=== PATIENT | female | born 1940 | race Caucasian/White ===

== ENCOUNTER 2017-08-18 08:23 | Day surgery (SDC) | payer MEDICARE ==
[~2017-08-18 08:23] MED LIST: Acetaminophen TAB* 325 MG PO PRN; Buffered Lidocaine 0.9% SYRIN* 5 ML/SYR SYRINGE INTRADERM ONE
[2017-08-18] MEDS ORDERED: fentaNYL* 50 MCG/ML 2 ML VIAL (100 MCG VIAL) ONE (10:18)
[2017-08-18] MEDS ORDERED: Midazolam* 1 MG/ML 2 ML VIAL (2 MG) ONE (10:18)
[2017-08-18] MEDS ORDERED: Phenylephr/Ketorolac 1%/0.3% OPH DROP BTL ONE ×2 (11:30→11:39)
[2017-08-18] MEDS ORDERED: Cyclopentolate 1% OPTH.SOL* 2 ML BTL ONE (11:30)
[2017-08-18] MEDS ORDERED: Tropicamide 1% OPTH.SOL* BTL ONE (11:30)
[2017-08-18] MEDS ORDERED: Phenylephrine 2.5% OPTH.SOL* 2 ML BTL ONE (11:30)
[2017-08-18] MEDS ORDERED: Neomycin/Polymy/Dex OPHTH.OIN* 3.5 GM ONE (11:30)
[2017-08-18] MEDS ORDERED: Tetracaine 0.5% OPTH.SOL 4 ML* 1 DROP BTL ONE (11:30)
[2017-08-18] MEDS ORDERED: Ketorolac 0.5% OPHTH (NF) 0.5 % 5 ML BTL ONE (11:30)
[2017-08-18] MEDS ORDERED: Lidocaine 1%* 5 ML VIAL ONE (11:30)
[2017-08-18 12:11] VITALS: BP 107/66
--- NOTE | 2017-08-19 08:15 | OP ---
DATE OF OPERATION: 08/18/17 [facility] DATE OF : 42 SURGEON: Dr. Ash Holland. DRAWER IN JACQUARD LOOM: None. ANESTHESIA: Topical with intravenous sedation. PRE-OP DIAGNOSIS: Cataract, right eye. POST-OP DIAGNOSIS: Cataract, right eye. OPERATIVE PROCEDURE: Phacoemulsification and cataract extraction with posterior chamber intraocular lens implant, right eye. COMPLICATIONS: None. BLOOD LOSS: None. DESCRIPTION OF PROCEDURE: The patient was brought to the operating room and received a small amount of intra-venous sedation. A drop of Tetracaine was placed in her right eye. She was prepped and draped in the usual sterile fashion for ophthalmic surgery and attention was directed to the right eye where a speculum was placed. A paracentesis was created at the 11 o'clock position and 0.1 cc of 1 percent preservative-free Lidocaine was injected into the anterior chamber followed by DisCoVisc. The eye was digitally stabilized while a 2.75 mm keratome was used to create a triplanar clear corneal incision at the 9 o'clock position. A continuous curvilinear capsulorrhexis was created with a cystotome and Utrata forceps. BSS on a cannula was used to hydrodissect the lens from the capsule. Phacoemulsification was performed in a divide-and- conquer technique to create four fragments which were removed. Residual cortical material was removed with irrigation and aspiration. DisCoVisc was used to inflate the capsular bag and an AUOOTO 30.0 diopter lens was folded and inserted into the capsular bag. DisCoVisc was removed using irrigation and aspiration. BSS on a cannula was used to hydrate the corneal stroma and seal the wound. At the end of the case the pupil was round and the lens was centered. The eye was of normal pressure and the wound was water tight. The speculum was removed and topical Maxitrol ointment was placed on the surface of the eye. The eye was closed, patched and shielded and the patient was sent to the recovery room in stable condition with post operative instructions and follow-up appointment given. [id number]/CPS #: [id number] UJAN
== END 2017-08-18 12:18 | disposition home or self-care (01) ==
LOC: OREAST 08:23
PROVIDERS: ATTEND Ophthalmology
DX: H25.11 Age-related nuclear cataract, right eye (principal); K21.9 Gastro-esophageal reflux disease without esophagitis; M19.90 Unspecified osteoarthritis, unspecified site; Z87.39 Personal history of other diseases of the musculoskeletal system and connective tissue
CPT/HCPCS: A9270-GY; C9447; J2250; J3010; V2632

== ENCOUNTER 2019-01-28 12:41 | Inpatient (IN) | payer MEDICARE ==
--- NOTE | 2019-01-28 12:50 | ED ---
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 The patient states she woke up on the floor and does not remember the fall. She reports pain in her upper left arm that is old. She states she took a 2 percocet for this pain yesterday, a medication she took for the first time. She has a Hx of shingles. Medications reviewed, allergies noted. She denies chest pain, and SOB. - History of Current Complaint Stated Complaint: FALL Hx Obtained From: Patient, EMS Mechanism of Injury: Fall Loss of Consciousness: unsure Onset/Duration: Started Minutes Ago - Additional Pertinent History Primary Care Physician: PAZ - Allergy/Home Medications Allergies/Adverse Reactions: Allergies Allergy/AdvReac Type Severity Reaction Status Date / Time No Known Allergies Allergy Verified 08/18/17 09:28 Home Medications: Home Medications Calcium Carbonate/Vitamin D3 [Calcium 500 + Vit D Caplet] 1 each PO DAILY [History Confirmed 01/28/19] Cyclobenzaprine TAB* [Flexeril 10 MG TAB*] 5 mg PO TID PRN 01/28/19 [History Confirmed 01/28/19] Gabapentin CAP(*) [Neurontin 300 CAP(*)] 300 mg PO TID 01/28/19 [History Confirmed 01/28/19] Meloxicam(NF) [Mobic(NF)] 7.5 mg PO BID PRN 01/28/19 [History Confirmed 01/28/19 ] Oxycodone HCl/Acetaminophen [Percocet 7.5-325 mg Tablet] 1 each PO Q6HR PRN 11/08 [History Confirmed 01/28/19] Triamcinolone Acetonide [Trianex] 0.05 % TOPICAL BID 01/28/19 [History Confirmed 01/28/19] predniSONE TAB* [Deltasone TAB*] 50 mg PO DAILY 01/28/19 [History Confirmed 11/08] PMH/Surg Hx/FS Hx/Imm Hx Endocrine/Hematology History: Reports: Hx Anemia - only during Denies: Hx Anticoagulant Therapy Cardiovascular History: Reports: Hx Rheumatic Fever - as a child GI History: Reports: Hx Gastroesophageal Reflux Disease History: Reports: Hx Kidney Stones - 6 yrs ago - passed on own Musculoskeletal History: Reports: Hx Arthritis, Hx Bursitis, Hx Osteoporosis, Other Musculoskeletal History - Lyme disease Sensory History: Reports: Hx Cataracts - right eye, Hx Contacts or Glasses - glasses Denies: Hx Hearing Aid Opthamlomology History: Reports: Hx Cataracts - right eye, Hx Contacts or Glasses - glasses - Cancer History Hx Chemotherapy: No Hx Radiation Therapy: No - Surgical History Surgery Procedure, Year, and Place: APPENDECTOMY Hx Anesthesia Reactions: No - Family History Known Family History: Negative: Cardiac Disease - Social History Alcohol Use: Rare Substance Use Type: Reports: None Smoking Status (MU): Never Smoked Tobacco Review of Systems Negative: Fever Positive: Other - Left arm pain Neurological: Other - Memory Loss All Other Systems Reviewed And Are Negative: Yes Physical Exam - Summary Physical Exam Summary: Constitutional: Well-developed, Well-nourished, Alert, Cooperative Skin: Warm, Dry HENT: Normocephalic; No Racoons eyes; No gary's sign; No abrasion; No contusion; No hemotympanum; No maxilla facial tenderness or instability; Dentition are smooth; No dental trauma; No trismus Eyes: EOM normal, PERRL Neck: Trachea is midline. No stridor; No JVD; No step off; No posterior cervical spine tenderness Cardio: Rhythm regular, rate normal Heart sounds normal; Intact distal pulses. Radial pulses are 2+ and symmetric. Pulmonary/Chest wall: Effort normal; Breath sounds normal; Equal chest rise; No flail segment; No rib tenderness; No sternal tenderness Abd: Soft, Appearance normal. No distension; No tenderness; No palpable pulsatile mass; No Cullens sign; No Wilkes-Turners sign Musculoskeletal: Full ROM and no tenderness at hips, ankles, shoulders, elbows and knees; No joint swelling; No vertebral body tenderness; No paraspinal tenderness; No step off or deformity of the spine; Pelvis is stable to lateral compression and rock Neuro: Alert, Oriented x3, LUE weakness which is at baseline. : No blood at urethral meatus Psych: Mood and affect Normal Triage Information Reviewed: Yes Vital Signs On Initial Exam: Temp Pulse Resp BP Pulse Ox 98.5 F 92 17 93/61 98 01/28/19 12:52 01/28/19 12:52 01/28/19 12:52 01/28/19 12:52 01/28/19 12:52 Vital Signs Reviewed: Yes Procedures - Sedation Patient Received Moderate/Deep Sedation with Procedure: No Diagnostics - Vital Signs Temp Pulse Resp BP Pulse Ox 98.5 F 92 17 93/61 98 01/28/19 12:52 01/28/19 12:52 01/28/19 12:52 01/28/19 12:52 01/28/19 12:52 - Laboratory Result Diagrams: 01/28/19 12:58 01/28/19 12:58 Lab Statement: Any lab studies that have been ordered have been reviewed, and results considered in the medical decision making process. - Radiology CXR Radiology Interpretation Completed By: Radiologist Summary of Radiographic Findings: Linear atelectasis versus pleuroparenchymal scarring of the left lung base. ED Provider has reviewed this report. - CT Brain CT Interpretation Completed By: Radiologist Summary of CT Findings: 1. No evidence for acute intracranial abnormality. 2. Findings suggestive of mild chronic small vessel schema changes. ED Provider has reviewed this report. - EKG 1307 Cardiac Rate: Tachycardia - 117 BPM EKG Rhythm: Sinus Tachycardia Summary of EKG Findings: No STEMI. ED Physician has reviewed and interpreted this report. Re-Evaluation - Re-Evaluation First Eval Re-Evaluation Time: 15:26 Comment: Patient is becoming more tachycardic. Her friend states she is becoming tremolous and started Gabapentin. She has become worse than earlier this week, Adult Trauma Course/Dx - Course Course Of Treatment: Patient is here being found on the ground. Patient cannot remember what happened. Patient has started gabapentin and Percocet this week which is caused her to become tremulous. Patient was overall well-appearing upon arrival with no complaints. Patient negative CT head. Patient had let up for which showed a mild cytosis. Patient was initially tachycardic but had worsening tachycardia here. Patient then had a larger workup performed to evaluate for this. Patient does have a lactate of 2.60 she was given antibiotics empirically. Patient wasn't found to be febrile, given Tylenol, and had blood cultures taken. Patient was admitted to the hospitalist for further management. - Diagnoses Provider Diagnoses: Tachycardia, CECE (acute kidney injury), Dehydration, Medication side effects Discharge ED - Sign-Out/Discharge Documenting (check all that apply): Patient Departure - Admission, per Dr. Beasley - Discharge Plan Condition: Stable Disposition: ADMITTED TO [facility] Referrals: Jessica Ponce MD [Primary Care Provider] - - Billing Disposition and Condition Condition: STABLE Disposition: Admitted to [facility] - Attestation Statements Document Initiated by Max: Yes Documenting Scribe: Bartolo Ayon Provider For Whom Max is Documenting (Include Credential): Rolando Jackson MD Scribe Attestation: IBartolo, scribed for Rolando Jackson MD on 01/28/19 at 1759. Scribe Documentation Reviewed: Yes Provider Attestation: The documentation as recorded by the Bartolo solis accurately reflects the service I personally performed and the decisions made by me, Rolando Jackson MD Status of Scribe Document: Viewed
--- OUTSIDE RECORDS SUMMARY | 2019-01-28 12:59 | XMS REPORT | Continuity of Care Document ---
:1940 External Reference #:[id number] Author Name Melissa Puentes MD (transmitted by agent of provider Aftab Romero) Address [address], [place] [address] Care Team Providers Name Role Phone Jessica Mayen MD - Family Care Team Information Hr Representative Medicine Problems Active Problems Provider Date Cellulitis of left lower limb Melissa Puentes MD Onset: 12/10/2018 Displaced intertrochanteric fracture of left Melissa Puentes MD Onset: 2018 femur, subsequent encounter for closed fracture with routine healing Social History Type Date Description Comments Sex Unknown ETOH Use Denies alcohol use Tobacco Use Start: Unknown Patient has never smoked Smoking Status Reviewed: 12/10/18 Patient has never smoked Exercise Type/Frequency Exercises regularly Allergies, Adverse Reactions, Alerts Description No Known Drug Allergies Medications Active Medications SIG Qnty Indications Ordering Provider Date Keflex take 1 tab by 15caps Melissa Puentes MD 12/08/2018 500mg Capsules mouth 3 times a day x 5 days until finished. Tramadol HCL Take 1 Tablet By Unknown 50mg Mouth Three Times Tablets Daily as Needed For Pain -- Maximum Daily Doseof 3 Per Day Omeprazole Take 1 Capsule By Unknown 20mg Mouth Every Capsules DR Morning Immunizations Description No Information Available Vital Signs Date Vital Result Comment 12/10/2018 10:20am Height 62 inches 5'2" Weight 136.00 lb BP Systolic 118 mmHg BP Diastolic 66 mmHg Respiratory Rate 14 /min Body Temperature 97.3 F Pain Level 3 BMI (Body Mass Index) 24.9 kg/m2 11/19/2018 2:21pm Heart Rate 104 /min BP Systolic 116 mmHg BP Diastolic 78 mmHg Respiratory Rate 18 /min Body Temperature 97.6 F Pain Level 4 Results Description No Information Available Procedures Date Code Description Status 11/06/2018 12014 FX TX Inter/Eri Or Sub Chanteric Femoral FX Completed W/Implant 11/06/2018 42561 FX TX Inter/Eri Or Sub Chanteric Femoral FX Completed W/Implant 08/20/2007 [id number] Bone Mineral Density Test Completed 08/17/2007 488210497 Bone Mineral Density Test Completed 08/24/2002 950760351 Bone Mineral Density Test Completed Medical Devices Description No Information Available Encounters Type Date Location Provider Dx Diagnosis Office Visit 11/12/2018 [facility] Shira Braxton S72.142A Displaced 10:23a [facility] intertrochanteric Hospitalists fracture of left femur, init D62 Acute posthemorrhagic anemia Office Visit 11/10/2018 10:22a [facility] S72.002A Fracture of Assoc,[facility] Kimi Doto, unsp part of Hospitalists DEMOGRAPHER neck of left femur, init I95.9 Hypotension, unspecified D62 Acute posthemorrhagic anemia Office Visit 11/09/2018 10:22a [facility] S72.002A Fracture of Assoc,pc Kimi Doto, unsp part of Hospitalists DEMOGRAPHER neck of left femur, init I95.9 Hypotension, unspecified D62 Acute posthemorrhagic anemia Office Visit 11/08/2018 10:21a [facility] S72.002A Fracture of Assoc,pc Kimi Doto, unsp part of Hospitalists DEMOGRAPHER neck of left femur, init I95.9 Hypotension, unspecified D62 Acute posthemorrhagic anemia Office Visit 11/07/2018 10:20a [facility] S72.002A Fracture of Assoc,pc Kimi Doto, unsp part of Hospitalists DEMOGRAPHER neck of left femur, init D62 Acute posthemorrhagic anemia Office 11/06/2018 [facility] S72.002A Fracture of unsp part Visit 10:20a [facility]oc[facility] Kimi of neck of left Hospitalists Doto, DEMOGRAPHER femur, init Office 11/06/2018 [facility] S72.142A Displaced Visit 7:28a [facility] intertrochanteric [facility] fracture of left femur, init S72.22xA Displaced subtrochanteric fracture of left femur, init W01.0xxA Fall same lev from slip/trip w/o strike against object, init Office Visit 11/05/2018 [facility] Orlando Myers S72.002A Fracture of 10:20a Assoc[facility]pc Monica Arevalo,FACP unsp part of Hospitalists neck of left femur, init Assessments Date Code Description Provider 12/10/2018 S72.142D Displaced intertrochanteric fracture Melissa Puentes MD of left femur, subsequent encounter for closed fracture with routine healing 12/10/2018 L03.116 Cellulitis of left lower limb Melissa Puentes MD 11/19/2018 S72.142D Displaced intertrochanteric fracture Obie Duarte MD of left femur, subsequent encounter for closed fracture with routine healing 11/19/2018 Z47.89 Encounter for other orthopedic Obie Duarte MD aftercare 11/12/2018 S72.142D Displaced intertrochanteric fracture GOMEZ Askew of left femur, subsequent encounter for closed fracture with routine healing 11/12/2018 S72.142A Displaced intertrochanteric fracture Shira Braxton, N.P. of left femur, initial encounter for closed fracture 11/12/2018 D62 Acute posthemorrhagic anemia Shira Braxton N.P. 11/11/2018 S72.142D Displaced intertrochanteric fracture CIELO Nicholas of left femur, subsequent encounter for closed fracture with routine healing 11/10/2018 S72.142D Displaced intertrochanteric fracture CIELO Nicholas of left femur, subsequent encounter for closed fracture with routine healing 11/10/2018 S72.002A Fracture of unspecified part of neck Yumiko Walton NP of left femur, initial encounter for closed fracture 11/10/2018 I95.9 Hypotension, unspecified Yumiko Walton DEMOGRAPHER 11/10/2018 D62 Acute posthemorrhagic anemia Yumiko Walton NP 11/09/2018 S72.002A Fracture of unspecified part of neck Yumiko Walton NP of left femur, initial encounter for closed fracture 11/09/2018 I95.9 Hypotension, unspecified Yumiko Kimi Doto, DEMOGRAPHER 11/09/2018 D62 Acute posthemorrhagic anemia [facility] Doto, DEMOGRAPHER 11/08/2018 S72.142D Displaced intertrochanteric fracture CIELO Chinchilla of left femur, subsequent encounter for closed fracture with routine healing 11/08/2018 S72.002A Fracture of unspecified part of neck Yumiko Kimi Doto, DEMOGRAPHER of left femur, initial encounter for closed fracture 11/08/2018 I95.9 Hypotension, unspecified Yumiko Kimi Doto, DEMOGRAPHER 11/08/2018 D62 [facility]orrhagic [facility] 11/07/2018 S72.002A Fracture of unspecified part of neck Yumiko Kimi Doto, DEMOGRAPHER of left femur, initial encounter for closed fracture 11/07/2018 S72.142A Displaced intertrochanteric fracture Melissa Puentes MD of left femur, initial encounter for closed fracture 11/07/2018 D62 Acute posthemorrhagic anemia Yumiko Kimi Doto, DEMOGRAPHER 11/07/2018 S72.22xA Displaced subtrochanteric fracture of Melissa Puentes MD left femur, initial encounter for closed fracture 11/07/2018 W01.0xxA Fall on same level from slipping, Melissa Puentes MD tripping and stumbling without subsequent striking against object, initial encounter 11/06/2018 S72.002A Fracture of unspecified part of neck Yumiko Kimi Anton, DEMOGRAPHER of left femur, initial encounter for closed fracture 11/06/2018 S72.142A Displaced intertrochanteric fracture CIELO Hernandez of left femur, initial encounter for closed fracture 11/06/2018 S72.142A Displaced intertrochanteric fracture Melissa Puentes MD of left femur, initial encounter for closed fracture 11/06/2018 S72.22xA Displaced subtrochanteric fracture of CIELO Hernandez left femur, initial encounter for closed fracture 11/06/2018 S72.142A Displaced intertrochanteric fracture Melissa Puentes MD of left femur, initial encounter for closed fracture 11/06/2018 W01.0xxA Fall on same level from slipping, CIELO Hernandez tripping and stumbling without subsequent striking against object, initial encounter 11/06/2018 S72.22xA Displaced subtrochanteric fracture of Melissa Puentes MD left femur, initial encounter for closed fracture 11/06/2018 S72.22xA Displaced subtrochanteric fracture of Melissa Puentes MD left femur, initial encounter for closed fracture 11/06/2018 W01.0xxA Fall on same level from slipping, Melissa Puentes MD tripping and stumbling without subsequent striking against object, initial encounter 11/06/2018 W01.0xxA Fall on same level from slipping, Melissa Puentes MD tripping and stumbling without subsequent striking against object, initial encounter 11/05/2018 S72.002A Fracture of unspecified part of neck Orlando Arevalo M.D.,FACP of left femur, initial encounter for closed fracture Plan of Treatment 12/10/2018 - Melissa Puentes, MDS72.142D Displaced intertrochanteric fracture of left femur, subsequent encounter for closed fracture with routine healingFollow up:Follow up: next [id number] Cellulitis of left lower limb Functional Status Description No Information Available Mental Status Description No Information Available Referrals Description No Information Available
--- OUTSIDE RECORDS SUMMARY | 2019-01-28 12:59 | XMS REPORT | Continuity of Care Document ---
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 Medicine Problems Active Problems Provider Date Cellulitis of left lower limb Melissa Puentes MD Onset: 12/10/2018 Displaced intertrochanteric fracture of left Melissa Puentes MD Onset: 2018 femur, subsequent encounter for closed fracture with routine healing Social History Type Date Description Comments Sex Unknown ETOH Use Denies alcohol use Tobacco Use Start: Unknown Patient has never smoked Smoking Status Reviewed: 01/27/19 Patient has never smoked Exercise Type/Frequency Exercises regularly Allergies, Adverse Reactions, Alerts Description No Known Drug Allergies Medications Active Medications SIG Qnty Indications Ordering Provider Date Tramadol HCL Take 1 Tablet By Unknown 50mg Tablets Mouth Three Times Daily as Needed For Pain -- Maximum Daily Doseof 3 Per Day Omeprazole Take 1 Capsule By Unknown 20mg Capsules Mouth Every DR Morning History Medications Keflex take 1 tab by mouth 15caps Melissa Puentes MD 12/08/2018 - 500mg 3 times a day x 5 12/15/2018 Capsules days until finished. Immunizations Description No Information Available Vital Signs Date Vital Result Comment 01/27/2019 9:10am Height 62 inches 5'2" Weight 138.00 lb Heart Rate 62 /min BP Systolic 132 mmHg BP Diastolic 72 mmHg Body Temperature 96.6 F Pain Level 0 BMI (Body Mass Index) 25.2 kg/m2 12/16/2018 8:44am Height 62 inches 5'2" Weight 136.00 lb Heart Rate 88 /min BP Systolic 128 mmHg BP Diastolic 78 mmHg Body Temperature 96.1 F Pain Level 0 BMI (Body Mass Index) 24.9 kg/m2 Results Description No Information Available Procedures Date Code Description Status 11/06/2018 99139 FX TX Inter/Eri Or Sub Chanteric Femoral FX Completed W/Implant 11/06/2018 65276 FX TX Inter/Eri Or Sub Chanteric Femoral FX Completed W/Implant 08/20/2007 [id number] Bone Mineral Density Test Completed 08/17/2007 781153567 Bone Mineral Density Test Completed 08/24/2002 [id number] Bone Mineral Density Test Completed Medical Devices Description No Information Available Encounters Type Date Location Provider Dx Diagnosis Office Visit 11/12/2018 [facility] Shira Braxton, S72.142A Displaced 10:23a letty Ruvalcaba N.P. intertrochanteric Hospitalists fracture of left femur, init D62 Acute posthemorrhagic anemia Office Visit 11/10/2018 10:22a [facility] S72.002A Fracture of Assoc,pc Kimi Doto, unsp part of Hospitalists [employer] PILOT neck of left femur, init I95.9 Hypotension, unspecified D62 Acute posthemorrhagic anemia Office Visit 11/09/2018 10:22a [facility] S72.002A Fracture of Assoc,pc Kimi Doto, unsp part of Hospitalists [employer] neck of left femur, init I95.9 Hypotension, unspecified D62 Acute posthemorrhagic anemia Office Visit 11/08/2018 10:21a [facility] S72.002A Fracture of Assoc,pc Kimi Doto, unsp part of Hospitalists [employer] PIL[employer] neck of left femur, init I95.9 Hypotension, unspecified D62 Acute posthemorrhagic anemia Office Visit 11/07/2018 10:20a [facility] S72.002A Fracture of Assoc,pc Kimi Doto, unsp part of Hospitalists [employer] P[employer] neck of left femur, init D62 Acute posthemorrhagic anemia Office 11/06/2018 [facility] S72.002A Fracture of unsp part Visit 10:20a Assoc,pc Kimi of neck of left Hospitalists Anton, CHAR[employer] P[employer] femur, init Office 11/06/2018 [place] Melissa S72.142A Displaced Visit 7:28a [facility] intertrochanteric [place] fracture of left femur, init S72.22xA Displaced subtrochanteric fracture of left femur, init W01.0xxA Fall same lev from slip/trip w/o strike against object, init Office Visit 11/05/2018 [facility] [place] S72.002A Fracture of 10:20a Assoc,letty Arevalo M.D.,FACP unsp part of Hospitalists neck of left femur, init Assessments Date Code Description Provider 01/27/2019 S72.142D Displaced intertrochanteric fracture Melissa Puentes MD of left femur, subsequent encounter for closed fracture with routine healing 12/16/2018 S72.142D Displaced intertrochanteric fracture Melissa Puentes MD of left femur, subsequent encounter for closed fracture with routine healing 12/10/2018 S72.142D Displaced intertrochanteric fracture Melissa Puentes MD of left femur, subsequent encounter for closed fracture with routine healing 12/10/2018 L03.116 Cellulitis of left lower limb Melissa Puentes MD 11/19/2018 S72.142D Displaced intertrochanteric fracture Obie Duarte MD of left femur, subsequent encounter for closed fracture with routine healing 11/19/2018 Z47.89 Encounter for other orthopedic Obie Duarte MD aftercare 11/12/2018 S72.142D Displaced intertrochanteric fracture Negin Pruitt RPA-C of left femur, subsequent encounter for closed fracture with routine healing 11/12/2018 S72.142A Displaced intertrochanteric fracture Shira Braxton, N.P. of left femur, initial encounter for closed fracture 11/12/2018 D62 Acute posthemorrhagic anemia Shira Braxton, N.P. 11/11/2018 S72.142D Displaced intertrochanteric fracture CIELO Nicholas of left femur, subsequent encounter for closed fracture with routine healing 11/10/2018 S72.142D Displaced intertrochanteric fracture CIELO Nicholas of left femur, subsequent encounter for closed fracture with routine healing 11/10/2018 S72.002A Fracture of unspecified part of neck Yumiko Kimi Doto, CHAR[employer] P[employer]OT of left femur, initial encounter for closed fracture 11/10/2018 I95.9 Hypotension, unspecified Yumiko Kimi Doto, [employer]OT 11/10/2018 D62 [facility] 11/09/2018 S72.002A Fracture of unspecified part of neck Yumiko Kimi Doto, CHAR[employer] P[employer]OT of left femur, initial encounter for closed fracture 11/09/2018 I95.9 Hypotension, unspecified Yumiko Kimi Doto, [employer] P[employer]OT 11/09/2018 D62 Acute [facility]hemorrhagic [facility] 11/08/2018 S72.142D Displaced intertrochanteric fracture CIELO Chinchilla of left femur, subsequent encounter for closed fracture with routine healing 11/08/2018 S72.002A Fracture of unspecified part of neck Yumiko [place] Doto, CHARTER PILOT of left femur, initial encounter for closed fracture 11/08/2018 I95.9 Hypotension, unspecified Yumiko Kimi Doto, CHAR[employer] P[employer]OT 11/08/2018 D62 Acute posthemorrhagic anemia [facility] Doto, CHAR[employer] P[employer]OT 11/07/2018 S72.002A Fracture of unspecified part of neck Yumiko [place] Doto, CHAR[employer] PILOT of left femur, initial encounter for closed fracture 11/07/2018 S72.142A Displaced intertrochanteric fracture Melissa Puentes MD of left femur, initial encounter for closed fracture 11/07/2018 D62 Acute posthemorrhagic anemia [facility] Doto, [employer] 11/07/2018 S72.22xA Displaced subtrochanteric fracture of Melissa Puentes MD left femur, initial encounter for closed fracture 11/07/2018 W01.0xxA Fall on same level from slipping, Melissa Puentes MD tripping and stumbling without subsequent striking against object, initial encounter 11/06/2018 S72.002A Fracture of unspecified part of neck Yumiko Bolden Doto, CHAR[employer] PILOT of left femur, initial encounter for closed [...] encounter for closed fracture Plan of Treatment 01/27/2019 - DAKOTAH Gavin72.142D Displaced intertrochanteric fracture of left femur, subsequent encounter for closed fracture with routine healingFollow up:Follow up: as needed Functional Status Description No Information Available Mental Status Description No Information Available Referrals Description No Information Available
--- OUTSIDE RECORDS SUMMARY | 2019-01-28 12:59 | XMS REPORT | Continuity of Care Document ---
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 Medicine Problems Active Problems Provider Date Cellulitis of left lower limb Melissa Puentes MD Onset: 12/10/2018 Displaced intertrochanteric fracture of left Melissa Puentes MD Onset: 2018 femur, subsequent encounter for closed fracture with routine healing Social History Type Date Description Comments Sex Unknown ETOH Use Denies alcohol use Tobacco Use Start: Unknown Patient has never smoked Smoking Status Reviewed: 12/16/18 Patient has never smoked Exercise Type/Frequency Exercises [...] Available Vital Signs Date Vital Result Comment 12/16/2018 8:44am Height 62 inches 5'2" Weight 136.00 lb Heart Rate 88 /min BP Systolic 128 mmHg BP Diastolic 78 mmHg Body Temperature 96.1 F Pain Level 0 BMI (Body Mass Index) 24.9 kg/m2 12/10/2018 10:20am Height 62 inches 5'2" Weight 136.00 lb BP Systolic 118 mmHg BP Diastolic 66 mmHg Respiratory Rate 14 /min Body Temperature 97.3 F Pain Level 3 BMI (Body Mass Index) 24.9 kg/m2 Results Description No Information Available Procedures Date Code Description Status 11/06/2018 05981 FX TX Inter/Eri Or Sub Chanteric Femoral FX Completed W/Implant 11/06/2018 02782 FX TX Inter/Eri Or Sub Chanteric Femoral FX Completed W/Implant 08/20/2007 [id number] Bone Mineral Density Test Completed 08/17/2007 [id number] Bone Mineral Density Test Completed 08/24/2002 059956267 Bone Mineral Density Test Completed Medical Devices Description No Information Available Encounters Type Date Location Provider Dx Diagnosis Office Visit 11/12/2018 [facility] Shira Braxton, S72.142A Displaced 10:23a Assoc[facility] N[facility]P. intertrochanteric Hospitalists fracture of left femur, init D62 Acute posthemorrhagic anemia Office Visit 11/10/2018 10:22a [facility] S72.002A Fracture of Assoc,pc Kimi Doto, unsp part of Hospitalists UTILITY LOCATOR neck of left femur, init I95.9 Hypotension, unspecified D62 Acute posthemorrhagic anemia Office Visit 11/09/2018 10:22a [facility] S72.002A Fracture of Assoc,pc Kimi Doto, unsp part of Hospitalists UTILITY LOCATOR neck of left femur, init I95.9 Hypotension, unspecified D62 Acute posthemorrhagic anemia Office Visit 11/08/2018 10:21a [facility] S72.002A Fracture of Assoc,pc Kimi Doto, unsp part of Hospitalists UTILITY LOCATOR neck of left femur, init I95.9 Hypotension, unspecified D62 Acute posthemorrhagic anemia Office Visit 11/07/2018 10:20a [facility] S72.002A Fracture of Assoc,pc Kimi Doto, unsp part of Hospitalists UTILITY LOCATOR neck of left femur, init D62 Acute posthemorrhagic anemia Office 11/06/2018 [facility] S72.002A Fracture of unsp part Visit 10:20a Assoc,pc Kimi of neck of left Hospitalists Anton, UTILITY LOCATOR femur, init Office 11/06/2018 [facility] S72.142A Displaced Visit 7:28a [facility] intertrochanteric [facility] fracture of left femur, init S72.22xA Displaced subtrochanteric fracture of left femur, init W01.0xxA Fall same lev from slip/trip w/o strike against object, init Office Visit 11/05/2018 [facility] [place]. S72.002A Fracture of 10:20a Assoc,letty Arevalo M.D.,FACP unsp part of Hospitalists neck of left femur, init Assessments Date Code Description Provider 12/16/2018 S72.142D Displaced intertrochanteric fracture Melissa Puentes [...] fracture 11/10/2018 I95.9 Hypotension, unspecified Yumiko Walton UTILITY LOCATOR 11/10/2018 D62 Acute posthemorrhagic anemia Yumiko [place] Doto, UTILITY LOCATOR 11/09/2018 S72.002A Fracture of unspecified part of neck Yumiko Bolden Doto, UTILITY LOCATOR of left femur, initial encounter for closed fracture 11/09/2018 I95.9 Hypotension, unspecified Yumiko Bolden Doto, UTILITY LOCATOR 11/09/2018 D62 Acute posthemorrhagic anemia Yumiko Kimi Doto, UTILITY LOCATOR 11/08/2018 S72.142D Displaced intertrochanteric fracture CIELO Chinchilla of left femur, subsequent encounter for closed fracture with routine healing 11/08/2018 S72.002A Fracture of unspecified part of neck Yumiko Bolden Doto, UTILITY LOCATOR of left femur, initial encounter for closed fracture 11/08/2018 I95.9 Hypotension, unspecified Yumiko Bolden Doto, UTILITY LOCATOR 11/08/2018 D62 Acute posthemorrhagic anemia Yumiko Bolden Doto, UTILITY LOCATOR 11/07/2018 S72.002A Fracture of unspecified part of neck Yumiko Bolden Doto, UTILITY LOCATOR of left femur, initial encounter for closed fracture 11/07/2018 S72.142A Displaced intertrochanteric fracture Melissa Puentes MD of left femur, initial encounter for closed fracture 11/07/2018 D62 Acute posthemorrhagic anemia Yumiko Bolden Doto, UTILITY LOCATOR 11/07/2018 S72.22xA Displaced subtrochanteric fracture of Melissa Puentes MD left femur, initial encounter for closed fracture 11/07/2018 W01.0xxA Fall on same level from slipping, Melissa Puentes MD tripping and stumbling without subsequent striking against object, initial encounter 11/06/2018 S72.002A Fracture of unspecified part of neck Yumikostephanie [place] Walton, UTILITY LOCATOR of left femur, initial encounter for closed [...] encounter for closed fracture Plan of Treatment Future Appointment(s):01/27/2019 9:15 am - [facility]12/16/2018 - Melissa Puentes, MDS72.142D Displaced intertrochanteric fracture of left femur, subsequent encounter for closed fracture with routine healingFollow up:Follow up: 6 weeks Functional Status Description No Information Available Mental Status Description No Information Available Referrals Description No Information Available
[2019-01-28 13:13] LABS: Hematocrit 38 % (35-47); Hemoglobin 12.5 g/dL (12.0-16.0); Mean Corpuscular HGB Conc 33 g/dL (31-36); Mean Corpuscular Hemoglobin 28 pg (27-31); Mean Corpuscular Volume 86 fL (80-97); Mean Platelet Volume 8.2 fL (7.4-10.4); Platelet Count 229 10^3/uL (150-450); Red Blood Count 4.42 10^6 /uL (3.70-4.87); Red Cell Distribution Width 16 % (10-15); White Blood Count 13.4 10^3/uL (3.5-10.8)
[2019-01-28 13:16] LABS: ABS Lymphocytes 0.4 10^3/ul (1.0-4.8); ABS Monocytes 0.9 10^3/ul (0-0.8); ABS Neutrophils 12.1 10^3/ul (1.5-7.7); Lymphocyte % 3.3 %; Nucleated Red Blood Cells % 0.1
[2019-01-28 13:32] LABS: Albumin 3.5 g/dL (3.2-5.2); BUN/Creatinine Ratio 25.4 (8-20); Calcium 9.3 mg/dL (8.6-10.3); EGFR African American 33.7 (>60); EGFR Non-African American 27.8 (>60); Globulin 3.6 g/dL (2-4); Potassium 4.4 mmol/L (3.5-5.0); Total Bilirubin 0.8 mg/dL (0.2-1.0); Total Protein 7.1 g/dL (6.4-8.9)
[2019-01-28 13:33] LABS: Troponin I 0.01 ng/mL (<0.04)
[2019-01-28] MEDS ORDERED: NS 0.9% 1000 ML** 1,000 ML IV ONE ×3 (15:20→23:32)
[2019-01-28 16:16] LABS: Urine Appearance Cloudy; Urine Bacteria Absent (Absent); Urine Bilirubin Negative (Negative); Urine Blood 2+ (Negative); Urine Color Amber; Urine Glucose Negative (Negative); Urine Ketones Negative (Negative); Urine Nitrite Negative (Negative); Urine Protein 2+(100 mg/dL) (Negative); Urine Red Blood Cell 1+(3-5/hpf) (Absent); Urine Squamous Epithelial Cell Present (Absent); Urine Urobilinogen Negative (Negative); Urine White Blood Cell 3+(>20/hpf) (Absent)
[2019-01-28] MEDS ORDERED: cefTRIAXone(*) 1 GM in NS 0.9% 50 ML* 50 ML IVPB ONE (16:32)
[2019-01-28] MEDS ORDERED: Acetaminophen TAB* 325 MG PO ONE (17:13)
[2019-01-28 17:26] LABS: TSH (Thyroid Stimulating Horm) 0.83 mcIU/mL (0.34-5.60)
--- NOTE | 2019-01-28 19:05 | ED ---
ED Procedures - Lumbar Puncture Posterior Position: Lateral Decubitus Aseptic Technique: Local Anesthesia, Lidocaine Anesthesia Used: 1.0% Lido Spinal Needle Used: 20 Gauge Lumbar Puncture Note: Multiple attempts are made with patient lying on her side and in a sitting position. Patient has very calcified spine. At multiple points, felt like I was in the proper space but no back. In the end, this was an unsuccessful LP attempt.
[2019-01-28] MEDS ORDERED: NS 0.9% 1000 ML** 1,000 ML IV SCH (19:15)
[2019-01-28] MEDS ORDERED: Vancomycin(*) 1,000 MG in NS 0.9% 250 ML* 250 ML IVPB ONE (19:18)
[2019-01-28] MEDS ORDERED: Vancomycin per Pharmacy* NOTE FOLLOW UP SCH (20:00)
--- NOTE | 2019-01-28 21:01 | HP ---
HISTORY AND PHYSICAL: ADDENDUM: CT of the brain showed no evidence of acute intracranial abnormalities, findings suggestive of chronic small vessel ischemic changes. She had a chest x-ray. Radiologist's impression: Linear atelectasis versus pleural parenchymal scarring in the left lung base. She had an electrocardiogram which showed sinus tachycardia, rate of 117. She does have elevated T waves in V2 and V3. She had a shoulder x-ray, report is currently pending. ASSESSMENT AND PLAN: Ms. Ambrosio is a 78-year-old female with a past medical history significant for acid reflux, osteoarthritis, osteoporosis, history of Lyme disease since 2012, considered chronic, who presented to the emergency room after a syncopal episode at home. She was found to have severe sepsis with suspected underlying urinary tract infection. She will be admitted to ICU with: 1. Severe sepsis. I suspect her severe sepsis is related to underlying urinary tract infection. The patient was given ceftriaxone in the emergency room. I will also add vancomycin. Blood cultures have been ordered and are currently pending. Urine culture is currently pending. We will monitor her on telemetry. She did receive 2000 cc of normal saline in the emergency room for her fluid bolusing. She does have an elevated lactic acid of 2.6. I will repeat her lactic acid in 4 hours. The patient did have a fever of 104.3. I am going to get a CT of the abdomen and pelvis to rule out any renal obstruction as the patient does have acute kidney injury with a creatinine of 1.77. The patient denies any CVA tenderness with palpation. She does have mild suprapubic tenderness to palpation of the abdomen. Within the differential , could possibly be meningitis the patient recently had shingles to right posterior back. The sites are scabbed without surrounding erythema. When her fever peaked, the patient did complain of some mild neck pain and appeared stiff with when moving in the bed. A lumbar puncture was attempted and not successful. Post lumber puncture the patient fever did improve and the patient is now alert and oriented conversing. She denies neck pain. She is able to touch her chin to her chest. She has no nuchal rigidity. At this time, bacterial meningitis is low in the differential as the patient has no nuchal rigidity, no headache, and currently has not neck pain. Also within the differential is septic right hip versus left shoulder patient does have a recent right hip fracture repair in 10/2018 site is without redness or swelling , no pain with movement so again i believe this would be low on the differential. I am getting a CT of abdomen and pelvis to evaluate for underlying pathology; which will show the hip and this is currently pending. 2. Acute kidney injury. The patient does have an elevated BUN and creatinine above her baseline. She did receive 2 L of normal saline in the emergency room. I will repeat a BMP in the a.m. I suspect her acute kidney injury could be related to dehydration versus underlying urinary tract infection and possible pyelonephritis. We will continue the treatment with ceftriaxone and vancomycin. 3. Syncope. The patient did have a syncopal episode where she was found on the floor. I suspect this is related to her underlying infection and sepsis and possibly the combine use of Percocet, Flexeril and gabapentin. We will monitor her on telemetry to rule out any cardiac arrhythmias as a source of her syncope. 4. FEN. She can have a regular diet. 5. Code status. She is a DNR/DNI. MOLST form has been completed and placed on the chart. 6. DVT prophylaxis. I will place her on SCDs as heparin will be contraindicated at this time as the patient just recently had a lumbar puncture. TIME SPENT: Time spent on this admission was 90 minutes, greater than half that time was spent at the bedside reviewing events leading thus far to her hospitalization, performing physical exam, and reviewing my plan of care. I have discussed this with my attending, Dr. Kevin Beasley; he is in agreement with my plan. CLAUDINE RAMIREZ, PROFESSOR OF VIOLIN [id number]/[facility] #: [id number] JUAN
[2019-01-28] MEDS: Acetaminophen TAB* 325 MG PO PRN (21:12)
--- NOTE | 2019-01-28 21:29 | HP ---
CC: Dr. Jessica Mayen * HISTORY AND PHYSICAL: DATE OF ADMISSION: 01/28/19 PRIMARY CARE PROVIDER: Dr. Jessica Mayen ATTENDING PHYSICIAN WHILE IN THE HOSPITAL: Dr. Kevin Beasley * (dictated by Lala Jay NP). CHIEF COMPLAINT: 1. Syncope. 2. Fever. 3. Suprapubic abdominal pain. 4. Back pain. HISTORY OF PRESENT ILLNESS: Ms. Ambrosio is a 78-year-old female with a past medical history significant for GERD, osteoarthritis, osteoporosis and history of Lyme's disease since 2012 that is chronic, who presented to the emergency room with a complaint of syncopal episode. The patient was slightly confused at the time of evaluation. Per sewer bricklayer, friends, the found the patient lying on the floor. She was awake when the found her. It was reported that the patient recently started taking Percocet and gabapentin on Thursday due to pain from shingles, she was diagnosed with shingles on . She completed 5-day course of acyclovir 800 mg, but continued to have pain , so she was started on gabapentin, cyclobenzaprine, and Percocet to assist with the pain in her back from the shingles. The patient reports that she does not remember falling or how she got on the floor. She does not remember the event at all. She does report fevers. Denies any unintended weight loss, chest pain or edema, cough, hemoptysis, shortness breath. No nausea, vomiting, diarrhea, or abdominal pain, hematuria, or dysuria. She does complain of burning pain after urinating. Denies any weakness or sensory loss, visual complaints, dysphagia, myalgias. She does complains of left shoulder pain worse with movement and palpation. She does report shingles rash noted to her right upper back that is scabbed. She denies any psychosis or anxiety. While in the emergency room the patient had routine lab work drawn. She was found to have a leukocytosis with white count of 13.4, she was found to have a fever of 104.3. She is tachycardic with a heart rate of 130 and blood pressure was soft with a blood pressure of 92/61 and elevated lactic acid of 2.6. Due to these findings the patient is meeting severe sepsis criteria, Hospital Medicine was asked to see and evaluate her for admission. PAST MEDICAL HISTORY: Significant for GERD, osteoarthritis, osteoporosis, and history of Lyme's disease since 2012, now chronic. Intertrochanteric fracture of the left hip status post left hip IMN in October 2018. She also had acute blood loss anemia and required 3 units of blood after surgery. PAST SURGICAL HISTORY: 1. Right hip intertrochanteric fracture repair. 2. Appendectomy. 3. Cataracts. HOME MEDICATIONS: Include: 1. Percocet 7.5/325 1 tablet every 6 hours as needed. 2. Gabapentin 300 mg p.o. t.i.d. 3. Cyclobenzaprine 5 mg t.i.d. p.r.n. 4. Meloxicam 7.5 mg p.o. b.i.d. p.r.n. 5. Vitamin D3 one tablet p.o. daily. 6. Triamcinolone 0.05 topically b.i.d. 7. Omeprazole 20 mg p.o. q.a.m. ALLERGIES: No known drug allergies. FAMILY HISTORY: Father, daughter, and son all with diabetes. No reported history of coronary artery disease or cancer within the family. SOCIAL HISTORY: The patient worked at [employer] and [employer] in the past. She is . She has 3 children. 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 She denies any smoking, alcohol, or illicit drug use. Surrogate decision maker in the event she is unable to make her own decisions is her . She wishes to be a DNR/DNI. REVIEW OF SYSTEMS: A 14 point review of systems was completed, all pertinent positives are mentioned in the HPI. PHYSICAL EXAMINATION GENERAL: At this time, Ms. Ambrosio is alert. She does have mumbling when speaking. She is hot to the touch. Her cheeks are flushed. She does not appear to be in any acute respiratory distress. VITAL SIGNS: Temperature is 104.3, heart rate 131, respiration are 22, O2 saturation 96%, blood pressure 96/55. HEENT: Head is atraumatic, normocephalic. Eyes: EOMs are intact. Sclera anicteric and not pale. Oral mucosa appeared to be moist. NECK: Supple. There is no C-spine tenderness. LUNGS: Clear to auscultation bilaterally, they are diminished in the bases. ABDOMEN: Soft. She does have suprapubic tenderness. Bowel sounds are present x4. BACK: She does have healing scabbed areas noted to her right posterior back without surrounding erythema. EXTREMITIES: She is able to move her lower extremities. There is no clubbing or cyanosis. She does have minimal movement of her left upper extremity due to pain. NEUROLOGIC: She is awake. She is drowsy, resting on the stretcher in the emergency room. She has no gross focal neuro deficits. SKIN: Intact. DIAGNOSTIC STUDIES/LAB DATA: WBC are 13.4, RBCs 4.42, hemoglobin 12.5, hematocrit 38, platelet count 229. Absolute neutrophils is 12.1, immature gran is 15, band neutrophils are 15.0. Sodium 131, potassium 4.4, chloride 97, carbon dioxide was 24, anion gap is 10, BUN was 45, creatinine 1.77, glucose is 105, lactic acid 2.6. ASTs were 29, ALTs were 20, alkaline phosphatase is 65. TSH is 0.83. Urine was lesvia cloudy, pH was 6.0 and specific gravity 1.020. Urine protein was 2+, ketones were negative, blood was 2+. Nitrites, bilirubin and urobilinogen were all negative. Leukocyte esterase is 3+, wbc's were 3+, rbc's were 1+, squamous epithelial cells were present. Bacteria was absent. CT of the brain showed no evidence of acute intracranial abnormalities, findings suggestive of chronic small vessel ischemic changes. She had a chest x-ray. Radiologist's impression: Linear atelectasis versus pleural parenchymal scarring in the left lung base. She had an electrocardiogram which showed sinus tachycardia, rate of 117. She does have elevated T waves in V2 and V3. She had a shoulder x-ray, report is currently pending. ASSESSMENT AND PLAN: Ms. Ambrosio is a 78-year-old female with a past medical history significant for acid reflux, osteoarthritis, osteoporosis, history of Lyme disease since 2012, considered chronic, who presented to the emergency room after a syncopal episode at home. She was found to have severe sepsis with suspected underlying urinary tract infection. She will be admitted to ICU with: 1. Severe sepsis. I suspect her severe sepsis is related to underlying urinary tract infection. The patient was given ceftriaxone in the emergency room. I will also add vancomycin. Blood cultures have been ordered and are currently pending. Urine culture is currently pending. We will monitor her on telemetry. She did receive 2000 cc of normal saline in the emergency room for her fluid bolusing. She does have an elevated lactic acid of 2.6. I will repeat her lactic acid in 4 hours. The patient did have a fever of 104.3. I am going to get a CT of the abdomen and pelvis to rule out any renal obstruction as the patient does have acute kidney injury with a creatinine of 1.77. The patient denies any CVA tenderness with palpation. She does have mild suprapubic tenderness to palpation of the abdomen. Within the differential , could possibly be meningitis the patient recently had shingles to right posterior back. The sites are scabbed without surrounding erythema. When her fever peaked, the patient did complain of some mild neck pain and appeared stiff with when moving in the bed. A lumbar puncture was attempted and not successful. Post lumber puncture the patient fever did improve and the patient is now alert and oriented conversing. She denies neck pain. She is able to touch her chin to her chest. She has no nuchal rigidity. At this time, bacterial meningitis is low in the differential as the patient has no nuchal rigidity, no headache, and currently has not neck pain. Also within the differential is septic right hip versus left shoulder patient does have a recent right hip fracture repair in 10/2018 right hip site is without redness or swelling , no pain with movement so again i believe this would be low on the differential. I am getting a CT of abdomen and pelvis to evaluate for underlying pathology; which will show the hip and this is currently pending. She does have a significant amount of pain in her left shoulder when moving her left arm, so the possibility of infection in her left shoulder, but the shoulder is not hot and has no redness. I am getting left shoulder x ray do to the patients fall to rule out acute fracture or dislocation this is pending . Should the patient have continued pain could consider further work up to rule out joint infection. 2. Acute kidney injury. The patient does have an elevated BUN and creatinine above her baseline. She did receive 2 L of normal saline in the emergency room. I will repeat a BMP in the a.m. I suspect her acute kidney injury could be related to dehydration versus underlying urinary tract infection and possible pyelonephritis. We will continue the treatment with ceftriaxone and vancomycin. 3. Syncope. The patient did have a syncopal episode where she was found on the floor. I suspect this is related to her underlying infection and sepsis and possibly the combine use of Percocet, Flexeril and gabapentin. We will monitor her on telemetry to rule out any cardiac arrhythmias as a source of her syncope. 4. FEN. She can have a regular diet. 5. Code status. She is a DNR/DNI. MOLST form has been completed and placed on the chart. 6. DVT prophylaxis. I will place her on SCDs as heparin will be contraindicated at this time as the patient just recently had a lumbar puncture. TIME SPENT: Time spent on this admission was 90 minutes, greater than half that time was spent at the bedside reviewing events leading thus far to her hospitalization, performing physical exam, and reviewing my plan of care. I have discussed this with my attending, Dr. Kevin Beasley; he is in agreement with my plan. LALA JAY NP [id number]/[facility] #: [id number]/[facility] #: [id number] JUAN
--- NOTE | 2019-01-28 23:41 | PN ---
Sepsis Event Evaluation Date of Evaluation: 01/28/19 Time of Evaluation: 20:10 Current Stage of Sepsis: Severe Sepsis Vital Signs - Last 12 Hours: Vital Signs - 12 hr Temp Pulse Resp BP Pulse Ox 01/28/19 21:54 99.1 F 113 17 100/62 93 01/28/19 21:50 98.3 F 107 26 104/64 96 01/28/19 19:00 121 22 96 01/28/19 18:33 103.3 F 01/28/19 18:00 127 19 89 01/28/19 17:21 104.3 F 01/28/19 17:00 130 32 92 01/28/19 16:00 136 26 95 01/28/19 15:21 137 17 115/59 83 01/28/19 15:00 129 23 100 01/28/19 14:21 120 26 96/55 97 01/28/19 14:00 118 22 95 01/28/19 13:51 19 92/61 01/28/19 13:21 109/63 01/28/19 13:00 116 82 01/28/19 12:52 98.5 F 92 17 93/61 98 Lactic Acid: 01/28/19 15:59 Lactic Acid 2.6 H* - Cardiopulmonary Exam Capillary Refill: Immediate Respiratory: Symmetrical Chest Expansion and Respiratory Effort, Clear to Auscultation Cardiovascular: NL Sounds; No Murmurs; No JVD, No Edema - Peripheral Pulse Exam Radial Pulses: Bilateral Normal Pedal Pulses: Bilateral Normal Posterior Tibial Pulse: Bilateral Normal - Skin Exam Skin Exam: Normal Turgor, Flushed - [place] Coma Scale Best Eye Response: 4 - Spontaneous Best Motor Response: 6 - Obeys Commands Best Verbal Response: 5 - Oriented Coma Scale Total: 15 Assess/Plan/Problems-Billing Assessment: - Patient Problems (1) Severe sepsis Current Visit: Yes Status: Acute Code(s): A41.9 - SEPSIS, UNSPECIFIED ORGANISM; R65.20 - SEVERE SEPSIS WITHOUT SEPTIC SHOCK SNOMED Code(s): 11109544 Comment: suspect this is related to UTI continue ceftriaxine and vancomycin continue IVF at 75 cc/hr CT pending URine/ blood cultures pending repeat lactic acid pending fever is improving mentation is improving
[2019-01-29] MEDS ORDERED: traMADol TAB* 50 MG PO PRN (01:11)
[2019-01-29 05:10] LABS: ABS Lymphocytes 0.3 10^3/ul (1.0-4.8); ABS Monocytes 0.8 10^3/ul (0-0.8); ABS Neutrophils 10.8 10^3/ul (1.5-7.7); Eosinophil % 0.1 %; Hematocrit 29 % (35-47); Hemoglobin 9.5 g/dL (12.0-16.0); Lymphocyte % 2.6 %; Mean Corpuscular HGB Conc 33 g/dL (31-36); Mean Corpuscular Hemoglobin 28 pg (27-31); Mean Corpuscular Volume 87 fL (80-97); Platelet Count 147 10^3/uL (150-450); Red Blood Count 3.37 10^6 /uL (3.70-4.87); Red Cell Distribution Width 17 % (10-15); White Blood Count 11.9 10^3/uL (3.5-10.8)
[2019-01-29 05:17] LABS: INR 1.25 (0.82-1.09)
[2019-01-29 05:34] LABS: BUN/Creatinine Ratio 31.6 (8-20); Calcium 6.6 mg/dL (8.6-10.3); Potassium 3.2 mmol/L (3.5-5.0)
[2019-01-29] MEDS ORDERED: Potassium Chlor TAB* 20 MEQ TAB.ER PO ONE (06:15)
[2019-01-29 06:20] LABS: Magnesium 1.5 mg/dL (1.9-2.7)
[2019-01-29] MEDS: Acetaminophen TAB* 325 MG PO PRN ×2 (06:32→10:24)
[2019-01-29 07:31] LABS: Albumin 2.4 g/dL (3.2-5.2)
[2019-01-29 07:37] LABS: Phosphorus 3.2 mg/dL (2.5-5.0)
[2019-01-29] MEDS: Pantoprazole TAB * 40 MG TAB PO SCH (07:55)
[2019-01-29] MEDS ORDERED: Magnesium Sulfate 2 GM IV* 2 GM/50 ML BAG IVPB ONE (09:52)
[2019-01-29] MEDS ORDERED: oxyCODONE TAB* 5 MG TAB PO ONE (10:17)
[2019-01-29] MEDS ORDERED: Magnesium Hydroxide LIQ* 30 ML UDC PO PRN (10:17)
[2019-01-29] MEDS: traMADol TAB* 50 MG PO PRN ×2 (10:24→20:44)
[2019-01-29 11:24] LABS: Hematocrit 33 % (35-47); Mean Corpuscular HGB Conc 33 g/dL (31-36); Mean Corpuscular Hemoglobin 29 pg (27-31); Mean Corpuscular Volume 85 fL (80-97); Mean Platelet Volume 8.2 fL (7.4-10.4); Platelet Count 169 10^3/uL (150-450); Red Blood Count 3.85 10^6 /uL (3.70-4.87); Red Cell Distribution Width 16 % (10-15); White Blood Count 12.7 10^3/uL (3.5-10.8)
[2019-01-29 11:35] LABS: BUN/Creatinine Ratio 31.7 (8-20); Calcium 8.4 mg/dL (8.6-10.3); EGFR African American 64.3 (>60); EGFR Non-African American 53.1 (>60); Potassium 4.2 mmol/L (3.5-5.0)
[2019-01-29] MEDS ORDERED: Vancomycin(*) 750 MG in NS 0.9% 250 ML* 250 ML IVPB SCH (14:00)
--- NOTE | 2019-01-29 15:22 | PN ---
Subjective Date of Service: 01/29/19 Interval History: Only complaint today is severe L shoulder pain. Patient denies recent fevers, chills, flank pain, dysuria, urinary frequency, n/v/c/d, cough, SOB, neck pain/ stiffness, headache, or new rash. Has healing shingles rash on back with causes some pain. She is unsure if her left shoulder hurt before her fall, and she doesn't remember if she fell on her L shoulder or if she used that arm to break her fall. Objective Active Medications: Acetaminophen (Tylenol Tab*) 975 mg PO Q8H PRN PRN Reason: MILD PAIN or TEMP > 100.4 Last Admin: 01/29/19 10:24 Dose: 975 mg Famotidine (Pepcid Tab*) 20 mg PO DAILY PRN PRN Reason: HEARTBURN Gabapentin (Neurontin Cap(*)) 300 mg PO DAILY [facility] Gabapentin (Neurontin Cap(*)) 600 mg PO BEDTIME [facility] Ceftriaxone Sodium 1 gm/ (Sodium Chloride) 50 mls @ 100 mls/hr IVPB Q24H [facility] Vancomycin HCl 750 mg/ Sodium (Chloride) 250 mls @ 166.667 mls/hr IVPB Q12H [facility] Last Admin: 01/29/19 14:08 Dose: 166.667 mls/hr Magnesium Hydroxide (Milk Of Magncullen Liq*) 30 ml PO Q6H PRN PRN Reason: CONSTIPATION Pantoprazole Sodium (Protonix Tab*) 40 mg PO QAM [facility] Last Admin: 01/29/19 07:55 Dose: 40 mg Pharmacy Consult (Vancomycin Per Pharmacy*) 1 note FOLLOW UP .VANC PER PHARMACY [facility]; Protocol Pharmacy Profile Note (Vancomycin Trough Check) 1 note FOLLOW UP 1330 ONE Stop: 01/30/19 13:31 Senna (Senokot 8.6 Mg Tab*) 1 tab PO BEDTIME PRN PRN Reason: if no BM during day Tramadol HCl (Ultram*) 50 mg PO Q8H PRN PRN Reason: Pain - Moderate to Severe Last Admin: 01/29/19 10:24 Dose: 50 mg Vital Signs - 8 hr 01/29/19 01/29/19 01/29/19 07:30 08:00 08:01 Temperature 99.8 F Pulse Rate 99 98 Respiratory 16 25 Rate Blood Pressure 102/66 99/58 (mmHg) O2 Sat by Pulse 96 95 Oximetry 01/29/19 01/29/19 01/29/19 08:30 09:00 09:31 Temperature Pulse Rate 99 96 99 Respiratory 24 25 29 Rate Blood Pressure 101/57 101/60 97/54 (mmHg) O2 Sat by Pulse 95 88 94 Oximetry 01/29/19 01/29/19 01/29/19 10:00 10:30 11:00 Temperature Pulse Rate 104 100 102 Respiratory 19 22 23 Rate Blood Pressure 92/60 104/66 99/57 (mmHg) O2 Sat by Pulse 95 91 93 Oximetry 01/29/19 01/29/19 01/29/19 11:43 11:59 12:00 Temperature 98.3 F Pulse Rate 100 Respiratory 24 23 Rate Blood Pressure 105/62 (mmHg) O2 Sat by Pulse 94 Oximetry 01/29/19 01/29/19 01/29/19 13:00 14:00 14:43 Temperature Pulse Rate 99 102 Respiratory 24 24 21 Rate Blood Pressure 100/62 93/59 (mmHg) O2 Sat by Pulse 93 93 Oximetry Oxygen Devices in Use Now: Nasal Cannula Appearance: well appearing elderly woman in NAD, pleasant and interactive Eyes: No Scleral Icterus Ears/Nose/Mouth/Throat: Clear Oropharnyx, Mucous Membranes Moist Neck: NL Appearance and Movements; NL JVP, Trachea Midline Respiratory: Symmetrical Chest Expansion and Respiratory Effort, Clear to Auscultation Cardiovascular: - - tachycardic, reg rhythm, no mgr Abdominal: NL Sounds; No Tenderness; No Distention, No Hepatosplenomegaly Extremities: No Edema, - - L shoulder without overlying erythema or swelling Skin: - - few healing scabs over right middle back Neurological: Alert and Oriented x 3, - - significant pain on passive ROM of L shoulder, sensation intact in all extremities Result Diagrams: 01/29/19 11:03 01/29/19 11:03 Microbiology and Other Data: Microbiology 01/28/19 22:49 Nasal Screen MRSA (PCR) - Final Nasal Mrsa Not Detected Assess/Plan/Problems-Billing Assessment: 78W with GERD, OA, osteoporosis, recent L hip intertrochanteric fracture s/p IMN (10/2018), and recent shingles s/p acyclovir and recently started opioids and muscle relaxer, presents after being found down. Pt doesn't remember events of fall. Complains of L shoulder pain now, and possibly dysuria before fall. Found with high fever and positive UA. - Patient Problems (1) Fall Comment: Pt doesn't remember fall. Family and friend report that she was acting more altered the prior day after starting muscle relaxant and opioids rx'ed by outpatient provider for shingles pain? Also likely metabolic encephalopathy contributing to AMS and fall, given fever on presentation. - avoid opioids and Flexeril - cont antibiotics - PT ordered - mental status back to baseline, cont to monitor closely (2) Sepsis Comment: unclear source, but given positive UA and possible history of dysuria, leading dx is UTI. Pt responded rapidly to antibiotics. No myalgia or URI. No repiratory or GI symptoms. No meningeal signs or AMS. - cont vanc/CTX - f/u urine and blood cultures (3) Left shoulder pain Comment: Severe OA in shoulder by imaging. Possible trauma to shoulder during fall - pt without recollection. Only complaint from patient is shoulder pain. - f/u Dr. Tommie thibodeaux (4) Shingles Comment: of Right back, now s/p acyclovir course. Lesions well healed, nearly resolved, but course with PHN. - cont home gabapentin (5) GERD (gastroesophageal reflux disease) Comment: pt reports she'd like to be off PPI - switch to famotidine prn (6) DVT prophylaxis Comment: - lovenox subq ppx
[2019-01-29] MEDS ORDERED: Famotidine TAB* 20 MG PO PRN (15:26)
[2019-01-29] MEDS ORDERED: cefTRIAXone(*) 1 GM in NS 0.9% 50 ML* 50 ML IVPB SCH (17:00)
[2019-01-29] MEDS ORDERED: Vancomycin(*) 750 MG in NS 0.9% 250 ML* 250 ML IV SCH (20:00)
[2019-01-29] MEDS: Enoxaparin(*) 40 MG/0.4 ML SYR SUBCUT SCH (20:43)
[2019-01-29] MEDS: Lactobacillus Acidophilus* 1 TAB PO SCH (20:44)
[2019-01-29] MEDS: Gabapentin CAP(*) 300 MG PO SCH (20:45)
--- NOTE | 2019-01-29 21:31 | CONS ---
ORTHOPEDIC CONSULTATION NOTE: DATE OF CONSULT: 01/29/19 Thank you for this orthopedic consultation. CHIEF COMPLAINT: Left shoulder pain. HISTORY OF PRESENT ILLNESS: Ms. Ambrosio is a 78-year-old female who presented on 01/28/19 [address] emergency room at [facility] with a syncopal episode. Her friends found her lying on the floor. Although she was awake, she did not remember what happened. She had shingles diagnosed on 01/20/19 and completed a course of acyclovir. She was admitted to the hospital with sepsis. She was found to have leukocytosis, fever, tachycardia, and hypotension with lactic acid of 2.6. Since hospitalization, the patient has been complaining of severe left shoulder pain and I am consulted to exclude a septic joint. When questioned specifically about her shoulder pain, the patient reports that her shoulder pain has been off and on, but very mild over years. Over the last 10 days, she has had a severe increase in her shoulder pain, which is 8/10, sharp pain when she attempts to move the shoulder at all. Any lifting or movement of the shoulder increased her pain. PAST MEDICAL HISTORY: 1. Lyme disease. 2. Osteoporosis. 3. Osteoarthritis. 4. GERD. 5. Recent shingles. 6. Left hip fracture treated in October by Dr. Puentes. PAST SURGICAL HISTORY: 1. The hip ORIF in October of this year. 2. Appendectomy. 3. Cataracts. HOME MEDICATIONS: 1. Percocet 7.5/325 one tablet p.o. q.6 hours p.r.n. for pain. 2. Gabapentin 300 mg p.o. t.i.d. 3. Cyclobenzaprine 5 mg t.i.d. p.r.n. 4. Meloxicam 7.5 mg p.o. b.i.d. 5. Vitamin D3 1 tablet p.o. daily. 6. Triamcinolone 0.05 topically b.i.d. 7. Omeprazole 20 mg p.o. q.a.m. ALLERGIES: No known drug allergies. FAMILY HISTORY: Diabetes. SOCIAL HISTORY: The patient worked at [employer] and [employer] in the past. 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 She denies tobacco, alcohol, or recreational drugs. She wishes to be DNR/DNI. REVIEW OF SYSTEMS: Fourteen systems were reviewed with the patient today. Positive for recent syncopal episode, left shoulder pain, back pain, suprapubic pain, weakness, fevers, chills. Otherwise, the patient reports review of systems is negative or not relevant. PHYSICAL EXAMINATION: Vital Signs: Temperature 97, pulse 121, blood pressure 109/65, 2 L of oxygen. General: The patient is a thin female, in no apparent distress, alert and oriented x3. Pleasant mood and appropriate affect. Gait is not assessed. HEENT: Atraumatic/normocephalic. Pupils are equal and reactive to light. Chest: Unlabored breathing, although she is on nasal oxygen. Abdomen: Soft, nontender, nondistended. Left upper extremity, the patient's skin has a small abrasion along the lateral deltoid. There is no erythema. She is warm to touch, but this is her entire body. No difference between the 2 shoulders. Mild amount of swelling that appears to be chronic arthritic joint swelling. Forward flexion, abduction to 40 degrees before severe pain. Any motion of the shoulder causes pain. Elbow and wrist range of motion without pain. 4+/5 linux consultant strength. Full sensation to light touch in all nerve distributions and 2+ palpable radial pulse. RADIOGRAPHS: Plain films of the shoulder show severe end-stage arthritis of the glenohumeral joint with [id number] contact, extensive osteophyte formation. The bone is osteopenic. No obvious fracture. STUDIES: Laboratory values from 01/29/19 show white blood cells 12.7, hematocrit 33, platelets 169,000. INR 1.25. Sodium 135, potassium 4.2, BUN and creatinine 32 and 1.01. Lactic acid down to 0.8 from 0.6. Urine was positive for leukocyte esterase, white blood cells, red blood cells, squamous epithelial cells. No growth day 1 from venous blood. MRSA negative nasal smear. ASSESSMENT AND PLAN: Ms. Ambrosio is a 78-year-old female admitted to [facility] yesterday with sepsis. No growth on micro from her blood cultures. She has had leukocytosis with tachycardia, hypotension. She has been febrile. I am consulted for evaluation of the left shoulder. The patient certainly has chronic osteoarthritic changes and this could be an arthritic flare-up. She admits to 10 days of shoulder pain. This is not an acute 48-hour increase in her shoulder pain. The patient and I discussed that source of her fevers and leukocytosis has not been firmly established. It is possible, although not probable that her left shoulder is infected. I offered the patient aspiration of the shoulder to evaluate for any fluid or purulence. She declined this. We discussed an MRI of the shoulder to look for an effusion or any evidence of infection. She would like to proceed with this. My formal recommendation will be an MRI of the left shoulder to evaluate for effusion or signs of infection. If any effusion is present, I will be recommending more firmly to the patient an aspiration of the shoulder. Orthopedics to follow. [id number]/[facility] #: [id number] JUAN
[2019-01-30] MEDS ORDERED: NS 0.9% 500 ML* 500 ML IV ONE (03:37)
[2019-01-30 04:42] LABS: Hematocrit 32 % (35-47); Hemoglobin 10.3 g/dL (12.0-16.0); Mean Corpuscular HGB Conc 33 g/dL (31-36); Mean Corpuscular Hemoglobin 28 pg (27-31); Mean Corpuscular Volume 86 fL (80-97); Mean Platelet Volume 8.2 fL (7.4-10.4); Platelet Count 158 10^3/uL (150-450); Red Blood Count 3.67 10^6 /uL (3.70-4.87); Red Cell Distribution Width 17 % (10-15); White Blood Count 12.2 10^3/uL (3.5-10.8)
[2019-01-30 04:57] LABS: BUN/Creatinine Ratio 28.7 (8-20); Calcium 7.9 mg/dL (8.6-10.3); EGFR African American 69.9 (>60); EGFR Non-African American 57.7 (>60); Potassium 4.1 mmol/L (3.5-5.0)
[2019-01-30] MEDS: traMADol TAB* 50 MG PO PRN (06:04)
[2019-01-30] MEDS: oxyCODONE TAB* 5 MG TAB PO PRN (07:55)
[2019-01-30] MEDS: Gabapentin CAP(*) 300 MG PO SCH ×2 (09:39→23:31)
[2019-01-30] MEDS: Lactobacillus Acidophilus* 1 TAB PO SCH ×2 (09:39→23:32)
[2019-01-30] MEDS: Pantoprazole TAB * 40 MG TAB PO SCH (09:52)
[2019-01-30] MEDS ORDERED: Lactated Ringers 1000 ML Bag* 1,000 ML IV SCH (10:00)
[2019-01-30] MEDS ORDERED: LORazepam INJ* 2 MG/ML 1 ML VIAL IV PUSH ONE (10:57)
[2019-01-30] MEDS ORDERED: Lorazepam PYXIS KEY PRN (10:57)
[2019-01-30] MEDS ORDERED: Gadoteridol* (CONTRAST) 279.3 MG/ML 10 ML IV ONE (10:59)
[2019-01-30] MEDS ORDERED: Vancomycin Trough Check NOTE FOLLOW UP ONE (13:30)
--- NOTE | 2019-01-30 13:52 | PN ---
Progress Note - Progress Note Date of Service: 01/30/19 SOAP: Subjective: Pt. reports continued 12/30 L shoulder pain. MRI this AM Objective: Vital Signs: Temp Pulse Resp BP Pulse Ox 98.6 F 103 16 101/57 95 01/30/19 06:13 01/30/19 06:13 01/30/19 11:15 01/30/19 06:13 01/30/19 06:13 Laboratory Results - last 24 hr 01/30/19 01/30/19 01/30/19 04:29 04:29 13:30 WBC 12.2 H RBC 3.67 L Hgb 10.3 L Hct 32 L MCV 86 MCH 28 MCHC 33 RDW 17 H Plt Count 158 MPV 8.2 Sodium 135 Potassium 4.1 Chloride 108 Carbon Dioxide 23 Anion Gap 4 BUN 27 H Creatinine 0.94 Est GFR ( Amer) 69.9 Est GFR (Non-Af Amer) 57.7 BUN/Creatinine Ratio 28.7 H Glucose 123 H Calcium 7.9 L Magnesium 2.0 Fluid Source Synovial fluid Microbiology 01/28/19 17:25 Aerobic Blood Culture - Preliminary Blood Venous No Growth Day 1 Anaerobic Blood Culture - Preliminary Staphylococcus Aureus Blood MRSA/MSSA (PCR) - Final Mrsa Negative S.aureus Positive 01/29/19 04:50 Aerobic Blood Culture - Preliminary Blood Venous Staphylococcus Aureus Anaerobic Blood Culture - Preliminary Staphylococcus Aureus Blood MRSA/MSSA (PCR) - Final Mrsa Negative S.aureus Positive 01/28/19 15:51 Urine Culture - Preliminary Urine Staphylococcus Aureus MRI - 01/30/19 - constellation of findings consistent with possible septic arthritis LLE - warm, mild swelling. any movement causes extreme pain. distally nvi. Assessment: 78 yo F admitted with UTI/sepsis - positive staph on multiple blood cultures. Plan: Pt. and I discussed MRI and I recommended aspiration of L shoulder. She agreed. Procedure NOTE - Patient's left shoulder was marked and sterilly prepped with betadine. Consent for L shoulder aspiration was signed and preop timeout was performed with two nurses present. Aspiration of left shoulder joint yielded 2 cc bloody/orange fluid. This fluid is walked to micro lab for gram stain, cell count and cultures/sensitivities. Pt. and I discussed possible I and D of left shoulder if bacteria are identified. For now she will be NPO - she last ate at breakfast. Plan to follow aspiration results.
--- NOTE | 2019-01-30 14:01 | PN ---
Subjective Date of Service: 01/30/19 Interval History: Blood cultures growing Staph but not MRSA. Overnight, vanc discontinued. Pt has not had a fever in > 24 hours. CTX narrowed to cefazolin. Persistent pain in shoulder. Underwent Shoulder MRI and it was concerning for septic joint. Pt now s/p joint aspiration with Dr. Reilly. Patient reports worries over her health, coping with sudden acute medical issues after life of relative health. Worries about her , and she is his primary caregiver. Only complains of thirst and L shoulder pain. Embarrassment over needing help with bathroom functions. Objective Active Medications: Acetaminophen (Tylenol Tab*) 975 mg PO Q8H PRN PRN Reason: MILD PAIN or TEMP > 100.4 Last Admin: 01/29/19 10:24 Dose: 975 mg Enoxaparin Sodium (Lovenox(*)) 40 mg SUBCUT BEDTIME [facility] Last Admin: 01/29/19 20:43 Dose: 40 mg Famotidine (Pepcid Tab*) 20 mg PO DAILY PRN PRN Reason: HEARTBURN Gabapentin (Neurontin Cap(*)) 300 mg PO DAILY [facility] Last Admin: 01/30/19 09:39 Dose: 300 mg Gabapentin (Neurontin Cap(*)) 600 mg PO BEDTIME [facility] Last Admin: 01/29/19 20:45 Dose: 600 mg Ceftriaxone Sodium 1 gm/ (Sodium Chloride) 50 mls @ 100 mls/hr IVPB Q24H [facility] Last Admin: 01/29/19 18:05 Dose: 100 mls/hr Lactated Ringer's (Lactated Ringers 1000 Ml Bag*) 1,000 mls @ 150 mls/hr IV PER RATE [facility] Stop: 01/30/19 16:39 Last Admin: 01/30/19 12:46 Dose: 150 mls/hr Lactobacillus Rhamnosus (Lactobacillus Acidophilus*) 1 tab PO BID [facility] Last Admin: 01/30/19 09:39 Dose: 1 tab Magnesium Hydroxide (Milk Of Magnesia Liq*) 30 ml PO Q6H PRN PRN Reason: CONSTIPATION Miscellaneous (Ativan Pyxis Ureña) 1 ea N/A .ATIVAN IV UREÑA PRN PRN Reason: PYXIS UREÑA Oxycodone HCl (Roxycodone Tab*) 5 mg PO Q3H PRN PRN Reason: PAIN - SEVERE Last Admin: 01/30/19 07:55 Dose: 5 mg Pantoprazole Sodium (Protonix Tab*) 40 mg PO QAM ESCOBAR Last Admin: 01/30/19 09:52 Dose: 40 mg Senna (Senokot 8.6 Mg Tab*) 1 tab PO BEDTIME PRN PRN Reason: if no BM during day Tramadol HCl (Ultram*) 50 mg PO Q8H PRN PRN Reason: Pain - Moderate to Severe Last Admin: 01/30/19 06:04 Dose: 50 mg Vital Signs - 8 hr 01/30/19 01/30/19 01/30/19 06:04 06:13 07:55 Temperature 98.6 F Pulse Rate 103 Respiratory 18 20 16 Rate Blood Pressure 101/57 (mmHg) O2 Sat by Pulse 95 Oximetry 01/30/19 01/30/19 01/30/19 09:39 10:00 11:15 Temperature Pulse Rate Respiratory 22 18 16 Rate Blood Pressure (mmHg) O2 Sat by Pulse Oximetry Oxygen Devices in Use Now: None Appearance: frail elderly woman in NAD, alert and interactive Eyes: No Scleral Icterus Ears/Nose/Mouth/Throat: Clear Oropharnyx, Mucous Membranes Moist Neck: NL Appearance and Movements; NL JVP, Trachea Midline Respiratory: Symmetrical Chest Expansion and Respiratory Effort, Clear to Auscultation Cardiovascular: NL Sounds; No Murmurs; No JVD, RRR Abdominal: NL Sounds; No Tenderness; No Distention, No Hepatosplenomegaly Extremities: - - L shoulder exquisitely painful without overlying erythema Skin: No Rash or Ulcers Neurological: Alert and Oriented x 3 Result Diagrams: 01/30/19 04:29 01/30/19 04:29 Microbiology and Other Data: Microbiology 01/28/19 22:49 Nasal Screen MRSA (PCR) - Final Nasal Mrsa Not Detected Assess/Plan/Problems-Billing Assessment: 78W with GERD, OA, osteoporosis, recent L hip intertrochanteric fracture s/p IMN (10/2018), and recent shingles s/p acyclovir and recently started opioids and muscle relaxer, presents after being found down. Found with high fever, and blood, urine, and shoulder joint growing Staph. - Patient Problems (1) Sepsis Comment: Blood, urine, and shoulder fluid growing staph. Possible that blood seeded first from open skin from shingles? - cont IV abx (01/28 - ); CTX narrowed to cefazolin - to OR for shoulder washout - TTE ordered - f/u surveillance cultures (2) Fall Comment: Pt doesn't remember fall. Family and friend report that she was acting 'off' the prior day, after starting muscle relaxant and opioids rx'ed by outpatient provider for shingles pain? Also large contribution from bacteremia causing metabolic encephalopathy. - avoid opioids and Flexeril - cont antibiotics - PT ordered - mental status back to baseline, cont to monitor closely (3) Left shoulder pain Comment: Severe OA in shoulder by imaging. Now with septic joint - f/u Dr. Tommie thibodeaux, to OR for washout - caution with opioids for pain control - APAP prn mild pain, tramadol mod to severe prn (4) Shingles Comment: of Right back, now s/p acyclovir course. Lesions well healed, nearly resolved, but course with PHN. - cont home gabapentin (5) GERD (gastroesophageal reflux disease) Comment: pt reports she'd like to be off PPI - switch to famotidine prn (6) DVT prophylaxis Comment: - lovenox subq ppx
[2019-01-30] MEDS ORDERED: Lidocaine 2% PF * 5 ML VIAL ONE (15:15)
[2019-01-30] MEDS ORDERED: Propofol* 10 MG/ML 20 ML BTL ONE (15:15)
[2019-01-30] MEDS ORDERED: fentaNYL* 50 MCG/ML 2 ML VIAL (100 MCG VIAL) ONE (15:15)
[2019-01-30] MEDS ORDERED: Ondansetron INJ* 2 MG/ML VIAL ONE (15:15)
[2019-01-30] MEDS ORDERED: Midazolam* 1 MG/ML 5 ML VIAL (5 MG) ONE (15:16)
[2019-01-30] MEDS ORDERED: Cisatracurium* 2 MG/ML MDV 5 ML ONE (15:16)
[2019-01-30] MEDS ORDERED: DiMENhydriNATE IV* 50 MG/ML VIAL ONE (15:17)
[2019-01-30] MEDS ORDERED: EPINEPHRINE 1 MG/ML 1 ML VIAL ONE (15:26)
[2019-01-30] MEDS ORDERED: Bupivacaine 0.25% EPI 200,000* 30 ML SDV ONE (15:26)
[2019-01-30] MEDS ORDERED: ceFAZolin 1 GM ADVAN(*) 1 GM ADDV.VIAL IVPB ONE (15:49)
--- NOTE | 2019-01-30 16:04 | PN ---
Progress Note - Progress Note Date of Service: 01/30/19 SOAP: Called by Dr. Reilly regarding likely infection left glenohumeral joint. Admitted on 01/28/19 by Hospitalist service after syncopal episode, diagnosed with sepsis and a UTI. Acute increase in L shoulder pain, recent, worse since her fall. Per report, pain with any PROM L shoulder, aspiration left shoulder showed a positive gram stain, MRI showed increased fluid about the glenohumeral joint. To the OR now for I&D, arthroscopic versus open, possible removal loose body, debridement
[2019-01-30] MEDS ORDERED: Glycopyrrolate IV* 0.2 MG/ML 1 ML VIAL ONE (17:48)
[2019-01-30] MEDS ORDERED: Neostigmine Methylsulfate* 1 MG/ML 10 ML VIAL (1 mg/ml) ONE (17:48)
[2019-01-30] MEDS ORDERED: Naloxone* 0.4 MG/ML 1 ML VIAL IV PRN (18:29)
[2019-01-30] MEDS ORDERED: fentaNYL* 50 MCG/ML 2 ML VIAL (100 MCG VIAL) IV PRN (18:29)
[2019-01-30] MEDS ORDERED: Ondansetron INJ* 2 MG/ML VIAL IV PRN (18:29)
[2019-01-30] MEDS: ceFAZolin 1 GM* Q8H (AddVan) IVPB SCH ×2 (20:51)
[2019-01-30] MEDS: Enoxaparin(*) 40 MG/0.4 ML SYR SUBCUT SCH (22:03)
[2019-01-31] MEDS: ceFAZolin 1 GM* Q8H (AddVan) IVPB SCH ×4 (01:13→09:00)
[2019-01-31 05:47] LABS: ABS Eosinophils 0.1 10^3/ul (0-0.6); ABS Lymphocytes 0.7 10^3/ul (1.0-4.8); ABS Monocytes 0.9 10^3/ul (0-0.8); ABS Neutrophils 10.7 10^3/ul (1.5-7.7); Eosinophil % 0.4 %; Hematocrit 32 % (35-47); Hemoglobin 10.5 g/dL (12.0-16.0); Lymphocyte % 5.7 %; Mean Corpuscular HGB Conc 33 g/dL (31-36); Mean Corpuscular Hemoglobin 29 pg (27-31); Mean Corpuscular Volume 86 fL (80-97); Mean Platelet Volume 7.6 fL (7.4-10.4); Platelet Count 180 10^3/uL (150-450); Red Blood Count 3.69 10^6 /uL (3.70-4.87); Red Cell Distribution Width 17 % (10-15); White Blood Count 12.3 10^3/uL (3.5-10.8)
[2019-01-31 06:27] LABS: BUN/Creatinine Ratio 23.9 (8-20); C Reactive Protein 314.83 mg/L (<8.01); Calcium 8.2 mg/dL (8.6-10.3); EGFR African American 96.6 (>60); EGFR Non-African American 79.8 (>60); Magnesium 1.7 mg/dL (1.9-2.7); Potassium 3.7 mmol/L (3.5-5.0)
--- NOTE | 2019-01-31 06:53 | OP ---
DATE OF OPERATION: 01/30/19 - ROOM #413 DATE OF : 42 SURGEON: Miguelangel Mayo MD BIOLOGICAL SCIENTIST: Britney Reilly MD. An financial sales assistant was required for help with patient positioning, instrumentation. ANESTHESIOLOGIST: Dr. Lam eYe. ANESTHESIA: General anesthesia, local anesthesia using Marcaine 0.25% with epinephrine, 20 cc PRE-OP DIAGNOSES: 1. Left shoulder glenohumeral joint infection. 2. Left shoulder glenohumeral joint osteoarthritis. POST-OP DIAGNOSES: 1. Left shoulder glenohumeral joint infection. 2. Left shoulder glenohumeral joint osteoarthritis. OPERATIVE PROCEDURE: 1. Arthroscopic incision, irrigation, debridement, and drainage, left shoulder glenohumeral joint. 2. Left shoulder arthroscopic debridement, subacromial bursectomy, irrigation debridement of subacromial space left shoulder. ANTIBIOTICS: Ceftriaxone 1 g IV, scheduled, as well as Ancef 1 g IV, both provided just after intraoperative cultures were obtained. IV FLUIDS: See Anesthesia note. SGIL-WU-ISDZ TIME: 42 minutes. ARTHROSCOPIC FLUID UTILIZED: 14 L, which is just over 4 bags each with 3 L. SPECIMEN: Aerobic and anaerobic cultures were obtained from the left shoulder glenohumeral joint fluid. IMPLANTS: A 7 mm KATHY drain tubing hooked to a Hemovac reservoir was placed into the glenohumeral joint, left shoulder. COMPLICATIONS: None. ESTIMATED BLOOD LOSS: Minimal. INDICATIONS FOR PROCEDURE: The patient is a 78-year-old woman, who lives with her , who had a syncopal event at home on 01/28/19 and was brought to the hospital, [facility] [place], afterwards. The patient was noted to have a urinary tract infection with a positive urine culture for Staphylococcus aureus. Admitted to the hospitalist service for workup of syncope and infection. On the date of admission, the patient had a temperature of 104.3 degrees Fahrenheit and 103.3 degrees Fahrenheit. The patient was started on broad-spectrum IV antibiotics, vancomycin and ceftriaxone. The patient complained of left shoulder pain. She was not a very reliable historian, so it is unclear how long the patient had had increased left shoulder pain, this is new exclusively since her fall 2 days ago or had been present for some time. The patient thought that it hurt prior to the fall. X- ray imaging showed severe left shoulder glenohumeral joint osteoarthritis. Orthopedic Surgery consult was called and my partner Dr. Reilly aspirated the left shoulder. There appeared to be some pus in the left shoulder glenohumeral joint and the Gram stain was positive and the PCR for Staphylococcus aureus was positive. Therefore, the patient was made n.p.o. I was asked to do the procedure, irrigation debridement left shoulder joint. Preoperative MRI imaging showed increased fluid about the glenohumeral joint. Certainly, there is some deformity to both the humeral head and glenoid. A possible loose body present about the posterior aspect of glenohumeral joint. Unclear if there is extension of infection to the subacromial space. Discussed risks and potential complications with both the patient and the patient's son, both of whom provided informed consent for the surgical procedure. Full spectrum of potential complications was discussed with most prominently was the possible need for a second incision and drainage procedure. DESCRIPTION OF PROCEDURE: In preoperative holding, informed consent was obtained from the patient and the patient's son. Correct extremity was marked in preoperative holding. The patient was taken back to the operating room and placed supine on the operating room table. Sedated and intubated. Converted into a lateral decubitus position. All bony prominences padded. Axillary roll placed. Longitudinal traction with 10 pounds with the appropriate amount of shoulder forward flexion and abduction. Left shoulder was prepped and draped. Formal surgical time-out performed. Left shoulder posterior glenohumeral joint portal established using standard technique. There was certainly a narrowing of the glenohumeral joint space as well as significant loss of glenohumeral joint articular cartilage, mostly grade 4 but occasionally grade 3 throughout both the glenoid and humeral side. There was also some loss of subchondral bone in punctate areas about the glenoid. Some synovitis was present globally about the glenohumeral joint, anterior, posterior, superior, inferior. After establishing an incision posteriorly but before entering the arthroscope, I obtained fluid from aerobic and anaerobic cultures. I established an anterior glenohumeral joint portal using a switching stick rather than with direct visualization and a spinal needle. I entered an arthroscopic shaver from the anterior. I debrided some synovitic tissue anterior and posterior. There was no full-thickness rotator cuff tendon tear present, subscapularis, supraspinatus, or infraspinatus. I did not differentiate the long head of the biceps. I put at least 3 L through the glenohumeral joint at this point in time. Next I viewed from anterior and performed some additional debridement posterior. I did not visualize clearly any loose body posteriorly, although visualization was somewhat limited given the significant deformity about the glenohumeral joint as well as the synovitic tissue. After putting almost 9 L through the glenohumeral joint, I moved to the subacromial space. There was significant synovitic tissue, bursitic tissue in the subacromial space. I entered anterior and posterior subacromial portals and established a lateral subacromial portal under direct visualization. I used an arthroscopic shaver to debride a significant amount of subacromial bursitic tissue and to flow multiple liters of fluid through the subacromial bursa and all the fluid spaces that it connects to. I next returned to the glenohumeral joint. I placed a drain through the anterior glenohumeral joint portal, placed it into the glenohumeral joint. Closed the skin incisions with [id number] in 12 stitches using nylon 3-0 suture. Placed a drain stitch attaching the drain anteriorly to the skin. Applied local anesthetic. Xeroform, 4x4's, ABDs, foam tape. Sling without a reduction pillow. The patient was awakened, extubated, and transferred to the PACU. DISPOSITION: The patient will be in sling as needed for comfort. The drain will be removed on postoperative day 1 as long as drain had no significant output. It can be seen that it was producing significant output as the patient was being brought to the PACU. Note that a drain a stitch will need to be cut before it is removed. The patient will receive pain medications as needed. The patient's family requested to minimize narcotics to help with the patient's mental status changes and this would certainly be our strategy. The patient will continue IV antibiotics, and postoperatively, she was started on Ancef q.8 hours 1 g. The patient will be seen by infectious disease service for consultation on postoperative day 1 and they can decide the appropriate antibiotics. We will follow cultures and Gram stain from intraoperative. We will follow physical exam, vitals, and inflammatory labs to determine if a second incision and drainage left shoulder is required. In conjunction with the hospitalist service and the infectious disease service, we will attempt to determine whether the left shoulder joint infection was the primary infection point or whether it was secondarily infected by sepsis caused by the urinary tract infection. The patient can follow up with me approximately 2 weeks postoperatively in clinic, but I and the orthopedic surgery service will continue to follow the patient as an inpatient. [id number]/[facility] #: [id number] MTDD
[2019-01-31] MEDS: oxyCODONE TAB* 5 MG TAB PO PRN (08:39)
[2019-01-31] MEDS: Gabapentin CAP(*) 300 MG PO SCH ×2 (08:40→20:13)
[2019-01-31] MEDS: Lactobacillus Acidophilus* 1 TAB PO SCH ×2 (08:41→20:14)
[2019-01-31] MEDS: Pantoprazole TAB * 40 MG TAB PO SCH (08:41)
[2019-01-31] MEDS ORDERED: Magnesium Sulfate 1 GM IV* 1 GM/100 ML BAG IV ONE (08:58)
[2019-01-31] MEDS: Cholecalciferol TAB* 1000 UNITS PO SCH (10:27)
[2019-01-31] MEDS: traMADol TAB* 50 MG PO PRN ×2 (10:44→22:29)
[2019-01-31] MEDS ORDERED: NS 0.9% IVPB SCH (11:30)
[2019-01-31] MEDS ORDERED: ADVAN IVPB SCH (11:30)
[2019-01-31] MEDS ORDERED: CEFAZOLIN IVPB SCH (11:30)
--- NOTE | 2019-01-31 11:49 | ECHO ---
*[facility]* [place] [address] Fax #: [phone] Transthoracic Echocardiogram Patient: Dea Ambrosio : 1940 Study Date: 01/31/2019 Age: 78 Gender: F HR: 113 bpm Height: 62 in /157.5 cm BSA: 1.66 m^2 Weight: 142.7 lb /64.9 kg BMI: 26.2 kg/m^2 *Data Security Consultant: * Katty Gold [facility] *Referring Physician: * Aruna Mcbride *Reading Physician: * Ramirez Foster MD Indications: Bacteremia. Staph aureus. History: Lyme disease. Recent shingles. Conclusions Summary: - Left ventricle: The cavity size is normal. Wall thickness is normal. Systolic function is normal. The estimated ejection fraction is 60-65%. Wall motion is normal; there are no regional wall motion abnormalities. - Right ventricle: The cavity size is normal. Systolic function is normal. - Left atrium: The atrium is mildly dilated. - Pulmonary arteries: Systolic pressure is mildly increased. - No significant valvular abnormalities. No echocardiogram evidence of endocarditis on transthoracic imaging. Recommendations: None prior for comparison at time of interpretation. Study data: Transthoracic echocardiogram. Procedure: Transthoracic echocardiography was performed. Image quality was good. Complete 2D, spectral Doppler, and color flow Doppler. Location: Bedside. Patient status: Inpatient. Patient room number: 413-02. Rhythm: Tachycardia. Findings Left ventricle: The cavity size is normal. Wall thickness is normal. Systolic function is normal. The estimated ejection fraction is 60-65%. Wall motion is normal; there are no regional wall motion abnormalities. Doppler parameters are consistent with abnormal left ventricular relaxation (grade 1 diastolic dysfunction). Right ventricle: The cavity size is normal. Systolic function is normal. Left atrium: The atrium is mildly dilated. Right atrium: The atrium is mildly dilated. Mitral valve: The leaflets are mildly thickened. There is no evidence of a vegetation. There is no evidence of stenosis. There is trace regurgitation. Aortic valve: The valve is trileaflet. The leaflets are mildly thickened. There is no evidence of a vegetation. There is no evidence of stenosis. There is no significant regurgitation. Tricuspid valve: The leaflets are normal thickness. There is no evidence of a vegetation. There is no evidence of stenosis. There is mild regurgitation. Pulmonic valve: The leaflets are normal thickness. There is no evidence of a vegetation. There is no evidence of stenosis. There is trace regurgitation. Aorta: Aortic root: The aortic root is appears normal. Ascending aorta: The ascending aorta is appears normal. Aortic arch: The aortic arch is appears normal. Pericardium: There is no significant pericardial effusion. Pulmonary arteries: The main pulmonary artery is normal-sized. Systolic pressure is mildly increased. Systemic veins: Inferior vena cava: The vessel is normal in size. There is (>= 50%) respiratory change in the IVC dimension. Measurements Left ventricle Value Ref Aortic valve Value Ref CRISTIANE, LAX 4.4 cm 3.8 - 5.2 Abby diam, ED 1.8 cm ----- ESD, LAX 2.8 cm 2.2 - 3.5 Peak v, S 2.1 m/sec ----- FS, LAX 35 % 27 - 45 VTI, S 33.3 cm ----- PW, ED, LAX 0.9 cm 0.6 - 0.9 Mean grad, S 9.0 mm Hg ----- FS 35 % 27 - 45 Peak grad, S 17.6 mm Hg ----- PW, ED 0.9 cm 0.6 - 0.9 LVOT/AV, VTI ratio 0.69 ----- PW/ID, ED 0.22 E', lat abby, TDI 11.7 cm/sec >=10.0 Mitral valve Value Ref E/e', lat abby, 7 Peak E 0.79 m/sec ----- TDI Peak A 1.22 m/sec ----- E', med abby, TDI 7.8 cm/sec >=7.0 Decel time 109 ms --- -- E/e', med abby, 10 Peak grad, D 2.5 mm Hg ----- TDI Peak E/A ratio 0.6 ----- E', avg, TDI 9.8 cm/sec E/e', avg, TDI 8 <=14 Pulmonic valve Value Ref Peak v, S 1.28 m/sec ----- LVOT Value Ref Peak grad, S 7.0 mm Hg ----- Peak henri, S 1.32 m/sec VTI, S 23.0 cm Tricuspid valve Value Ref Peak grad, S 7 mm Hg TR peak v (H) 2.9 m/sec <=2.8 Mean grad, S 4 mm Hg Peak RV-RA grad, S 34 mm Hg ----- Ventricular septum Value Ref Aortic root Value Ref IVS, ED 0.6 cm 0.6 - 0.9 Root diam 2.8 cm <3.9 Root max diam, ED 2.8 cm <3.9 Right ventricle Value Ref CRISTIANE minor ax, A4C (H) 4.0 cm 1.9 - 3.5 Ascending aorta Value Ref mid AAo AP diam, S 2.8 cm ----- Pressure, S 37 mm Hg Aortic arch Value Ref Left atrium Value Ref Arch diam 3.1 cm ----- AP dim, ES 3.70 cm 2.70 - 3.80 Decending aorta Value Ref ML dim, A4C 3.6 cm Savanna peak henri 0.81 m/sec ----- SI dim, A4C 5.5 cm Vol/bsa, ES, 1-p 21 ml/m^2 11 - 40 Pulmonary artery Value Ref A4C Pressure, S 30.0 mm Hg ----- Vol/bsa, ES, A/L (H) 35 ml/m^2 16 - 34 Inferior vena cava Value Ref Right atrium Value Ref Diam 1.1 cm ----- SI dim, ES 5.2 cm 3.4 - 5.3 ML dim, ES, A4C (H) 4.7 cm 2.6 - 4.4 SI dim, ES, A4C 5.2 cm 3.4 - 5.3 Estimated RAP 3 mm Hg Legend: (L) and (H) abhilash values outside specified reference range. Prepared and electronically signed by Ramirez Foster MD 01/31/2019 11:49
--- NOTE | 2019-01-31 12:23 | CONS ---
CONSULTATION REPORT: DATE OF CONSULT: 01/31/19 REQUESTING PHYSICIAN: Dr. Mcbride. CONSULTING SERVICE: Infectious Disease. REASON FOR CONSULT: Septic shoulder. IMPRESSION: 1. Septic arthritis, left shoulder due to methicillin-sensitive Staphylococcus aureus with Staphylococcus aureus bacteremia. She does not have other joint pain. Her only prosthetic material is a pinning of the left hip about 4 months ago and that is asymptomatic and the incision has healed, I do not think that is infected. She has some flank pain, but no spine tenderness, so I think spine infection is less likely. Infective endocarditis is always a consideration. She has no peripheral stigmata of it at this point. 2. Gastroesophageal reflux disease. 3. Elevated C-reactive protein and leukocytosis due to problem #1. RECOMMENDATIONS: We will increase the Ancef to 2 g every 8 hours. We will recheck her blood cultures to ensure clearance. She will have a transthoracic echocardiogram today and pending those results, we will decide on a transesophageal echocardiogram. Assuming the valves are benign and do not have severe regurgitation, we may leave it at the transthoracic image. She will need 4 to 6 weeks of antibiotics for the septic arthritis, which has been washed out. HISTORY OF PRESENT ILLNESS: This is a 78-year-old woman who has had a few days of malaise, fever, chills and left shoulder pain. She had had singles a couple of weeks ago with left flank pain and thought maybe it was related to that. She then had some confusion and syncope and was found lying on the floor by her caregiver. She was brought to the emergency room on 01/28/19. She was found to have pain in the left shoulder. Dr. Mayo washed her shoulder out yesterday, which she tolerated well. She has had some mid to low back pain more in the side than in the middle. It comes and goes and is a little bit better with pain medicine. She had a C-reactive protein drawn today, it was 314. Urinalysis showed leukocyte esterase. She had had a left hip pinning in the summer, but has not had hip pain including the last few days and does not have any now. Her incision has healed she believes. PAST MEDICAL HISTORY: 1. Left hip fracture, status post fixation in 2019. 2. Gastroesophageal reflux disease. 3. Osteoarthritis. 4. Osteoporosis. PAST SURGICAL HISTORY: 1. Status post appendectomy. 2. Status post cataract repair. ALLERGIES: No known drug allergies. MEDICATIONS: 1. Tylenol. 2. Cefazolin 1 g IV every 8 hours. 3. Cholecalciferol. 4. Enoxaparin. 5. Famotidine. 6. Gabapentin. 7. Lactobacillus. 8. Oxycodone as needed. 9. Pantoprazole. 10. Tramadol as needed. SOCIAL HISTORY: She is a nonsmoker. She helps take care of her , who is in palliative care currently. She does not use alcohol. FAMILY HISTORY: Father and son have diabetes. REVIEW OF SYSTEMS: All negative except as noted above to a 14-point review of systems. PHYSICAL EXAM: Vital Signs: Temperature 37, heart rate 100, respiratory rate 20, blood pressure 108/50, oxygen saturation 91% on room air. In general, she is awake, not in distress. Neurologic: She is oriented x3. Follows all commands. Strength is 5/5 in the quadriceps, tibialis anterior and gastrocnemius bilaterally with sensation intact to light touch in both lower extremities. HEENT: There is no conjunctival hemorrhage. Oropharynx without lesions. Neck is supple without mass. Heart is regular rate and rhythm without murmurs, rubs, or gallops. Lungs are clear to auscultation bilaterally. Abdomen: Soft, nontender, nondistended. There are bowel sounds present. Skin: There is no rash or splinter hemorrhage. Musculoskeletal: There is no spine tenderness to palpation. There is no joint synovitis. Her left lateral hip incision has healed and nontender without erythema. The left shoulder is wrapped and in a sling. There is no tenderness to palpation. LABORATORY DATA: White blood cell count 12, hemoglobin 10, platelets 180. Creatinine 0.7. Please see impression and recommendations outlined above, which I have discussed with Dr. Mcbride. Thank you for asking me to see Ms. Ambrosio in consultation. [id number]/[facility] #: [id number] JUAN
--- NOTE | 2019-01-31 12:34 | PN ---
Progress Note - Progress Note Date of Service: 01/31/19 Note: Post-op day 1: S/P left shoulder washout in the setting of septic joint. Patient seated in joint chair with pain well managed. Her sling and cryo are intact. She denies fever, chills, SOB or CP. Her drain was removed after drain stitch was cut. She tolerated this well. The bandage was essentially left intact and was secured with paper tape. She has AROM in the left wrist and digits without pain. Sensation is intact. Hand is warm with brisk capillary refill. 2+ radial pulse. Dressing change tomorrow. Antibiotics as per I&D. We will continue to monitor.
--- NOTE | 2019-01-31 15:19 | PN ---
Subjective Date of Service: 01/31/19 Interval History: Still in poor spirits given acuity of medical problems and recent procedure. Reports that her shoulder pain bothers her most. Has no other medical complaints. TTE without endocarditis. Blood cultures still haven't cleared. L shoulder drain removed today by ortho team. Objective Active Medications: Acetaminophen (Tylenol Tab*) 975 mg PO Q8H PRN PRN Reason: MILD PAIN or TEMP > 100.4 Last Admin: 01/29/19 10:24 Dose: 975 mg Cholecalciferol (Vitamin D Tab*) 2,000 units PO DAILY [facility] Last Admin: 01/31/19 10:27 Dose: 2,000 units Enoxaparin Sodium (Lovenox(*)) 40 mg SUBCUT BEDTIME [facility] Last Admin: 01/30/19 22:03 Dose: 40 mg Famotidine (Pepcid Tab*) 20 mg PO DAILY PRN PRN Reason: HEARTBURN Gabapentin (Neurontin Cap(*)) 300 mg PO DAILY [facility] Last Admin: 01/31/19 08:40 Dose: 300 mg Gabapentin (Neurontin Cap(*)) 600 mg PO BEDTIME [facility] Last Admin: 01/30/19 23:31 Dose: Not Given Cefazolin Sodium (Kefzol 2 Gm In Ns Premix(*)) 2 gm in 100 mls @ 200 mls/hr IVPB 0030,0830,1630 [facility] Last Admin: 01/31/19 16:27 Dose: 200 mls/hr Lactobacillus Rhamnosus (Lactobacillus Acidophilus*) 1 tab PO BID [facility] Last Admin: 01/31/19 08:41 Dose: 1 tab Magnesium Hydroxide (Milk Of Magncullen Liq*) 30 ml PO Q6H PRN PRN Reason: CONSTIPATION Miscellaneous (Ativan Pyxis Ureña) 1 ea N/A .ATIVAN IV UREÑA PRN PRN Reason: PYXIS UREÑA Oxycodone HCl (Roxycodone Tab*) 5 mg PO Q3H PRN PRN Reason: PAIN - SEVERE Last Admin: 01/31/19 08:39 Dose: 5 mg Senna (Senokot 8.6 Mg Tab*) 1 tab PO BEDTIME PRN PRN Reason: if no BM during day Tramadol HCl (Ultram*) 50 mg PO Q8H PRN PRN Reason: Pain - Moderate to Severe Last Admin: 01/31/19 10:44 Dose: 50 mg Vital Signs - 8 hr 01/31/19 01/31/19 01/31/19 08:00 08:39 08:40 Temperature 99.1 F Pulse Rate 110 Respiratory 20 20 22 Rate Blood Pressure 108/50 (mmHg) O2 Sat by Pulse 91 91 Oximetry 01/31/19 01/31/19 01/31/19 10:26 10:27 10:44 Temperature Pulse Rate Respiratory 19 19 18 Rate Blood Pressure (mmHg) O2 Sat by Pulse Oximetry 01/31/19 01/31/19 11:15 12:44 Temperature 98.7 F Pulse Rate 72 Respiratory 21 19 Rate Blood Pressure 110/70 (mmHg) O2 Sat by Pulse 89 Oximetry Oxygen Devices in Use Now: None Appearance: dysthymic but in NAD, alert and interactive Ears/Nose/Mouth/Throat: Clear Oropharnyx, Mucous Membranes Moist Neck: NL Appearance and Movements; NL JVP, Trachea Midline Respiratory: Symmetrical Chest Expansion and Respiratory Effort, Clear to Auscultation Cardiovascular: NL Sounds; No Murmurs; No JVD, RRR Abdominal: NL Sounds; No Tenderness; No Distention, No Hepatosplenomegaly Extremities: No Edema Neurological: Alert and Oriented x 3 Result Diagrams: 01/31/19 05:38 01/31/19 05:38 Microbiology and Other Data: Microbiology 01/28/19 22:49 Nasal Screen MRSA (PCR) - Final Nasal Mrsa Not Detected Assess/Plan/Problems-Billing Assessment: 78W with GERD, OA, osteoporosis, recent L hip intertrochanteric fracture s/p IMN (10/2018), and recent shingles s/p acyclovir and recently started opioids and muscle relaxer, presents after being found down. Found with high fever, and blood, urine, and shoulder joint growing Staph. - Patient Problems (1) Sepsis Comment: Blood, urine, and shoulder fluid growing staph. - cont IV abx (01/28 - ); CTX narrowed to cefazolin for 4-6 wk course - to OR for shoulder washout - TTE ordered - f/u surveillance cultures (2) Fall Comment: Pt doesn't remember fall. Family and friend report that she was acting 'off' the prior day, after starting muscle relaxant and opioids rx'ed by outpatient provider for shingles pain? Also large contribution from bacteremia causing metabolic encephalopathy. - avoid Beers criteria meds when possible - cont antibiotics - PT ordered - mental status back to baseline, cont to monitor closely (3) Left shoulder pain Comment: Severe OA in shoulder by imaging. Now with septic joint - f/u Dr. Tommie thibodeaux, to OR for washout 01/30 - APAP prn mild pain, tramadol mod, oxy severe prn (4) Shingles Comment: of Right back, now s/p acyclovir course. Lesions well healed, nearly resolved, but course with PHN. - cont home gabapentin (5) GERD (gastroesophageal reflux disease) Comment: pt reports she'd like to be off PPI - switch to famotidine prn (6) DVT prophylaxis Comment: - lovenox subq ppx
[2019-01-31] MEDS ORDERED: ceFAZolin* 2 GM* Q8H (Duplex) IVPB SCH (15:30)
[2019-01-31] MEDS ORDERED: ceFAZolin 2 GM in NS PREMIX(*) 2 GM/100 ML BAG IVPB SCH (16:14)
[2019-01-31] MEDS: ceFAZolin 2 GM in NS PREMIX(*) 2 GM/100 ML BAG IVPB SCH (16:27)
[2019-01-31] MEDS ORDERED: Vancomycin Trough Check NOTE FOLLOW UP ONE (19:30)
[2019-01-31] MEDS: Enoxaparin(*) 40 MG/0.4 ML SYR SUBCUT SCH (20:13)
[2019-02-01] MEDS: ceFAZolin 2 GM in NS PREMIX(*) 2 GM/100 ML BAG IVPB SCH ×3 (01:02→17:32)
[2019-02-01] MEDS: Gabapentin CAP(*) 300 MG PO SCH ×2 (08:42→20:09)
[2019-02-01] MEDS: Cholecalciferol TAB* 1000 UNITS PO SCH (08:42)
[2019-02-01] MEDS: Lactobacillus Acidophilus* 1 TAB PO SCH ×2 (08:42→20:09)
[2019-02-01 10:24] LABS: Hematocrit 33 % (35-47); Hemoglobin 11.4 g/dL (12.0-16.0); Mean Corpuscular HGB Conc 34 g/dL (31-36); Mean Corpuscular Hemoglobin 29 pg (27-31); Mean Corpuscular Volume 85 fL (80-97); Mean Platelet Volume 7.6 fL (7.4-10.4); Platelet Count 240 10^3/uL (150-450); Red Blood Count 3.91 10^6 /uL (3.70-4.87); Red Cell Distribution Width 16 % (10-15); White Blood Count 9.8 10^3/uL (3.5-10.8)
[2019-02-01 10:36] LABS: BUN/Creatinine Ratio 19.4 (8-20); C Reactive Protein 232.28 mg/L (<8.01); EGFR Non-African American 78.5 (>60); Magnesium 1.8 mg/dL (1.9-2.7); Potassium 3.2 mmol/L (3.5-5.0)
--- NOTE | 2019-02-01 11:14 | PN ---
Progress Note - Progress Note Date of Service: 02/01/19 SOAP: Subjective: []Pt seen at bedside. Her left shoulder is not painful today. She complains of pain from shingles on her back, no other complaints. Denies fever, chills, CP, SOB, dizziness, nausea. Objective: []Gen: NAD, nontoxic appearing LUE: left shoulder dressing changed. No drainage, no erythema. Moderate global tenderness about the shoulder. Passively able to forward flex and abduct shoulder to 45 degrees. Able to flex and extend elbow, wrist and digits without pain RUE: no pain with ROM shoulder, elbow, wrist or digits BL LE: no tenderness to palpation and no pain with f/e hip, knee, ankle or digits. Assessment: []Left shoulder glenohumeral joint infection. Left shoulder glenohumeral joint osteoarthritis. S/P 1. Arthroscopic incision, irrigation, debridement, and drainage, left shoulder glenohumeral joint. 2. Left shoulder arthroscopic debridement, subacromial bursectomy, irrigation debridement of subacromial space Plan: []WBAT PT/OT Sling for comfort Growing MSSA- on ancef CRP and WBC trending down, follow labs and exam. NPO at midnight though low suspicion for needing repeat washout tomorrow based on todays findings. ID for abx guidance Microbiology 01/30/19 17:12 Anaerobic Culture - Preliminary Wound - Shoulder Left Skin and Soft Tissue MRSA/MSSA (PCR - Final Mrsa Negative S.aureus Positive Gram Stain - Final Wound Culture - Preliminary Staphylococcus Aureus 01/30/19 13:30 Gram Stain - Final Body Fluid Body Fluid Culture - Preliminary Staphylococcus Aureus Anaerobic Culture - Preliminary Skin and Soft Tissue MRSA/MSSA (PCR - Final Mrsa Negative S.aureus Positive Acid Fast Bacilli Smear - Final 01/28/19 15:51 Urine Culture - Final Urine Staphylococcus Aureus Enterococcus Faecalis 01/30/19 09:32 Aerobic Blood Culture - Preliminary Blood Venous Anaerobic Blood Culture - Preliminary Blood MRSA/MSSA (PCR) - Final Mrsa Negative S.aureus Positive 01/29/19 04:50 Aerobic Blood Culture - Final Blood Venous Staphylococcus Aureus Anaerobic Blood Culture - Final Staphylococcus Aureus Blood MRSA/MSSA (PCR) - Final Mrsa Negative S.aureus Positive 01/28/19 17:25 Aerobic Blood Culture - Final Blood Venous Staphylococcus Aureus Anaerobic Blood Culture - Final Staphylococcus Aureus Blood MRSA/MSSA (PCR) - Final Mrsa Negative S.aureus Positive 01/30/19 09:32 Aerobic Blood Culture - Preliminary Blood Venous Anaerobic Blood Culture - Preliminary Blood MRSA/MSSA (PCR) - Final Mrsa Negative S.aureus Positive <Naomi Soto - Last Filed: 02/01/19 11:20> - Progress Note SOAP: Agree with above plan. I will examine patient this evening. <Miguelangel Mayo - Last Filed: 02/01/19 12:21>
[2019-02-01] MEDS: traMADol TAB* 50 MG PO PRN ×2 (11:27→17:39)
[2019-02-01 12:34] LABS: ABS Eosinophils 0.1 10^3/ul (0-0.6); ABS Lymphocytes 0.5 10^3/ul (1.0-4.8); ABS Monocytes 0.7 10^3/ul (0-0.8); ABS Neutrophils 8.5 10^3/ul (1.5-7.7); Eosinophil % 1.2 %; Lymphocyte % 4.6 %
--- NOTE | 2019-02-01 14:56 | PN ---
Progress Note - Progress Note Date of Service: 02/01/19 SOAP: Subjective: CC: septic arthritis HPI: 78 year old woman with left shoulder pain, Staph bacteremia and septic arthritis left shoulder. She tolerated I&D well and shoulder pain is improving. She had shingles recently and has burning pain in similar distribution. No fever, rash or diarrhea. No other joint pain. Objective: Vital Signs Temp 36.6 C 02/01/19 11:50 Pulse 99 02/01/19 11:50 Resp 20 02/01/19 14:37 BP 122/70 02/01/19 11:50 Pulse Ox 97 02/01/19 11:50 Intake & Output 01/31/19 02/01/19 02/01/19 18:59 06:59 18:59 Intake Total 740 570 547 Output Total 300 Balance 740 270 547 Intake: IV Fluids 50 30 307 ABX - CEFAZOLIN 50 NS 30 307 IVPB 100 ABX - CEFAZOLIN 100 Oral 690 440 240 Output: Urine 300 Other: Estimated Void Medium # Bowel Movements 0 1 # Voids 1 Gen:awake, no distress HEENT: no thrush, no conj hemorrhage Heart:RRR no murmur Lungs:CTA BL Abd:+BS NTND soft Skin: no rash MSK: no spine tenderness Neuro: moves all extremities Laboratory Results - last 24 hr 02/01/19 02/01/19 10:11 10:11 WBC 9.8 RBC 3.91 Hgb 11.4 L Hct 33 L MCV 85 MCH 29 MCHC 34 RDW 16 H Plt Count 240 MPV 7.6 Neut % (Auto) 86.4 Lymph % (Auto) 4.6 [place] % (Auto) 7.5 Eos % (Auto) 1.2 Baso % (Auto) 0.3 Absolute Neuts (auto) 8.5 H Absolute Lymphs (auto) 0.5 L Absolute Monos (auto) 0.7 Absolute Eos (auto) 0.1 Absolute Basos (auto) 0.0 Absolute Nucleated RBC 0.0 Nucleated RBC % 0.0 Sodium 134 L Potassium 3.2 L Chloride 102 Carbon Dioxide 25 Anion Gap 7 BUN 14 Creatinine 0.72 Est GFR ( Amer) 95.0 Est GFR (Non-Af Amer) 78.5 BUN/Creatinine Ratio 19.4 Glucose 100 Calcium 8.0 L Magnesium 1.8 L C-Reactive Protein 232.28 H Assessment: 1. MSSA bacteremia persists 2. septic arthritis left shoulder 3. post herpetic neuralgia Plan: 1. continue ancef 2 gm IV Q8hrs, recheck BC, PICC when cleared 2. NIRU 35 minutes floor time >50% face to face in counseling regarding next steps in workup, all questions answered.
--- NOTE | 2019-02-01 16:37 | PN ---
Subjective Date of Service: 02/01/19 Interval History: Leukocytosis resolved. CRP 314 -> 232. Shoulder drain taken out yesterday. Still without fever. 4th set of blood cultures drawn today - prior 3 were positive for Staph. Still a bit dramatic about being hospitalized - sister reports this is "not like her". Pt telling me today that she doesn't have L shoulder pain and never did - that she only has R-back pain from prior episode of shingles. This is reassuring from a septic joint standpoint, but will continue to monitor her mentation closely. Hasn't had a BM in 3 days. Declines enema. Feels very week overall and is requiring assistance to transfer. Objective Active Medications: Acetaminophen (Tylenol Tab*) 975 mg PO Q8H PRN PRN Reason: MILD PAIN or TEMP > 100.4 Last Admin: 01/29/19 10:24 Dose: 975 mg Cholecalciferol (Vitamin D Tab*) 2,000 units PO DAILY [facility] Last Admin: 02/01/19 08:42 Dose: 2,000 units Enoxaparin Sodium (Lovenox(*)) 40 mg SUBCUT BEDTIME [facility] Last Admin: 01/31/19 20:13 Dose: 40 mg Famotidine (Pepcid Tab*) 20 mg PO DAILY PRN PRN Reason: HEARTBURN Gabapentin (Neurontin Cap(*)) 600 mg PO DAILY [facility] Gabapentin (Neurontin Cap(*)) 900 mg PO BEDTIME [facility] Cefazolin Sodium (Kefzol 2 Gm In Ns Premix(*)) 2 gm in 100 mls @ 200 mls/hr IVPB 0030,0830,1630 [facility] Last Admin: 02/01/19 08:42 Dose: 200 mls/hr Lactobacillus Rhamnosus (Lactobacillus Acidophilus*) 1 tab PO BID [facility] Last Admin: 02/01/19 08:42 Dose: 1 tab Magnesium Hydroxide (Milk Of Magnesia Liq*) 30 ml PO Q6H PRN PRN Reason: CONSTIPATION Last Admin: 02/01/19 11:29 Dose: 30 ml Miscellaneous (Ativan Pyxis Ureña) 1 ea N/A .ATIVAN IV UREÑA PRN PRN Reason: PYXIS UREÑA Oxycodone HCl (Roxycodone Tab*) 5 mg PO Q3H PRN PRN Reason: PAIN - SEVERE Last Admin: 01/31/19 08:39 Dose: 5 mg Senna (Senokot 8.6 Mg Tab*) 1 tab PO BEDTIME PRN PRN Reason: if no BM during day Tramadol HCl (Ultram*) 50 mg PO Q8H PRN PRN Reason: Pain - Moderate to Severe Last Admin: 02/01/19 11:27 Dose: 50 mg Vital Signs - 8 hr 02/01/19 02/01/19 02/01/19 08:42 11:27 11:35 Temperature Pulse Rate Respiratory 24 24 24 Rate Blood Pressure (mmHg) O2 Sat by Pulse Oximetry 02/01/19 02/01/19 02/01/19 11:50 12:00 14:37 Temperature 97.9 F Pulse Rate 99 Respiratory 18 18 20 Rate Blood Pressure 122/70 (mmHg) O2 Sat by Pulse 97 Oximetry Appearance: comfortable and interactive, frail-appearing, occasionally dysthymic Eyes: No Scleral Icterus Ears/Nose/Mouth/Throat: Clear Oropharnyx, Mucous Membranes Moist Neck: NL Appearance and Movements; NL JVP, Trachea Midline Respiratory: Symmetrical Chest Expansion and Respiratory Effort, Clear to Auscultation Cardiovascular: NL Sounds; No Murmurs; No JVD, RRR Abdominal: NL Sounds; No Tenderness; No Distention, No Hepatosplenomegaly, - - few healing scabs over right mid-back Extremities: No Edema Neurological: Alert and Oriented x 3 Result Diagrams: 02/01/19 10:11 02/01/19 10:11 Microbiology and Other Data: Microbiology 01/28/19 22:49 Nasal Screen MRSA (PCR) - Final Nasal Mrsa Not Detected Assess/Plan/Problems-Billing Assessment: 78W with GERD, OA, osteoporosis, recent L hip intertrochanteric fracture s/p IMN (10/2018), and recent shingles s/p acyclovir and recently started opioids and muscle relaxer, presents after being found down. Found with high fever, and blood, urine, and shoulder joint growing Staph. - Patient Problems (1) Sepsis Comment: Blood, urine, and left shoulder fluid growing staph. S/p washout in OR on 01/30. - cont IV abx (01/28 - ); CTX narrowed to cefazolin for 4-6 wk course - appreciate ID recs - f/u surveillance cultures; PICC when cleared (2) Left shoulder pain Comment: Severe OA in shoulder by imaging. Now with septic joint growing Staph. - appreciate ortho recs, s/p washout 01/30 - APAP prn mild pain, tramadol mod, oxy severe prn - bowel reg while on opioids (3) Shingles Comment: of Right back, now s/p acyclovir course. Lesions well healed, nearly resolved, but with persistent burning pain. - increase home gabapentin to 600 qAM and 900 qPM, monitor mental status (4) Fall Comment: Pt doesn't remember fall. Family and friend report that she was acting 'off' the prior day, after starting muscle relaxant and opioids rx'ed by outpatient provider for shingles pain? Also large contribution from bacteremia causing metabolic encephalopathy. - avoid Beers criteria meds when possible - cont antibiotics - PT ordered - mental status back to baseline, cont to monitor closely (5) GERD (gastroesophageal reflux disease) Comment: pt reports she'd like to be off PPI - switch to famotidine prn (6) DVT prophylaxis Comment: - lovenox subq ppx
[2019-02-01] MEDS ORDERED: Magnesium Sulfate 1 GM IV* 1 GM/100 ML BAG IV ONE (17:10)
[2019-02-01] MEDS ORDERED: Potassium Chlor TAB* 20 MEQ TAB.ER PO ONE (17:10)
[2019-02-01] MEDS ORDERED: oxyCODONE TAB* 5 MG TAB PO PRN (17:15)
[2019-02-01] MEDS: Acetaminophen TAB* 325 MG PO PRN (17:37)
--- NOTE | 2019-02-01 17:44 | PN ---
Progress Note - Progress Note Date of Service: 02/01/19 SOAP: Subjective: Decreased pain left shoulder. Objective: NAD Non-toxic appearing. LUE: - dressing c/d/i - PROM- she allows passive FF or abduction to 45 degrees without discomfort - NVID Microbiology 01/30/19 17:12 Wound - Shoulder Left Gram Stain - Final Mrsa Negative S.aureus Positive 01/30/19 17:12 Wound - Shoulder Left Anaerobic Culture - Preliminary 01/30/19 17:12 Wound - Shoulder Left Wound Culture - Preliminary Staphylococcus Aureus Laboratory Tests 01/31/19 01/31/19 02/01/19 05:38 05:38 10:11 WBC 12.3 H 9.8 Neut % (Auto) 86.7 86.4 C-Reactive Protein 314.83 H 02/01/19 10:11 WBC Neut % (Auto) C-Reactive Protein 232.28 H Assessment: POD 2 I&D L shoulder arthroscopic L shoulder bacterial infection & bacteremia & UTI Baseline L shoulder osteoarthritis Plan: - NPO after midnight. I will re-examine patient tomorrow morning and check CRP and decide whether a 2nd I&D is required tomorrow. - Continue IV abx - Follow trends of pain level, exam, CRP, CBC to determine need for 2nd I&D & dispo plan - For joint infections, we often do 2nd I&D - NIRU pending, PICC, abx per ID - Sling prn - Pain control with meds prn, minimize narcotics given some dementia
[2019-02-01] MEDS: Enoxaparin(*) 40 MG/0.4 ML SYR SUBCUT SCH (20:09)
[2019-02-02] MEDS: ceFAZolin 2 GM in NS PREMIX(*) 2 GM/100 ML BAG IVPB SCH ×2 (00:52→10:16)
[2019-02-02 09:06] LABS: Hematocrit 32 % (35-47); Hemoglobin 10.7 g/dL (12.0-16.0); Mean Corpuscular HGB Conc 33 g/dL (31-36); Mean Corpuscular Hemoglobin 28 pg (27-31); Mean Corpuscular Volume 86 fL (80-97); Mean Platelet Volume 7.4 fL (7.4-10.4); Platelet Count 273 10^3/uL (150-450); Red Blood Count 3.76 10^6 /uL (3.70-4.87); Red Cell Distribution Width 16 % (10-15); White Blood Count 8.8 10^3/uL (3.5-10.8)
--- NOTE | 2019-02-02 09:18 | PN ---
Progress Note - Progress Note Date of Service: 02/02/19 SOAP: Subjective: CC: septic arthritis HPI: 78 year old woman with left shoulder pain, Staph bacteremia and septic arthritis left shoulder. She tolerated I&D well and shoulder pain is improving. She had shingles recently and has burning pain in similar distribution on her right flank and chest, it is severe, gabapentin helps but gets bad when it wears off. No fever, rash or diarrhea. Objective: Vital Signs Temp 36.7 C 02/02/19 02:54 Pulse 88 02/02/19 02:54 Resp 18 02/02/19 02:54 BP 114/65 02/02/19 02:54 Pulse Ox 98 02/02/19 02:54 Intake & Output 02/01/19 02/02/19 02/02/19 18:59 06:59 18:59 Intake Total 547 594 Output Total 600 Balance 547 -6 Intake: IV Fluids 307 14 NS 307 14 IVPB 100 ABX - CEFAZOLIN 100 Oral 240 480 Output: Urine 600 Other: Estimated Void Medium # Bowel Movements 1 Gen:awake, no distress HEENT: no thrush, no conj hemorrhage Heart:RRR no murmur Lungs:CTA BL Abd:+BS NTND soft Skin: no rash MSK: no spine tenderness, no chest wall tenderness to palpation Neuro: moves all extremities Laboratory Results - last 24 hr 02/01/19 02/01/19 02/02/19 10:11 10:11 08:40 WBC 9.8 8.8 RBC 3.91 3.76 Hgb 11.4 L 10.7 L Hct 33 L 32 L MCV 85 86 MCH 29 28 MCHC 34 33 RDW 16 H 16 H Plt Count 240 273 MPV 7.6 7.4 Neut % (Auto) 86.4 Lymph % (Auto) 4.6 [place] % (Auto) 7.5 Eos % (Auto) 1.2 Baso % (Auto) 0.3 Absolute Neuts (auto) 8.5 H Absolute Lymphs (auto) 0.5 L Absolute Monos (auto) 0.7 Absolute Eos (auto) 0.1 Absolute Basos (auto) 0.0 Absolute Nucleated RBC 0.0 Nucleated RBC % 0.0 Sodium 134 L Potassium 3.2 L Chloride 102 Carbon Dioxide 25 Anion Gap 7 BUN 14 Creatinine 0.72 Est GFR ( Amer) 95.0 Est GFR (Non-Af Amer) 78.5 BUN/Creatinine Ratio 19.4 Glucose 100 Calcium 8.0 L Magnesium 1.8 L C-Reactive Protein 232.28 H Assessment: 1. MSSA bacteremia persists. Staphylococcal bacteruria usually due to bacteremia and not a primary infection. 2. septic arthritis left shoulder 3. post herpetic neuralgia Plan: 1. continue ancef 2 gm IV Q8hrs, day 07/18, recheck BC, PICC when cleared 2. NIRU pending 3. gabapentin per primary team
[2019-02-02 09:23] LABS: ABS Eosinophils 0.2 10^3/ul (0-0.6); ABS Lymphocytes 0.6 10^3/ul (1.0-4.8); ABS Monocytes 0.8 10^3/ul (0-0.8); ABS Neutrophils 7.2 10^3/ul (1.5-7.7); BUN/Creatinine Ratio 20.3 (8-20); C Reactive Protein 190.86 mg/L (<8.01); Calcium 8.2 mg/dL (8.6-10.3); EGFR African American 119.6 (>60); EGFR Non-African American 98.8 (>60); Eosinophil % 1.9 %; Lymphocyte % 6.6 %; Potassium 4.1 mmol/L (3.5-5.0)
[2019-02-02] MEDS: Cholecalciferol TAB* 1000 UNITS PO SCH (10:36)
[2019-02-02] MEDS: Lactobacillus Acidophilus* 1 TAB PO SCH ×2 (10:36→20:09)
[2019-02-02] MEDS: Morphine INJ* 2 MG/ML 1 ML SYRINGE (TWO MG - NEW SYRINGE VERSION) IV PRN ×2 (10:38→18:10)
[2019-02-02] MEDS ORDERED: Buffered Lidocaine 1% SYRIN* 1 ML/SYRINGE INTRADERM ONE (10:47)
[2019-02-02] MEDS ORDERED: Famotidine IV* 10 MG/ML 2 ML (20 mg) IV ONE (10:47)
[2019-02-02] MEDS ORDERED: Ondansetron INJ* 2 MG/ML VIAL ONE (11:29)
[2019-02-02] MEDS ORDERED: Midazolam* 1 MG/ML 2 ML VIAL (2 MG) ONE (11:29)
[2019-02-02] MEDS ORDERED: fentaNYL* 50 MCG/ML 2 ML VIAL (100 MCG VIAL) ONE ×2 (11:29→13:41)
[2019-02-02] MEDS ORDERED: Succinylcholine* 20 MG/ML 10 ML VIAL ONE (11:29)
[2019-02-02] MEDS ORDERED: Propofol* 10 MG/ML 20 ML BTL ONE (11:29)
--- NOTE | 2019-02-02 11:38 | PN ---
Progress Note - Progress Note Date of Service: 02/02/19 SOAP: Subjective: Pain left shoulder, unclear if improved. Left flank pain, now on Gabapentin for that. Objective: EMERALD RAMIREZ: - Incisions clean, dry, intact - Serosanguinous drainage spotting on dressing - NVID Selected Entries 02/02/19 02/02/19 02:54 07:15 Temperature 98.0 F 98.3 F Pulse Rate 88 90 Respiratory 18 24 Rate Blood Pressure 114/65 108/60 (mmHg) O2 Sat by Pulse 98 96 Oximetry Laboratory Tests 01/31/19 01/31/19 02/01/19 05:38 05:38 10:11 WBC 9.8 Neut % (Auto) 86.7 86.4 C-Reactive Protein 314.83 H 02/01/19 02/02/19 02/02/19 10:11 08:40 08:40 WBC 8.8 Neut % (Auto) 82.6 C-Reactive Protein 232.28 H 190.86 H Assessment: POD 3 I&D L arthroscopic shoulder L shoulder infection, bacteremia, UTI Post herpetic neuralgia Plan: - Improved labs, persistent pain - Multiple sources of pain, including flank and back, and baseline osteoarthritis will make tracking improvement more difficult - Discussed with patient 2nd I&D to again debulk bacterial burden. Seems reasonable in a patient who had purulence at her first I&D, bacteremia at presentation. - Has been NPO past midnight - Data on # of I&Ds required for joint infection is limited. In this setting a 2nd I&D seems prudent. - To OR for repeat arthroscopic I&D L shoulder
[2019-02-02] MEDS ORDERED: Famotidine IV* 10 MG/ML 2 ML (20 mg) ONE (11:55)
[2019-02-02] MEDS ORDERED: EPINEPHRINE 1 MG/ML 1 ML VIAL ONE (11:56)
[2019-02-02] MEDS ORDERED: Bupivacaine 0.25% EPI 200,000* 30 ML SDV ONE (11:58)
[2019-02-02] MEDS ORDERED: ceFAZolin 2 GM in NS PREMIX(*) 2 GM/100 ML BAG IVPB ONE (12:07)
[2019-02-02] MEDS: Lactated Ringers 1000 ML Bag* 1,000 ML IV SCH ×2 (12:09→18:11)
[2019-02-02] MEDS ORDERED: DiMENhydriNATE IV* 50 MG/ML VIAL IV PUSH PRN (13:09)
[2019-02-02] MEDS ORDERED: Naloxone* 0.4 MG/ML 1 ML VIAL IV PRN (13:09)
[2019-02-02] MEDS: fentaNYL* 50 MCG/ML 2 ML VIAL (100 MCG VIAL) IV PRN ×4 (13:45→14:00)
[2019-02-02] MEDS ORDERED: HYDROmorphone INJ1* 1 MG/ML SYRINGE ONE (14:03)
[2019-02-02] MEDS: HYDROmorphone INJ1* 1 MG/ML SYRINGE IV PRN ×5 (14:05→14:25)
--- NOTE | 2019-02-02 17:16 | PN ---
Subjective Date of Service: 02/02/19 Interval History: Pt is feeling poorly currently. She states she is having severe pain in the R flank and across her mid abdomen that is burning in nature. She states she has been in agony all day and wants to know what can be done to treat the pain. She has not had a BM in several days. Objective Active Medications: Acetaminophen (Tylenol Tab*) 975 mg PO Q8H PRN PRN Reason: MILD PAIN or TEMP > 100.4 Last Admin: 02/01/19 17:37 Dose: 975 mg Cholecalciferol (Vitamin D Tab*) 2,000 units PO DAILY [facility] Last Admin: 02/02/19 10:36 Dose: Not Given Enoxaparin Sodium (Lovenox(*)) 40 mg SUBCUT 2100 [facility] Famotidine (Pepcid Tab*) 20 mg PO DAILY PRN PRN Reason: HEARTBURN Gabapentin (Neurontin Cap(*)) 600 mg PO DAILY [facility] Gabapentin (Neurontin Cap(*)) 900 mg PO BEDTIME [facility] Last Admin: 02/01/19 20:09 Dose: 900 mg Gabapentin (Neurontin Cap(*)) 300 mg PO 1200 [facility] Cefazolin Sodium 2 gm/ Sodium (Chloride) 100 mls @ 200 mls/hr IVPB Q8H [facility] Lactated Ringer's (Lactated Ringers 1000 Ml Bag*) 1,000 mls @ 125 mls/hr IV PER RATE [facility] Last Admin: 02/02/19 12:09 Dose: 125 mls/hr Lactobacillus Rhamnosus (Lactobacillus Acidophilus*) 1 tab PO BID [facility] Last Admin: 02/02/19 10:36 Dose: Not Given Lidocaine (Lidoderm 5% Patch*) 1 patch TRANSDERM Q24H [facility] Magnesium Hydroxide (Milk Of Magnesia Liq*) 30 ml PO Q6H PRN PRN Reason: CONSTIPATION Last Admin: 02/01/19 11:29 Dose: 30 ml Miscellaneous (Ativan Pyxis Ureña) 1 ea N/A .ATIVAN IV UREÑA PRN PRN Reason: PYXIS UREÑA Morphine Sulfate (Morphine Inj (Syringe))*) 2 mg IV Q2H PRN PRN Reason: breakthru pain Stop: 02/03/19 06:00 Last Admin: 02/02/19 10:38 Dose: 2 mg Oxycodone HCl (Roxycodone Tab*) 5 mg PO Q4H PRN PRN Reason: PAIN - MODERATE Pharmacy Profile Note (Lidocaine Patch Remove*) 1 note N/A 2100 [facility] Senna (Senokot 8.6 Mg Tab*) 1 tab PO BEDTIME PRN PRN Reason: if no BM during day Vital Signs - 8 hr 02/02/19 02/02/19 02/02/19 10:38 12:14 12:42 Temperature 98.4 F Pulse Rate 103 Respiratory 26 16 18 Rate Blood Pressure 126/71 (mmHg) O2 Sat by Pulse 95 Oximetry 02/02/19 02/02/19 02/02/19 13:26 13:28 13:30 Temperature 98.2 F Pulse Rate 119 118 Respiratory 15 Rate Blood Pressure 120/67 121/67 (mmHg) O2 Sat by Pulse 99 100 Oximetry 02/02/19 02/02/19 02/02/19 13:35 13:45 13:50 Temperature Pulse Rate 115 106 Respiratory 20 22 16 Rate Blood Pressure 114/71 121/72 (mmHg) O2 Sat by Pulse 97 100 Oximetry 02/02/19 02/02/19 02/02/19 13:55 14:00 14:05 Temperature Pulse Rate 104 Respiratory 16 22 16 Rate Blood Pressure 121/69 (mmHg) O2 Sat by Pulse 100 Oximetry 02/02/19 02/02/19 02/02/19 14:10 14:15 14:20 Temperature Pulse Rate 107 Respiratory 16 18 16 Rate Blood Pressure 118/66 (mmHg) O2 Sat by Pulse 99 Oximetry 02/02/19 02/02/19 02/02/19 14:25 14:30 15:16 Temperature 98.2 F Pulse Rate 107 102 Respiratory 16 18 18 Rate Blood Pressure 104/61 105/58 (mmHg) O2 Sat by Pulse 97 96 Oximetry Oxygen Devices in Use Now: Nasal Cannula Appearance: Elderly female sitting up in bed, NAD Eyes: No Scleral Icterus Ears/Nose/Mouth/Throat: Mucous Membranes Moist Respiratory: Symmetrical Chest Expansion and Respiratory Effort, Clear to Auscultation Cardiovascular: NL Sounds; No Murmurs; No JVD, RRR, No Edema Abdominal: NL Sounds; No Tenderness; No Distention Extremities: No Clubbing, Cyanosis Skin: No Nodules or Sclerosis Neurological: Alert and Oriented x 3 Result Diagrams: 02/02/19 08:40 02/02/19 08:40 Microbiology and Other Data: Microbiology 01/28/19 22:49 Nasal Screen MRSA (PCR) - Final Nasal Mrsa Not Detected Assess/Plan/Problems-Billing 78W with GERD, OA, osteoporosis, recent L hip intertrochanteric fracture s/p IMN (10/2018), and recent shingles s/p acyclovir and recently started opioids and muscle relaxer, presents after being found down. Found with high fever, and blood, urine, and L shoulder joint growing Staph. - Patient Problems (1) Post herpetic neuralgia Current Visit: Yes Status: Acute Code(s): B02.29 - OTHER POSTHERPETIC NERVOUS SYSTEM INVOLVEMENT SNOMED Code(s): 4600305 Comment: Pain in the R flank wrapping around to front is the most severe issue at this time. Continue gabapentin 600mg in the AM, 900mg in the PM, add 300mg at noon. Will also start lidocaine patch to the R flank. (2) MSSA bacteremia Current Visit: Yes Status: Acute Code(s): R78.81 - BACTEREMIA SNOMED Code( s): 698203553 Comment: Pt with multiple blood cultures positive for MSSA. Most recent cultures obtained on 02/01 have NGSF. TTE negative for signs of endocarditis, Dr Meredith requested NIRU however this has not been ordered yet. Will discuss with ID tomorrow. (3) Septic arthritis of shoulder Current Visit: Yes Status: Acute Code(s): M00.9 - PYOGENIC ARTHRITIS, UNSPECIFIED SNOMED Code(s): 00788310 Comment: Pt taken back to OR today for second wash out. Pain in shoulder seems to be less of an issue than her post herpetic neuralgia. Continue keno terminal operator IV Abx per ID. PICC to be inserted once last set of BC negative. (4) Severe sepsis Current Visit: Yes Status: Acute Code(s): A41.9 - SEPSIS, UNSPECIFIED ORGANISM; R65.20 - SEVERE SEPSIS WITHOUT SEPTIC SHOCK SNOMED Code(s): 50548501 Comment: Pt with severe sepsis on admission secondary to MSSA bacteremia/L septic shoulder. Sepsis has resolved. Pt did have CECE on admission secondary to severe sepsis which has now resolved. (5) GERD (gastroesophageal reflux disease) Current Visit: Yes Status: Acute Code(s): K21.9 - GASTRO-ESOPHAGEAL REFLUX DISEASE WITHOUT ESOPHAGITIS SNOMED Code(s): 060540810 Comment: Continue famotidine. (6) DVT prophylaxis Current Visit: Yes Status: Acute Code(s): Z29.9 - ENCOUNTER FOR PROPHYLACTIC MEASURES, UNSPECIFIED SNOMED Code(s): 830801831 Comment: nerix (7) DNR (do not resuscitate) Current Visit: Yes Status: Acute
[2019-02-02] MEDS: Gabapentin CAP(*) 300 MG PO SCH ×3 (17:25→20:19)
[2019-02-02] MEDS: Lidocaine PATCH 5%* 1 PATCH TRANSDERM SCH (18:08)
[2019-02-02] MEDS: Acetaminophen TAB* 325 MG PO PRN (18:08)
[2019-02-02] MEDS: ceFAZolin* 2 GM in NS 100 MLS Q8H (Pharmacy Admix) IVPB SCH (18:11)
[2019-02-02] MEDS: Senna TAB 8.6 mg* TAB PO PRN (20:37)
--- NOTE | 2019-02-02 22:50 | OP ---
DATE OF OPERATION: 02/02/19 - ROOM #413 DATE OF : 42 SURGEON: Dr. Miguelangel Mayo. SOLARIS ADMINISTRATOR: None. ANESTHESIOLOGIST: Dr. Tay. ANESTHESIA: General anesthesia, local anesthesia using approximately 20 cc of Marcaine 0.25% with epinephrine. PRE-OP DIAGNOSES: 1. Left shoulder glenohumeral joint infection. 2. Shoulder glenohumeral joint osteoarthritis. 3. Status post first irrigation and drainage procedure, 01/30/19. POST-OP DIAGNOSES: 1. Left shoulder glenohumeral joint infection. 2. Shoulder glenohumeral joint osteoarthritis. 3. Status post first irrigation and drainage procedure, 01/30/19. OPERATIVE PROCEDURE: Arthroscopic irrigation and drainage, left shoulder glenohumeral joint. ANTIBIOTICS: Ancef 2 g IV after cultures were obtained. IV FLUIDS: See Anesthesia note. SKIN TO SKIN TIME: Approximately 22 minutes. ARTHROSCOPIC FLUID UTILIZED: 9 L, 3 bags of 3 L each. SPECIMEN: Aerobic and anaerobic cultures, left shoulder glenohumeral joint. Aerobic and anaerobic culture swabs were obtained from joint fluid. IMPLANTS: No implants. COMPLICATIONS: None. ESTIMATED BLOOD LOSS: Minimal. INDICATIONS: The patient is a 78-year-old woman who [place] [facility] [place]. The patient was found to be septic and to have a left shoulder infection as well as a urinary tract infection. The patient underwent first irrigation and debridement on 01/30/19 by me uneventfully. Postoperatively, the patient has been taking IV antibiotics. Infectious disease service has been consulted. CRP and white blood cell count have trended down. The patient continues to have left shoulder pain, although some of this certainly is secondary to her baseline left shoulder glenohumeral joint osteoarthritis. The patient is also dealing with back pain and some flank pain , thought to be caused by postherpetic neuralgia. I had spoken to the patient about the fact that we often do a second irrigation and debridement procedure when there is a joint infection. Certainly, the case for an infection has been present for longer or is more severe. As the patient was bacteremic and septic, with the infection in the shoulder likely present for multiple days prior to the first operative procedure, a second washout seems prudent. Likewise, because the patient is not a great historian and has baseline left shoulder pain as well as some additional flank and back pain, I think that improvement on history and physical exam will be difficult to track. For that reason, a second washout also makes sense. I discussed the risks and potential complications of the procedure with the patient. DESCRIPTION OF PROCEDURE: In preoperative holding, the patient signed written consent. Operative extremity was marked in the preoperative holding. The patient was taken back to the operating room and placed supine on the operating room table, sedated and intubated. The patient was converted into the lateral decubitus position with the left shoulder up, axillary roll, moran bag hardened. All bony prominences were padded. Longitudinal traction with 15 pounds in the appropriate amount of forward flexion and abduction. Left shoulder prepped and draped. Formal surgical time-out performed. I placed a spinal needle into the glenohumeral joint from posterior. I injected 30 cc of normal saline. Prior to the injection of saline, I removed the stitches from the anterior and posterior portals from the prior surgical procedure. After insufflating the joint with the spinal needle, I made my posterior portal through the prior skin incision. At this point, I went to use my arthroscope, but there was some difficulty with the video equipment. We waited for some time to get the video machine turned back on. This led to a delay in the case. Video equipment was finally restored. I entered an arthroscopic shaver from anterior and I debrided very minimal synovitic tissue. I identified the loose body about the posterior inferior glenoid, but left it in place. It appeared to be a chronic finding. I irrigated the shoulder from posterior to anterior with 9 L of fluid. I then removed the fluid from the joint. No drain. I closed anterior and posterior skin incisions with [id number] in 12 stitches using nylon 3-0 suture. Local anesthetic injected; 4x4s, ABDs, foam tape. The patient was awaken and extubated. Transferred to the PACU. DISPOSITION: The patient was to be readmitted to the hospitalist service. We will continue to follow CBC with differential as well as CRP along with symptoms of pain and physical exam to determine the efficacy of treatment. The patient should not require a third incision and drainage. Infectious disease service will continue to consult and the patient is still on 2 g Ancef IV q.8 hours. We will follow up on intraoperative cultures obtained during this case. [id number]/[facility] #: [id number] MALIKD
[2019-02-03] MEDS: ceFAZolin* 2 GM in NS 100 MLS Q8H (Pharmacy Admix) IVPB SCH ×3 (02:22→17:39)
[2019-02-03] MEDS: Lactated Ringers 1000 ML Bag* 1,000 ML IV SCH ×2 (05:13→17:38)
[2019-02-03 06:13] LABS: Calcium 7.7 mg/dL (8.6-10.3)
[2019-02-03 06:19] LABS: BUN/Creatinine Ratio 16.7 (8-20); C Reactive Protein 184.01 mg/L (<8.01); EGFR African American 117.3 (>60); EGFR Non-African American 96.9 (>60)
[2019-02-03 06:29] LABS: Hematocrit 32 % (35-47); Hemoglobin 10.4 g/dL (12.0-16.0); Mean Corpuscular HGB Conc 32 g/dL (31-36); Mean Corpuscular Hemoglobin 30 pg (27-31); Mean Corpuscular Volume 92 fL (80-97); Mean Platelet Volume 7.6 fL (7.4-10.4); Platelet Count 290 10^3/uL (150-450); Red Blood Count 3.51 10^6 /uL (3.70-4.87); Red Cell Distribution Width 18 % (10-15); White Blood Count 8.9 10^3/uL (3.5-10.8)
[2019-02-03 06:32] LABS: Potassium 3.9 mmol/L (3.5-5.0)
[2019-02-03] MEDS: Acetaminophen TAB* 325 MG PO PRN (06:32)
[2019-02-03] MEDS: Lidocaine Patch REMOVE* 1 NOTE MISC PATCH OFF SCH (06:35)
[2019-02-03 07:13] LABS: ABS Eosinophils 0.2 10^3/ul (0-0.6); ABS Lymphocytes 0.7 10^3/ul (1.0-4.8); ABS Monocytes 0.8 10^3/ul (0-0.8); ABS Neutrophils 7.2 10^3/ul (1.5-7.7); Eosinophil % 2.8 %; Lymphocyte % 7.6 %; Nucleated Red Blood Cells % 0.2
[2019-02-03] MEDS ORDERED: NS 0.9% 100 ML* 100 ML ONE (08:08)
[2019-02-03] MEDS: Cholecalciferol TAB* 1000 UNITS PO SCH (08:22)
[2019-02-03] MEDS: Gabapentin CAP(*) 300 MG PO SCH ×2 (08:22→21:24)
[2019-02-03] MEDS: Lactobacillus Acidophilus* 1 TAB PO SCH ×2 (08:22→21:24)
--- NOTE | 2019-02-03 10:12 | PN ---
Progress Note - Progress Note Date of Service: 02/03/19 SOAP: Subjective: CC: septic arthritis HPI: 78 year old woman with left shoulder pain, Staph bacteremia and septic arthritis left shoulder. She tolerated I&D well and shoulder pain is improving. She had shingles recently and has burning pain in similar distribution on her right flank and chest, it is severe, gabapentin helps but gets bad when it wears off. No fever, rash or diarrhea. Objective: Vital Signs Temp 36.7 C 02/02/19 02:54 Pulse 88 02/02/19 02:54 Resp 18 02/02/19 02:54 BP 114/65 02/02/19 02:54 Pulse Ox 98 02/02/19 02:54 Intake & Output 02/01/19 02/02/19 02/02/19 18:59 06:59 18:59 Intake Total 547 594 Output Total 600 Balance 547 -6 Intake: IV Fluids 307 14 NS 307 14 IVPB 100 ABX - CEFAZOLIN 100 Oral 240 480 Output: Urine 600 Other: Estimated Void Medium # Bowel Movements 1 Gen:awake, no distress HEENT: no thrush, no conj hemorrhage Heart:RRR no murmur Lungs:CTA BL Abd:+BS NTND soft Skin: no rash MSK: no spine tenderness, no chest wall tenderness to palpation Neuro: moves all extremities Laboratory Results - last 24 hr 02/01/19 02/01/19 02/02/19 10:11 10:11 08:40 WBC 9.8 8.8 RBC 3.91 3.76 Hgb 11.4 L 10.7 L Hct 33 L 32 L MCV 85 86 MCH 29 28 MCHC 34 33 RDW 16 H 16 H Plt Count 240 273 MPV 7.6 7.4 Neut % (Auto) 86.4 Lymph % (Auto) 4.6 [place] % (Auto) 7.5 Eos % (Auto) 1.2 Baso % (Auto) 0.3 Absolute Neuts (auto) 8.5 H Absolute Lymphs (auto) 0.5 L Absolute Monos (auto) 0.7 Absolute Eos (auto) 0.1 Absolute Basos (auto) 0.0 Absolute Nucleated RBC 0.0 Nucleated RBC % 0.0 Sodium 134 L Potassium 3.2 L Chloride 102 Carbon Dioxide 25 Anion Gap 7 BUN 14 Creatinine 0.72 Est GFR ( Amer) 95.0 Est GFR (Non-Af Amer) 78.5 BUN/Creatinine Ratio 19.4 Glucose 100 Calcium 8.0 L Magnesium 1.8 L C-Reactive Protein 232.28 H Assessment: 1. MSSA bacteremia persists. Staphylococcal bacteruria usually due to bacteremia and not a primary infection. 2. septic arthritis left shoulder 3. post herpetic neuralgia Plan: 1. continue ancef 2 gm IV Q8hrs, day 08/17, ok for PICC when BC cleared at 48 hrs 2. NIRU 35 minutes floor time >50 % face to face in counseling regarding antibiotic and rehab plans
[2019-02-03] MEDS: oxyCODONE TAB* 5 MG TAB PO PRN ×2 (10:17→21:25)
[2019-02-03] MEDS ORDERED: Gabapentin CAP(*) 100 MG PO ONE (11:58)
[2019-02-03] MEDS ORDERED: Gabapentin CAP(*) 300 MG PO SCH (12:00)
--- NOTE | 2019-02-03 13:56 | PN ---
Progress Note - Progress Note Date of Service: 02/03/19 SOAP: Subjective: []Pt seen at bedside. She feels well, her shoulder pain is well controlled at rest. Her only complaint is Pain at site of shingles. Afebrile, has been tachycardic. No feeling of chills. CRP trending down, WBC WNL. Objective: []Gen: NAD, appears well LUE: Shoulder dressing CDI no surrounding erythema. Able to actively flex and extend at elbow, wrist, digits without pain. Passive shoulder FF and ABD to 40 degrees before painful. Radial pulse 2+, cap refill less than two seconds distally, sensation intact to light touch distally. Assessment: []POD 1 and POD 4 I&D L arthroscopic shoulder L shoulder infection, bacteremia, UTI Post herpetic neuralgia Plan: WBAT, ROM as tolerated of L shoulder. Change dressing daily, first 02/04 ABX per ID Trend CBC and CRP. Wound cultures 01/30 and 02/02 both show MSSA. Patient is on ancef Vital Signs Temp 97.9 F 02/03/19 12:38 Pulse 101 02/03/19 12:38 Resp 18 02/03/19 13:00 BP 126/69 02/03/19 12:38 Pulse Ox 97 02/03/19 12:38 Intake & Output 02/02/19 02/03/19 02/03/19 18:59 06:59 18:59 Intake Total 1680 1224 0 Balance 1680 1224 0 Intake: IV Fluids 900 954 LR 900 954 IVPB 90 ABX - CEFAZOLIN 90 Oral 780 180 0 Other: Estimated Void Large # Bowel Movements 0 # Voids 1 Laboratory Last Values WBC 8.9 10^3/uL (3.5-10.8) 02/03/19 05:36 RBC 3.51 10^6 /uL (3.70-4.87) L 02/03/19 05:36 Hgb 10.4 g/dL (12.0-16.0) L 02/03/19 05:36 Hct 32 % (35-47) L 02/03/19 05:36 MCV 92 fL (80-97) 02/03/19 05:36 MCH 30 pg (27-31) 02/03/19 05:36 MCHC 32 g/dL (31-36) 02/03/19 05:36 RDW 18 % (10-15) H 02/03/19 05:36 Plt Count 290 10^3/uL (150-450) 02/03/19 05:36 MPV 7.6 fL (7.4-10.4) 02/03/19 05:36 Neut % (Auto) 80.2 % 02/03/19 05:36 Lymph % (Auto) 7.6 % 02/03/19 05:36 [place] % (Auto) 9.1 % 02/03/19 05:36 Eos % (Auto) 2.8 % 02/03/19 05:36 Baso % (Auto) 0.3 % 02/03/19 05:36 Absolute Neuts (auto) 7.2 10^3/ul (1.5-7.7) 02/03/19 05:36 Absolute Lymphs (auto) 0.7 10^3/ul (1.0-4.8) L 02/03/19 05:36 Absolute Monos (auto) 0.8 10^3/ul (0-0.8) 02/03/19 05:36 Absolute Eos (auto) 0.2 10^3/ul (0-0.6) 02/03/19 05:36 Absolute Basos (auto) 0.0 10^3/ul (0-0.2) 02/03/19 05:36 Absolute Nucleated RBC 0.0 10^3/ul 02/03/19 05:36 Immature Gran % 4.0 % (0-9) 02/03/19 05:36 Neutrophils % 81.0 % 02/03/19 05:36 Band Neutrophils % 3.0 % (0-8) 02/03/19 05:36 Lymphocytes % 9.0 % 02/03/19 05:36 Monocytes % 3.0 % 02/03/19 05:36 Eosinophils % 3.0 % 02/03/19 05:36 Metamyelocytes % 1.0 % (0-2) 02/03/19 05:36 Nucleated RBC % 0.2 02/03/19 05:36 Toxic Granulation 1+ 02/03/19 05:36 Normal RBC Morphology Normal (Normal) 02/03/19 05:36 INR (Anticoag Therapy) 1.25 (0.82-1.09) H 01/29/19 05:40 Sodium 135 mmol/L (135-145) 02/03/19 05:36 Potassium 3.9 mmol/L (3.5-5.0) 02/03/19 05:36 Chloride 105 mmol/L (101-111) 02/03/19 05:36 Carbon Dioxide 23 mmol/L (22-32) 02/03/19 05:36 Anion Gap 7 mmol/L (2-11) 02/03/19 05:36 BUN 10 mg/dL (6-24) 02/03/19 05:36 Creatinine 0.60 mg/dL (0.51-0.95) 02/03/19 05:36 Est GFR ( Amer) 117.3 (>60) 02/03/19 05:36 Est GFR (Non-Af Amer) 96.9 (>60) 02/03/19 05:36 BUN/Creatinine Ratio 16.7 (8-20) 02/03/19 05:36 Glucose 99 mg/dL (70-100) 02/03/19 05:36 Lactic Acid 0.8 mmol/L (0.5-2.0) 01/28/19 23:58 Calcium 7.7 mg/dL (8.6-10.3) L 02/03/19 05:36 Phosphorus 3.2 mg/dL (2.5-5.0) 01/29/19 04:50 Magnesium 2.0 mg/dL (1.9-2.7) 02/02/19 08:40 Total Bilirubin 0.80 mg/dL (0.2-1.0) 01/28/19 12:58 AST 29 U/L (13-39) 01/28/19 12:58 ALT 20 U/L (7-52) 01/28/19 12:58 Alkaline Phosphatase 165 U/L (34-104) H 01/28/19 12:58 Lactate Dehydrogenase 233 U/L (140-271) 01/28/19 12:58 Total Creatine Kinase 99 U/L (10-223) 01/28/19 12:58 Troponin I 0.01 ng/mL (<0.04) 01/28/19 12:58 C-Reactive Protein 184.01 mg/L (<8.01) H 02/03/19 05:36 Total Protein 7.1 g/dL (6.4-8.9) 01/28/19 12:58 Albumin 2.4 g/dL (3.2-5.2) L 01/29/19 04:50 Globulin 3.6 g/dL (2-4) 01/28/19 12:58 Albumin/Globulin Ratio 1.0 (1-3) 01/28/19 12:58 TSH 0.83 mcIU/mL (0.34-5.60) 01/28/19 12:58 Urine Color Judith 01/28/19 15:51 Urine Appearance Cloudy 01/28/19 15:51 Urine pH 6.0 (5-9) 01/28/19 15:51 Ur Specific Beatrice 1.020 (1.010-1.030) 01/28/19 15:51 Urine Protein 2+(100 mg/dl) (Negative) A 01/28/19 15:51 Urine Ketones Negative (Negative) 01/28/19 15:51 Urine Blood 2+ (Negative) A 01/28/19 15:51 Urine Nitrate Negative (Negative) 01/28/19 15:51 Urine Bilirubin Negative (Negative) 01/28/19 15:51 Urine Urobilinogen Negative (Negative) 01/28/19 15:51 Ur Leukocyte Esterase 3+ (Negative) A 01/28/19 15:51 Urine WBC (Auto) 3+(>20/hpf) (Absent) A 01/28/19 15:51 Urine RBC (Auto) 1+(3-5/hpf) (Absent) A 01/28/19 15:51 Ur Squamous Epith Cells Present (Absent) A 01/28/19 15:51 Urine Bacteria Absent (Absent) 01/28/19 15:51 Urine Glucose Negative (Negative) 01/28/19 15:51 Fluid Source Cancelled 01/30/19 13:30 Fluid Volume Cancelled 01/30/19 13:30 Fluid Color Cancelled 01/30/19 13:30 Fluid Appearance Cancelled 01/30/19 13:30 Fluid WBC Cancelled 01/30/19 13:30 Fluid RBC Cancelled 01/30/19 13:30 Fluid Tot Cell Count Cancelled 01/30/19 13:30 Fluid Neutrophils Cancelled 01/30/19 13:30 Fluid Band Neutrophils Cancelled 01/30/19 13:30 Fluid Lymphocytes Cancelled 01/30/19 13:30 Fluid Reactive Lymphs Cancelled 01/30/19 13:30 Fluid Monocytes Cancelled 01/30/19 13:30 Fluid Eosinophils Cancelled 01/30/19 13:30 Fluid Basophils Cancelled 01/30/19 13:30 Fluid Promyelocytes Cancelled 01/30/19 13:30 Fluid Myelocytes Cancelled 01/30/19 13:30 Fluid Metamyelocytes Cancelled 01/30/19 13:30 Fluid Blast Cells Cancelled 01/30/19 13:30 Fluid Nucleated RBCs Cancelled 01/30/19 13:30 Fluid Other Cells Cancelled 01/30/19 13:30 Fluid Cell Count Rvw By Cancelled 01/30/19 13:30 Fluid Comment Cancelled 01/30/19 13:30
--- NOTE | 2019-02-03 15:55 | PN ---
Subjective Date of Service: 02/03/19 Interval History: Pt is feeling ok. The post-herpetic neuralgia is still her biggest complaint. Her shoulder does not hurt at rest. No SOB. No diarrhea. Objective Active Medications: Acetaminophen (Tylenol Tab*) 975 mg PO Q8H PRN PRN Reason: MILD PAIN or TEMP > 100.4 Last Admin: 02/03/19 06:32 Dose: 975 mg Cholecalciferol (Vitamin D Tab*) 2,000 units PO DAILY ON LICENSE OF [facility] Last Admin: 02/03/19 08:22 Dose: 2,000 units Enoxaparin Sodium (Lovenox(*)) 40 mg SUBCUT 2100 ON LICENSE OF [facility] Famotidine (Pepcid Tab*) 20 mg PO DAILY PRN PRN Reason: HEARTBURN Gabapentin (Neurontin Cap(*)) 600 mg PO DAILY ON LICENSE OF [facility] Last Admin: 02/03/19 08:22 Dose: 600 mg Gabapentin (Neurontin Cap(*)) 900 mg PO BEDTIME ON LICENSE OF [facility] Last Admin: 02/02/19 20:19 Dose: Not Given Gabapentin (Neurontin Cap(*)) 600 mg PO 1200 ON LICENSE OF [facility] Cefazolin Sodium 2 gm/ Sodium (Chloride) 100 mls @ 200 mls/hr IVPB Q8H ON LICENSE OF [facility] Last Admin: 02/03/19 08:28 Dose: 200 mls/hr Lactated Ringer's (Lactated Ringers 1000 Ml Bag*) 1,000 mls @ 125 mls/hr IV PER RATE ON LICENSE OF [facility] Last Admin: 02/03/19 05:13 Dose: 125 mls/hr Lactobacillus Rhamnosus (Lactobacillus Acidophilus*) 1 tab PO BID ON LICENSE OF [facility] Last Admin: 02/03/19 08:22 Dose: 1 tab Lidocaine (Lidoderm 5% Patch*) 1 patch TRANSDERM Q24H ON LICENSE OF [facility] Last Admin: 02/02/19 18:08 Dose: 1 patch Magnesium Hydroxide (Milk Of Magnesia Liq*) 30 ml PO Q6H PRN PRN Reason: CONSTIPATION Last Admin: 02/01/19 11:29 Dose: 30 ml Miscellaneous (Ativan Pyxis Ureña) 1 ea N/A .ATIVAN IV UREÑA PRN PRN Reason: PYXIS UREÑA Oxycodone HCl (Roxycodone Tab*) 5 mg PO Q4H PRN PRN Reason: PAIN - MODERATE Last Admin: 02/03/19 10:17 Dose: 5 mg Pharmacy Profile Note (Lidocaine Patch Remove*) 1 note PATCH OFF 0600 [facility] Last Admin: 02/03/19 06:35 Dose: 1 note Senna (Senokot 8.6 Mg Tab*) 1 tab PO BEDTIME PRN PRN Reason: if no BM during day Last Admin: 02/02/19 20:37 Dose: 1 tab Vital Signs - 8 hr 02/03/19 02/03/19 02/03/19 08:00 08:22 10:17 Temperature 97.7 F Pulse Rate 88 Respiratory 18 18 18 Rate Blood Pressure 106/61 (mmHg) O2 Sat by Pulse 94 Oximetry 02/03/19 02/03/19 02/03/19 11:26 11:34 12:38 Temperature 97.9 F Pulse Rate 101 Respiratory 18 20 Rate Blood Pressure 126/69 (mmHg) O2 Sat by Pulse 97 Oximetry 02/03/19 13:00 Temperature Pulse Rate Respiratory 18 Rate Blood Pressure (mmHg) O2 Sat by Pulse Oximetry Oxygen Devices in Use Now: Nasal Cannula Appearance: Elderly female sitting up in bed, eating lunch, NAD Eyes: No Scleral Icterus Ears/Nose/Mouth/Throat: Mucous Membranes Moist Respiratory: Symmetrical Chest Expansion and Respiratory Effort, Clear to Auscultation - anteriorly Cardiovascular: NL Sounds; No Murmurs; No JVD, RRR, No Edema Abdominal: NL Sounds; No Tenderness; No Distention Extremities: No Clubbing, Cyanosis, - - L shoulder in post op dressing Skin: - - few scabbed small round lesions on R posterior flank around the level of T11-12. Result Diagrams: 02/03/19 05:36 02/03/19 05:36 Microbiology and Other Data: Microbiology 01/28/19 22:49 Nasal Screen MRSA (PCR) - Final Nasal Mrsa Not Detected Assess/Plan/Problems-Billing 78W with GERD, OA, osteoporosis, recent L hip intertrochanteric fracture s/p IMN (10/2018), and recent shingles s/p acyclovir and recently started opioids and muscle relaxer, presents after being found down. Found with high fever, and blood, urine, and L shoulder joint growing Staph. - Patient Problems (1) Post herpetic neuralgia Current Visit: Yes Status: Acute Code(s): B02.29 - OTHER POSTHERPETIC NERVOUS SYSTEM INVOLVEMENT SNOMED Code(s): 7517369 Comment: Pain in the R flank wrapping around to front is the most severe issue at this time. Continue gabapentin 600mg in the AM, 900mg in the PM, and added 600mg at noon. Lidocaine patch helped her pain last night. (2) MSSA bacteremia Current Visit: Yes Status: Acute Code(s): R78.81 - BACTEREMIA SNOMED Code( s): 081562762 Comment: Pt with multiple blood cultures positive for MSSA. Most recent cultures obtained on 02/01 have NGSF. TTE negative for signs of endocarditis. Will order NIUR for tomorrow. Will need 4-6 weeks IV Abx. (3) Septic arthritis of shoulder Current Visit: Yes Status: Acute Code(s): M00.9 - PYOGENIC ARTHRITIS, UNSPECIFIED SNOMED Code(s): 13699623 Comment: Pt taken back to OR yesterday for second wash out. Staph growing from I&D yesterday. Pain in shoulder seems to be less of an issue than her post herpetic neuralgia. Continue half-way IV Abx per ID. PICC to be inserted once last set of BC negative. (4) Severe sepsis Current Visit: Yes Status: Acute Code(s): A41.9 - SEPSIS, UNSPECIFIED ORGANISM; R65.20 - SEVERE SEPSIS WITHOUT SEPTIC SHOCK SNOMED Code(s): 97567660 Comment: Pt with severe sepsis on admission secondary to MSSA bacteremia/L septic shoulder. Sepsis has resolved. Pt did have CECE on admission secondary to severe sepsis which has now resolved. (5) GERD (gastroesophageal reflux disease) Current Visit: Yes Status: Acute Code(s): K21.9 - GASTRO-ESOPHAGEAL REFLUX DISEASE WITHOUT ESOPHAGITIS SNOMED Code(s): 965003538 Comment: Continue famotidine. (6) DVT prophylaxis Current Visit: Yes Status: Acute Code(s): Z29.9 - ENCOUNTER FOR PROPHYLACTIC MEASURES, UNSPECIFIED SNOMED Code(s): 020538602 Comment: lovenox (7) DNR (do not resuscitate) Current Visit: Yes Status: Acute
[2019-02-03] MEDS: Lidocaine PATCH 5%* 1 PATCH TRANSDERM SCH (17:29)
[2019-02-03] MEDS: Enoxaparin(*) 40 MG/0.4 ML SYR SUBCUT SCH (21:28)
[2019-02-04] MEDS: ceFAZolin* 2 GM in NS 100 MLS Q8H (Pharmacy Admix) IVPB SCH ×2 (02:00→08:48)
[2019-02-04] MEDS ORDERED: Vancomycin(*) 1,000 MG in NS 0.9% 250 ML* 250 ML IV SCH (03:00)
[2019-02-04] MEDS: Lactated Ringers 1000 ML Bag* 1,000 ML IV SCH ×2 (06:20→23:11)
[2019-02-04 06:24] LABS: Hematocrit 31 % (35-47); Hemoglobin 10.1 g/dL (12.0-16.0); Mean Corpuscular HGB Conc 33 g/dL (31-36); Mean Corpuscular Hemoglobin 28 pg (27-31); Mean Corpuscular Volume 84 fL (80-97); Mean Platelet Volume 7.4 fL (7.4-10.4); Platelet Count 387 10^3/uL (150-450); Red Blood Count 3.63 10^6 /uL (3.70-4.87); Red Cell Distribution Width 16 % (10-15); White Blood Count 14.8 10^3/uL (3.5-10.8)
[2019-02-04 06:39] LABS: Calcium 7.8 mg/dL (8.6-10.3); Potassium 3.8 mmol/L (3.5-5.0)
[2019-02-04 06:45] LABS: C Reactive Protein 187.55 mg/L (<8.01); EGFR African American 144.8 (>60); EGFR Non-African American 119.6 (>60)
[2019-02-04 07:18] LABS: ABS Eosinophils 0.1 10^3/ul (0-0.6); ABS Lymphocytes 0.8 10^3/ul (1.0-4.8); ABS Neutrophils 12.9 10^3/ul (1.5-7.7); Eosinophil % 0.7 %; Lymphocyte % 5.5 %
[2019-02-04] MEDS: Lidocaine Patch REMOVE* 1 NOTE MISC PATCH OFF SCH (07:24)
[2019-02-04] MEDS ORDERED: Flumazenil* 0.1 MG/ML 5 ML MDV ONE (10:20)
[2019-02-04] MEDS ORDERED: fentaNYL* 50 MCG/ML 2 ML VIAL (100 MCG VIAL) ONE (10:20)
[2019-02-04] MEDS ORDERED: Naloxone* 0.4 MG/ML 1 ML VIAL ONE (10:20)
[2019-02-04] MEDS ORDERED: Lidocaine 2% VISCOUS* 15 ML UDC ONE (10:20)
[2019-02-04] MEDS ORDERED: Midazolam* 1 MG/ML 5 ML VIAL (5 MG) ONE (10:20)
[2019-02-04] MEDS ORDERED: Vancomycin per Pharmacy* NOTE FOLLOW UP SCH (11:00)
[2019-02-04] MEDS ORDERED: Vancomycin(*) 1,250 MG in NS 0.9% 250 ML* 250 ML IVPB ONE (11:00)
[2019-02-04] MEDS: Cholecalciferol TAB* 1000 UNITS PO SCH (11:33)
[2019-02-04] MEDS: Gabapentin CAP(*) 300 MG PO SCH ×3 (11:33→20:50)
[2019-02-04] MEDS: Lactobacillus Acidophilus* 1 TAB PO SCH ×2 (11:33→20:50)
[2019-02-04 12:35] LABS: Hematocrit 32 % (35-47); Hemoglobin 10.5 g/dL (12.0-16.0); Mean Corpuscular HGB Conc 33 g/dL (31-36); Mean Corpuscular Hemoglobin 28 pg (27-31); Mean Corpuscular Volume 85 fL (80-97); Mean Platelet Volume 7.2 fL (7.4-10.4); Platelet Count 409 10^3/uL (150-450); Red Blood Count 3.71 10^6 /uL (3.70-4.87); Red Cell Distribution Width 16 % (10-15); White Blood Count 16.6 10^3/uL (3.5-10.8)
--- NOTE | 2019-02-04 13:18 | TEE ---
*[facility]* [place] [address] Fax #: [phone] Transesophageal Echocardiogram Patient: Dea Ambrosio : 1940 Study Date: 02/04/2019 Age: 78 Gender: F HR: 106 bpm Height: 62 in /157.5 cm BSA: 1.66 m^2 Weight: 142.7 lb /64.9 kg BMI: 26.2 kg/m^2 *Oracle Specialist: Regla Reddy RDCS RN *Referring Physician: * Catalina JefferyReading Physician: * Hossein Arcos MD Indications: Bacteremia. History: Septic arthritis of left shoulder. MSSA bacteremia. Recent Shingles with post-herpetic neuralgia. Lyme disease. Osteoarthritis. Conclusions Summary: - Left ventricle: Systolic function is normal. The estimated ejection fraction is 60-65%. - Left atrium: There is no evidence of a thrombus in the atrial cavity or appendage. - Right atrium: The atrium is mildly dilated. - Atrial septum: No defect or patent foramen ovale is identified. The bubble study is negative on Image 34. - Mitral valve: There is mild regurgitation. - Tricuspid valve: There is mild regurgitation. - Pulmonic valve: There is mild regurgitation. - No obvious masses, vegetations, clots seen. Study data: Diagnostic Transesophageal Echocardiogram Consent: The risks and benefits of the procedure, including alternatives were discussed with the patient and/or their health care software sales representative and written informed consent was obtained. Procedure: Initial setup: The patient was brought to the laboratory in the fasting state.Intravenous access was obtained. Surface ECG leads, heart rate, heart rhythm, blood pressure measurements, pulse oximetric signals, and mainstream end-tidal CO2 tracings were monitored throughout the procedure. Sedation. Moderate sedation was administered by nursing staff. History and physical as well as labs were reviewed. An oral bite block was inserted for protection of oral dentition. The patient was placed in the left lateral decubitus position. Topical anesthesia was obtained using viscous lidocaine. A transesophageal probe was inserted by the attending business control specialist without difficulty. Transesophageal echocardiography was performed. The image quality was good and all standard views were attempted within the limitations of patient tolerance and safety. Multiple 2D, color flow Doppler and spectral Doppler images were obtained. The transesophageal probe was removed. A bubble study was performed. Location: Procedure room. Patient status: Inpatient. Patient room number: 413-02. Study completion: The patient tolerated the procedure well. There were no complications. Administered medications: Midazolam 2 mg IV. Fentanyl 25 mcg IV. Rhythm: Tachycardia. Findings Left ventricle: The cavity size is normal. Systolic function is normal. The estimated ejection fraction is 60-65%. Wall motion is normal; there are no regional wall motion abnormalities. Right ventricle: The cavity size is normal. Systolic function is normal. Left atrium: The atrium is mildly dilated. The appendage is of normal size. There is no evidence of a thrombus in the atrial cavity or appendage. Right atrium: The atrium is mildly dilated. Atrial septum: There is increased thickness of the septum, consistent with lipomatous hypertrophy. No defect or patent foramen ovale is identified. The bubble study is negative on Image 34. Mitral valve: The leaflets are mildly thickened. There is no evidence of a vegetation. There is no evidence of stenosis. There is mild regurgitation. Aortic valve: The valve is trileaflet. The leaflets are mildly thickened. There is no evidence of a vegetation. There is no evidence of stenosis. There is trace regurgitation. Tricuspid valve: The valve is structurally normal. There is no evidence of a vegetation. There is mild regurgitation. Pulmonic valve: The valve is structurally normal. There is no evidence of a vegetation. There is mild regurgitation. Aorta: Aortic root: The aortic root appears normal. Ascending aorta: The ascending aorta is not dilated. There is mild atherosclerotic plaque in the visualized segments of the aorta. Pericardium: There is no pericardial effusion. Pulmonary arteries: The main pulmonary artery is normal-sized. Systemic veins: Inferior vena cava: The vessel is normal in size. Superior vena cava: The vessel is normal in size. Pulmonary veins: The pulmonary veins appear normal. 2 of 4 veins are well-visualized. Measurements Aortic valve Value Ref Aortic root Value Ref Mariola diam, ED 1.6 cm ---- Root diam 2.8 cm <3.9 Mitral valve Value Ref Ascending aorta Value Ref Peak E 0.68 m/sec ---- AAo AP diam, S 3.1 cm ---- Peak A 1.1 m/sec ---- Decel time 158 ms ---- Peak E/A ratio 0.6 ---- Legend: (L) and (H) abhilash values outside specified reference range. Prepared and electronically signed by Hossein Arcos MD 02/04/2019 13:18
[2019-02-04] MEDS: Morphine INJ* 4 MG/ML 1 ML SYRINGE (NEW SYRINGE VERSION) IV PRN (13:28)
--- NOTE | 2019-02-04 15:09 | PN ---
Progress Note - Progress Note Date of Service: 02/04/19 SOAP: Subjective: Pt seen at bedside. She feels well, her shoulder pain is well controlled at rest but she states that the pain increases when she moves the shoulder or when someone moves her shoulder. She also complains of pain at site of shingles. Low grade fever over night, WBC count has been increasing. No feeling of chills. Objective: []Gen: NAD, appears well LUE: Shoulder dressing CDI no surrounding erythema. Able to actively flex and extend at elbow, wrist, digits without pain. Shoulder dressing was taken down. There is no drainage from the incisions. There is no erythema or swelling of the shoulder. Passive shoulder FF and ABD to 40 degrees before painful. Radial pulse 2+, cap refill less than two seconds distally, sensation intact to light touch distally. Inspection of her back on the right side reveals a small rash present on the right directly next to the spine. She complains of pain radiating around her flank. She does not have any change in pain with palpation along the flank or palpation of the abdomen. Vital Signs Temp 98.3 F 02/04/19 14:15 Pulse 106 02/04/19 14:15 Resp 24 02/04/19 14:45 BP 120/61 02/04/19 14:15 Pulse Ox 93 02/04/19 14:42 Intake & Output 02/03/19 02/04/19 02/04/19 18:59 06:59 18:59 Intake Total 1049 1649 530 Output Total 200 Balance 1049 1449 530 Intake: IV Fluids 769 1234 50 LR 769 1234 IVPB 100 215 ABX - CEFAZOLIN 100 215 Oral 180 200 480 Output: Urine 200 Other: Estimated Void Small Medium Large Date of Last Bowel unknown Movement # Bowel Movements 0 # Voids 1 2 3 Assessment: []POD 2 and POD 5 I&D L arthroscopic shoulder L shoulder infection, bacteremia, UTI Post herpetic neuralgia Plan: WBAT, ROM as tolerated of L shoulder. Dressing changed today. New blood cultures ordered today Will continue to trend CBC and CRP. Wound cultures 01/30 and 02/02 both show MSSA. Patient is on ancef
[2019-02-04] MEDS: Acetaminophen TAB* 325 MG PO PRN (15:43)
[2019-02-04] MEDS: Lidocaine PATCH 5%* 1 PATCH TRANSDERM SCH (18:27)
--- NOTE | 2019-02-04 19:07 | PN ---
Progress Note - Progress Note Date of Service: 02/04/19 SOAP: Subjective: Patient reports no increase in pain, in shoulder or elsewhere. Left back and flank is still the most painful. Surprised by the elevated WBC and CRP with this morning's labs, I ordered the same labs for midday and the trends continued with worsening. Objective: NAD Skin is warm throughout body Left shoulder: - Incisions clean, dry, intact without drainage - No soft tissue swelling - No significant tenderness to palpation - PROM to 40-45 degrees without discomfort Abdomen S/ND/NT Back: - No tenderness to palpation - No clear swelling soft tissue - No viral lesions visualized RUE, LUE (other than shoulder), BLE: all joints are pain-free with PROM, no clear soft tissue swelling or other site of infection Selected Entries 02/04/19 02/04/19 15:15 16:15 Temperature 102.8 F 99.6 F Pulse Rate 109 116 Respiratory 26 22 Rate Blood Pressure 116/69 118/55 (mmHg) O2 Sat by Pulse 92 92 Oximetry Laboratory Tests 01/31/19 02/01/19 02/02/19 05:38 10:11 08:40 WBC Neut % (Auto) C-Reactive Protein 314.83 H 232.28 H 190.86 H 02/03/19 02/03/19 02/04/19 05:36 05:36 05:52 WBC 8.9 Neut % (Auto) 80.2 C-Reactive Protein 184.01 H 187.55 H 02/04/19 02/04/19 02/04/19 05:52 12:11 12:11 WBC 14.8 H 16.6 H Neut % (Auto) 86.9 Not Reportable C-Reactive Protein 214.80 H Assessment: POD 2, 5 s/p I&Ds L shoulder for MSSA infection Bacteremia, UTI Plan: - 1st washout showed some cloudy grossly infected fluid, 2nd washout did not, although gram stain and culture were positive from both - The elevation of CRP and WBC over the last 1-2 days and the elevated temperature today despite 1 week of IV antibiotics and 2 arthroscopic I&Ds is unusual. By symptoms and exam, the shoulder is not clearly still infected. - TTE, TTE negative for endocarditis vegetations - Unclear current source of worsening inflammation/infection labs. Shoulder seems unlikely, but is only known current option. - NPO after midnight - Plan for MRI left shoulder with IV contrast to evaluate for persistent or recurrent pocket of infection - If the MRI doesn't show a clear source of current infection, we will likely obtain CT chest/abdomen/pelvis to look for another infection location - We will repeat Urine culture
[2019-02-04] MEDS: oxyCODONE TAB* 5 MG TAB PO PRN (20:51)
[2019-02-04] MEDS: Enoxaparin(*) 40 MG/0.4 ML SYR SUBCUT SCH (20:52)
[2019-02-05] MEDS: Vancomycin(*) 1,000 MG in NS 0.9% 250 ML* 250 ML IV SCH ×2 (02:57→15:31)
[2019-02-05] MEDS: Lidocaine Patch REMOVE* 1 NOTE MISC PATCH OFF SCH (05:09)
[2019-02-05 05:23] LABS: Hematocrit 29 % (35-47); Hemoglobin 9.8 g/dL (12.0-16.0); Mean Corpuscular HGB Conc 33 g/dL (31-36); Mean Corpuscular Hemoglobin 28 pg (27-31); Mean Corpuscular Volume 85 fL (80-97); Mean Platelet Volume 6.9 fL (7.4-10.4); Platelet Count 413 10^3/uL (150-450); Red Blood Count 3.45 10^6 /uL (3.70-4.87); Red Cell Distribution Width 16 % (10-15); White Blood Count 13.3 10^3/uL (3.5-10.8)
[2019-02-05 05:41] LABS: BUN/Creatinine Ratio 21.7 (8-20); C Reactive Protein 238.99 mg/L (<8.01); Calcium 7.7 mg/dL (8.6-10.3); EGFR African American 159.4 (>60); EGFR Non-African American 131.7 (>60); Potassium 3.9 mmol/L (3.5-5.0)
[2019-02-05 06:32] LABS: ABS Eosinophils 0.1 10^3/ul (0-0.6); ABS Lymphocytes 0.7 10^3/ul (1.0-4.8); ABS Monocytes 1.1 10^3/ul (0-0.8); ABS Neutrophils 11.4 10^3/ul (1.5-7.7); Eosinophil % 0.7 %; Lymphocyte % 4.9 %
[2019-02-05] MEDS ORDERED: Gadoteridol* (CONTRAST) 279.3 MG/ML 10 ML IV ONE (09:57)
[2019-02-05] MEDS: Lactated Ringers 1000 ML Bag* 1,000 ML IV SCH (09:58)
[2019-02-05] MEDS: oxyCODONE TAB* 5 MG TAB PO PRN (09:59)
[2019-02-05] MEDS: Gabapentin CAP(*) 300 MG PO SCH ×3 (09:59→21:10)
[2019-02-05] MEDS: Lactobacillus Acidophilus* 1 TAB PO SCH ×2 (09:59→21:16)
[2019-02-05] MEDS: Cholecalciferol TAB* 1000 UNITS PO SCH (10:00)
[2019-02-05] MEDS ORDERED: Diazepam TAB(*) 5 MG PO ONE (10:16)
--- NOTE | 2019-02-05 10:16 | PN ---
Progress Note - Progress Note Date of Service: 02/05/19 SOAP: Subjective: Now complaining of R abdominal and flank pain. Nurse confirms. Previously it was left flank and abdominal pain. No L shoulder pain other than when it is moved. Nurse confirms that patient has had no complaints of L shoulder pain. I had made patient NPO and ordered an MRI which is scheduled for 11am. Objective: NAD L shoulder - incision c/d/i - no swelling soft tissue, no tenderness - No pain whatsoever with passive FF or abduction 0 to 40. Pain with more FF or abduction than that or rotation. Abd S/ND/NT Microbiology 02/02/19 12:59 Wound Gram Stain - Final Mrsa Negative S.aureus Positive 02/02/19 12:59 Wound Anaerobic Culture - Preliminary 02/02/19 12:59 Wound Wound Culture - Preliminary Staphylococcus Aureus No Growth Day 3 02/01/19 10:11 Blood Venous Aerobic Blood Culture - Preliminary 02/01/19 10:11 Blood Venous Anaerobic Blood Culture - Preliminary No Growth Day 4 No Growth Day 4 Selected Entries 02/04/19 02/04/19 02/05/19 15:15 16:15 00:01 Temperature 102.8 F 99.6 F 98.6 F 02/05/19 02/05/19 03:30 08:01 Temperature 98.4 F 99.1 F Laboratory Tests 02/02/19 02/03/19 02/03/19 08:40 05:36 05:36 WBC 8.9 Neut % (Auto) C-Reactive Protein 190.86 H 184.01 H 02/04/19 02/04/19 02/04/19 05:52 05:52 12:11 WBC 14.8 H 16.6 H Neut % (Auto) C-Reactive Protein 187.55 H 02/04/19 02/05/19 02/05/19 12:11 05:05 05:05 WBC 13.3 H Neut % (Auto) 85.9 C-Reactive Protein 214.80 H 238.99 H Assessment: POD 3, 6 I&D L shoulder for L shoulder infection Bacteremia, UTI Bilateral flank & abdominal pain with a diagnosis of shingles, but no skin lesions now Plan: - I will let her eat now. - MRI today to evaluate L shoulder. I prescribed some Valium per nursing request - Recommend Hospitalist consider an abdominal or flank or cause of the patient's persistent pain and infection. Bilateral nature of flank and abdominal pain seems less typical of shingles. - NPO past midnight tonight - Rising CRP, elevated WBC, high fever yesterday concerning for persistence of infection in shoulder, abdomen/ or elsewhere
--- NOTE | 2019-02-05 11:26 | PN ---
Subjective Date of Service: 02/05/19 Interval History: Occ pain R lower back from shingles, received oxycodone this AM. Objective Active Medications: Acetaminophen (Tylenol Tab*) 975 mg PO Q8H PRN PRN Reason: MILD PAIN or TEMP > 100.4 Last Admin: 02/04/19 15:43 Dose: 975 mg Cholecalciferol (Vitamin D Tab*) 2,000 units PO DAILY [facility] Last Admin: 02/05/19 10:00 Dose: 2,000 units Enoxaparin Sodium (Lovenox(*)) 40 mg SUBCUT 2100 [facility] Last Admin: 02/04/19 20:52 Dose: 40 mg Famotidine (Pepcid Tab*) 20 mg PO DAILY PRN PRN Reason: HEARTBURN Gabapentin (Neurontin Cap(*)) 600 mg PO DAILY [facility] Last Admin: 02/05/19 09:59 Dose: 600 mg Gabapentin (Neurontin Cap(*)) 900 mg PO BEDTIME [facility] Last Admin: 02/04/19 20:50 Dose: 900 mg Gabapentin (Neurontin Cap(*)) 600 mg PO 1200 [facility] Last Admin: 02/04/19 13:27 Dose: 600 mg Lactated Ringer's (Lactated Ringers 1000 Ml Bag*) 1,000 mls @ 125 mls/hr IV PER RATE [facility] Last Admin: 02/05/19 09:58 Dose: 125 mls/hr Vancomycin HCl 1,000 mg/ (Sodium Chloride) 250 mls @ 166.667 mls/hr IV Q12H [facility] Last Admin: 02/05/19 02:57 Dose: 166.667 mls/hr Lactobacillus Rhamnosus (Lactobacillus Acidophilus*) 1 tab PO BID [facility] Last Admin: 02/05/19 09:59 Dose: 1 tab Lidocaine (Lidoderm 5% Patch*) 1 patch TRANSDERM Q24H [facility] Last Admin: 02/04/19 18:27 Dose: 1 patch Magnesium Hydroxide (Milk Of Magnesia Liq*) 30 ml PO Q6H PRN PRN Reason: CONSTIPATION Last Admin: 02/01/19 11:29 Dose: 30 ml Miscellaneous (Ativan Pyxis Ureña) 1 ea N/A .ATIVAN IV UREÑA PRN PRN Reason: PYXIS UREÑA Morphine Sulfate (Morphine Inj (Syringe)*) 3 mg IV Q2H PRN PRN Reason: PAIN - SEVERE Last Admin: 02/04/19 13:28 Dose: 3 mg Oxycodone HCl (Roxycodone Tab*) 5 mg PO Q4H PRN PRN Reason: PAIN - MODERATE Last Admin: 02/03/19 21:25 Dose: 5 mg Oxycodone HCl (Roxycodone Tab*) 10 mg PO Q4H PRN PRN Reason: PAIN - SEVERE Last Admin: 02/05/19 09:59 Dose: 10 mg Pharmacy Consult (Vancomycin Per Pharmacy*) 1 note FOLLOW UP .VANC PER PHARMACY [facility]; Protocol Pharmacy Profile Note (Lidocaine Patch Remove*) 1 note PATCH OFF 0600 [facility] Last Admin: 02/05/19 05:09 Dose: 1 note Pharmacy Profile Note (Vancomycin Trough Check) 1 note FOLLOW UP 1430 ONE Stop: 02/06/19 14:31 Senna (Senokot 8.6 Mg Tab*) 1 tab PO BEDTIME PRN PRN Reason: if no BM during day Last Admin: 02/02/19 20:37 Dose: 1 tab Vital Signs - 8 hr 02/05/19 02/05/19 02/05/19 03:30 08:00 08:01 Temperature 98.4 F 99.1 F Pulse Rate 107 106 Respiratory 16 22 16 Rate Blood Pressure 114/64 127/69 (mmHg) O2 Sat by Pulse 94 93 93 Oximetry 02/05/19 02/05/19 09:59 10:55 Temperature Pulse Rate Respiratory 22 18 Rate Blood Pressure (mmHg) O2 Sat by Pulse Oximetry Oxygen Devices in Use Now: Nasal Cannula Appearance: Alert, partly up in bed. In fair spirits. Looks comfortable at rest, has difficulty with moving in bed. Eyes: No Scleral Icterus Extremities: No Edema, No Clubbing, Cyanosis, - Skin: No Nodules or Sclerosis, - - Two red areas each about 1.5 cm diameter, c/ w healing zoster Neurological: Alert and Oriented x 3, NL Sensation Result Diagrams: 02/05/19 05:05 02/05/19 05:05 Microbiology and Other Data: Microbiology 01/28/19 22:49 Nasal Screen MRSA (PCR) - Final Nasal Mrsa Not Detected Assess/Plan/Problems-Billing 78W with GERD, OA, osteoporosis, recent L hip intertrochanteric fracture s/p IMN (10/2018), and recent shingles s/p acyclovir and recently started opioids and muscle relaxer, presents after being found down. Found with high fever, and blood, urine, and L shoulder joint growing Staph. - Patient Problems (1) MSSA bacteremia Current Visit: Yes Status: Acute Code(s): R78.81 - BACTEREMIA SNOMED Code( s): 136841894 Comment: Pt with multiple blood cultures positive for MSSA. Most recent cultures obtained on 02/01 have NGSF. TTE and NIRU both negative for signs of endocarditis. Will need at least 6 weeks IV Abx. Note CRP increased on 02/05, WBC decreased. Repeat labs in 2 days. Blood C&S x 2 sent 02/04. Temp 102.8 . If infection does not appear to be controlled, consider CT chest/abd/ pelvis with contrast to look for abcess. (2) Post herpetic neuralgia Current Visit: Yes Status: Acute Code(s): B02.29 - OTHER POSTHERPETIC NERVOUS SYSTEM INVOLVEMENT SNOMED Code(s): 9459399 Comment: Pain in the R flank wrapping around to front is the most severe issue at this time. Continue gabapentin 600mg in the AM, 900mg in the PM, and 600mg at noon. Lidocaine patch helped her pain. (3) Septic arthritis of shoulder Current Visit: Yes Status: Acute Code(s): M00.9 - PYOGENIC ARTHRITIS, UNSPECIFIED SNOMED Code(s): 97708866 Comment: Pt taken back to OR 02/02 for second wash out. Staph growing from I& D. Pain in shoulder seems to be less of an issue than her post herpetic neuralgia. Continue terminal gauger IV Abx per ID. PICC to be inserted once last set of BC negative. MRI 02/05 report pending. (4) GERD (gastroesophageal reflux disease) Current Visit: Yes Status: Acute Code(s): K21.9 - GASTRO-ESOPHAGEAL REFLUX DISEASE WITHOUT ESOPHAGITIS SNOMED Code(s): 251834012 Comment: Continue famotidine.
--- NOTE | 2019-02-05 13:28 | PN ---
Subjective Date of Service: 02/04/19 Interval History: Adequate pain control Objective Active Medications: Acetaminophen (Tylenol Tab*) 975 mg PO Q8H PRN PRN Reason: MILD PAIN or TEMP > 100.4 Last Admin: 02/04/19 15:43 Dose: 975 mg Cholecalciferol (Vitamin D Tab*) 2,000 units PO DAILY [facility] Last Admin: 02/05/19 10:00 Dose: 2,000 units Enoxaparin Sodium (Lovenox(*)) 40 mg SUBCUT 2100 [facility] Last Admin: 02/04/19 20:52 Dose: 40 mg Famotidine (Pepcid Tab*) 20 mg PO DAILY PRN PRN Reason: HEARTBURN Gabapentin (Neurontin Cap(*)) 600 mg PO DAILY [facility] Last Admin: 02/05/19 09:59 Dose: 600 mg Gabapentin (Neurontin Cap(*)) 900 mg PO BEDTIME [facility] Last Admin: 02/04/19 20:50 Dose: 900 mg Gabapentin (Neurontin Cap(*)) 600 mg PO 1200 [facility] Last Admin: 02/04/19 13:27 Dose: 600 mg Lactated Ringer's (Lactated Ringers 1000 Ml Bag*) 1,000 mls @ 125 mls/hr IV PER RATE [facility] Last Admin: 02/05/19 09:58 Dose: 125 mls/hr Vancomycin HCl 1,000 mg/ (Sodium Chloride) 250 mls @ 166.667 mls/hr IV Q12H [facility] Last Admin: 02/05/19 02:57 Dose: 166.667 mls/hr Lactobacillus Rhamnosus (Lactobacillus Acidophilus*) 1 tab PO BID [facility] Last Admin: 02/05/19 09:59 Dose: 1 tab Lidocaine (Lidoderm 5% Patch*) 1 patch TRANSDERM Q24H [facility] Last Admin: 02/04/19 18:27 Dose: 1 patch Magnesium Hydroxide (Milk Of Magnesia Liq*) 30 ml PO Q6H PRN PRN Reason: CONSTIPATION Last Admin: 02/01/19 11:29 Dose: 30 ml Miscellaneous (Ativan Pyxis Ureña) 1 ea N/A .ATIVAN IV UREÑA PRN PRN Reason: PYXIS UREÑA Morphine Sulfate (Morphine Inj (Syringe)*) 3 mg IV Q2H PRN PRN Reason: PAIN - SEVERE Last Admin: 02/04/19 13:28 Dose: 3 mg Oxycodone HCl (Roxycodone Tab*) 5 mg PO Q4H PRN PRN Reason: PAIN - MODERATE Last Admin: 02/03/19 21:25 Dose: 5 mg Oxycodone HCl (Roxycodone Tab*) 10 mg PO Q4H PRN PRN Reason: PAIN - SEVERE Last Admin: 02/05/19 09:59 Dose: 10 mg Pharmacy Consult (Vancomycin Per Pharmacy*) 1 note FOLLOW UP .VANC PER PHARMACY [facility]; Protocol Pharmacy Profile Note (Lidocaine Patch Remove*) 1 note PATCH OFF 0600 [facility] Last Admin: 02/05/19 05:09 Dose: 1 note Pharmacy Profile Note (Vancomycin Trough Check) 1 note FOLLOW UP 1430 ONE Stop: 02/06/19 14:31 Senna (Senokot 8.6 Mg Tab*) 1 tab PO BEDTIME PRN PRN Reason: if no BM during day Last Admin: 02/02/19 20:37 Dose: 1 tab Vital Signs - 8 hr 02/05/19 02/05/19 02/05/19 08:00 08:01 09:59 Temperature 99.1 F Pulse Rate 106 Respiratory 22 16 22 Rate Blood Pressure 127/69 (mmHg) O2 Sat by Pulse 93 93 Oximetry 02/05/19 10:55 Temperature Pulse Rate Respiratory 18 Rate Blood Pressure (mmHg) O2 Sat by Pulse Oximetry Oxygen Devices in Use Now: Nasal Cannula Appearance: Alert, partly up in bed. In good spirits. Looks comfortable at rest. Eyes: No Scleral Icterus Neck: NL Appearance and Movements; NL JVP, No Thyroid Enlargement, Masses Respiratory: Symmetrical Chest Expansion and Respiratory Effort, Clear to Auscultation, Clear to Percussion Cardiovascular: NL Sounds; No Murmurs; No JVD, RRR, No Edema, - Extremities: No Edema, No Clubbing, Cyanosis, - - L shoulder bandaged Skin: No Nodules or Sclerosis, - - Two red areas each about 1 cm R lower back c /w healing zoster. Neurological: Alert and Oriented x 3, NL Sensation Result Diagrams: 02/05/19 05:05 02/05/19 05:05 Microbiology and Other Data: Microbiology 01/28/19 22:49 Nasal Screen MRSA (PCR) - Final Nasal Mrsa Not Detected Assess/Plan/Problems-Billing 78W with GERD, OA, osteoporosis, recent L hip intertrochanteric fracture s/p IMN (10/2018), and recent shingles s/p acyclovir and recently started opioids and muscle relaxer, presents after being found down. Found with high fever, and blood, urine, and L shoulder joint growing Staph. - Patient Problems (1) MSSA bacteremia Current Visit: Yes Status: Acute Code(s): R78.81 - BACTEREMIA SNOMED Code( s): 810188921 Comment: Pt with multiple blood cultures positive for MSSA. Most recent cultures obtained on 02/01 have NGSF. TTE negative for signs of endocarditis. NIRU 02/04 report pending. Will need 4-6 weeks IV Abx. (2) Post herpetic neuralgia Current Visit: Yes Status: Acute Code(s): B02.29 - OTHER POSTHERPETIC NERVOUS SYSTEM INVOLVEMENT SNOMED Code(s): 1456724 Comment: Pain in the R flank wrapping around to front is the most severe issue at this time. Continue gabapentin 600mg in the AM, 900mg in the PM, and 600mg at noon. Lidocaine patch helped her pain. (3) Septic arthritis of shoulder Current Visit: Yes Status: Acute Code(s): M00.9 - PYOGENIC ARTHRITIS, UNSPECIFIED SNOMED Code(s): 65470915 Comment: Pt taken back to OR 02/02 for second wash out. [place]ah growing from I& D. Pain in shoulder seems to be less of an issue than her post herpetic neuralgia. Continue mcfp IV Abx per ID. PICC to be inserted once last set of BC negative. (4) GERD (gastroesophageal reflux disease) Current Visit: Yes Status: Acute Code(s): K21.9 - GASTRO-ESOPHAGEAL REFLUX DISEASE WITHOUT ESOPHAGITIS SNOMED Code(s): 670699983 Comment: Continue famotidine.
[2019-02-05] MEDS: Morphine INJ* 4 MG/ML 1 ML SYRINGE (NEW SYRINGE VERSION) IV PRN ×3 (13:46→21:17)
[2019-02-05] MEDS: Acetaminophen TAB* 325 MG PO PRN (16:30)
[2019-02-05] MEDS ORDERED: Iohexol 300* (CONTRAST) 10 ML SDV IV ONE (19:44)
[2019-02-05] MEDS: Lidocaine PATCH 5%* 1 PATCH TRANSDERM SCH (21:16)
[2019-02-05] MEDS: Enoxaparin(*) 40 MG/0.4 ML SYR SUBCUT SCH (21:16)
[2019-02-06] MEDS: Vancomycin(*) 1,000 MG in NS 0.9% 250 ML* 250 ML IV SCH ×2 (02:40→16:23)
[2019-02-06] MEDS ORDERED: Vancomycin(*) 1,250 MG in NS 0.9% 250 ML* 250 ML IVPB SCH (03:00)
[2019-02-06 05:28] LABS: Hematocrit 30 % (35-47); Hemoglobin 10.2 g/dL (12.0-16.0); Mean Corpuscular HGB Conc 34 g/dL (31-36); Mean Corpuscular Hemoglobin 29 pg (27-31); Mean Corpuscular Volume 85 fL (80-97); Mean Platelet Volume 7.3 fL (7.4-10.4); Platelet Count 467 10^3/uL (150-450); Red Blood Count 3.53 10^6 /uL (3.70-4.87); Red Cell Distribution Width 16 % (10-15)
[2019-02-06 05:41] LABS: BUN/Creatinine Ratio 22.2 (8-20); C Reactive Protein 229.61 mg/L (<8.01); Calcium 7.9 mg/dL (8.6-10.3); EGFR African American 163.5 (>60); EGFR Non-African American 135.1 (>60); Potassium 3.9 mmol/L (3.5-5.0)
[2019-02-06 06:02] LABS: ABS Basophils 0.1 10^3/ul (0-0.2); ABS Eosinophils 0.1 10^3/ul (0-0.6); ABS Lymphocytes 0.7 10^3/ul (1.0-4.8); ABS Monocytes 1.1 10^3/ul (0-0.8); Eosinophil % 1.1 %; Lymphocyte % 5.9 %
[2019-02-06] MEDS: Lactated Ringers 1000 ML Bag* 1,000 ML IV SCH (06:11)
[2019-02-06] MEDS: Morphine INJ* 4 MG/ML 1 ML SYRINGE (NEW SYRINGE VERSION) IV PRN ×3 (06:41→14:11)
[2019-02-06] MEDS: Lidocaine Patch REMOVE* 1 NOTE MISC PATCH OFF SCH (07:06)
--- NOTE | 2019-02-06 08:34 | PN ---
Subjective Date of Service: 02/06/19 Interval History: C/O pain R flank area again. No new c/o. Objective Active Medications: Acetaminophen (Tylenol Tab*) 975 mg PO Q8H PRN PRN Reason: MILD PAIN or TEMP > 100.4 Last Admin: 02/05/19 16:30 Dose: 975 mg Cholecalciferol (Vitamin D Tab*) 2,000 units PO DAILY [facility] Last Admin: 02/05/19 10:00 Dose: 2,000 units Enoxaparin Sodium (Lovenox(*)) 40 mg SUBCUT 2100 [facility] Last Admin: 02/05/19 21:16 Dose: 40 mg Famotidine (Pepcid Tab*) 20 mg PO DAILY PRN PRN Reason: HEARTBURN Gabapentin (Neurontin Cap(*)) 600 mg PO DAILY [facility] Last Admin: 02/05/19 09:59 Dose: 600 mg Gabapentin (Neurontin Cap(*)) 900 mg PO BEDTIME [facility] Last Admin: 02/05/19 21:10 Dose: 900 mg Gabapentin (Neurontin Cap(*)) 600 mg PO 1200 [facility] Last Admin: 02/05/19 13:47 Dose: Not Given Lactated Ringer's (Lactated Ringers 1000 Ml Bag*) 1,000 mls @ 125 mls/hr IV PER RATE [facility] Last Admin: 02/06/19 06:11 Dose: 125 mls/hr Vancomycin HCl 1,000 mg/ (Sodium Chloride) 250 mls @ 166.667 mls/hr IV Q12H [facility] Last Admin: 02/06/19 02:40 Dose: 166.667 mls/hr Lactobacillus Rhamnosus (Lactobacillus Acidophilus*) 1 tab PO BID [facility] Last Admin: 02/05/19 21:16 Dose: 1 tab Lidocaine (Lidoderm 5% Patch*) 1 patch TRANSDERM Q24H [facility] Last Admin: 02/05/19 21:16 Dose: 1 patch Magnesium Hydroxide (Milk Of Magnesia Liq*) 30 ml PO Q6H PRN PRN Reason: CONSTIPATION Last Admin: 02/01/19 11:29 Dose: 30 ml Miscellaneous (Ativan Pyxis Ureña) 1 ea N/A .ATIVAN IV UREÑA PRN PRN Reason: PYXIS UREÑA Morphine Sulfate (Morphine Inj (Syringe)*) 3 mg IV Q2H PRN PRN Reason: PAIN - SEVERE Last Admin: 02/06/19 06:41 Dose: 3 mg Oxycodone HCl (Roxycodone Tab*) 5 mg PO Q4H PRN PRN Reason: PAIN - MODERATE Last Admin: 02/03/19 21:25 Dose: 5 mg Oxycodone HCl (Roxycodone Tab*) 10 mg PO Q4H PRN PRN Reason: PAIN - SEVERE Last Admin: 02/05/19 09:59 Dose: 10 mg Pharmacy Consult (Vancomycin Per Pharmacy*) 1 note FOLLOW UP .VANC PER [facility]; Protocol Pharmacy Profile Note (Lidocaine Patch Remove*) 1 note PATCH OFF 0600 [facility] Last Admin: 02/06/19 07:06 Dose: 1 note Pharmacy Profile Note (Vancomycin Trough Check) 1 note FOLLOW UP 1430 ONE Stop: 02/06/19 14:31 Senna (Senokot 8.6 Mg Tab*) 1 tab PO BEDTIME PRN PRN Reason: if no BM during day Last Admin: 02/02/19 20:37 Dose: 1 tab Vital Signs - 8 hr 02/06/19 02/06/19 02/06/19 03:08 06:41 08:25 Temperature 98.9 F 98.4 F Pulse Rate 105 99 Respiratory 20 16 20 Rate Blood Pressure 123/66 118/65 (mmHg) O2 Sat by Pulse 93 92 Oximetry Oxygen Devices in Use Now: Nasal Cannula Appearance: Alert, partly up in bed. In fair spirits. Looks comfortable at rest. Eyes: No Scleral Icterus Respiratory: Symmetrical Chest Expansion and Respiratory Effort, Clear to Auscultation, Clear to Percussion Cardiovascular: NL Sounds; No Murmurs; No JVD, RRR, No Edema, - Extremities: No Edema, No Clubbing, Cyanosis, - - minimally tender R flank area Skin: No Nodules or Sclerosis, - - No change in appearance red areas R lower back Neurological: Alert and Oriented x 3, NL Sensation Result Diagrams: 02/06/19 05:04 02/06/19 05:04 Microbiology and Other Data: Microbiology 01/28/19 22:49 Nasal Screen MRSA (PCR) - Final Nasal Mrsa Not Detected Assess/Plan/Problems-Billing 78W with GERD, OA, osteoporosis, recent L hip intertrochanteric fracture s/p IMN (10/2018), and recent shingles s/p acyclovir and recently started opioids and muscle relaxer, presents after being found down. Found with high fever, and blood, urine, and L shoulder joint growing Staph. - Patient Problems (1) MSSA bacteremia Current Visit: Yes Status: Acute Code(s): R78.81 - BACTEREMIA SNOMED Code( s): 395214396 Comment: Pt with multiple blood cultures positive for MSSA. Most recent cultures obtained on 02/01 have NGSF. TTE and NIRU both negative for signs of endocarditis. Will need at least 6 weeks IV Abx. Note CRP and WBC both sl decreased on 02/06. Repeat labs in 2 days. Blood C&S x 2 sent 02/04 no growth day 1. Temp 101.8 on 02/05. CT chest/abd/pelvis with contrast no new findings. Continue vancomycin as bid scheduling can be done at [facility], not tid for cefazolin. (2) Post herpetic neuralgia Current Visit: Yes Status: Acute Code(s): B02.29 - OTHER POSTHERPETIC NERVOUS SYSTEM INVOLVEMENT SNOMED Code(s): 4583467 Comment: Pain in the R flank wrapping around to front is the most severe issue at this time. Continue gabapentin 600mg in the AM, 900mg in the PM, and 600mg at noon. Lidocaine patch helped her pain. (3) Septic arthritis of shoulder Current Visit: Yes Status: Acute Code(s): M00.9 - PYOGENIC ARTHRITIS, UNSPECIFIED SNOMED Code(s): 23119650 Comment: Pt taken back to OR 02/02 for second wash out. Staph growing from I& D. Pain in shoulder seems to be less of an issue than her post herpetic neuralgia. 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 PICC to be inserted once last set of BC negative. MRI 02/05 report pending. (4) GERD (gastroesophageal reflux disease) Current Visit: Yes Status: Acute Code(s): K21.9 - GASTRO-ESOPHAGEAL REFLUX DISEASE WITHOUT ESOPHAGITIS SNOMED Code(s): 203991847 Comment: Continue famotidine. (5) Vertebral compression fracture Current Visit: Yes Status: Acute Code(s): M48.50XA - COLLAPSED VERTEBRA, NEC , SITE UNSP, INIT SNOMED Code(s): 95076639 Comment: Recent two CT scans show probable old compression fx T4, T7, T11, L1. Not clear if they are causing any of her sx's now.
[2019-02-06] MEDS: Gabapentin CAP(*) 300 MG PO SCH ×3 (10:06→19:52)
[2019-02-06] MEDS: Cholecalciferol TAB* 1000 UNITS PO SCH (10:06)
[2019-02-06] MEDS: Lactobacillus Acidophilus* 1 TAB PO SCH ×2 (10:06→19:53)
[2019-02-06] MEDS: Senna TAB 8.6 mg* TAB PO PRN (11:30)
--- NOTE | 2019-02-06 11:43 | PN ---
Progress Note - Progress Note Date of Service: 02/06/19 SOAP: Subjective: Friend with patient says that she is typically very stoic, that her current state of energy level is very different from normal. Patient denies left shoulder pain. However, today she denies that she ever had shoulder pain, so I have questions about the reliability of her history. Objective: L shoulder: - Inc c/d/i - No soft tissue swelling - No clear TTP Abd S/ND/NT Back - No vesicles, but 2-3 small red spots Flank - No clear flank TTP Microbiology 02/02/19 12:59 Wound Anaerobic Culture - Final 02/02/19 12:59 Wound Wound Culture - Final Mrsa Negative S.aureus Positive Staphylococcus Aureus No Growth Day 4 02/05/19 03:00 Urine Urine Culture - Preliminary Pseudomonas Aeruginosa 02/04/19 17:18 Blood Venous Aerobic Blood Culture - Preliminary 02/04/19 17:18 Blood Venous Anaerobic Blood Culture - Preliminary No Growth Day 1 No Growth Day 1 Selected Entries 02/05/19 02/05/19 02/05/19 11:15 16:15 18:11 Temperature 99 F 101.8 F 98.3 F Pulse Rate Respiratory Rate Blood Pressure (mmHg) O2 Sat by Pulse Oximetry 02/05/19 02/05/19 02/06/19 19:15 23:15 03:08 Temperature 97.9 F 97.8 F 98.9 F Pulse Rate Respiratory Rate Blood Pressure (mmHg) O2 Sat by Pulse Oximetry 02/06/19 08:25 Temperature 98.4 F Pulse Rate 99 Respiratory 20 Rate Blood Pressure 118/65 (mmHg) O2 Sat by Pulse 92 Oximetry Laboratory Tests 02/02/19 02/03/19 02/03/19 08:40 05:36 05:36 WBC 8.9 Neut % (Auto) 80.2 C-Reactive Protein 190.86 H 184.01 H 02/04/19 02/04/19 02/04/19 05:52 05:52 12:11 WBC 14.8 H 16.6 H Neut % (Auto) 86.9 C-Reactive Protein 187.55 H 02/04/19 02/05/19 02/05/19 12:11 05:05 05:05 WBC 13.3 H Neut % (Auto) 85.9 C-Reactive Protein 214.80 H 238.99 H 02/06/19 02/06/19 05:04 05:04 WBC 12.0 H Neut % (Auto) 83.8 C-Reactive Protein 229.61 H Assessment: POD 4, 7 I&D L shoulder for MSSA infection UTI Bacteremia Possible shingles Possible pneumonia Plan: - No clear indication that the shoulder is still grossly infected by symptoms or exam. No clear current indication for additional I&D shoulder. - Discussed with Hospitalist CT chest and Urine culture. Possible, but no clear pneumonia by imaging or exam. Pseudomonas in urine had low CFU and may be contaminant. - Encouraged patient to use incentive spirometer for some degree of atelectasis and pleaural effusions - Continue Vancomycin - Follow CRP, CBC diff daily - DSD change daily shoulder - Pain control for R flank pain thought to come from shingles
[2019-02-06] MEDS: oxyCODONE TAB* 5 MG TAB PO PRN ×2 (12:21→19:53)
[2019-02-06] MEDS ORDERED: Vancomycin Trough Check NOTE FOLLOW UP ONE (14:30)
[2019-02-06] MEDS: Morphine INJ* 2 MG/ML 1 ML SYRINGE (TWO MG - NEW SYRINGE VERSION) IV PRN (16:25)
[2019-02-06] MEDS: Lidocaine PATCH 5%* 1 PATCH TRANSDERM SCH (16:27)
[2019-02-06] MEDS: Enoxaparin(*) 40 MG/0.4 ML SYR SUBCUT SCH (19:53)
[2019-02-07] MEDS: Lactated Ringers 1000 ML Bag* 1,000 ML IV SCH ×3 (02:29→23:42)
[2019-02-07] MEDS: Vancomycin(*) 1,250 MG in NS 0.9% 250 ML* 250 ML IVPB SCH ×2 (03:03→15:55)
[2019-02-07] MEDS: oxyCODONE TAB* 5 MG TAB PO PRN ×3 (05:10→14:33)
[2019-02-07] MEDS: Lidocaine Patch REMOVE* 1 NOTE MISC PATCH OFF SCH (05:11)
[2019-02-07 06:19] LABS: ABS Basophils 0.2 10^3/ul (0-0.2); ABS Eosinophils 0.1 10^3/ul (0-0.6); ABS Lymphocytes 0.9 10^3/ul (1.0-4.8); ABS Monocytes 1.1 10^3/ul (0-0.8); ABS Neutrophils 11.1 10^3/ul (1.5-7.7); Eosinophil % 0.9 %; Hematocrit 30 % (35-47); Lymphocyte % 6.5 %; Mean Corpuscular HGB Conc 33 g/dL (31-36); Mean Corpuscular Hemoglobin 28 pg (27-31); Mean Corpuscular Volume 85 fL (80-97); Mean Platelet Volume 7.4 fL (7.4-10.4); Platelet Count 564 10^3/uL (150-450); Red Blood Count 3.53 10^6 /uL (3.70-4.87); Red Cell Distribution Width 16 % (10-15); White Blood Count 13.3 10^3/uL (3.5-10.8)
[2019-02-07 06:36] LABS: C Reactive Protein 213.69 mg/L (<8.01); Calcium 7.9 mg/dL (8.6-10.3); EGFR African American 144.8 (>60); EGFR Non-African American 119.6 (>60)
[2019-02-07 06:57] LABS: Potassium 4.3 mmol/L (3.5-5.0)
[2019-02-07] MEDS: Morphine INJ* 2 MG/ML 1 ML SYRINGE (TWO MG - NEW SYRINGE VERSION) IV PRN ×5 (09:36→23:55)
[2019-02-07] MEDS: Lactobacillus Acidophilus* 1 TAB PO SCH ×2 (09:41→19:56)
[2019-02-07] MEDS: Cholecalciferol TAB* 1000 UNITS PO SCH (09:41)
[2019-02-07] MEDS: Gabapentin CAP(*) 300 MG PO SCH ×3 (09:41→19:56)
--- NOTE | 2019-02-07 09:50 | PN ---
Progress Note - Progress Note Date of Service: 02/07/19 SOAP: Subjective: CC: Left shoulder septic arthritis HPI: Ms. Ambrosio is a 78 year old woman with PMH significant for GERD, osteoarthritis, and osteoporosis; who presented to the the hospital with left shoulder pain. She was found to have staph bacteremia and septic arthritis left shoulder. She tolerated I&D well and shoulder pain is improving. She reports pain around her "waist, like someone is pulling a belt tight". Denies fever, chills, nausea, vomiting, or diarrhea. She denies urinary symptoms. Objective: Vital Signs 02/07/19 02:15 Temperature 99.6 F Temperature Oral Source Pulse Rate 105 Respiratory 18 Rate Blood Pressure 115/59 (mmHg) Blood Pressure 77 Mean O2 Sat by Pulse 93 Oximetry Patient on Room No Air Physical Exam: General: NAD, sitting up in a chair Neurological: Alert and Oriented HEENT: Moist MM, no thrush Cardiovascular: Heart rate regular Respiratory: Lung sounds clear Abdominal: Bowel sounds present; ABD soft, non tender and non distended MSK: Limited ROM to the left shoulder due to pain, no redness or edema Skin: No rash. Dressing to the left shoulder clean, dry and intact Laboratory Results - last 24 hr 02/06/19 02/07/19 02/07/19 15:12 05:47 05:47 WBC 13.3 H RBC 3.53 L Hgb 10.0 L Hct 30 L MCV 85 MCH 28 MCHC 33 RDW 16 H Plt Count 564 H D MPV 7.4 Neut % (Auto) 82.9 Lymph % (Auto) 6.5 Lagrange % (Auto) 8.4 Eos % (Auto) 0.9 Baso % (Auto) 1.3 Absolute Neuts (auto) 11.1 H Absolute Lymphs (auto) 0.9 L Absolute Monos (auto) 1.1 H Absolute Eos (auto) 0.1 Absolute Basos (auto) 0.2 Absolute Nucleated RBC 0.0 Nucleated RBC % 0.0 Sodium 133 L Potassium 4.3 Chloride 99 L Carbon Dioxide 30 Anion Gap 4 BUN 10 Creatinine 0.50 L Est GFR ( Amer) 144.8 Est GFR (Non-Af Amer) 119.6 BUN/Creatinine Ratio 20.0 Glucose 91 Calcium 7.9 L C-Reactive Protein 213.69 H Vancomycin Trough 10.9 Microbiology 02/05/19 03:00 Urine Culture - Final Urine Pseudomonas Aeruginosa 02/04/19 17:18 Aerobic Blood Culture - Preliminary Blood Venous No Growth Day 2 Anaerobic Blood Culture - Preliminary No Growth Day 2 02/04/19 13:16 Aerobic Blood Culture - Preliminary Blood Venous No Growth Day 2 Anaerobic Blood Culture - Preliminary No Growth Day 2 02/01/19 10:11 Aerobic Blood Culture - Final Blood Venous No Growth Day 5 Anaerobic Blood Culture - Final No Growth Day 5 02/01/19 10:11 Aerobic Blood Culture - Final Blood Venous No Growth Day 5 Anaerobic Blood Culture - Final No Growth Day 5 02/02/19 12:59 Anaerobic Culture - Final Wound No Growth Day 4 Skin and Soft Tissue MRSA/MSSA (PCR - Final Mrsa Negative S.aureus Positive Gram Stain - Final Wound Culture - Final Staphylococcus Aureus 01/30/19 17:12 Anaerobic Culture - Final Wound - Shoulder Left Skin and Soft Tissue MRSA/MSSA (PCR - Final Mrsa Negative S.aureus Positive Gram Stain - Final Wound Culture - Final Staphylococcus Aureus 01/30/19 13:30 Gram Stain - Final Body Fluid Body Fluid Culture - Final Staphylococcus Aureus Anaerobic Culture - Final Skin and Soft Tissue MRSA/MSSA (PCR - Final Mrsa Negative S.aureus Positive Acid Fast Bacilli Smear - Final 01/30/19 09:32 Aerobic Blood Culture - Final Blood Venous Staphylococcus Aureus Anaerobic Blood Culture - Final Staphylococcus Aureus Blood MRSA/MSSA (PCR) - Final Mrsa Negative S.aureus Positive 01/30/19 09:32 Aerobic Blood Culture - Final Blood Venous Staphylococcus Aureus Anaerobic Blood Culture - Final Staphylococcus Aureus Blood MRSA/MSSA (PCR) - Final Mrsa Negative S.aureus Positive 01/28/19 15:51 Urine Culture - Final Urine Staphylococcus Aureus Enterococcus Faecalis 01/29/19 04:50 Aerobic Blood Culture - Final Blood Venous Staphylococcus Aureus Anaerobic Blood Culture - Final Staphylococcus Aureus Blood MRSA/MSSA (PCR) - Final Mrsa Negative S.aureus Positive 01/28/19 17:25 Aerobic Blood Culture - Final Blood Venous Staphylococcus Aureus Anaerobic Blood Culture - Final Staphylococcus Aureus Blood MRSA/MSSA (PCR) - Final Mrsa Negative S.aureus Positive 01/28/19 22:49 Nasal Screen MRSA (PCR) - Final Nasal Mrsa Not Detected Assessment: 1. MSSA bacteremia. Staphylococcal bacteruria usually due to bacteremia and not a primary infection. NIRU with no vegetation. Repeat blood cultures with no growth on day 5. 2. Septic arthritis left shoulder. Cultures with staph aureus. Afebrile for ~ 36 hours. Continues to have leukocytosis, but overall trending down. She was changed from ancef to vancomycin last week in preparation for discharge to SNF as they will not do TID dosing of IV ABX. 3. Post herpetic neuralgia. 4. Pseudomonas bacteruria. Suspect this represents asymtomatic bacteruria. Denies urinary symptoms or flank pain. She is improving without pseudomonas coverage. 5. Fevers. Differential dx: UTI, drug reaction, PNA, or C -diff. Denies diarrhea , respiratory symptoms, and urinary symptoms. Afebrile for ~ 36 hours. Plan: Continue Vancomycin, trough goal 15-20, Day 12/18. Ok for PICC placement. Weekly labs while on IV ABX: CBC, CMP, and CRP. Followup with ID outpatient after discharge in 1-2 weeks.
--- NOTE | 2019-02-07 11:59 | PN ---
Progress Note - Progress Note Date of Service: 02/07/19 SOAP: Subjective: []Pt seen at bedside, she is sp I&D left septic shoulder. Her left shoulder is not painful. She has no other joint pain. Denies any fever or chills. Tmac 99.9 iun the past 24 hours. WBC slight elevation from yesterday, CRP trending down from yesterday. Objective: []Gen: Appears well, NAD LUE: Incisions CDI without discharge or erythema, dressing was changed. No swelling or warmth of the left shoulder. Able to passively flex shoulder to 90 degrees forward flexion and abduction without pain. Able to flex and extend all joints of RUE, BL LE without pain. Assessment: []1. MSSA bacteremia. Staphylococcal bacteruria usually due to bacteremia and not a primary infection. NIRU with no vegetation. 2. Septic arthritis left shoulder 3. Post herpetic neuralgia Plan: [] WBAT and ROM as tolerated L shoulder Cont abx per ID - on vanco currently Will monitor exam, cbc/crp daily Vital Signs Temp 99.6 F 02/07/19 02:15 Pulse 105 02/07/19 02:15 Resp 20 02/07/19 11:05 BP 115/59 02/07/19 02:15 Pulse Ox 93 02/07/19 02:15 Intake & Output 02/06/19 02/07/19 02/07/19 18:59 06:59 18:59 Intake Total 740 974 360 Output Total 400 100 Balance 340 874 360 Intake: IV Fluids 664 LR 664 IVPB 310 ABX - VANCOMYCIN 310 Oral 740 0 360 Output: Urine 400 100 Other: Estimated Void Large Large # Bowel Movements 0 # Voids 2 1 1 Laboratory Last Values WBC 13.3 10^3/uL (3.5-10.8) H 02/07/19 05:47 RBC 3.53 10^6 /uL (3.70-4.87) L 02/07/19 05:47 Hgb 10.0 g/dL (12.0-16.0) L 02/07/19 05:47 Hct 30 % (35-47) L 02/07/19 05:47 MCV 85 fL (80-97) 02/07/19 05:47 MCH 28 pg (27-31) 02/07/19 05:47 MCHC 33 g/dL (31-36) 02/07/19 05:47 RDW 16 % (10-15) H 02/07/19 05:47 Plt Count 564 10^3/uL (150-450) H D 02/07/19 05:47 MPV 7.4 fL (7.4-10.4) 02/07/19 05:47 Neut % (Auto) 82.9 % 02/07/19 05:47 Lymph % (Auto) 6.5 % 02/07/19 05:47 [place] % (Auto) 8.4 % 02/07/19 05:47 Eos % (Auto) 0.9 % 02/07/19 05:47 Baso % (Auto) 1.3 % 02/07/19 05:47 Absolute Neuts (auto) 11.1 10^3/ul (1.5-7.7) H 02/07/19 05:47 Absolute Lymphs (auto) 0.9 10^3/ul (1.0-4.8) L 02/07/19 05:47 Absolute Monos (auto) 1.1 10^3/ul (0-0.8) H 02/07/19 05:47 Absolute Eos (auto) 0.1 10^3/ul (0-0.6) 02/07/19 05:47 Absolute Basos (auto) 0.2 10^3/ul (0-0.2) 02/07/19 05:47 Absolute Nucleated RBC 0.0 10^3/ul 02/07/19 05:47 Immature Gran % 2.0 % (0-9) 02/04/19 12:11 Neutrophils % 95.0 % 02/04/19 12:11 Band Neutrophils % 2.0 % (0-8) 02/04/19 12:11 Lymphocytes % 2.0 % 02/04/19 12:11 Monocytes % 1.0 % 02/04/19 12:11 Eosinophils % 2.0 % 02/04/19 05:52 Metamyelocytes % 1.0 % (0-2) 02/03/19 05:36 Nucleated RBC % 0.0 02/07/19 05:47 Abs Neuts (Manual) 16.1 10^3/ul (1.5-7.7) H 02/04/19 12:11 Abs Lymphs (Manual) 0.3 10^3/ul (1.0-4.8) L 02/04/19 12:11 Abs Monocytes (Manual) 0.2 10^3/ul (0-0.8) 02/04/19 12:11 Toxic Granulation 1+ 02/03/19 05:36 Normal RBC Morphology Normal (Normal) 02/04/19 12:11 INR (Anticoag Therapy) 1.25 (0.82-1.09) H 01/29/19 05:40 Sodium 133 mmol/L (135-145) L 02/07/19 05:47 Potassium 4.3 mmol/L (3.5-5.0) 02/07/19 05:47 Chloride 99 mmol/L (101-111) L 02/07/19 05:47 Carbon Dioxide 30 mmol/L (22-32) 02/07/19 05:47 Anion Gap 4 mmol/L (2-11) 02/07/19 05:47 BUN 10 mg/dL (6-24) 02/07/19 05:47 Creatinine 0.50 mg/dL (0.51-0.95) L 02/07/19 05:47 Est GFR ( Amer) 144.8 (>60) 02/07/19 05:47 Est GFR (Non-Af Amer) 119.6 (>60) 02/07/19 05:47 BUN/Creatinine Ratio 20.0 (8-20) 02/07/19 05:47 Glucose 91 mg/dL (70-100) 02/07/19 05:47 Lactic Acid 0.8 mmol/L (0.5-2.0) 01/28/19 23:58 Calcium 7.9 mg/dL (8.6-10.3) L 02/07/19 05:47 Phosphorus 3.2 mg/dL (2.5-5.0) 01/29/19 04:50 Magnesium 2.0 mg/dL (1.9-2.7) 02/02/19 08:40 Total Bilirubin 0.80 mg/dL (0.2-1.0) 01/28/19 12:58 AST 29 U/L (13-39) 01/28/19 12:58 ALT 20 U/L (7-52) 01/28/19 12:58 Alkaline Phosphatase 165 U/L (34-104) H 01/28/19 12:58 Lactate Dehydrogenase 233 U/L (140-271) 01/28/19 12:58 Total Creatine Kinase 99 U/L (10-223) 01/28/19 12:58 Troponin I 0.01 ng/mL (<0.04) 01/28/19 12:58 C-Reactive Protein 213.69 mg/L (<8.01) H 02/07/19 05:47 Total Protein 7.1 g/dL (6.4-8.9) 01/28/19 12:58 Albumin 2.4 g/dL (3.2-5.2) L 01/29/19 04:50 Globulin 3.6 g/dL (2-4) 01/28/19 12:58 Albumin/Globulin Ratio 1.0 (1-3) 01/28/19 12:58 TSH 0.83 mcIU/mL (0.34-5.60) 01/28/19 12:58 Urine Color [place] 01/28/19 15:51 Urine Appearance Cloudy 01/28/19 15:51 Urine pH 6.0 (5-9) 01/28/19 15:51 Ur Specific [place] 1.020 (1.010-1.030) 01/28/19 15:51 Urine Protein 2+(100 mg/dl) (Negative) A 01/28/19 15:51 Urine Ketones Negative (Negative) 01/28/19 15:51 Urine Blood 2+ (Negative) A 01/28/19 15:51 Urine Nitrate Negative (Negative) 01/28/19 15:51 Urine Bilirubin Negative (Negative) 01/28/19 15:51 Urine Urobilinogen Negative (Negative) 01/28/19 15:51 Ur Leukocyte Esterase 3+ (Negative) A 01/28/19 15:51 Urine WBC (Auto) 3+(>20/hpf) (Absent) A 01/28/19 15:51 Urine RBC (Auto) 1+(3-5/hpf) (Absent) A 01/28/19 15:51 Ur Squamous Epith Cells Present (Absent) A 01/28/19 15:51 Urine Bacteria Absent (Absent) 01/28/19 15:51 Urine Glucose Negative (Negative) 01/28/19 15:51 Fluid Source Cancelled 01/30/19 13:30 Fluid Volume Cancelled 01/30/19 13:30 Fluid Color Cancelled 01/30/19 13:30 Fluid Appearance Cancelled 01/30/19 13:30 Fluid WBC Cancelled 01/30/19 13:30 Fluid RBC Cancelled 01/30/19 13:30 Fluid Tot Cell Count Cancelled 01/30/19 13:30 Fluid Neutrophils Cancelled 01/30/19 13:30 Fluid Band Neutrophils Cancelled 01/30/19 13:30 Fluid Lymphocytes Cancelled 01/30/19 13:30 Fluid Reactive Lymphs Cancelled 01/30/19 13:30 Fluid Monocytes Cancelled 01/30/19 13:30 Fluid Eosinophils Cancelled 01/30/19 13:30 Fluid Basophils Cancelled 01/30/19 13:30 Fluid Promyelocytes Cancelled 01/30/19 13:30 Fluid Myelocytes Cancelled 01/30/19 13:30 Fluid Metamyelocytes Cancelled 01/30/19 13:30 Fluid Blast Cells Cancelled 01/30/19 13:30 Fluid Nucleated RBCs Cancelled 01/30/19 13:30 Fluid Other Cells Cancelled 01/30/19 13:30 Fluid Cell Count Rvw By Cancelled 01/30/19 13:30 Fluid Comment Cancelled 01/30/19 13:30 Vancomycin Trough 10.9 mcg/mL 02/06/19 15:12
--- NOTE | 2019-02-07 13:30 | PN ---
Subjective Date of Service: 02/07/19 Interval History: No acute events overnight. Tmax 99.9 at 8pm. pain can sometimes be "unbearable" but poor historian otherwise. sometimes sharp , dull, burning. yesterday was like a band across abdomen. she is very unclear how long she has had left sided symptoms. she states no BM in 9 days (EMR says last was 02/01, 6 days ago). has been getting infrequent bowl med prns for constipation with large doses of opioids. left shoulder without pain unless manipulated. left knee slightly warm, no pain with bending. Objective Active Medications: Acetaminophen (Tylenol Tab*) 975 mg PO Q8H PRN PRN Reason: MILD PAIN or TEMP > 100.4 Last Admin: 02/05/19 16:30 Dose: 975 mg Cholecalciferol (Vitamin D Tab*) 2,000 units PO DAILY [facility] Last Admin: 02/07/19 09:41 Dose: 2,000 units Docusate Sodium (Colace Cap*) 100 mg PO DAILY PRN PRN Reason: CONSTIPATION Enoxaparin Sodium (Lovenox(*)) 40 mg SUBCUT 2100 [facility] Last Admin: 02/06/19 19:53 Dose: 40 mg Famotidine (Pepcid Tab*) 20 mg PO DAILY PRN PRN Reason: HEARTBURN Gabapentin (Neurontin Cap(*)) 600 mg PO TID [facility] Last Admin: 02/07/19 09:41 Dose: 600 mg Lactated Ringer's (Lactated Ringers 1000 Ml Bag*) 1,000 mls @ 125 mls/hr IV PER RATE [facility] Last Admin: 02/07/19 12:21 Dose: 125 mls/hr Vancomycin HCl 1,250 mg/ (Sodium Chloride) 250 mls @ 166.667 mls/hr IVPB Q12H [facility] Last Admin: 02/07/19 03:03 Dose: 166.667 mls/hr Lactobacillus Rhamnosus (Lactobacillus Acidophilus*) 1 tab PO BID [facility] Last Admin: 02/07/19 09:41 Dose: 1 tab Lidocaine (Lidoderm 5% Patch*) 1 patch TRANSDERM Q24H [facility] Last Admin: 02/06/19 16:27 Dose: 1 patch Magnesium Hydroxide (Milk Of Magnesia Liq*) 30 ml PO Q6H PRN PRN Reason: CONSTIPATION Last Admin: 02/01/19 11:29 Dose: 30 ml Miscellaneous (Ativan Pyxis Ureña) 1 ea N/A .ATIVAN IV UREÑA PRN PRN Reason: PYXIS UREÑA Morphine Sulfate (Morphine Inj (Syringe))*) 2 mg IV Q2H PRN PRN Reason: PAIN - SEVERE Last Admin: 02/07/19 12:34 Dose: 2 mg Oxycodone HCl (Roxycodone Tab*) 5 mg PO Q4H PRN PRN Reason: PAIN - MODERATE Last Admin: 02/07/19 11:05 Dose: 5 mg Oxycodone HCl (Roxycodone Tab*) 10 mg PO Q4H PRN PRN Reason: PAIN - SEVERE Last Admin: 02/07/19 05:10 Dose: 10 mg Pharmacy Consult (Vancomycin Per Pharmacy*) 1 note FOLLOW UP .VANC PER PHARMACY [facility]; Protocol Pharmacy Profile Note (Lidocaine Patch Remove*) 1 note PATCH OFF 0600 [facility] Last Admin: 02/07/19 05:11 Dose: 1 note Pharmacy Profile Note (Vancomycin Trough Check) 1 note FOLLOW UP 1430 ONE Stop: 02/08/19 14:31 Senna (Senokot 8.6 Mg Tab*) 1 tab PO DAILY [facility] Vital Signs - 8 hr 02/07/19 02/07/19 02/07/19 07:15 07:26 08:00 Temperature 99.5 F Pulse Rate 115 Respiratory 16 18 18 Rate Blood Pressure 133/72 (mmHg) O2 Sat by Pulse 93 Oximetry 02/07/19 02/07/19 02/07/19 09:36 09:41 09:46 Temperature Pulse Rate Respiratory 18 18 18 Rate Blood Pressure (mmHg) O2 Sat by Pulse Oximetry 02/07/19 02/07/19 02/07/19 11:05 11:15 12:01 Temperature 99.7 F Pulse Rate 118 Respiratory 20 16 18 Rate Blood Pressure 135/72 (mmHg) O2 Sat by Pulse 93 Oximetry 02/07/19 02/07/19 12:02 12:34 Temperature Pulse Rate Respiratory 18 18 Rate Blood Pressure (mmHg) O2 Sat by Pulse Oximetry Oxygen Devices in Use Now: Nasal Cannula Appearance: lying in bed. more uncomfortable when turned to side. Eyes: No Scleral Icterus Ears/Nose/Mouth/Throat: NL Teeth, Lips, Gums Respiratory: - - slight rhonchi right base, no wheezing or rales. Cardiovascular: - - tachycardic, no murmurs Abdominal: - - soft, nontender to palpation. some pain just right of epigastric when turned to right lateral decubitus Skin: - - two ~1.5 cm rashes in right flank. Neurological: - - oriented to name, place, situation, president but forgetful of years. Nutrition: Taking PO's Result Diagrams: 02/07/19 05:47 02/07/19 05:47 Additional Lab and Data: Laboratory Results - last 24 hr 02/07/19 02/07/19 02/07/19 05:47 05:47 23:06 WBC 13.3 H RBC 3.53 L Hgb 10.0 L Hct 30 L MCV 85 MCH 28 MCHC 33 RDW 16 H Plt Count 564 H D MPV 7.4 Neut % (Auto) 82.9 Lymph % (Auto) 6.5 [place] % (Auto) 8.4 Eos % (Auto) 0.9 Baso % (Auto) 1.3 Absolute Neuts (auto) 11.1 H Absolute Lymphs (auto) 0.9 L Absolute Monos (auto) 1.1 H Absolute Eos (auto) 0.1 Absolute Basos (auto) 0.2 Absolute Nucleated RBC 0.0 Nucleated RBC % 0.0 Sodium 133 L Potassium 4.3 Chloride 99 L Carbon Dioxide 30 Anion Gap 4 BUN 10 Creatinine 0.50 L Est GFR ( Amer) 144.8 Est GFR (Non-Af Amer) 119.6 BUN/Creatinine Ratio 20.0 Glucose 91 POC Glucose (mg/dL) 147 H Calcium 7.9 L C-Reactive Protein 213.69 H Microbiology and Other Data: Microbiology 02/04/19 17:18 Blood Venous Aerobic Blood Culture - Preliminary No Growth Day 3 02/04/19 17:18 Blood Venous Anaerobic Blood Culture - Preliminary No Growth Day 3 02/04/19 13:16 Blood Venous Aerobic Blood Culture - Preliminary No Growth Day 3 02/04/19 13:16 Blood Venous Anaerobic Blood Culture - Preliminary No Growth Day 3 01/30/19 13:30 Misc Source (See Comment) Fungal Culture - Preliminary 02/05/19 03:00 Urine Urine Culture - Final Pseudomonas Aeruginosa 02/01/19 10:11 Blood Venous Aerobic Blood Culture - Final No Growth Day 5 02/01/19 10:11 Blood Venous Anaerobic Blood Culture - Final No Growth Day 5 02/01/19 10:11 Blood Venous Aerobic Blood Culture - Final No Growth Day 5 02/01/19 10:11 Blood Venous Anaerobic Blood Culture - Final No Growth Day 5 02/02/19 12:59 Wound Anaerobic Culture - Final No Growth Day 4 02/02/19 12:59 Wound Skin and Soft Tissue MRSA/MSSA (PCR - Final Mrsa Negative S.aureus Positive 02/02/19 12:59 Wound Gram Stain - Final 02/02/19 12:59 Wound Wound Culture - Final Staphylococcus Aureus 01/30/19 17:12 Wound - Shoulder Left Anaerobic Culture - Final 01/30/19 17:12 Wound - Shoulder Left Skin and Soft Tissue MRSA/MSSA (PCR - Final Mrsa Negative S.aureus Positive 01/30/19 17:12 Wound - Shoulder Left Gram Stain - Final 01/30/19 17:12 Wound - Shoulder Left Wound Culture - Final Staphylococcus Aureus 01/30/19 13:30 Body Fluid Gram Stain - Final 01/30/19 13:30 Body Fluid Body Fluid Culture - Final Staphylococcus Aureus 01/30/19 13:30 Body Fluid Anaerobic Culture - Final 01/30/19 13:30 Body Fluid Skin and Soft Tissue MRSA/MSSA (PCR - Final Mrsa Negative S.aureus Positive 01/30/19 13:30 Body Fluid Acid Fast Bacilli Smear - Final 01/30/19 09:32 Blood Venous Aerobic Blood Culture - Final Staphylococcus Aureus 01/30/19 09:32 Blood Venous Anaerobic Blood Culture - Final Staphylococcus Aureus 01/30/19 09:32 Blood Venous Blood MRSA/MSSA (PCR) - Final Mrsa Negative S.aureus Positive 01/30/19 09:32 Blood Venous Aerobic Blood Culture - Final Staphylococcus Aureus 01/30/19 09:32 Blood Venous Anaerobic Blood Culture - Final Staphylococcus Aureus 01/30/19 09:32 Blood Venous Blood MRSA/MSSA (PCR) - Final Mrsa Negative S.aureus Positive 01/28/19 15:51 Urine Urine Culture - Final Staphylococcus Aureus Enterococcus Faecalis 01/29/19 04:50 Blood Venous Aerobic Blood Culture - Final Staphylococcus Aureus 01/29/19 04:50 Blood Venous Anaerobic Blood Culture - Final Staphylococcus Aureus 01/29/19 04:50 Blood Venous Blood MRSA/MSSA (PCR) - Final Mrsa Negative S.aureus Positive 01/28/19 17:25 Blood Venous Aerobic Blood Culture - Final Staphylococcus Aureus 01/28/19 17:25 Blood Venous Anaerobic Blood Culture - Final Staphylococcus Aureus 01/28/19 17:25 Blood Venous Blood MRSA/MSSA (PCR) - Final Mrsa Negative S.aureus Positive 01/28/19 22:49 Nasal Nasal Screen MRSA (PCR) - Final Mrsa Not Detected Assess/Plan/Problems-Billing 78W with GERD, OA, osteoporosis, recent L hip intertrochanteric fracture s/p IMN (10/2018), and recent shingles s/p acyclovir and recently started opioids and muscle relaxer, presents after being found down. Found with high fever, and blood, urine, and L shoulder joint growing MSSA. - Patient Problems (1) MSSA bacteremia Current Visit: Yes Status: Acute Code(s): R78.81 - BACTEREMIA SNOMED Code( s): 923957219 Comment: Pt with multiple blood cultures positive for MSSA. Most recent cultures obtained on 02/01 have NGSF. TTE and NIRU both negative for signs of endocarditis. Will need at least 4 weeks IV Abx. CRP and WBC both sl decreased on 02/06. Blood C&S x 2 sent 02/04 no growth day 3. CT chest/abd/pelvis with contrast does have some atelectasis vs consolidation in lungs. Continue vancomycin as bid scheduling can be done at [facility], not tid for cefazolin. Adding cefepime. (2) Sepsis Current Visit: Yes Status: Acute Comment: Blood, urine, and left shoulder fluid growing staph. S/p washout in OR on 01/30 and 02/02. - cont IV abx (01/28 - ); Day 9 of 28. CFTX -> cefazolin -> vancomycin - appreciate ID recs - PICC ordered today given 48 hours clearance from last BCx. - patient with persistent tachycardia, leukocytosis, AMS, elevated CRP >200 despite 9 days of antibiotics. Fever 100.0 this afternoon. UCx with low quantity PSDA and will add cefepime given above. (3) Left shoulder pain Current Visit: Yes Status: Acute Code(s): M25.512 - PAIN IN LEFT SHOULDER SNOMED Code(s): 96263576 Comment: Severe OA in shoulder by imaging. Now with septic joint growing Staph. - appreciate ortho recs, s/p washout 01/30 and 02/02 - APAP prn mild pain, tramadol mod, oxy severe prn - bowel reg while on opioids -> needs to escalate as not actually getting prns and no recorded BMs in 6 days and abdominal pain! (4) Post herpetic neuralgia Current Visit: Yes Status: Acute Code(s): B02.29 - OTHER POSTHERPETIC NERVOUS SYSTEM INVOLVEMENT SNOMED Code(s): 6036384 Comment: Pain in the R flank wrapping around to front - however patient is a very poor history about location, timing, character. Continue gabapentin 600mg in the AM, 900mg in the PM, and 600mg at noon. Lidocaine patch helped her pain. priority on having BM to eliminate constipation as a confounding factor for migratory abdominal discomfort. (5) DVT prophylaxis Current Visit: Yes Status: Acute Code(s): Z29.9 - ENCOUNTER FOR PROPHYLACTIC MEASURES, UNSPECIFIED SNOMED Code(s): 502520052 Comment: lovenox (6) Fall Current Visit: Yes Status: Acute Comment: Pt doesn't remember fall. Family and friend report that she was acting 'off' the prior day, after starting muscle relaxant and opioids rx'ed by outpatient provider for shingles pain? Also large contribution from bacteremia causing metabolic encephalopathy. - avoid Beers criteria meds when possible - cont antibiotics - PT ordered - mental status back to baseline, cont to monitor closely (7) GERD (gastroesophageal reflux disease) Current Visit: Yes Status: Acute Code(s): K21.9 - GASTRO-ESOPHAGEAL REFLUX DISEASE WITHOUT ESOPHAGITIS SNOMED Code(s): 789305267 Comment: Continue famotidine. (8) DNR (do not resuscitate) Current Visit: Yes Status: Acute Status and Disposition: medicine inpatient. sepsis still.
[2019-02-07] MEDS: Polyethylene Glycol 3350* 17 GM PACKET PO SCH (14:32)
[2019-02-07] MEDS: Senna TAB 8.6 mg* TAB PO SCH (14:32)
[2019-02-07] MEDS: Lidocaine PATCH 5%* 1 PATCH TRANSDERM SCH (18:06)
[2019-02-07] MEDS: Acetaminophen TAB* 325 MG PO PRN (18:12)
[2019-02-07] MEDS: Docusate CAP* 100 MG PO PRN (19:56)
[2019-02-07] MEDS: Enoxaparin(*) 40 MG/0.4 ML SYR SUBCUT SCH (19:58)
[2019-02-08] MEDS: Cefepime 2 GM in Dextrose(*) 2 GM/50 ML BAG IV SCH ×2 (02:23→13:37)
[2019-02-08] MEDS: Vancomycin(*) 1,250 MG in NS 0.9% 250 ML* 250 ML IVPB SCH ×2 (03:16→14:12)
[2019-02-08 04:12] LABS: Urine Appearance Cloudy; Urine Bilirubin Negative (Negative); Urine Blood Negative (Negative); Urine Color Yellow; Urine Glucose Negative (Negative); Urine Ketones Negative (Negative); Urine Nitrite Negative (Negative); Urine Protein Negative (Negative); Urine Specific Gravity 1.006 (1.010-1.030); Urine Urobilinogen Negative (Negative)
[2019-02-08] MEDS: Morphine INJ* 2 MG/ML 1 ML SYRINGE (TWO MG - NEW SYRINGE VERSION) IV PRN ×3 (05:23→15:48)
[2019-02-08] MEDS: Lidocaine Patch REMOVE* 1 NOTE MISC PATCH OFF SCH (05:30)
[2019-02-08 06:08] LABS: ABS Basophils 0.1 10^3/ul (0-0.2); ABS Eosinophils 0.2 10^3/ul (0-0.6); ABS Lymphocytes 0.8 10^3/ul (1.0-4.8); ABS Monocytes 1.2 10^3/ul (0-0.8); ABS Neutrophils 12.8 10^3/ul (1.5-7.7); Eosinophil % 1.1 %; Hematocrit 29 % (35-47); Hemoglobin 9.5 g/dL (12.0-16.0); Lymphocyte % 5.3 %; Mean Corpuscular HGB Conc 33 g/dL (31-36); Mean Corpuscular Hemoglobin 28 pg (27-31); Mean Corpuscular Volume 85 fL (80-97); Mean Platelet Volume 6.8 fL (7.4-10.4); Platelet Count 546 10^3/uL (150-450); Red Blood Count 3.34 10^6 /uL (3.70-4.87); Red Cell Distribution Width 16 % (10-15)
[2019-02-08 06:25] LABS: BUN/Creatinine Ratio 17.4 (8-20); C Reactive Protein 243.66 mg/L (<8.01); Calcium 7.9 mg/dL (8.6-10.3); EGFR African American 99.8 (>60); EGFR Non-African American 82.5 (>60); Potassium 3.7 mmol/L (3.5-5.0)
[2019-02-08] MEDS: Polyethylene Glycol 3350* 17 GM PACKET PO SCH (07:58)
[2019-02-08] MEDS: Cholecalciferol TAB* 1000 UNITS PO SCH (07:59)
[2019-02-08] MEDS: Senna TAB 8.6 mg* TAB PO SCH (08:00)
[2019-02-08] MEDS: Gabapentin CAP(*) 300 MG PO SCH ×3 (08:00→20:55)
[2019-02-08] MEDS: Lactobacillus Acidophilus* 1 TAB PO SCH ×2 (08:01→20:54)
[2019-02-08] MEDS: oxyCODONE TAB* 5 MG TAB PO PRN ×2 (08:01→13:45)
--- NOTE | 2019-02-08 12:04 | PN ---
Subjective Date of Service: 02/08/19 Interval History: Patient with Tmax 100.0 at 1500 yesterday(then got nearly 1gm tylenol). I started cefepime started last night given recurrance of fever and persistant leukocytosis, tachycardia, respiratory failure and CT chest from 02/05 that showed possible consolidation. A bit anxious appearing today. Slept okay. No BM yet (later would have with enema). Some pain in right flank (especially when turned to left lateral decubitus) and also points diffusely to abdomen Later a PICC line was attempted but CXR showed it went up into neck instead. was removed. CXR also showed worsened "white out"/effusion/atelectasis in right lung. . Objective Active Medications: Acetaminophen (Tylenol Tab*) 975 mg PO Q8H PRN PRN Reason: MILD PAIN or TEMP > 100.4 Last Admin: 02/07/19 18:12 Dose: 975 mg Cholecalciferol (Vitamin D Tab*) 2,000 units PO DAILY [facility] Last Admin: 02/08/19 07:59 Dose: 2,000 units Docusate Sodium (Colace Cap*) 100 mg PO DAILY PRN PRN Reason: CONSTIPATION Last Admin: 02/07/19 19:56 Dose: 100 mg Enoxaparin Sodium (Lovenox(*)) 40 mg SUBCUT 2100 [facility] Last Admin: 02/07/19 19:58 Dose: 40 mg Famotidine (Pepcid Tab*) 20 mg PO DAILY PRN PRN Reason: HEARTBURN Gabapentin (Neurontin Cap(*)) 600 mg PO TID [facility] Last Admin: 02/08/19 08:00 Dose: 600 mg Vancomycin HCl 1,250 mg/ (Sodium Chloride) 250 mls @ 166.667 mls/hr IVPB Q12H [facility] Last Admin: 02/08/19 03:16 Dose: 166.667 mls/hr Cefepime HCl (Maxipime 2 Gm In Dextrose Duplex (*)) 2 gm in 50 mls @ 100 mls/ hr IV Q12H [facility] Last Admin: 02/08/19 02:23 Dose: 100 mls/hr Lactobacillus Rhamnosus (Lactobacillus Acidophilus*) 1 tab PO BID [facility] Last Admin: 02/08/19 08:01 Dose: 1 tab Lidocaine (Lidoderm 5% Patch*) 1 patch TRANSDERM Q24H [facility] Last Admin: 02/07/19 18:06 Dose: 1 patch Magnesium Hydroxide (Milk Of Magncullen Liq*) 30 ml PO Q6H PRN PRN Reason: CONSTIPATION Last Admin: 02/01/19 11:29 Dose: 30 ml Miscellaneous (Ativan Pyxis Ureña) 1 ea N/A .ATIVAN IV UREÑA PRN PRN Reason: PYXIS UREÑA Morphine Sulfate (Morphine Inj (Syringe))*) 2 mg IV Q2H PRN PRN Reason: PAIN - SEVERE Last Admin: 02/08/19 10:54 Dose: 2 mg Oxycodone HCl (Roxycodone Tab*) 5 mg PO Q4H PRN PRN Reason: PAIN - MODERATE Last Admin: 02/07/19 11:05 Dose: 5 mg Oxycodone HCl (Roxycodone Tab*) 10 mg PO Q4H PRN PRN Reason: PAIN - SEVERE Last Admin: 02/08/19 08:01 Dose: 10 mg Pharmacy Consult (Vancomycin Per Pharmacy*) 1 note FOLLOW UP .VANC PER PHARMACY [facility]; Protocol Pharmacy Profile Note (Lidocaine Patch Remove*) 1 note PATCH OFF 0600 [facility] Last Admin: 02/08/19 05:30 Dose: 1 note Pharmacy Profile Note (Vancomycin Trough Check) 1 note FOLLOW UP 1430 ONE Stop: 02/08/19 14:31 Polyethylene Glycol/Electrolytes (Miralax*) 17 gm PO DAILY [facility] Last Admin: 02/08/19 07:58 Dose: 17 gm Senna (Senokot 8.6 Mg Tab*) 1 tab PO DAILY [facility] Last Admin: 02/08/19 08:00 Dose: 1 tab Vital Signs - 8 hr 02/08/19 02/08/19 02/08/19 05:23 06:59 08:00 Respiratory 18 18 20 Rate 02/08/19 02/08/19 02/08/19 08:01 10:54 11:41 Respiratory 20 18 20 Rate Oxygen Devices in Use Now: Nasal Cannula Appearance: anxious appearing Eyes: No Scleral Icterus Ears/Nose/Mouth/Throat: NL Teeth, Lips, Gums Neck: NL Appearance and Movements; NL JVP, Trachea Midline Respiratory: - - rhonchi and dimnished on right. Cardiovascular: RRR, - Abdominal: NL Sounds; No Tenderness; No Distention Extremities: - - 1+ edema b/l Skin: No Rash or Ulcers Neurological: - - follows commands, oriented to name and situation. Nutrition: Taking PO's Result Diagrams: 02/08/19 05:50 02/08/19 05:50 Additional Lab and Data: Laboratory Results - last 24 hr 02/07/19 02/08/19 02/08/19 23:06 02:40 05:50 WBC 15.0 H RBC 3.34 L Hgb 9.5 L Hct 29 L MCV 85 MCH 28 MCHC 33 RDW 16 H Plt Count 546 H MPV 6.8 L Neut % (Auto) 85.6 Lymph % (Auto) 5.3 [place] % (Auto) 7.7 Eos % (Auto) 1.1 Baso % (Auto) 0.3 Absolute Neuts (auto) 12.8 H Absolute Lymphs (auto) 0.8 L Absolute Monos (auto) 1.2 H Absolute Eos (auto) 0.2 Absolute Basos (auto) 0.1 Absolute Nucleated RBC 0.0 Nucleated RBC % 0.0 Sodium Potassium Chloride Carbon Dioxide Anion Gap BUN Creatinine Est GFR ( Amer) Est GFR (Non-Af Amer) BUN/Creatinine Ratio Glucose POC Glucose (mg/dL) 147 H Calcium C-Reactive Protein B-Natriuretic Peptide Urine Color Yellow Urine Appearance Cloudy Urine pH 6.0 Ur Specific [place] 1.006 L Urine Protein Negative Urine Ketones Negative Urine Blood Negative Urine Nitrate Negative Urine Bilirubin Negative Urine Urobilinogen Negative Ur Leukocyte Esterase Negative Urine Glucose Negative Vancomycin Trough 02/08/19 02/08/19 02/08/19 05:50 05:50 13:04 WBC RBC Hgb Hct MCV MCH MCHC RDW Plt Count MPV Neut % (Auto) Lymph % (Auto) [place] % (Auto) Eos % (Auto) Baso % (Auto) Absolute Neuts (auto) Absolute Lymphs (auto) Absolute Monos (auto) Absolute Eos (auto) Absolute Basos (auto) Absolute Nucleated RBC Nucleated RBC % Sodium 136 Potassium 3.7 Chloride 102 Carbon Dioxide 31 Anion Gap 3 BUN 12 Creatinine 0.69 Est GFR ( Amer) 99.8 Est GFR (Non-Af Amer) 82.5 BUN/Creatinine Ratio 17.4 Glucose 97 POC Glucose (mg/dL) Calcium 7.9 L C-Reactive Protein 243.66 H B-Natriuretic Peptide 58 Urine Color Urine Appearance Urine pH Ur Specific [place] Urine Protein Urine Ketones Urine Blood Urine Nitrate Urine Bilirubin Urine Urobilinogen Ur Leukocyte Esterase Urine Glucose Vancomycin Trough 23.3 Microbiology and Other Data: Microbiology 02/04/19 17:18 Blood Venous Aerobic Blood Culture - Preliminary No Growth Day 4 02/04/19 17:18 Blood Venous Anaerobic Blood Culture - Preliminary No Growth Day 4 02/04/19 13:16 Blood Venous Aerobic Blood Culture - Preliminary No Growth Day 4 02/04/19 13:16 Blood Venous Anaerobic Blood Culture - Preliminary No Growth Day 4 01/30/19 13:30 Misc Source (See Comment) Fungal Culture - Preliminary 02/05/19 03:00 Urine Urine Culture - Final Pseudomonas Aeruginosa 02/01/19 10:11 Blood Venous Aerobic Blood Culture - Final No Growth Day 5 02/01/19 10:11 Blood Venous Anaerobic Blood Culture - Final No Growth Day 5 02/01/19 10:11 Blood Venous Aerobic Blood Culture - Final No Growth Day 5 02/01/19 10:11 Blood Venous Anaerobic Blood Culture - Final No Growth Day 5 02/02/19 12:59 Wound Anaerobic Culture - Final No Growth Day 4 02/02/19 12:59 Wound Skin and Soft Tissue MRSA/MSSA (PCR - Final Mrsa Negative S.aureus Positive 02/02/19 12:59 Wound Gram Stain - Final 02/02/19 12:59 Wound Wound Culture - Final Staphylococcus Aureus 01/30/19 17:12 Wound - Shoulder Left Anaerobic Culture - Final 01/30/19 17:12 Wound - Shoulder Left Skin and Soft Tissue MRSA/MSSA (PCR - Final Mrsa Negative S.aureus Positive 01/30/19 17:12 Wound - Shoulder Left Gram Stain - Final 01/30/19 17:12 Wound - Shoulder Left Wound Culture - Final Staphylococcus Aureus 01/30/19 13:30 Body Fluid Gram Stain - Final 01/30/19 13:30 Body Fluid Body Fluid Culture - Final Staphylococcus Aureus 01/30/19 13:30 Body Fluid Anaerobic Culture - Final 01/30/19 13:30 Body Fluid Skin and Soft Tissue MRSA/MSSA (PCR - Final Mrsa Negative S.aureus Positive 01/30/19 13:30 Body Fluid Acid Fast Bacilli Smear - Final 01/30/19 09:32 Blood Venous Aerobic Blood Culture - Final Staphylococcus Aureus 01/30/19 09:32 Blood Venous Anaerobic Blood Culture - Final Staphylococcus Aureus 01/30/19 09:32 Blood Venous Blood MRSA/MSSA (PCR) - Final Mrsa Negative S.aureus Positive 01/30/19 09:32 Blood Venous Aerobic Blood Culture - Final Staphylococcus Aureus 01/30/19 09:32 Blood Venous Anaerobic Blood Culture - Final Staphylococcus Aureus 01/30/19 09:32 Blood Venous Blood MRSA/MSSA (PCR) - Final Mrsa Negative S.aureus Positive 01/28/19 15:51 Urine Urine Culture - Final Staphylococcus Aureus Enterococcus Faecalis 01/29/19 04:50 Blood Venous Aerobic Blood Culture - Final Staphylococcus Aureus 01/29/19 04:50 Blood Venous Anaerobic Blood Culture - Final Staphylococcus Aureus 01/29/19 04:50 Blood Venous Blood MRSA/MSSA (PCR) - Final Mrsa Negative S.aureus Positive 01/28/19 17:25 Blood Venous Aerobic Blood Culture - Final Staphylococcus Aureus 01/28/19 17:25 Blood Venous Anaerobic Blood Culture - Final Staphylococcus Aureus 01/28/19 17:25 Blood Venous Blood MRSA/MSSA (PCR) - Final Mrsa Negative S.aureus Positive 01/28/19 22:49 Nasal Nasal Screen MRSA (PCR) - Final Mrsa Not Detected Assess/Plan/Problems-Billing 78 female PMH GERD, OA, osteoporosis, recent L hip intertrochanteric fracture s /p IMN (10/2018), and recent shingles s/p acyclovir and recently started opioids and muscle relaxer, presents after being found down. Found with high fever, and blood, urine, and L shoulder joint growing MSSA. Course c/b persistent sepsis, hypoxic respiratory failure, large right pleural effusion, constipation, pain in right flank and intermittently in abdomen. - Patient Problems (1) MSSA bacteremia Current Visit: Yes Status: Acute Code(s): R78.81 - BACTEREMIA SNOMED Code( s): 903786170 Comment: Pt with multiple blood cultures positive for MSSA. Most recent cultures obtained on 02/01 and 02/04 have NGTD. TTE and NIRU both negative for signs of endocarditis. Will need at least 4 weeks IV Abx. CRP and WBC both continued elevation. CT chest/abd/pelvis 02/05 with contrast does have some moderate right pleural effusion with atelectasis vs consolidation in lungs. Continue vancomycin as bid scheduling can be done at [facility], not tid for cefazolin. Added cefepime 11/19 early AM. PICC line attempted but needs to be relplaced as it went up into the neck. (2) Sepsis Current Visit: Yes Status: Acute Comment: Blood, urine, and left shoulder fluid growing staph. S/p washout in OR on 01/30 and 02/02. - cont IV abx (01/28 - ); Day 10 of 28 but only Day 7 from 01/01 BCx clearance . CFTX -> cefazolin -> vancomycin - appreciate ID recs - PICC needs to be reattempted. - patient with persistent tachycardia, leukocytosis, AMS, elevated CRP >200 despite 10 days of antibiotics. Broadened to include Cefepime - can't exclude parapneumonic effusion. Requesting thoracentesis tomorrow. Stopping LR 125 cc/ hr which had been running for last 6 days given increasing size of right pleural effusion. (3) Acute respiratory failure with hypoxia Current Visit: Yes Status: Acute Code(s): J96.01 - ACUTE RESPIRATORY FAILURE WITH HYPOXIA SNOMED Code(s): 04133121 Comment: with moderate pleural effusion on CT c/a/p 02/05. girish requested ( consulting Dr. Guy). stop IVF. now on cefepime in addition to vancomycin. not coughing currently. BNP wnl. (4) Left shoulder pain Current Visit: Yes Status: Acute Code(s): M25.512 - PAIN IN LEFT SHOULDER SNOMED Code(s): 61164077 Comment: Severe OA in shoulder by imaging. Now with septic joint growing Staph. - appreciate ortho recs, s/p washout 01/30 and 02/02 - APAP prn mild pain, tramadol mod, oxy severe prn - had large BM with enema. (5) Post herpetic neuralgia Current Visit: Yes Status: Acute Code(s): B02.29 - OTHER POSTHERPETIC NERVOUS SYSTEM INVOLVEMENT SNOMED Code(s): 6514557 Comment: Pain in the R flank wrapping around to front - however patient is a very poor history about location, timing, character. Continue gabapentin 600mg in the AM, 900mg in the PM, and 600mg at noon. Lidocaine patch helped her pain. Had large BM with enema today. Hopeful to eliminate constipation as a confounding factor. Also seems positional and wonder if large right pleural effusion causing some pleurisy. girish planned (6) DVT prophylaxis Current Visit: Yes Status: Acute Code(s): Z29.9 - ENCOUNTER FOR PROPHYLACTIC MEASURES, UNSPECIFIED SNOMED Code(s): 577375421 Comment: lovenox (7) Fall Current Visit: Yes Status: Acute Comment: Pt doesn't remember fall. Family and friend report that she was acting 'off' the prior day, after starting muscle relaxant and opioids rx'ed by outpatient provider for shingles pain? Also large contribution from bacteremia causing metabolic encephalopathy. - avoid Beers criteria meds when possible - cont antibiotics - PT ordered - mental status back to baseline, cont to monitor closely (8) GERD (gastroesophageal reflux disease) Current Visit: Yes Status: Acute Code(s): K21.9 - GASTRO-ESOPHAGEAL REFLUX DISEASE WITHOUT ESOPHAGITIS SNOMED Code(s): 980238432 Comment: Continue famotidine. (9) DNR (do not resuscitate) Current Visit: Yes Status: Acute Status and Disposition: medicine inpatient. sepsis still.
--- NOTE | 2019-02-08 12:35 | PN ---
Progress Note - Progress Note Date of Service: 02/08/19 SOAP: Subjective: []Pt seen at bedside, she has no complaints today. Denies L shoulder pain, denies any other joint pain. Denies CP, SOB, dizziness, nausea. CRP and WBC trend up yesterday. Objective: []Gen: Appears well, NAD LUE: Incisions CDI without discharge or erythema, dressing was changed. No swelling or warmth of the left shoulder. Able to passively flex shoulder to 90 degrees forward flexion and abduction without pain. Able to flex and extend all joints of RUE, BL LE without pain. Assessment: []1. MSSA bacteremia. Staphylococcal bacteruria usually due to bacteremia and not a primary infection. NIRU with no vegetation. 2. Septic arthritis left shoulder 3. Post herpetic neuralgia Plan: [] WBAT and ROM as tolerated L shoulder Cont abx per ID - on vanco, cefepime added Will monitor exam, cbc/crp daily-- Dr Mayo will discuss trend with ID today Vital Signs Temp 97.6 F 02/08/19 02:37 Pulse 104 02/08/19 02:37 Resp 20 02/08/19 11:41 BP 108/60 02/08/19 02:37 Pulse Ox 95 02/08/19 02:37 Intake & Output 02/07/19 02/08/19 02/08/19 18:59 06:59 18:59 Intake Total 1265 1930 Output Total 200 Balance 1065 1930 Intake: IV Fluids 185 1227 LR 1227 NS 185 IVPB 343 ABX - CEFAZOLIN 65 ABX - VANCOMYCIN 278 Oral 1080 360 Output: Urine 200 Other: Estimated Void Medium Medium # Bowel Movements 0 0 # Voids 1 1 Laboratory Last Values WBC 15.0 10^3/uL (3.5-10.8) H 02/08/19 05:50 RBC 3.34 10^6 /uL (3.70-4.87) L 02/08/19 05:50 Hgb 9.5 g/dL (12.0-16.0) L 02/08/19 05:50 Hct 29 % (35-47) L 02/08/19 05:50 MCV 85 fL (80-97) 02/08/19 05:50 MCH 28 pg (27-31) 02/08/19 05:50 MCHC 33 g/dL (31-36) 02/08/19 05:50 RDW 16 % (10-15) H 02/08/19 05:50 Plt Count 546 10^3/uL (150-450) H 02/08/19 05:50 MPV 6.8 fL (7.4-10.4) L 02/08/19 05:50 Neut % (Auto) 85.6 % 02/08/19 05:50 Lymph % (Auto) 5.3 % 02/08/19 05:50 [place] % (Auto) 7.7 % 02/08/19 05:50 Eos % (Auto) 1.1 % 02/08/19 05:50 Baso % (Auto) 0.3 % 02/08/19 05:50 Absolute Neuts (auto) 12.8 10^3/ul (1.5-7.7) H 02/08/19 05:50 Absolute Lymphs (auto) 0.8 10^3/ul (1.0-4.8) L 02/08/19 05:50 Absolute Monos (auto) 1.2 10^3/ul (0-0.8) H 02/08/19 05:50 Absolute Eos (auto) 0.2 10^3/ul (0-0.6) 02/08/19 05:50 Absolute Basos (auto) 0.1 10^3/ul (0-0.2) 02/08/19 05:50 Absolute Nucleated RBC 0.0 10^3/ul 02/08/19 05:50 Immature Gran % 2.0 % (0-9) 02/04/19 12:11 Neutrophils % 95.0 % 02/04/19 12:11 Band Neutrophils % 2.0 % (0-8) 02/04/19 12:11 Lymphocytes % 2.0 % 02/04/19 12:11 Monocytes % 1.0 % 02/04/19 12:11 Eosinophils % 2.0 % 02/04/19 05:52 Metamyelocytes % 1.0 % (0-2) 02/03/19 05:36 Nucleated RBC % 0.0 02/08/19 05:50 Abs Neuts (Manual) 16.1 10^3/ul (1.5-7.7) H 02/04/19 12:11 Abs Lymphs (Manual) 0.3 10^3/ul (1.0-4.8) L 02/04/19 12:11 Abs Monocytes (Manual) 0.2 10^3/ul (0-0.8) 02/04/19 12:11 Toxic Granulation 1+ 02/03/19 05:36 Normal RBC Morphology Normal (Normal) 02/04/19 12:11 INR (Anticoag Therapy) 1.25 (0.82-1.09) H 01/29/19 05:40 Sodium 136 mmol/L (135-145) 02/08/19 05:50 Potassium 3.7 mmol/L (3.5-5.0) 02/08/19 05:50 Chloride 102 mmol/L (101-111) 02/08/19 05:50 Carbon Dioxide 31 mmol/L (22-32) 02/08/19 05:50 Anion Gap 3 mmol/L (2-11) 02/08/19 05:50 BUN 12 mg/dL (6-24) 02/08/19 05:50 Creatinine 0.69 mg/dL (0.51-0.95) 02/08/19 05:50 Est GFR ( Amer) 99.8 (>60) 02/08/19 05:50 Est GFR (Non-Af Amer) 82.5 (>60) 02/08/19 05:50 BUN/Creatinine Ratio 17.4 (8-20) 02/08/19 05:50 Glucose 97 mg/dL (70-100) 02/08/19 05:50 POC Glucose (mg/dL) 147 mg/dL (70-100) H 02/07/19 23:06 Lactic Acid 0.8 mmol/L (0.5-2.0) 01/28/19 23:58 Calcium 7.9 mg/dL (8.6-10.3) L 02/08/19 05:50 Phosphorus 3.2 mg/dL (2.5-5.0) 01/29/19 04:50 Magnesium 2.0 mg/dL (1.9-2.7) 02/02/19 08:40 Total Bilirubin 0.80 mg/dL (0.2-1.0) 01/28/19 12:58 AST 29 U/L (13-39) 01/28/19 12:58 ALT 20 U/L (7-52) 01/28/19 12:58 Alkaline Phosphatase 165 U/L (34-104) H 01/28/19 12:58 Lactate Dehydrogenase 233 U/L (140-271) 01/28/19 12:58 Total Creatine Kinase 99 U/L (10-223) 01/28/19 12:58 Troponin I 0.01 ng/mL (<0.04) 01/28/19 12:58 C-Reactive Protein 243.66 mg/L (<8.01) H 02/08/19 05:50 B-Natriuretic Peptide 58 pg/mL (<=100) 02/08/19 05:50 Total Protein 7.1 g/dL (6.4-8.9) 01/28/19 12:58 Albumin 2.4 g/dL (3.2-5.2) L 01/29/19 04:50 Globulin 3.6 g/dL (2-4) 01/28/19 12:58 Albumin/Globulin Ratio 1.0 (1-3) 01/28/19 12:58 TSH 0.83 mcIU/mL (0.34-5.60) 01/28/19 12:58 Urine Color Yellow 02/08/19 02:40 Urine Appearance Cloudy 02/08/19 02:40 Urine pH 6.0 (5-9) 02/08/19 02:40 Ur Specific [place] 1.006 (1.010-1.030) L 02/08/19 02:40 Urine Protein Negative (Negative) 02/08/19 02:40 Urine Ketones Negative (Negative) 02/08/19 02:40 Urine Blood Negative (Negative) 02/08/19 02:40 Urine Nitrate Negative (Negative) 02/08/19 02:40 Urine Bilirubin Negative (Negative) 02/08/19 02:40 Urine Urobilinogen Negative (Negative) 02/08/19 02:40 Ur Leukocyte Esterase Negative (Negative) 02/08/19 02:40 Urine WBC (Auto) 3+(>20/hpf) (Absent) A 01/28/19 15:51 Urine RBC (Auto) 1+(3-5/hpf) (Absent) A 01/28/19 15:51 Ur Squamous Epith Cells Present (Absent) A 01/28/19 15:51 Urine Bacteria Absent (Absent) 01/28/19 15:51 Urine Glucose Negative (Negative) 02/08/19 02:40 Fluid Source Cancelled 01/30/19 13:30 Fluid Volume Cancelled 01/30/19 13:30 Fluid Color Cancelled 01/30/19 13:30 Fluid Appearance Cancelled 01/30/19 13:30 Fluid WBC Cancelled 01/30/19 13:30 Fluid RBC Cancelled 01/30/19 13:30 Fluid Tot Cell Count Cancelled 01/30/19 13:30 Fluid Neutrophils Cancelled 01/30/19 13:30 Fluid Band Neutrophils Cancelled 01/30/19 13:30 Fluid Lymphocytes Cancelled 01/30/19 13:30 Fluid Reactive Lymphs Cancelled 01/30/19 13:30 Fluid Monocytes Cancelled 01/30/19 13:30 Fluid Eosinophils Cancelled 01/30/19 13:30 Fluid Basophils Cancelled 01/30/19 13:30 Fluid Promyelocytes Cancelled 01/30/19 13:30 Fluid Myelocytes Cancelled 01/30/19 13:30 Fluid Metamyelocytes Cancelled 01/30/19 13:30 Fluid Blast Cells Cancelled 01/30/19 13:30 Fluid Nucleated RBCs Cancelled 01/30/19 13:30 Fluid Other Cells Cancelled 01/30/19 13:30 Fluid Cell Count Rvw By Cancelled 01/30/19 13:30 Fluid Comment Cancelled 01/30/19 13:30 Vancomycin Trough 10.9 mcg/mL 02/06/19 15:12
--- NOTE | 2019-02-08 13:04 | PN ---
Progress Note - Progress Note Date of Service: 02/08/19 SOAP: Subjective: CC: Left shoulder septic arthritis and leukocytosis HPI: Ms. Ambrosio is a 78 year old woman with PMH significant for GERD, osteoarthritis, and osteoporosis; who presented to the the hospital with left shoulder pain. She was found to have staph bacteremia and left shoulder septic arthritis. She tolerated I&Ds well and shoulder pain is improving. Denies fever , chills, nausea, vomiting, or diarrhea. She denies urinary symptoms. Reports discomfort to the right flank/upper back and this has been present for while. Objective: Vital Signs 02/08/19 11:15 Temperature 99.6 F Temperature Temporal Artery Source Scan Pulse Rate 114 Respiratory 17 Rate Blood Pressure 129/50 (mmHg) Blood Pressure 76 Mean O2 Sat by Pulse 93 Oximetry Patient on Room No Air Physical Exam: General: NAD, laying in bed Neurological: Alert and Oriented HEENT: Moist MM, no thrush Cardiovascular: Heart rate regular Respiratory: Lung sounds clear Abdominal: Bowel sounds present; ABD soft, non tender and non distended MSK: No joint swelling or erythema. No tenderness with palpation of the neck, back or spine Skin: No rash. DSG to left shoulder clean, dry and intact without surrounding erythema Laboratory Results - last 24 hr 02/07/19 02/08/19 02/08/19 23:06 02:40 05:50 WBC 15.0 H RBC 3.34 L Hgb 9.5 L Hct 29 L MCV 85 MCH 28 MCHC 33 RDW 16 H Plt Count 546 H MPV 6.8 L Neut % (Auto) 85.6 Lymph % (Auto) 5.3 [place] % (Auto) 7.7 Eos % (Auto) 1.1 Baso % (Auto) 0.3 Absolute Neuts (auto) 12.8 H Absolute Lymphs (auto) 0.8 L Absolute Monos (auto) 1.2 H Absolute Eos (auto) 0.2 Absolute Basos (auto) 0.1 Absolute Nucleated RBC 0.0 Nucleated RBC % 0.0 POC Glucose (mg/dL) 147 H Urine Color Yellow Urine Appearance Cloudy Urine pH 6.0 Ur Specific [place] 1.006 L Urine Protein Negative Urine Ketones Negative Urine Blood Negative Urine Nitrate Negative Urine Bilirubin Negative Urine Urobilinogen Negative Ur Leukocyte Esterase Negative Urine Glucose Negative 02/08/19 02/08/19 05:50 05:50 Sodium 136 Potassium 3.7 Chloride 102 Carbon Dioxide 31 Anion Gap 3 BUN 12 Creatinine 0.69 Est GFR ( Amer) 99.8 Est GFR (Non-Af Amer) 82.5 BUN/Creatinine Ratio 17.4 Glucose 97 Calcium 7.9 L C-Reactive Protein 243.66 H B-Natriuretic Peptide 58 Microbiology 02/04/19 17:18 Aerobic Blood Culture - Preliminary Blood Venous No Growth Day 3 Anaerobic Blood Culture - Preliminary No Growth Day 3 02/04/19 13:16 Aerobic Blood Culture - Preliminary Blood Venous No Growth Day 3 Anaerobic Blood Culture - Preliminary No Growth Day 3 01/30/19 13:30 Fungal Culture - Preliminary Misc Source (See Comment) 02/05/19 03:00 Urine Culture - Final Urine Pseudomonas Aeruginosa 02/01/19 10:11 Aerobic Blood Culture - Final Blood Venous No Growth Day 5 Anaerobic Blood Culture - Final No Growth Day 5 02/01/19 10:11 Aerobic Blood Culture - Final Blood Venous No Growth Day 5 Anaerobic Blood Culture - Final No Growth Day 5 02/02/19 12:59 Anaerobic Culture - Final Wound No Growth Day 4 Skin and Soft Tissue MRSA/MSSA (PCR - Final Mrsa Negative S.aureus Positive Gram Stain - Final Wound Culture - Final Staphylococcus Aureus 01/30/19 17:12 Anaerobic Culture - Final Wound - Shoulder Left Skin and Soft Tissue MRSA/MSSA (PCR - Final Mrsa Negative S.aureus Positive Gram Stain - Final Wound Culture - Final Staphylococcus Aureus 01/30/19 13:30 Gram Stain - Final Body Fluid Body Fluid Culture - Final Staphylococcus Aureus Anaerobic Culture - Final Skin and Soft Tissue MRSA/MSSA (PCR - Final Mrsa Negative S.aureus Positive Acid Fast Bacilli Smear - Final 01/30/19 09:32 Aerobic Blood Culture - Final Blood Venous Staphylococcus Aureus Anaerobic Blood Culture - Final Staphylococcus Aureus Blood MRSA/MSSA (PCR) - Final Mrsa Negative S.aureus Positive 01/30/19 09:32 Aerobic Blood Culture - Final Blood Venous Staphylococcus Aureus Anaerobic Blood Culture - Final Staphylococcus Aureus Blood MRSA/MSSA (PCR) - Final Mrsa Negative S.aureus Positive 01/28/19 15:51 Urine Culture - Final Urine Staphylococcus Aureus Enterococcus Faecalis 01/29/19 04:50 Aerobic Blood Culture - Final Blood Venous Staphylococcus Aureus Anaerobic Blood Culture - Final Staphylococcus Aureus Blood MRSA/MSSA (PCR) - Final Mrsa Negative S.aureus Positive 01/28/19 17:25 Aerobic Blood Culture - Final Blood Venous Staphylococcus Aureus Anaerobic Blood Culture - Final Staphylococcus Aureus Blood MRSA/MSSA (PCR) - Final Mrsa Negative S.aureus Positive 01/28/19 22:49 Nasal Screen MRSA (PCR) - Final Nasal Mrsa Not Detected Assessment: 1. MSSA bacteremia. Staphylococcal bacteruria usually due to bacteremia and not a primary infection. NIRU with no vegetation. Repeat blood cultures with no growth on day 5. 2. Septic arthritis left shoulder. Cultures with staph aureus. S/P washout x2. Afebrile for ~ 48 hours, low grade fever yesterday afternoon. Continues to have leukocytosis, elevated more today. She was changed from ancef to vancomycin last week in preparation for discharge to SNF as they will not do TID dosing of IV ABX. 3. Post herpetic neuralgia. Reports pain in the right back/flank area. 4. Pseudomonas bacteruria. [place] count is <10K. Denies urinary symptoms or flank pain. Suspect this represents asymtomatic bacteruria. 5. Fevers. Differential dx: UTI, drug reaction, PNA, or C -diff. Denies diarrhea , respiratory symptoms, and urinary symptoms. Afebrile for ~ 48 hours. 6. Leukocytosis. Differential Dx: UTI, PNA, C-diff, continued infection, new infection. Denies urinary symptoms. Denies respiratory symptoms. Denies joint pain (other than improving left shoulder pain) or back pain. Denies diarrhea. Plan: Continue Vancomycin, trough goal 15-20, Day 01/17. Ok for PICC placement. Weekly labs while on IV ABX: CBC, CMP, and CRP.
[2019-02-08] MEDS ORDERED: Vancomycin Trough Check NOTE FOLLOW UP ONE (14:30)
[2019-02-08] MEDS: Lidocaine PATCH 5%* 1 PATCH TRANSDERM SCH (20:02)
[2019-02-08] MEDS: Enoxaparin(*) 40 MG/0.4 ML SYR SUBCUT SCH (20:57)
[2019-02-08] MEDS: Acetaminophen TAB* 325 MG PO PRN (20:57)
[2019-02-08] MEDS: Vancomycin(*) 750 MG in NS 0.9% 250 ML* 250 ML IVPB SCH (23:46)
[2019-02-09] MEDS: Cefepime 2 GM in Dextrose(*) 2 GM/50 ML BAG IV SCH ×2 (01:32→13:06)
[2019-02-09] MEDS: Morphine INJ* 2 MG/ML 1 ML SYRINGE (TWO MG - NEW SYRINGE VERSION) IV PRN ×2 (04:22→13:05)
[2019-02-09] MEDS: Lidocaine Patch REMOVE* 1 NOTE MISC PATCH OFF SCH (05:55)
[2019-02-09 06:25] LABS: ABS Basophils 0.1 10^3/ul (0-0.2); ABS Eosinophils 0.1 10^3/ul (0-0.6); ABS Lymphocytes 0.8 10^3/ul (1.0-4.8); ABS Monocytes 1.2 10^3/ul (0-0.8); ABS Neutrophils 13.1 10^3/ul (1.5-7.7); Eosinophil % 0.5 %; Hematocrit 28 % (35-47); Hemoglobin 9.1 g/dL (12.0-16.0); Lymphocyte % 5.2 %; Mean Corpuscular HGB Conc 33 g/dL (31-36); Mean Corpuscular Hemoglobin 28 pg (27-31); Mean Corpuscular Volume 86 fL (80-97); Mean Platelet Volume 7.2 fL (7.4-10.4); Platelet Count 575 10^3/uL (150-450); Red Blood Count 3.21 10^6 /uL (3.70-4.87); Red Cell Distribution Width 16 % (10-15); White Blood Count 15.2 10^3/uL (3.5-10.8)
[2019-02-09 06:51] LABS: BUN/Creatinine Ratio 20.3 (8-20); C Reactive Protein 244.09 mg/L (<8.01); Calcium 7.8 mg/dL (8.6-10.3); EGFR African American 92.1 (>60); EGFR Non-African American 76.1 (>60); Potassium 3.5 mmol/L (3.5-5.0)
[2019-02-09] MEDS: Lactobacillus Acidophilus* 1 TAB PO SCH ×2 (09:57→22:41)
[2019-02-09] MEDS: Senna TAB 8.6 mg* TAB PO SCH (09:57)
[2019-02-09] MEDS: Polyethylene Glycol 3350* 17 GM PACKET PO SCH (09:57)
[2019-02-09] MEDS: Cholecalciferol TAB* 1000 UNITS PO SCH (09:57)
[2019-02-09] MEDS: oxyCODONE TAB* 5 MG TAB PO PRN ×2 (09:57→18:09)
[2019-02-09] MEDS: Gabapentin CAP(*) 300 MG PO SCH ×3 (09:57→22:42)
[2019-02-09] MEDS: Vancomycin(*) 750 MG in NS 0.9% 250 ML* 250 ML IVPB SCH ×2 (09:59→22:44)
--- NOTE | 2019-02-09 12:31 | PN ---
Progress Note - Progress Note Date of Service: 02/09/19 SOAP: Subjective: CC: Left shoulder septic arthritis and leukocytosis HPI: Ms. Ambrosio is a 78 year old woman with PMH significant for GERD, osteoarthritis, and osteoporosis; who presented to the the hospital with left shoulder pain. She was found to have staph bacteremia and septic arthritis left shoulder. She tolerated I&D x2 well and shoulder pain continues to improve. Denies fever, chills, nausea, vomiting, or diarrhea. She denies urinary symptoms. Reports discomfort to the right flank/upper back, she feels like this is improving. Objective: Vital Signs 02/09/19 07:15 Temperature 97.9 F Temperature Temporal Artery Source Scan Pulse Rate 90 Respiratory 24 Rate Blood Pressure 117/57 (mmHg) Blood Pressure 77 Mean O2 Sat by Pulse 94 Oximetry Patient on Room No: 2 Air Physical Exam: General: NAD, laying in bed Neurological: Alert and Oriented HEENT: Moist MM, no thrush Cardiovascular: Heart rate regular Respiratory: Lung sounds clear, diminished Abdominal: Bowel sounds present; ABD soft, non tender and non distended MSK: No joint swelling or erythema. No tenderness with palpation of the neck, back or spine. PROM with mild discomfort, limited AROM left shoulder Skin: No rash. DSG to left shoulder clean, dry and intact without surrounding erythema Laboratory Results - last 24 hr 02/09/19 02/09/19 02/09/19 06:12 06:12 13:00 WBC 15.2 H RBC 3.21 L Hgb 9.1 L Hct 28 L MCV 86 MCH 28 MCHC 33 RDW 16 H Plt Count 575 H MPV 7.2 L Neut % (Auto) 85.9 Lymph % (Auto) 5.2 [place] % (Auto) 7.6 Eos % (Auto) 0.5 Baso % (Auto) 0.8 Absolute Neuts (auto) 13.1 H Absolute Lymphs (auto) 0.8 L Absolute Monos (auto) 1.2 H Absolute Eos (auto) 0.1 Absolute Basos (auto) 0.1 Absolute Nucleated RBC 0.0 Nucleated RBC % 0.0 Sodium 137 Potassium 3.5 Chloride 103 Carbon Dioxide 29 Anion Gap 5 BUN 15 Creatinine 0.74 Est GFR ( Amer) 92.1 Est GFR (Non-Af Amer) 76.1 BUN/Creatinine Ratio 20.3 H Glucose 105 H Calcium 7.8 L Lactate Dehydrogenase 180 C-Reactive Protein 244.09 H Total Protein 5.6 L Microbiology 02/04/19 17:18 Aerobic Blood Culture - Final Blood Venous No Growth Day 5 Anaerobic Blood Culture - Final No Growth Day 5 02/04/19 13:16 Aerobic Blood Culture - Final Blood Venous No Growth Day 5 Anaerobic Blood Culture - Final No Growth Day 5 01/30/19 13:30 Fungal Culture - Preliminary Misc Source (See Comment) 02/05/19 03:00 Urine Culture - Final Urine Pseudomonas Aeruginosa 02/01/19 10:11 Aerobic Blood Culture - Final Blood Venous No Growth Day 5 Anaerobic Blood Culture - Final No Growth Day 5 02/01/19 10:11 Aerobic Blood Culture - Final Blood Venous No Growth Day 5 Anaerobic Blood Culture - Final No Growth Day 5 02/02/19 12:59 Anaerobic Culture - Final Wound No Growth Day 4 Skin and Soft Tissue MRSA/MSSA (PCR - Final Mrsa Negative S.aureus Positive Gram Stain - Final Wound Culture - Final Staphylococcus Aureus 01/30/19 17:12 Anaerobic Culture - Final Wound - Shoulder Left Skin and Soft Tissue MRSA/MSSA (PCR - Final Mrsa Negative S.aureus Positive Gram Stain - Final Wound Culture - Final Staphylococcus Aureus 01/30/19 13:30 Gram Stain - Final Body Fluid Body Fluid Culture - Final Staphylococcus Aureus Anaerobic Culture - Final Skin and Soft Tissue MRSA/MSSA (PCR - Final Mrsa Negative S.aureus Positive Acid Fast Bacilli Smear - Final 01/30/19 09:32 Aerobic Blood Culture - Final Blood Venous Staphylococcus Aureus Anaerobic Blood Culture - Final Staphylococcus Aureus Blood MRSA/MSSA (PCR) - Final Mrsa Negative S.aureus Positive 01/30/19 09:32 Aerobic Blood Culture - Final Blood Venous Staphylococcus Aureus Anaerobic Blood Culture - Final Staphylococcus Aureus Blood MRSA/MSSA (PCR) - Final Mrsa Negative S.aureus Positive 01/28/19 15:51 Urine Culture - Final Urine Staphylococcus Aureus Enterococcus Faecalis 01/29/19 04:50 Aerobic Blood Culture - Final Blood Venous Staphylococcus Aureus Anaerobic Blood Culture - Final Staphylococcus Aureus Blood MRSA/MSSA (PCR) - Final Mrsa Negative S.aureus Positive 01/28/19 17:25 Aerobic Blood Culture - Final Blood Venous Staphylococcus Aureus Anaerobic Blood Culture - Final Staphylococcus Aureus Blood MRSA/MSSA (PCR) - Final Mrsa Negative S.aureus Positive 01/28/19 22:49 Nasal Screen MRSA (PCR) - Final Nasal Mrsa Not Detected Assessment: 1. Fevers and leukocytosis. Differential dx: UTI, drug reaction, PNA, atelectasis, or C -diff. Denies diarrhea, respiratory symptoms, and urinary symptoms. She is requiring supplemental oxygen, denies shortness of breath. No neck or back pain. Had been afebrile for ~ 48 hours, then with a fever last evening. Chest xray this AM with pleural effusion and atelectasis, there is complete whiteout of the right lung. 2. MSSA bacteremia. NIRU with no vegetation. Repeat blood cultures with no growth on day 5. 3. Septic arthritis left shoulder. Cultures with staph aureus. S/P washout x2. Continues to have leukocytosis, and intermittent fevers. She was changed from ancef to vancomycin last week in preparation for discharge to SNF as they will not do TID dosing of IV ABX. 4. Pseudomonas bacteruria. Suspect this represents asymtomatic bacteruria. [place] count is <10K. Denies urinary symptoms or flank pain. 5. Post herpetic neuralgia. Reports pain in the right back/flank area. Plan: Continue Vancomycin, trough goal 15-20, Day 02/17. Weekly labs while on IV ABX: CBC, CMP, and CRP. Agree with the thoracentesis planned for this afternoon.
--- NOTE | 2019-02-09 13:43 | BRIEFOPN ---
Brief Operative/Procedure Note - Operation Details Pre-Op Diagnosis: rt pl effusion Post-Op Diagnosis: Complex looking pleural space with multi loculated effusion Procedures: U/S guided thoracentesis on right side Surgeon(s)/Proceduralists: Brooks Anesthesia: Local with 1% lidocaine 5cc Estimated Blood Loss: None Findings: Complex looking rt pleural space with multiple small loculations and fluid densities. Pt with atelectasis of the lung. Able to remove 35cc of pleural fluid from rt side, dark yellow with fibrous strands and was clogging very quickly Specimen(s)/Culture(s) Description: Fluid for cultures, cell count, hematology, LDH, protein Complications: None
[2019-02-09 13:56] LABS: Body Fluid Source Pleural Fluid
[2019-02-09 14:34] LABS: Total Protein 5.6 g/dL (6.4-8.9)
[2019-02-09 14:35] LABS: Body Fluid Mono 1 %
--- NOTE | 2019-02-09 15:42 | PN ---
Progress Note - Progress Note Date of Service: 02/09/19 SOAP: Subjective: []Pt seen at bedside. She has no complaints. Denies L shoulder pain. Denies CO, SOB, dizziness, nausea. Objective: []Gen: Appears well, NAD LUE: Shoulder Incisions CDI without discharge or erythema, dressing was changed. No swelling or warmth of the left shoulder. Able to passively flex shoulder to 90 degrees forward flexion and abduction without pain. Able to flex and extend all joints of RUE, BL LE without pain. Left hip without erythema, warmth or tenderness. Assessment: []1. MSSA bacteremia. Staphylococcal bacteruria usually due to bacteremia and not a primary infection. NIRU with no vegetation. 2. Septic arthritis left shoulder 3. Post herpetic neuralgia Plan: [] WBAT and ROM as tolerated L shoulder Cont abx per ID - on vanco, cefepime added Will monitor exam, cbc/crp daily. Discussed with ID, will maintain current abx tx for a few days and monitor. Vital Signs Temp 97.9 F 02/09/19 07:15 Pulse 90 02/09/19 07:15 Resp 19 02/09/19 14:05 BP 117/57 02/09/19 07:15 Pulse Ox 94 02/09/19 07:15 Intake & Output 02/08/19 02/09/19 02/09/19 18:59 06:59 18:59 Intake Total 1005 375 420 Balance 1005 375 420 Weight 173 lb 4.8 oz Intake: IV Fluids 475 320 ABX - VANCOMYCIN 250 260 LR 225 NS 60 IVPB 55 ABX - CEFEPIME 55 Oral 530 0 420 Other: Estimated Void Medium Medium # Bowel Movements 1 Estimated Stool Amount Large # Voids 3 1 Laboratory Last Values WBC 15.2 10^3/uL (3.5-10.8) H 02/09/19 06:12 RBC 3.21 10^6 /uL (3.70-4.87) L 02/09/19 06:12 Hgb 9.1 g/dL (12.0-16.0) L 02/09/19 06:12 Hct 28 % (35-47) L 02/09/19 06:12 MCV 86 fL (80-97) 02/09/19 06:12 MCH 28 pg (27-31) 02/09/19 06:12 MCHC 33 g/dL (31-36) 02/09/19 06:12 RDW 16 % (10-15) H 02/09/19 06:12 Plt Count 575 10^3/uL (150-450) H 02/09/19 06:12 MPV 7.2 fL (7.4-10.4) L 02/09/19 06:12 Neut % (Auto) 85.9 % 02/09/19 06:12 Lymph % (Auto) 5.2 % 02/09/19 06:12 [place] % (Auto) 7.6 % 02/09/19 06:12 Eos % (Auto) 0.5 % 02/09/19 06:12 Baso % (Auto) 0.8 % 02/09/19 06:12 Absolute Neuts (auto) 13.1 10^3/ul (1.5-7.7) H 02/09/19 06:12 Absolute Lymphs (auto) 0.8 10^3/ul (1.0-4.8) L 02/09/19 06:12 Absolute Monos (auto) 1.2 10^3/ul (0-0.8) H 02/09/19 06:12 Absolute Eos (auto) 0.1 10^3/ul (0-0.6) 02/09/19 06:12 Absolute Basos (auto) 0.1 10^3/ul (0-0.2) 02/09/19 06:12 Absolute Nucleated RBC 0.0 10^3/ul 02/09/19 06:12 Immature Gran % 2.0 % (0-9) 02/04/19 12:11 Neutrophils % 95.0 % 02/04/19 12:11 Band Neutrophils % 2.0 % (0-8) 02/04/19 12:11 Lymphocytes % 2.0 % 02/04/19 12:11 Monocytes % 1.0 % 02/04/19 12:11 Eosinophils % 2.0 % 02/04/19 05:52 Metamyelocytes % 1.0 % (0-2) 02/03/19 05:36 Nucleated RBC % 0.0 02/09/19 06:12 Abs Neuts (Manual) 16.1 10^3/ul (1.5-7.7) H 02/04/19 12:11 Abs Lymphs (Manual) 0.3 10^3/ul (1.0-4.8) L 02/04/19 12:11 Abs Monocytes (Manual) 0.2 10^3/ul (0-0.8) 02/04/19 12:11 Toxic Granulation 1+ 02/03/19 05:36 Normal RBC Morphology Normal (Normal) 02/04/19 12:11 INR (Anticoag Therapy) 1.25 (0.82-1.09) H 01/29/19 05:40 Sodium 137 mmol/L (135-145) 02/09/19 06:12 Potassium 3.5 mmol/L (3.5-5.0) 02/09/19 06:12 Chloride 103 mmol/L (101-111) 02/09/19 06:12 Carbon Dioxide 29 mmol/L (22-32) 02/09/19 06:12 Anion Gap 5 mmol/L (2-11) 02/09/19 06:12 BUN 15 mg/dL (6-24) 02/09/19 06:12 Creatinine 0.74 mg/dL (0.51-0.95) 02/09/19 06:12 Est GFR ( Amer) 92.1 (>60) 02/09/19 06:12 Est GFR (Non-Af Amer) 76.1 (>60) 02/09/19 06:12 BUN/Creatinine Ratio 20.3 (8-20) H 02/09/19 06:12 Glucose 105 mg/dL (70-100) H 02/09/19 06:12 POC Glucose (mg/dL) 147 mg/dL (70-100) H 02/07/19 23:06 Lactic Acid 0.8 mmol/L (0.5-2.0) 01/28/19 23:58 Calcium 7.8 mg/dL (8.6-10.3) L 02/09/19 06:12 Phosphorus 3.2 mg/dL (2.5-5.0) 01/29/19 04:50 Magnesium 2.0 mg/dL (1.9-2.7) 02/02/19 08:40 Total Bilirubin 0.80 mg/dL (0.2-1.0) 01/28/19 12:58 AST 29 U/L (13-39) 01/28/19 12:58 ALT 20 U/L (7-52) 01/28/19 12:58 Alkaline Phosphatase 165 U/L (34-104) H 01/28/19 12:58 Lactate Dehydrogenase 180 U/L (140-271) 02/09/19 06:12 Total Creatine Kinase 99 U/L (10-223) 01/28/19 12:58 Troponin I 0.01 ng/mL (<0.04) 01/28/19 12:58 C-Reactive Protein 244.09 mg/L (<8.01) H 02/09/19 06:12 B-Natriuretic Peptide 58 pg/mL (<=100) 02/08/19 05:50 Total Protein 5.6 g/dL (6.4-8.9) L 02/09/19 06:12 Albumin 2.4 g/dL (3.2-5.2) L 01/29/19 04:50 Globulin 3.6 g/dL (2-4) 01/28/19 12:58 Albumin/Globulin Ratio 1.0 (1-3) 01/28/19 12:58 TSH 0.83 mcIU/mL (0.34-5.60) 01/28/19 12:58 Urine Color Yellow 02/08/19 02:40 Urine Appearance Cloudy 02/08/19 02:40 Urine pH 6.0 (5-9) 02/08/19 02:40 Ur Specific [place] 1.006 (1.010-1.030) L 02/08/19 02:40 Urine Protein Negative (Negative) 02/08/19 02:40 Urine Ketones Negative (Negative) 02/08/19 02:40 Urine Blood Negative (Negative) 02/08/19 02:40 Urine Nitrate Negative (Negative) 02/08/19 02:40 Urine Bilirubin Negative (Negative) 02/08/19 02:40 Urine Urobilinogen Negative (Negative) 02/08/19 02:40 Ur Leukocyte Esterase Negative (Negative) 02/08/19 02:40 Urine WBC (Auto) 3+(>20/hpf) (Absent) A 01/28/19 15:51 Urine RBC (Auto) 1+(3-5/hpf) (Absent) A 01/28/19 15:51 Ur Squamous Epith Cells Present (Absent) A 01/28/19 15:51 Urine Bacteria Absent (Absent) 01/28/19 15:51 Urine Glucose Negative (Negative) 02/08/19 02:40 Fluid Source Pleural fluid 02/09/19 13:00 Fluid Volume 30 mL 02/09/19 13:00 Fluid Color Yellow 02/09/19 13:00 Fluid Appearance Clear 02/09/19 13:00 Fluid WBC 189 /mcL ([id number]) 02/09/19 13:00 Fluid RBC 1181 /mcL 02/09/19 13:00 Fluid Tot Cell Count 100 02/09/19 13:00 Fluid Neutrophils 99 % 02/09/19 13:00 Fluid Band Neutrophils Cancelled 01/30/19 13:30 Fluid Lymphocytes Cancelled 01/30/19 13:30 Fluid Reactive Lymphs Cancelled 01/30/19 13:30 Fluid Monocytes 1 % 02/09/19 13:00 Fluid Eosinophils Cancelled 01/30/19 13:30 Fluid Basophils Cancelled 01/30/19 13:30 Fluid Promyelocytes Cancelled 01/30/19 13:30 Fluid Myelocytes Cancelled 01/30/19 13:30 Fluid Metamyelocytes Cancelled 01/30/19 13:30 Fluid Blast Cells Cancelled 01/30/19 13:30 Fluid Nucleated RBCs Cancelled 01/30/19 13:30 Fluid Other Cells Cancelled 01/30/19 13:30 Fluid Cell Count Rvw By Cancelled 01/30/19 13:30 Fluid Comment 02/09/19 13:00 Vancomycin Trough 23.3 mcg/mL 02/08/19 13:04
--- NOTE | 2019-02-09 17:26 | CONS ---
PULMONARY CONSULTATION REPORT: DATE OF CONSULT: 02/09/19 CONSULTATION REQUESTED BY: Dr. Betancourt. REASON FOR CONSULT: Evaluation of pleural effusion on the right side. HISTORY OF PRESENT ILLNESS: The patient is a 78-year-old female with history of GERD, osteoarthritis, osteoporosis, Lyme disease, who presents to the hospital on 01/28/19 with complaint of fever, syncope, back and abdominal pain. The patient had complicated hospital course. The patient had recent left hip intertrochanteric fracture, status post IMN in October of 2018. She recently had shingles, was placed on acyclovir. She was also started on opioids and muscle relaxants. The patient presents after being found down. She was found to be having high fever, was noted to have bloody urine, left shoulder joint grew MSSA. Her course was complicated by persistent sepsis, hypoxemic respiratory failure, constipation, ongoing issues with pain in the right flank, and intermittent abdominal pains. The patient was noted to be having large right pleural effusion with white-out of the right lung. Pulmonary consultation was requested for evaluation of this. The patient was seen and examined at bedside. The patient reports significant dyspnea with minimal exertion. She is currently on O2 supplementation. The patient reports having back pain with benefit from opioids. The patient denies cough or sputum production. The patient was noted to have multiple blood cultures positive for MSSA. She had TTE and NIRU both negative for endocarditis. She was evaluated by Infectious Disease. She is currently on broad-spectrum antibiotics with vancomycin and cefepime. PICC line was placed, was found to be pointing towards the neck vein and needed repositioning. Blood cultures, urine cultures, and left shoulder aspiration grew staph. She had washout in the OR on 01/30/19 and 02/02/19 and been continued on antibiotics. The patient also with postherpetic neuralgia. The patient was found to have some altered mental status on admission and possible fall which the patient does not remember. I personally reviewed chest x-ray and CT scan of the chest performed on . Recent chest x-ray showed white-out of the right lung. CT scan of the chest from 02/05/19 was reviewed and with the patient. The patient was found to have moderate right effusion and small left effusion with associated atelectasis. No obvious abnormalities or loculations noted in the fluid on the CT scan. She was noted to have significant basal atelectasis. PAST MEDICAL HISTORY: 1. GERD. 2. Osteoarthritis. 3. Osteoporosis. 4. Lyme disease since 2012. 5. Intertrochanteric fracture of the left hip, status post left hip IMN in October of 2018. 6. Acute blood loss anemia requiring 3 units transfusion in the past. PAST SURGICAL HISTORY: 1. Right hip intertrochanteric fracture repair. 2. Appendectomy. 3. Cataracts. HOME MEDICATIONS: 1. Percocet. 2. Gabapentin. 3. Cyclobenzaprine. 4. Meloxicam. 5. Vitamin D3. 6. Triamcinolone. 7. Omeprazole. ALLERGIES: No known drug allergies. FAMILY HISTORY: Father, daughter, and son with diabetes. No coronary artery disease or cancer in the family. SOCIAL HISTORY: Denies smoking, alcohol, or drug abuse. She wishes to be DNR/ DNI. REVIEW OF SYSTEMS: Fourteen systems reviewed and as per HPI. PHYSICAL EXAM: The patient is in bed, in no apparent distress, slightly anxious. Vital Signs: Temperature 97.9, pulse 90 beats per minute, respiratory rate 24 per minute, O2 sat 94% on 2 L, blood pressure 117/57. HEENT: Pupils equal, reactive to light. Mucous membranes moist. Lungs: Diminished air entry bilaterally, greater on the right and occasional rhonchi. Cardiovascular : S1, S2 present, regular. Abdomen: Soft, nontender, nondistended. Bowel sounds present. Extremities: 1+ edema. Normal range of motion. Skin: No rash or bruises. Neurologic: Alert, awake, oriented x3. No focal deficits. DIAGNOSTIC STUDIES/LAB DATA: WBC count 15, hemoglobin 9.1, hematocrit 28, platelet count 575. Sodium 137, potassium 3.5, chloride 103, bicarb 29, BUN 15 , creatinine 0.74. CRP significantly elevated. Blood cultures positive for Staph aureus and also urine cultures positive for pseudomonas. Pleural fluid cultures were sent and are pending. Chest x-ray and CT scan as described above in HPI. IMPRESSION AND RECOMMENDATIONS: 78-year-old female admitted for evaluation of altered mental status, who subsequently had complicated hospital course recently with pleural effusion and atelectasis of the right lung. The patient underwent ultrasound-guided thoracentesis at bedside today. Please refer to separately dictated procedure report. The patient noted to have significantly complex pleural fluid with evidence of multi-loculations and fluid densities. The patient also with significant atelectasis of the surrounding lungs. The patient had thick pleural fluid. Only 35 cc of fluid could be aspirated, which was clogging very quickly. Fluid was sent to the lab for further investigation. The patient tolerated the procedure well. Given complex pleural fluid, I have recommended Surgery consultation for chest tube placement. The patient will need thrombolytics through the chest tube. She will need mixture of tPA and DNase instilled into the chest tube, which should be clamped an hour after instillation of these 2 things and unclamped after an hour. She would need it twice daily for 5 days to see if that would help break those adhesions. She is not a great surgical candidate. Continue with antibiotics. Titrate FiO2 as tolerated. Above recommendations were discussed in detail with Dr. Betancourt. Thank you for allowing me to participate in the care of your patient. Will follow up with you. [id number]/CPS #: [id number] JUAN
[2019-02-09] MEDS: Lidocaine PATCH 5%* 1 PATCH TRANSDERM SCH (18:04)
[2019-02-09] MEDS: Acetaminophen TAB* 325 MG PO PRN (18:09)
--- NOTE | 2019-02-09 19:18 | PN ---
Subjective Date of Service: 02/09/19 Interval History: Tmax 101.2 last night. tachycardia, leukocytosis, elevated CRP remain. Dr. Guy performed diagnostic thoracentesis - appearance of loculated complex effusion with fibrinous strands. Recommended contacting General Surgery for placement of chest tube with TPA adminstration. Dr. Szymanski recommending repeat CT chest noncontrast preoperatively with planned placement tomorrow. Pt with intermittent right flank pain. Not coughing. Eating. Anxious. Case discussed via phone call with health care proxy, sister Audelia Langford Objective Active Medications: Acetaminophen (Tylenol Tab*) 975 mg PO Q8H PRN PRN Reason: MILD PAIN or TEMP > 100.4 Last Admin: 02/09/19 18:09 Dose: 975 mg Cholecalciferol (Vitamin D Tab*) 2,000 units PO DAILY [facility] Last Admin: 02/09/19 09:57 Dose: 2,000 units Docusate Sodium (Colace Cap*) 100 mg PO DAILY PRN PRN Reason: CONSTIPATION Last Admin: 02/07/19 19:56 Dose: 100 mg Enoxaparin Sodium (Lovenox(*)) 40 mg SUBCUT 2100 [facility] Last Admin: 02/08/19 20:57 Dose: 40 mg Famotidine (Pepcid Tab*) 20 mg PO DAILY PRN PRN Reason: HEARTBURN Gabapentin (Neurontin Cap(*)) 600 mg PO TID [facility] Last Admin: 02/09/19 13:08 Dose: 600 mg Heparin Sodium (Porcine) (Heparin Flush Picc/Ml/Cvc(*)) 1 - 3 ml FLUSH 0600, 1800 [facility]; Protocol Last Admin: 02/09/19 18:05 Dose: 2 ml Cefepime HCl (Maxipime 2 Gm In Dextrose Duplex (*)) 2 gm in 50 mls @ 100 mls/ hr IV Q12H [facility] Last Admin: 02/09/19 13:06 Dose: 100 mls/hr Vancomycin HCl 750 mg/ Sodium (Chloride) 250 mls @ 166.667 mls/hr IVPB Q12H [facility] Last Admin: 02/09/19 09:59 Dose: 166.667 mls/hr Lactobacillus Rhamnosus (Lactobacillus Acidophilus*) 1 tab PO BID [facility] Last Admin: 02/09/19 09:57 Dose: 1 tab Lidocaine (Lidoderm 5% Patch*) 1 patch TRANSDERM Q24H [facility] Last Admin: 02/09/19 18:04 Dose: 1 patch Magnesium Hydroxide (Milk Of Magncullen Liq*) 30 ml PO Q6H PRN PRN Reason: CONSTIPATION Last Admin: 02/01/19 11:29 Dose: 30 ml Miscellaneous (Ativan Pyxis Uribe) 1 ea N/A .ATIVAN IV URIBE PRN PRN Reason: PYXIS URIBE Morphine Sulfate (Morphine Inj (Syringe))*) 2 mg IV Q2H PRN PRN Reason: PAIN - SEVERE Last Admin: 02/09/19 13:05 Dose: 2 mg Oxycodone HCl (Roxycodone Tab*) 5 mg PO Q6H PRN PRN Reason: PAIN - MODERATE Last Admin: 02/09/19 18:09 Dose: 5 mg Pharmacy Consult (Vancomycin Per Pharmacy*) 1 note FOLLOW UP .VANC PER PHARMACY [facility]; Protocol Pharmacy Profile Note (Lidocaine Patch Remove*) 1 note PATCH OFF 0600 [facility] Last Admin: 02/09/19 05:55 Dose: 1 note Pharmacy Profile Note (Vancomycin Trough Check) 1 note FOLLOW UP 929 ONE Stop: 02/10/19 09:31 Polyethylene Glycol/Electrolytes (Miralax*) 17 gm PO DAILY [facility] Last Admin: 02/09/19 09:57 Dose: 17 gm Senna (Senokot 8.6 Mg Tab*) 1 tab PO DAILY [facility] Last Admin: 02/09/19 09:57 Dose: 1 tab Vital Signs - 8 hr 02/09/19 02/09/19 02/09/19 11:57 13:05 13:08 Temperature Pulse Rate Respiratory 20 22 22 Rate Blood Pressure (mmHg) O2 Sat by Pulse Oximetry 02/09/19 02/09/19 02/09/19 14:05 15:15 16:00 Temperature 99.5 F Pulse Rate 100 Respiratory 19 20 Rate Blood Pressure 109/48 (mmHg) O2 Sat by Pulse 94 94 Oximetry 02/09/19 18:09 Temperature Pulse Rate Respiratory 20 Rate Blood Pressure (mmHg) O2 Sat by Pulse Oximetry Oxygen Devices in Use Now: None, Nasal Cannula Appearance: Sitting in chair. Eyes: No Scleral Icterus Ears/Nose/Mouth/Throat: NL Teeth, Lips, Gums Neck: NL Appearance and Movements; NL JVP Respiratory: - - reduced on right mid lung down and left base. no wheezing or rhonchi. Cardiovascular: NL Sounds; No Murmurs; No JVD, RRR Extremities: No Edema Neurological: - - oriented to situation and name Nutrition: Taking PO's Result Diagrams: 02/09/19 06:12 02/09/19 06:12 Additional Lab and Data: Laboratory Results - last 24 hr 02/09/19 02/09/19 02/09/19 06:12 06:12 13:00 WBC 15.2 H RBC 3.21 L Hgb 9.1 L Hct 28 L MCV 86 MCH 28 MCHC 33 RDW 16 H Plt Count 575 H MPV 7.2 L Neut % (Auto) 85.9 Lymph % (Auto) 5.2 [place] % (Auto) 7.6 Eos % (Auto) 0.5 Baso % (Auto) 0.8 Absolute Neuts (auto) 13.1 H Absolute Lymphs (auto) 0.8 L Absolute Monos (auto) 1.2 H Absolute Eos (auto) 0.1 Absolute Basos (auto) 0.1 Absolute Nucleated RBC 0.0 Nucleated RBC % 0.0 Sodium 137 Potassium 3.5 Chloride 103 Carbon Dioxide 29 Anion Gap 5 BUN 15 Creatinine 0.74 Est GFR ( Amer) 92.1 Est GFR (Non-Af Amer) 76.1 BUN/Creatinine Ratio 20.3 H Glucose 105 H Calcium 7.8 L Lactate Dehydrogenase 180 C-Reactive Protein 244.09 H Total Protein 5.6 L Fluid Source Pleural fluid Fluid Volume 30 Fluid Color Yellow Fluid Appearance Clear Fluid WBC 189 Fluid RBC 1181 Fluid Tot Cell Count 100 Fluid Neutrophils 99 Fluid Monocytes 1 Fluid Cell Count Rvw By Fluid Comment Microbiology and Other Data: Microbiology 02/04/19 17:18 Blood Venous Aerobic Blood Culture - Final No Growth Day 5 02/04/19 17:18 Blood Venous Anaerobic Blood Culture - Final No Growth Day 5 02/09/19 13:00 Pleural Fluid Gram Stain - Final 02/04/19 13:16 Blood Venous Aerobic Blood Culture - Final No Growth Day 5 02/04/19 13:16 Blood Venous Anaerobic Blood Culture - Final No Growth Day 5 01/30/19 13:30 Misc Source (See Comment) Fungal Culture - Preliminary 02/05/19 03:00 Urine Urine Culture - Final Pseudomonas Aeruginosa 02/01/19 10:11 Blood Venous Aerobic Blood Culture - Final No Growth Day 5 02/01/19 10:11 Blood Venous Anaerobic Blood Culture - Final No Growth Day 5 02/01/19 10:11 Blood Venous Aerobic Blood Culture - Final No Growth Day 5 02/01/19 10:11 Blood Venous Anaerobic Blood Culture - Final No Growth Day 5 02/02/19 12:59 Wound Anaerobic Culture - Final No Growth Day 4 02/02/19 12:59 Wound Skin and Soft Tissue MRSA/MSSA (PCR - Final Mrsa Negative S.aureus Positive 02/02/19 12:59 Wound Gram Stain - Final 02/02/19 12:59 Wound Wound Culture - Final Staphylococcus Aureus 01/30/19 17:12 Wound - Shoulder Left Anaerobic Culture - Final 01/30/19 17:12 Wound - Shoulder Left Skin and Soft Tissue MRSA/MSSA (PCR - Final Mrsa Negative S.aureus Positive 01/30/19 17:12 Wound - Shoulder Left Gram Stain - Final 01/30/19 17:12 Wound - Shoulder Left Wound Culture - Final Staphylococcus Aureus 01/30/19 13:30 Body Fluid Gram Stain - Final 01/30/19 13:30 Body Fluid Body Fluid Culture - Final Staphylococcus Aureus 01/30/19 13:30 Body Fluid Anaerobic Culture - Final 01/30/19 13:30 Body Fluid Skin and Soft Tissue MRSA/MSSA (PCR - Final Mrsa Negative S.aureus Positive 01/30/19 13:30 Body Fluid Acid Fast Bacilli Smear - Final 01/30/19 09:32 Blood Venous Aerobic Blood Culture - Final Staphylococcus Aureus 01/30/19 09:32 Blood Venous Anaerobic Blood Culture - Final Staphylococcus Aureus 01/30/19 09:32 Blood Venous Blood MRSA/MSSA (PCR) - Final Mrsa Negative S.aureus Positive 01/30/19 09:32 Blood Venous Aerobic Blood Culture - Final Staphylococcus Aureus 01/30/19 09:32 Blood Venous Anaerobic Blood Culture - Final Staphylococcus Aureus 01/30/19 09:32 Blood Venous Blood MRSA/MSSA (PCR) - Final Mrsa Negative S.aureus Positive 01/28/19 15:51 Urine Urine Culture - Final Staphylococcus Aureus Enterococcus Faecalis 01/29/19 04:50 Blood Venous Aerobic Blood Culture - Final Staphylococcus Aureus 01/29/19 04:50 Blood Venous Anaerobic Blood Culture - Final Staphylococcus Aureus 01/29/19 04:50 Blood Venous Blood MRSA/MSSA (PCR) - Final Mrsa Negative S.aureus Positive 01/28/19 17:25 Blood Venous Aerobic Blood Culture - Final Staphylococcus Aureus 01/28/19 17:25 Blood Venous Anaerobic Blood Culture - Final Staphylococcus Aureus 01/28/19 17:25 Blood Venous Blood MRSA/MSSA (PCR) - Final Mrsa Negative S.aureus Positive 01/28/19 22:49 Nasal Nasal Screen MRSA (PCR) - Final Mrsa Not Detected Assess/Plan/Problems-Billing 78 female PMH GERD, OA, osteoporosis, recent L hip intertrochanteric fracture s /p IMN (10/2018), and recent shingles s/p acyclovir and recently started opioids and muscle relaxer, presents after being found down. Found with high fever, and blood, urine, and L shoulder joint growing MSSA. Course c/b persistent sepsis, hypoxic respiratory failure, large loculated appearing right pleural effusion, constipation, pain in right flank and intermittently in abdomen. s/p thora w/ planned chest tube 02/10. - Patient Problems (1) Loculated pleural effusion Current Visit: Yes Status: Acute Code(s): J90 - PLEURAL EFFUSION, NOT ELSEWHERE CLASSIFIED SNOMED Code(s): 021474605 Comment: s/p Thoracentesis with Dr. Guy today. Appreciated assistance f/u Light criteria labs and cultures. Consulted Dr. Szymanski for chest tube and TPA administration. He requested repeat CT Chest non-contrast preoperatively. Ordered for tonight. Potential chest tube 02/10. Will get updated INR in AM. antibiotics as below. (2) MSSA bacteremia Current Visit: Yes Status: Acute Code(s): R78.81 - BACTEREMIA SNOMED Code( s): 636281440 Comment: Pt with multiple blood cultures positive for MSSA. Most recent cultures obtained on 02/01 and 02/04 have NGTD. TTE and NIRU both negative for signs of endocarditis. Will need at least 4 weeks IV Abx. CRP and WBC both continued elevation. CT chest/abd/pelvis 02/05 with contrast does have some moderate right pleural effusion with atelectasis vs consolidation in lungs. Continue vancomycin as bid scheduling can be done at [facility], not tid for cefazolin. Added cefepime 02/08 early AM. PICC line attempted but needs to be replaced as it went up into the neck. (3) Sepsis Current Visit: Yes Status: Acute Comment: Blood, urine, and left shoulder fluid growing staph. S/p washout in OR on 01/30 and 02/02. - cont IV abx (01/28 - ); Day 11 of 28 but only Day 8 from 01/01 BCx clearance . CFTX -> cefazolin -> vancomycin - appreciate ID recs - PICC needs to be reattempted. - patient with persistent tachycardia, leukocytosis, AMS, elevated CRP >200 despite 10 days of antibiotics. Broadened to include Cefepime on early 02/08. continued source of infection may include parapneumonic effusion, planned chest tube 02/10 with TPA (4) Acute respiratory failure with hypoxia Current Visit: Yes Status: Acute Code(s): J96.01 - ACUTE RESPIRATORY FAILURE WITH HYPOXIA SNOMED Code(s): 09412498 Comment: secondary to large loculated pleural effusion. Planned chest tube. not coughing currently. BNP wnl. (5) Left shoulder pain Current Visit: Yes Status: Acute Code(s): M25.512 - PAIN IN LEFT SHOULDER SNOMED Code(s): 33634056 Comment: Severe OA in shoulder by imaging. Now with septic joint growing Staph. - appreciate ortho recs, s/p washout 01/30 and 02/02 - APAP prn mild pain, tramadol mod, oxy severe prn - had large BM with enema. (6) Post herpetic neuralgia Current Visit: Yes Status: Acute Code(s): B02.29 - OTHER POSTHERPETIC NERVOUS SYSTEM INVOLVEMENT SNOMED Code(s): 9175858 Comment: Pain in the R flank wrapping around to front - however patient is a very poor history about location, timing, character. Continue gabapentin 600mg in the AM, 900mg in the PM, and 600mg at noon. Lidocaine patch helped her pain. scale back opioid pain meds. pleural inflammation from effusion may be contributing. Had large BM with enema today. Hopeful to eliminate constipation as a confounding factor. Also seems positional and wonder if large right pleural effusion causing some pleurisy. girish planned (7) DVT prophylaxis Current Visit: Yes Status: Acute Code(s): Z29.9 - ENCOUNTER FOR PROPHYLACTIC MEASURES, UNSPECIFIED SNOMED Code(s): 553747255 Comment: lovenox (8) Fall Current Visit: Yes Status: Acute Comment: Pt doesn't remember fall. Family and friend report that she was acting 'off' the prior day, after starting muscle relaxant and opioids rx'ed by outpatient provider for shingles pain? Also large contribution from bacteremia causing metabolic encephalopathy. - avoid Beers criteria meds when possible - cont antibiotics - PT ordered - mental status back to baseline, cont to monitor closely (9) GERD (gastroesophageal reflux disease) Current Visit: Yes Status: Acute Code(s): K21.9 - GASTRO-ESOPHAGEAL REFLUX DISEASE WITHOUT ESOPHAGITIS SNOMED Code(s): 176946473 Comment: Continue famotidine. (10) DNR (do not resuscitate) Current Visit: Yes Status: Acute Status and Disposition: medicine inpatient. sepsis still.
--- NOTE | 2019-02-09 19:31 | CONS ---
CC: Primary Care Doctor; Dr. Moriah Guy; [facility] * SURGICAL CONSULTATION REPORT: DATE OF CONSULT: 02/09/19 HISTORY OF PRESENT ILLNESS: I was contacted by the hospitalist service to evaluate Ms. Ambrosio, a patient who has been in the hospital for close to 2 weeks now with a diagnosis of sepsis initially related to urinary tract infection. The patient also was noted to have a left shoulder joint infection and was treated with 2 trips to the OR for washout of this and she was also noted to have shingles. Additional treatment while she was hospitalized consisted of a CT scan of the chest on 02/05/19. These images and the report were reviewed and was consistent with a right pleural effusion. Pulmonology was consulted today and the patient's right pleural effusion was evaluated with an ultrasound-guided thoracentesis. Approximately 35 cc of pleural fluid was removed. This was dark yellow and fibrinous and clogged up quickly and for this reason, the men's golf coach recommended a chest tube and our service was consulted. Currently, the patient is sitting up, feeling a little more comfortable than she has felt. She was walking around to the bathroom at some point today. She does remain tachycardic with elevated temperatures. Her T-max was 101.2 approximately 20 hours ago. The patient is followed by Infectious Disease and is currently on vancomycin and cefepime. PAST MEDICAL HISTORY: GERD, arthritis, shingles currently. PAST SURGICAL HISTORY: Reviewed. MEDICATIONS: Reviewed. ALLERGIES: No known drug allergies. SOCIAL HISTORY: The patient lives with her . She is currently DNR. She is a nonsmoker. PHYSICAL EXAM: Temperature 99.5, blood pressure 109/48, pulse 100, O2 sat 94% on 3 L nasal cannula. She is alert and oriented x3. She is in no distress. Lungs are clear at the apices bilaterally. Wheezing at the left base and decreased breath sounds at the right base. Abdomen is soft, nondistended, nontender. Left shoulder nontender, dressing in place. DIAGNOSTIC STUDIES: Chest x-ray reviewed from earlier today and is consistent with complete opacification of the right hemithorax. CT scan from 02/05/19 reviewed. IMPRESSION AND PLAN: A 78-year-old female with complex history, multiple sources for infection, urinary, joint, viral and pulmonary, with a concern by the men's golf coach of empyema. The patient may benefit from a chest tube placement and I think this is something we certainly can do. I would like to get additional imaging prior to this and I have recommended CT scan of the chest to evaluate changes. We discussed this with the hospitalist service, who understands. The patient understands as well that we will likely place a chest tube. Her questions were answered and we will continue to follow her. This can be done at the bedside and again we will follow her tomorrow after the CT scan is obtained. Alternative might be Radiology drainage if this shows loculated fluid collection that we could not drain with single attempt chest tube. Additional thoughts of a video-assisted thoracoscopic surgery treatment would require transfer to another hospital as we do not have Thoracic Surgery in our institution. [id number]/CPS #: [id number] JUAN
--- NOTE | 2019-02-09 19:57 | PRO ---
THORACENTESIS REPORT: DATE OF PROCEDURE: 02/09/19 - ROOM #413 PROCEDURE PERFORMED: Ultrasound-guided thoracentesis on the right side. PREPROCEDURAL DIAGNOSIS: Chest x-ray suggestive of possible large right pleural effusion with white-out of the right lung. POSTPROCEDURAL DIAGNOSIS: Complex pleural space with multiloculated effusion. ANESTHESIA: Local anesthesia with 1% lidocaine 5 cc. DESCRIPTION OF PROCEDURE: Informed consent was obtained from the patient prior to the procedure after all the risks and benefits were thoroughly explained. Portable ultrasound was utilized at bedside to visualize those multiple pockets of pleural fluid. Fluid was organized into small pockets. Lot of densities noted in the pleural space. Lung was found to be atelectatic. Area was marked for access with help of ultrasound. Area was disinfected with chlorhexidine. Strict aseptic precautions and barrier techniques were utilized. 1% lidocaine was instilled in pleural space intradermally subcutaneously down into the pleural space taking precautions. #11 scalpel blade was used to make stab incision to facilitate large thoracentesis catheter. An 8-Mexican thoracentesis catheter was subsequently inserted under manual suction taking precautions. Catheter was left in place and needle was removed. Only 35 cc of dark yellow viscous fluid with some fibrinous strands was aspirated. Fluid was clogging very quickly. No further fluid could be aspirated. The patient did not have any discomfort during the procedure. Catheter was then removed and sterile Band -Aid was applied. The patient tolerated the procedure well. No immediate complications occurred. Fluid was sent into the lab for further examination. [id number]/CPS #: [id number] JUAN
[2019-02-09] MEDS: Enoxaparin(*) 40 MG/0.4 ML SYR SUBCUT SCH (22:44)
[2019-02-10] MEDS: Cefepime 2 GM in Dextrose(*) 2 GM/50 ML BAG IV SCH ×2 (02:49→13:42)
[2019-02-10] MEDS: Morphine INJ* 2 MG/ML 1 ML SYRINGE (TWO MG - NEW SYRINGE VERSION) IV PRN ×2 (02:54→12:58)
[2019-02-10] MEDS: Lidocaine Patch REMOVE* 1 NOTE MISC PATCH OFF SCH (07:34)
[2019-02-10] MEDS ORDERED: Lidocaine 1% INJ* 10 MG/ML 30 ML SDV INJ ONE (08:44)
[2019-02-10] MEDS ORDERED: Morphine INJ* 4 MG/ML 1 ML SYRINGE (NEW SYRINGE VERSION) ONE (09:01)
[2019-02-10] MEDS ORDERED: Vancomycin Trough Check NOTE FOLLOW UP ONE (09:30)
[2019-02-10] MEDS ORDERED: Morphine INJ* 4 MG/ML 1 ML SYRINGE (NEW SYRINGE VERSION) IV ONE (10:00)
--- NOTE | 2019-02-10 10:39 | PN ---
Progress Note - Progress Note Date of Service: 02/10/19 SOAP: Subjective: [] Pt seen at bedside. She feels fatigued today, findings of pleural effusion requiring chest tube. L shoulder is not painful. No reported joint pain. Denies fever or chills. Objective: []Gen: Appears well, NAD LUE: Shoulder Incisions CDI without discharge or erythema, dressing was changed. No swelling or warmth of the left shoulder. Able to passively flex shoulder to 90 degrees forward flexion and abduction without pain. Assessment: []1. MSSA bacteremia. Staphylococcal bacteruria usually due to bacteremia and not a primary infection. NIRU with no vegetation. 2. Septic arthritis left shoulder 3. Post herpetic neuralgia 4. Pleural effusion Plan: [] WBAT and ROM as tolerated L shoulder Vital Signs Temp 98.8 F 02/10/19 02:49 Pulse 87 02/10/19 02:49 Resp 20 02/10/19 07:34 BP 146/68 02/10/19 02:49 Pulse Ox 97 02/10/19 02:49 Intake & Output 02/09/19 02/10/19 02/10/19 18:59 06:59 18:59 Intake Total 1570 838 Balance 1570 838 Weight 174 lb 9.6 oz Intake: IV Fluids 142 NS 142 IVPB 696 ABX - CEFEPIME 111 ABX - VANCOMYCIN 585 Oral 1570 0 Other: Estimated Void Medium # Bowel Movements 1 1 Estimated Stool Amount Medium # Voids 1 Laboratory Last Values WBC 15.2 10^3/uL (3.5-10.8) H 02/09/19 06:12 RBC 3.21 10^6 /uL (3.70-4.87) L 02/09/19 06:12 Hgb 9.1 g/dL (12.0-16.0) L 02/09/19 06:12 Hct 28 % (35-47) L 02/09/19 06:12 MCV 86 fL (80-97) 02/09/19 06:12 MCH 28 pg (27-31) 02/09/19 06:12 MCHC 33 g/dL (31-36) 02/09/19 06:12 RDW 16 % (10-15) H 02/09/19 06:12 Plt Count 575 10^3/uL (150-450) H 02/09/19 06:12 MPV 7.2 fL (7.4-10.4) L 02/09/19 06:12 Neut % (Auto) 85.9 % 02/09/19 06:12 Lymph % (Auto) 5.2 % 02/09/19 06:12 [place] % (Auto) 7.6 % 02/09/19 06:12 Eos % (Auto) 0.5 % 02/09/19 06:12 Baso % (Auto) 0.8 % 02/09/19 06:12 Absolute Neuts (auto) 13.1 10^3/ul (1.5-7.7) H 02/09/19 06:12 Absolute Lymphs (auto) 0.8 10^3/ul (1.0-4.8) L 02/09/19 06:12 Absolute Monos (auto) 1.2 10^3/ul (0-0.8) H 02/09/19 06:12 Absolute Eos (auto) 0.1 10^3/ul (0-0.6) 02/09/19 06:12 Absolute Basos (auto) 0.1 10^3/ul (0-0.2) 02/09/19 06:12 Absolute Nucleated RBC 0.0 10^3/ul 02/09/19 06:12 Immature Gran % 2.0 % (0-9) 02/04/19 12:11 Neutrophils % 95.0 % 02/04/19 12:11 Band Neutrophils % 2.0 % (0-8) 02/04/19 12:11 Lymphocytes % 2.0 % 02/04/19 12:11 Monocytes % 1.0 % 02/04/19 12:11 Eosinophils % 2.0 % 02/04/19 05:52 Metamyelocytes % 1.0 % (0-2) 02/03/19 05:36 Nucleated RBC % 0.0 02/09/19 06:12 Abs Neuts (Manual) 16.1 10^3/ul (1.5-7.7) H 02/04/19 12:11 Abs Lymphs (Manual) 0.3 10^3/ul (1.0-4.8) L 02/04/19 12:11 Abs Monocytes (Manual) 0.2 10^3/ul (0-0.8) 02/04/19 12:11 Toxic Granulation 1+ 02/03/19 05:36 Normal RBC Morphology Normal (Normal) 02/04/19 12:11 INR (Anticoag Therapy) 1.25 (0.82-1.09) H 01/29/19 05:40 Sodium 137 mmol/L (135-145) 02/09/19 06:12 Potassium 3.5 mmol/L (3.5-5.0) 02/09/19 06:12 Chloride 103 mmol/L (101-111) 02/09/19 06:12 Carbon Dioxide 29 mmol/L (22-32) 02/09/19 06:12 Anion Gap 5 mmol/L (2-11) 02/09/19 06:12 BUN 15 mg/dL (6-24) 02/09/19 06:12 Creatinine 0.74 mg/dL (0.51-0.95) 02/09/19 06:12 Est GFR ( Amer) 92.1 (>60) 02/09/19 06:12 Est GFR (Non-Af Amer) 76.1 (>60) 02/09/19 06:12 BUN/Creatinine Ratio 20.3 (8-20) H 02/09/19 06:12 Glucose 105 mg/dL (70-100) H 02/09/19 06:12 POC Glucose (mg/dL) 147 mg/dL (70-100) H 02/07/19 23:06 Lactic Acid 0.8 mmol/L (0.5-2.0) 01/28/19 23:58 Calcium 7.8 mg/dL (8.6-10.3) L 02/09/19 06:12 Phosphorus 3.2 mg/dL (2.5-5.0) 01/29/19 04:50 Magnesium 2.0 mg/dL (1.9-2.7) 02/02/19 08:40 Total Bilirubin 0.80 mg/dL (0.2-1.0) 01/28/19 12:58 AST 29 U/L (13-39) 01/28/19 12:58 ALT 20 U/L (7-52) 01/28/19 12:58 Alkaline Phosphatase 165 U/L (34-104) H 01/28/19 12:58 Lactate Dehydrogenase 180 U/L (140-271) 02/09/19 06:12 Total Creatine Kinase 99 U/L (10-223) 01/28/19 12:58 Troponin I 0.01 ng/mL (<0.04) 01/28/19 12:58 C-Reactive Protein 244.09 mg/L (<8.01) H 02/09/19 06:12 B-Natriuretic Peptide 58 pg/mL (<=100) 02/08/19 05:50 Total Protein 5.6 g/dL (6.4-8.9) L 02/09/19 06:12 Albumin 2.4 g/dL (3.2-5.2) L 01/29/19 04:50 Globulin 3.6 g/dL (2-4) 01/28/19 12:58 Albumin/Globulin Ratio 1.0 (1-3) 01/28/19 12:58 TSH 0.83 mcIU/mL (0.34-5.60) 01/28/19 12:58 Urine Color Yellow 02/08/19 02:40 Urine Appearance Cloudy 02/08/19 02:40 Urine pH 6.0 (5-9) 02/08/19 02:40 Ur Specific [place] 1.006 (1.010-1.030) L 02/08/19 02:40 Urine Protein Negative (Negative) 02/08/19 02:40 Urine Ketones Negative (Negative) 02/08/19 02:40 Urine Blood Negative (Negative) 02/08/19 02:40 Urine Nitrate Negative (Negative) 02/08/19 02:40 Urine Bilirubin Negative (Negative) 02/08/19 02:40 Urine Urobilinogen Negative (Negative) 02/08/19 02:40 Ur Leukocyte Esterase Negative (Negative) 02/08/19 02:40 Urine WBC (Auto) 3+(>20/hpf) (Absent) A 01/28/19 15:51 Urine RBC (Auto) 1+(3-5/hpf) (Absent) A 01/28/19 15:51 Ur Squamous Epith Cells Present (Absent) A 01/28/19 15:51 Urine Bacteria Absent (Absent) 01/28/19 15:51 Urine Glucose Negative (Negative) 02/08/19 02:40 Fluid Source Pleural fluid 02/09/19 13:00 Fluid Volume 30 mL 02/09/19 13:00 Fluid Color Yellow 02/09/19 13:00 Fluid Appearance Clear 02/09/19 13:00 Fluid WBC 189 /mcL ([id number]) 02/09/19 13:00 Fluid RBC 1181 /mcL 02/09/19 13:00 Fluid Tot Cell Count 100 02/09/19 13:00 Fluid Neutrophils 99 % 02/09/19 13:00 Fluid Band Neutrophils Cancelled 01/30/19 13:30 Fluid Lymphocytes Cancelled 01/30/19 13:30 Fluid Reactive Lymphs Cancelled 01/30/19 13:30 Fluid Monocytes 1 % 02/09/19 13:00 Fluid Eosinophils Cancelled 01/30/19 13:30 Fluid Basophils Cancelled 01/30/19 13:30 Fluid Promyelocytes Cancelled 01/30/19 13:30 Fluid Myelocytes Cancelled 01/30/19 13:30 Fluid Metamyelocytes Cancelled 01/30/19 13:30 Fluid Blast Cells Cancelled 01/30/19 13:30 Fluid Nucleated RBCs Cancelled 01/30/19 13:30 Fluid Other Cells Cancelled 01/30/19 13:30 Fluid Cell Count Rvw By 02/09/19 13:00 Fluid Comment 02/09/19 13:00 Vancomycin Trough 23.3 mcg/mL 02/08/19 13:04
[2019-02-10] MEDS: Polyethylene Glycol 3350* 17 GM PACKET PO SCH (11:06)
[2019-02-10] MEDS: Lactobacillus Acidophilus* 1 TAB PO SCH ×2 (11:06→21:04)
[2019-02-10] MEDS: Gabapentin CAP(*) 300 MG PO SCH ×3 (11:07→21:04)
[2019-02-10] MEDS: Senna TAB 8.6 mg* TAB PO SCH (11:07)
[2019-02-10] MEDS: Cholecalciferol TAB* 1000 UNITS PO SCH (11:16)
[2019-02-10] MEDS ORDERED: Furosemide IV* 10 MG/ML 2 ML VIAL (20 MG) IV ONE (14:16)
--- NOTE | 2019-02-10 14:23 | PN ---
Progress Note - Progress Note Date of Service: 02/10/19 SOAP: Subjective: comfortable in bed in NAD. reports breathing better since placement of Chest tube this morning. Tolerating diet [] Objective: Vital Signs Temp 98.8 F 02/10/19 02:49 Pulse 87 02/10/19 02:49 Resp 22 02/10/19 13:01 BP 146/68 02/10/19 02:49 Pulse Ox 95 02/10/19 08:00 Intake & Output 02/09/19 02/10/19 02/10/19 18:59 06:59 18:59 Intake Total 1930 838 280 Balance 1930 838 280 Weight 174 lb 9.6 oz Intake: IV Fluids 142 NS 142 IVPB 696 ABX - CEFEPIME 111 ABX - VANCOMYCIN 585 Oral 1930 0 280 Other: Estimated Void Medium # Bowel Movements 1 1 Estimated Stool Amount Medium # Voids 1 PEX Gen: NAD Chest: CTA CVS: RRR Abd: NT/ND Ext: calves non tender [] Assessment: 78 yo female S/P diagnostic thoracentesis, now S/P placement of Right Chest tube this morning by Dr Szymanski with 200 cc fluid removed at placement. at time of my exam there is 375 cc in pleur-evac appliance. Plan for Altaplase/Dornase adminstration x 3 days starting tomorrow morning. [] Plan: Plan for Altaplase 10mg in 50cc NS and Dornase 5mg in 50cc NS placement via Chest tube into pleural space and clamp x 2 hours starting tomorrow AM, repeat for x 3 days. Hold Lovenox tonight. Pharmacy will prepare meds. Above D/W Dr Szymanski, Dr Bennett, and Audelia Obregon [employer] []
[2019-02-10 15:23] LABS: Lactate Dehydrogenase, BF 772 U/L
[2019-02-10 15:25] LABS: Fluid Type, Protein, Total PLEURAL
[2019-02-10 15:27] LABS: Fluid Type, Glucose PLEURAL
[2019-02-10 16:36] LABS: ABS Basophils 0.1 10^3/ul (0-0.2); ABS Eosinophils 0.1 10^3/ul (0-0.6); ABS Lymphocytes 1.2 10^3/ul (1.0-4.8); ABS Monocytes 0.9 10^3/ul (0-0.8); ABS Neutrophils 11.1 10^3/ul (1.5-7.7); Eosinophil % 0.6 %; Hematocrit 30 % (35-47); Hemoglobin 9.9 g/dL (12.0-16.0); Lymphocyte % 8.8 %; Mean Corpuscular HGB Conc 33 g/dL (31-36); Mean Corpuscular Hemoglobin 28 pg (27-31); Mean Corpuscular Volume 85 fL (80-97); Mean Platelet Volume 6.7 fL (7.4-10.4); Platelet Count 576 10^3/uL (150-450); Red Blood Count 3.51 10^6 /uL (3.70-4.87); Red Cell Distribution Width 15 % (10-15); White Blood Count 13.4 10^3/uL (3.5-10.8)
[2019-02-10 16:40] LABS: INR 1.21 (0.82-1.09)
[2019-02-10 17:03] LABS: Albumin 2.3 g/dL (3.2-5.2); Albumin/Globulin Ratio 0.5 (1-3); BUN/Creatinine Ratio 20.8 (8-20); C Reactive Protein 199.39 mg/L (<8.01); Calcium 8.1 mg/dL (8.6-10.3); EGFR Non-African American 72.7 (>60); Globulin 4.2 g/dL (2-4); Potassium 3.8 mmol/L (3.5-5.0); Total Bilirubin 0.8 mg/dL (0.2-1.0); Total Protein 6.5 g/dL (6.4-8.9)
--- NOTE | 2019-02-10 17:14 | PN ---
Progress Note - Progress Note Date of Service: 02/10/19 - Pulm f/u note Note: Pt seen and examined at bedside. Pt denies new complaints, has pain at chest tube insertion site Active Medications Generic Name Dose Route Start Last Admin Trade Name Freq PRN Reason Stop Dose Admin Acetaminophen 975 mg 01/29/19 09:52 02/09/19 18:09 Tylenol Tab* PO 975 mg Q8H PRN Administration MILD PAIN or TEMP > 100.4 Cholecalciferol 2,000 units 01/31/19 09:00 02/10/19 11:16 Vitamin D Tab* PO 2,000 units DAILY ESCOBAR Administration Docusate Sodium 100 mg 02/07/19 13:27 02/07/19 19:56 Colace Cap* PO 100 mg DAILY PRN Administration CONSTIPATION Famotidine 20 mg 01/29/19 15:26 Pepcid Tab* PO DAILY PRN HEARTBURN Gabapentin 600 mg 02/06/19 21:00 02/10/19 13:01 Neurontin Cap(*) PO 600 mg TID ESCOBAR Administration Heparin Sodium (Porcine) 1 - 3 ml 02/08/19 18:00 02/10/19 09:07 Heparin Flush Picc/Ml/Cvc(*) FLUSH Not Given 0600,1800 [facility] Protocol Cefepime HCl 2 gm in 50 mls @ 100 mls/hr 02/08/19 01:00 02/10/19 13:42 Maxipime 2 Gm In Dextrose Duplex (*) IV 100 mls/hr Q12H ESCOBAR Administration Vancomycin HCl 750 mg/ Sodium 250 mls @ 166.667 mls/hr 02/08/19 22:00 22:44 Chloride IVPB 166.667 mls/hr Q12H ESCOBAR Administration Alteplase, Recombinant 10 mg/ 50 mls @ 0 mls/hr 02/11/19 08:00 Sodium Chloride INTRAPLEUR 02/13/19 08:01 DAILY@0800 ESCOBAR As Directed Dornase Levi 5 mg/ Sodium 50 mls @ 0 mls/hr 02/11/19 08:00 Chloride INTRAPLEUR 02/13/19 08:01 DAILY@0800 ESCOBAR As Directed Lactobacillus Rhamnosus 1 tab 01/29/19 21:00 02/10/19 11:06 Lactobacillus Acidophilus* PO 1 tab BID ESCOBAR Administration Lidocaine 1 patch 02/02/19 18:00 02/09/19 18:04 Lidoderm 5% Patch* TRANSDERM 1 patch Q24H ESCOBAR Administration Magnesium Hydroxide 30 ml 01/29/19 10:17 02/01/19 11:29 Milk Of Amara Liq* PO 30 ml Q6H PRN Administration CONSTIPATION Miscellaneous 1 ea 01/30/19 10:57 Ativan Pyxis Ureña N/A .ATIVAN IV UREÑA PRN PYXIS UREÑA Morphine Sulfate 2 mg 02/06/19 14:26 02/10/19 12:58 Morphine Inj (Syringe))* IV 2 mg Q2H PRN Administration PAIN - SEVERE Oxycodone HCl 5 mg 02/09/19 17:05 02/09/19 18:09 Roxycodone Tab* PO 5 mg Q6H PRN Administration PAIN - MODERATE Pharmacy Consult 1 note 02/04/19 11:00 Vancomycin Per Pharmacy* FOLLOW UP .VANC PER PHARMACY ESCOBAR Protocol Pharmacy Profile Note 1 note 02/03/19 06:00 02/10/19 07:34 Lidocaine Patch Remove* PATCH OFF 1 note 0600 ESCOBAR Administration Polyethylene Glycol/Electrolytes 17 gm 02/07/19 14:00 02/10/19 11:06 Miralax* PO 17 gm DAILY ESCOBAR Administration Senna 1 tab 02/07/19 14:00 02/10/19 11:07 Senokot 8.6 Mg Tab* PO 1 tab DAILY ESCOBAR Administration Vital Signs Temp Pulse Resp BP Pulse Ox 98.4 F 106 18 142/93 100 02/10/19 15:33 02/10/19 15:33 02/10/19 15:33 02/10/19 15:33 02/10/19 16:00 O/E: pt in NAD HEENT: PERRLA Lungs: Diminished a/e at bases R>L CVS: S1, S2+ Abd: Soft, BS+ Ext: Normal ROM Skin: No rash Neuro: no focal deficits Laboratory Results - last 24 hr 02/09/19 02/09/19 02/09/19 13:00 13:00 13:00 WBC RBC Hgb Hct MCV MCH MCHC RDW Plt Count MPV Neut % (Auto) Lymph % (Auto) [place] % (Auto) Eos % (Auto) Baso % (Auto) Absolute Neuts (auto) Absolute Lymphs (auto) Absolute Monos (auto) Absolute Eos (auto) Absolute Basos (auto) Absolute Nucleated RBC Nucleated RBC % INR (Anticoag Therapy) Sodium Potassium Chloride Carbon Dioxide Anion Gap BUN Creatinine Est GFR ( Amer) Est GFR (Non-Af Amer) BUN/Creatinine Ratio Glucose Calcium Total Bilirubin AST ALT Alkaline Phosphatase C-Reactive Protein Total Protein Albumin Globulin Albumin/Globulin Ratio Fluid Source Pleural Pleural Pleural Fluid Glucose 44 Fluid Total Protein 4.1 Fluid LDH 772 Vancomycin Trough 02/10/19 02/10/19 02/10/19 16:15 16:15 16:15 WBC 13.4 H RBC 3.51 L Hgb 9.9 L Hct 30 L MCV 85 MCH 28 MCHC 33 RDW 15 Plt Count 576 H MPV 6.7 L Neut % (Auto) 83.1 Lymph % (Auto) 8.8 [place] % (Auto) 6.8 Eos % (Auto) 0.6 Baso % (Auto) 0.7 Absolute Neuts (auto) 11.1 H Absolute Lymphs (auto) 1.2 Absolute Monos (auto) 0.9 H Absolute Eos (auto) 0.1 Absolute Basos (auto) 0.1 Absolute Nucleated RBC 0.0 Nucleated RBC % 0.0 INR (Anticoag Therapy) Sodium 136 Potassium 3.8 Chloride 101 Carbon Dioxide 29 Anion Gap 6 BUN 16 Creatinine 0.77 Est GFR ( Amer) 88.0 Est GFR (Non-Af Amer) 72.7 BUN/Creatinine Ratio 20.8 H Glucose 112 H Calcium 8.1 L Total Bilirubin 0.80 AST 40 H ALT 15 Alkaline Phosphatase 458 H C-Reactive Protein 199.39 H Total Protein 6.5 Albumin 2.3 L Globulin 4.2 H Albumin/Globulin Ratio 0.5 L Fluid Source Fluid Glucose Fluid Total Protein Fluid LDH Vancomycin Trough 19.0 02/10/19 16:15 WBC RBC Hgb Hct MCV MCH MCHC RDW Plt Count MPV Neut % (Auto) Lymph % (Auto) [place] % (Auto) Eos % (Auto) Baso % (Auto) Absolute Neuts (auto) Absolute Lymphs (auto) Absolute Monos (auto) Absolute Eos (auto) Absolute Basos (auto) Absolute Nucleated RBC Nucleated RBC % INR (Anticoag Therapy) 1.21 H Sodium Potassium Chloride Carbon Dioxide Anion Gap BUN Creatinine Est GFR ( Amer) Est GFR (Non-Af Amer) BUN/Creatinine Ratio Glucose Calcium Total Bilirubin AST ALT Alkaline Phosphatase C-Reactive Protein Total Protein Albumin Globulin Albumin/Globulin Ratio Fluid Source Fluid Glucose Fluid Total Protein Fluid LDH Vancomycin Trough I/R: 78 female PMH GERD, OA, osteoporosis, recent L hip intertrochanteric fracture s/p IMN (10/2018), and recent shingles s/p acyclovir and recently started opioids and muscle relaxer, presents after being found down. Found to have bactremia and sepsis with L shoulder joint growing MSSA. Course c/b persistent sepsis, hypoxic respiratory failure, large loculated appearing right pleural effusion. Pt s/p thora yesterday with U/S evidence of loculations, only 35cc removed Fluid was dark yellow, turbid with elevated LDH, protein and very low glucose Fluid characteristics suggestive of complicated para pneumonic effusion Pt had chest tube placed this am by surgery with not much fluid drained Pt is high risk for VATS guided decortication Will consider thrombolytics and DNAse through chest tube c/w abx. D/w surgery To begin tPA administration in am D/w Dr Little
--- NOTE | 2019-02-10 17:17 | PN ---
Subjective Date of Service: 02/10/19 Interval History: patient seen earlier post chest tube placement by Dr. Szymanski for the pleural effusion. Discussed case with Dr. Guy. At this time the plan to try tPA via chest tube to facilitate drainage and lysis of the multi loculated effusion. She did have increase dyspnea repsonded well to lasix 20 mg IV once. Will follow up closely with surgery and Pulmonary Past Medical History: Unchanged from Admission Objective Active Medications: Acetaminophen (Tylenol Tab*) 975 mg PO Q8H PRN PRN Reason: MILD PAIN or TEMP > 100.4 Last Admin: 02/09/19 18:09 Dose: 975 mg Cholecalciferol (Vitamin D Tab*) 2,000 units PO DAILY ESCOBAR Last Admin: 02/10/19 11:16 Dose: 2,000 units Docusate Sodium (Colace Cap*) 100 mg PO DAILY PRN PRN Reason: CONSTIPATION Last Admin: 02/07/19 19:56 Dose: 100 mg Famotidine (Pepcid Tab*) 20 mg PO DAILY PRN PRN Reason: HEARTBURN Gabapentin (Neurontin Cap(*)) 600 mg PO TID [facility] Last Admin: 02/10/19 13:01 Dose: 600 mg Heparin Sodium (Porcine) (Heparin Flush Picc/Ml/Cvc(*)) 1 - 3 ml FLUSH 0600, 1800 [facility]; Protocol Last Admin: 02/10/19 09:07 Dose: Not Given Cefepime HCl (Maxipime 2 Gm In Dextrose Duplex (*)) 2 gm in 50 mls @ 100 mls/ hr IV Q12H [facility] Last Admin: 02/10/19 13:42 Dose: 100 mls/hr Vancomycin HCl 750 mg/ Sodium (Chloride) 250 mls @ 166.667 mls/hr IVPB Q12H [facility] Last Admin: 02/09/19 22:44 Dose: 166.667 mls/hr Alteplase, Recombinant 10 mg/ (Sodium Chloride) 50 mls @ 0 mls/hr INTRAPLEUR DAILY@0800 [facility] Stop: 02/13/19 08:01 Dornase Levi 5 mg/ Sodium (Chloride) 50 mls @ 0 mls/hr INTRAPLEUR DAILY@0800 [facility] Stop: 02/13/19 08:01 Lactobacillus Rhamnosus (Lactobacillus Acidophilus*) 1 tab PO BID [facility] Last Admin: 02/10/19 11:06 Dose: 1 tab Lidocaine (Lidoderm 5% Patch*) 1 patch TRANSDERM Q24H [facility] Last Admin: 02/09/19 18:04 Dose: 1 patch Magnesium Hydroxide (Milk Of [place]cullen Liq*) 30 ml PO Q6H PRN PRN Reason: CONSTIPATION Last Admin: 02/01/19 11:29 Dose: 30 ml Miscellaneous (Ativan Pyxis Uribe) 1 ea N/A .ATIVAN IV URIBE PRN PRN Reason: PYXIS URIBE Morphine Sulfate (Morphine Inj (Syringe))*) 2 mg IV Q2H PRN PRN Reason: PAIN - SEVERE Last Admin: 02/10/19 12:58 Dose: 2 mg Oxycodone HCl (Roxycodone Tab*) 5 mg PO Q6H PRN PRN Reason: PAIN - MODERATE Last Admin: 02/09/19 18:09 Dose: 5 mg Pharmacy Consult (Vancomycin Per Pharmacy*) 1 note FOLLOW UP .VANC PER PHARMACY [facility]; Protocol Pharmacy Profile Note (Lidocaine Patch Remove*) 1 note PATCH OFF 0600 [facility] Last Admin: 02/10/19 07:34 Dose: 1 note Polyethylene Glycol/Electrolytes (Miralax*) 17 gm PO DAILY [facility] Last Admin: 02/10/19 11:06 Dose: 17 gm Senna (Senokot 8.6 Mg Tab*) 1 tab PO DAILY [facility] Last Admin: 02/10/19 11:07 Dose: 1 tab Vital Signs - 8 hr 02/10/19 02/10/19 02/10/19 10:28 10:30 11:07 Temperature 98 F Pulse Rate 90 Respiratory 22 22 20 Rate Blood Pressure 166/72 (mmHg) O2 Sat by Pulse 95 Oximetry 02/10/19 02/10/19 02/10/19 12:58 13:01 15:33 Temperature 98.4 F Pulse Rate 106 Respiratory 22 22 18 Rate Blood Pressure 142/93 (mmHg) O2 Sat by Pulse 100 Oximetry 02/10/19 16:00 Temperature Pulse Rate Respiratory Rate Blood Pressure (mmHg) O2 Sat by Pulse 100 Oximetry Oxygen Devices in Use Now: Nasal Cannula Appearance: awake, alert. no distress Eyes: No Scleral Icterus, - - EOMI Ears/Nose/Mouth/Throat: Mucous Membranes Moist Neck: NL Appearance and Movements; NL JVP, Trachea Midline Respiratory: Symmetrical Chest Expansion and Respiratory Effort, - - diminshed breath sound. expirartoy wheezing Cardiovascular: NL Sounds; No Murmurs; No JVD, No Edema - edema + Abdominal: NL Sounds; No Tenderness; No Distention Lymphatic: No Cervical Adenopathy Extremities: - - + edema Neurological: Alert and Oriented x 3 Result Diagrams: 02/10/19 16:15 02/10/19 16:15 Additional Lab and Data: Laboratory Results - last 24 hr 02/09/19 02/09/19 02/09/19 06:12 06:12 13:00 WBC 15.2 H RBC 3.21 L Hgb 9.1 L Hct 28 L MCV 86 MCH 28 MCHC 33 RDW 16 H Plt Count 575 H MPV 7.2 L Neut % (Auto) 85.9 Lymph % (Auto) 5.2 [place] % (Auto) 7.6 Eos % (Auto) 0.5 Baso % (Auto) 0.8 Absolute Neuts (auto) 13.1 H Absolute Lymphs (auto) 0.8 L Absolute Monos (auto) 1.2 H Absolute Eos (auto) 0.1 Absolute Basos (auto) 0.1 Absolute Nucleated RBC 0.0 Nucleated RBC % 0.0 Sodium 137 Potassium 3.5 Chloride 103 Carbon Dioxide 29 Anion Gap 5 BUN 15 Creatinine 0.74 Est GFR ( Amer) 92.1 Est GFR (Non-Af Amer) 76.1 BUN/Creatinine Ratio 20.3 H Glucose 105 H Calcium 7.8 L Lactate Dehydrogenase 180 C-Reactive Protein 244.09 H Total Protein 5.6 L Fluid Source Pleural fluid Fluid Volume 30 Fluid Color Yellow Fluid Appearance Clear Fluid WBC 189 Fluid RBC 1181 Fluid Tot Cell Count 100 Fluid Neutrophils 99 Fluid Monocytes 1 Fluid Cell Count Rvw By Fluid Comment Microbiology and Other Data: Microbiology 02/04/19 17:18 Blood Venous Aerobic Blood Culture - Final No Growth Day 5 02/04/19 17:18 Blood Venous Anaerobic Blood Culture - Final No Growth Day 5 02/09/19 13:00 Pleural Fluid Gram Stain - Final 02/04/19 13:16 Blood Venous Aerobic Blood Culture - Final No Growth Day 5 02/04/19 13:16 Blood Venous Anaerobic Blood Culture - Final No Growth Day 5 01/30/19 13:30 Misc Source (See Comment) Fungal Culture - Preliminary 02/05/19 03:00 Urine Urine Culture - Final Pseudomonas Aeruginosa 11/12/19 10:11 Blood Venous Aerobic Blood Culture - Final No Growth Day 5 02/01/19 10:11 Blood Venous Anaerobic Blood Culture - Final No Growth Day 5 02/01/19 10:11 Blood Venous Aerobic Blood Culture - Final No Growth Day 5 02/01/19 10:11 Blood Venous Anaerobic Blood Culture - Final No Growth Day 5 02/02/19 12:59 Wound Anaerobic Culture - Final No Growth Day 4 02/02/19 12:59 Wound Skin and Soft Tissue MRSA/MSSA (PCR - Final Mrsa Negative S.aureus Positive 02/02/19 12:59 Wound Gram Stain - Final 02/02/19 12:59 Wound Wound Culture - Final Staphylococcus Aureus 01/30/19 17:12 Wound - Shoulder Left Anaerobic Culture - Final 01/30/19 17:12 Wound - Shoulder Left Skin and Soft Tissue MRSA/MSSA (PCR - Final Mrsa Negative S.aureus Positive 01/30/19 17:12 Wound - Shoulder Left Gram Stain - Final 01/30/19 17:12 Wound - Shoulder Left Wound Culture - Final Staphylococcus Aureus 01/30/19 13:30 Body Fluid Gram Stain - Final 01/30/19 13:30 Body Fluid Body Fluid Culture - Final Staphylococcus Aureus 01/30/19 13:30 Body Fluid Anaerobic Culture - Final 01/30/19 13:30 Body Fluid Skin and Soft Tissue MRSA/MSSA (PCR - Final Mrsa Negative S.aureus Positive 01/30/19 13:30 Body Fluid Acid Fast Bacilli Smear - Final 01/30/19 09:32 Blood Venous Aerobic Blood Culture - Final Staphylococcus Aureus 01/30/19 09:32 Blood Venous Anaerobic Blood Culture - Final Staphylococcus Aureus 01/30/19 09:32 Blood Venous Blood MRSA/MSSA (PCR) - Final Mrsa Negative S.aureus Positive 01/30/19 09:32 Blood Venous Aerobic Blood Culture - Final Staphylococcus Aureus 01/30/19 09:32 Blood Venous Anaerobic Blood Culture - Final Staphylococcus Aureus 01/30/19 09:32 Blood Venous Blood MRSA/MSSA (PCR) - Final Mrsa Negative S.aureus Positive 01/28/19 15:51 Urine Urine Culture - Final Staphylococcus Aureus Enterococcus Faecalis 01/29/19 04:50 Blood Venous Aerobic Blood Culture - Final Staphylococcus Aureus 01/29/19 04:50 Blood Venous Anaerobic Blood Culture - Final Staphylococcus Aureus 01/29/19 04:50 Blood Venous Blood MRSA/MSSA (PCR) - Final Mrsa Negative S.aureus Positive 01/28/19 17:25 Blood Venous Aerobic Blood Culture - Final Staphylococcus Aureus 01/28/19 17:25 Blood Venous Anaerobic Blood Culture - Final Staphylococcus Aureus 01/28/19 17:25 Blood Venous Blood MRSA/MSSA (PCR) - Final Mrsa Negative S.aureus Positive 01/28/19 22:49 Nasal Nasal Screen MRSA (PCR) - Final Mrsa Not Detected Assess/Plan/Problems-Billing 78 female PMH GERD, OA, osteoporosis, recent L hip intertrochanteric fracture s /p IMN (10/2018), and recent shingles s/p acyclovir and recently started opioids and muscle relaxer, presents after being found down. Found with high fever, and blood, urine, and L shoulder joint growing MSSA. Course c/b persistent sepsis, hypoxic respiratory failure, large loculated appearing right pleural effusion, constipation, pain in right flank and intermittently in abdomen. s/p thora w/ planned chest tube 02/10. - Patient Problems (1) Acute respiratory failure with hypoxia Current Visit: Yes Status: Acute Code(s): J96.01 - ACUTE RESPIRATORY FAILURE WITH HYPOXIA SNOMED Code(s): 26067367 Comment: - secondary to large loculated pleural effusion. s/p chest tube today 02/10/[address] Szymanski - Required one dose lasix 20 mg IV. - Follow up closely with surgery and pulmonary (2) Loculated pleural effusion Current Visit: Yes Status: Acute Code(s): J90 - PLEURAL EFFUSION, NOT ELSEWHERE CLASSIFIED SNOMED Code(s): 153857468 Comment: - s/p Thoracentesis. S/p Chest tube today by Dr. Szymanski. - Will need TPA administration to further facilitate lysis and drainage. - Antibiotics cefepime and vanco and will require at least 2 weeks of ongoing abx even after the chest tube removed. (3) MSSA bacteremia Current Visit: Yes Status: Acute Code(s): R78.81 - BACTEREMIA SNOMED Code( s): 328791966 Comment: - Pt with multiple blood cultures positive for MSSA. - Most recent cultures obtained on 02/01 and 02/04 have NGTD. - TTE and NIRU both negative for signs of endocarditis. - Will need at least 2 weeks IV Abx even after the chest tube is removed. - montior CRP and WBC - Continue vancomycin Added cefepime 02/08 early AM. (4) Post herpetic neuralgia Current Visit: Yes Status: Acute Code(s): B02.29 - OTHER POSTHERPETIC NERVOUS SYSTEM INVOLVEMENT SNOMED Code(s): 1216208 Comment: - Pain in the R flank wrapping around to front - Continue gabapentin 600mg in the AM, 900mg in the PM, and 600mg at noon. Lidocaine patch helped her pain. (5) GERD (gastroesophageal reflux disease) Current Visit: Yes Status: Acute Code(s): K21.9 - GASTRO-ESOPHAGEAL REFLUX DISEASE WITHOUT ESOPHAGITIS SNOMED Code(s): 755874884 Comment: Continue famotidine. Status and Disposition: medicine inpatient. sepsis still.
[2019-02-10] MEDS: Vancomycin(*) 750 MG in NS 0.9% 250 ML* 250 ML IVPB SCH (17:53)
[2019-02-10] MEDS: Lidocaine PATCH 5%* 1 PATCH TRANSDERM SCH (18:32)
[2019-02-10] MEDS: Vancomycin(*) 500 MG in NS 0.9% 250 ML* 250 ML IVPB SCH (18:39)
[2019-02-10] MEDS: oxyCODONE TAB* 5 MG TAB PO PRN (21:07)
[2019-02-11] MEDS: Cefepime 2 GM in Dextrose(*) 2 GM/50 ML BAG IV SCH ×2 (01:01→12:32)
--- NOTE | 2019-02-11 02:09 | OP ---
CC: Primary Care Doctor; Dr. Moriah Guy * DATE OF OPERATION: 02/10/19 - ROOM #413 DATE OF : 42 SURGEON: Ramirez Szymanski MD [employer] TECHNICIAN: None. ANESTHESIA: Local anesthesia. PRE-OP DIAGNOSIS: Right pleural effusion. POST-OP DIAGNOSIS: Right pleural effusion. OPERATIVE PROCEDURE: Right tube thoracostomy. ESTIMATED BLOOD LOSS: Minimal. DRAINS: 350 cc of straw-colored fluid removed. SPECIMENS: None. COMPLICATIONS: None. Chest tube connected to Pleur-evac and to low continuous wall suction. INDICATIONS: I had seen Ms. Ambrosio the day before in consultation, recommended a CT scan of the chest and this was reviewed. After the review, had a discussion with the hospitalist and agreed with chest tube placement. I discussed the risks, benefits, and alternatives with the patient who signed the consent willingly. DESCRIPTION OF PROCEDURE: The patient positioned on the hospital bed. Her right chest was prepped and draped in the standard surgical fashion. A time- out was performed. Injection with lidocaine was made along the second intercostal space. An incision was made and a 32 [place] chest tube with trocar was inserted into the right chest. Immediately, significant amount of straw- colored fluid was evacuated. The tube was sutured then to the skin and sterile dressing applied. The patient tolerated the procedure well. [id number]/[facility] #: [id number] MTDD
[2019-02-11] MEDS: Vancomycin(*) 500 MG in NS 0.9% 250 ML* 250 ML IVPB SCH ×2 (05:47→17:07)
[2019-02-11] MEDS: Lidocaine Patch REMOVE* 1 NOTE MISC PATCH OFF SCH (06:00)
[2019-02-11 06:45] LABS: Calcium 7.7 mg/dL (8.6-10.3); EGFR African American 84.2 (>60); EGFR Non-African American 69.6 (>60); Magnesium 1.9 mg/dL (1.9-2.7); Phosphorus 3.6 mg/dL (2.5-5.0); Potassium 3.5 mmol/L (3.5-5.0)
[2019-02-11] MEDS: oxyCODONE TAB* 5 MG TAB PO PRN ×2 (07:02→17:11)
[2019-02-11 08:00] LABS: C Reactive Protein 131.47 mg/L (<8.01)
[2019-02-11] MEDS: Morphine INJ* 2 MG/ML 1 ML SYRINGE (TWO MG - NEW SYRINGE VERSION) IV PRN ×4 (08:28→20:34)
--- NOTE | 2019-02-11 09:10 | PN ---
Progress Note - Progress Note Date of Service: 02/11/19 SOAP: Subjective:no dyspnea [] Objective: Vital Signs: Temp Pulse Resp BP Pulse Ox 99.9 F 99 18 164/69 95 02/11/19 08:26 02/11/19 08:26 02/11/19 08:28 02/11/19 08:26 02/11/19 08:26 lungs:decreased bs R chest;chest tube intact and draining serous fluid;exit site intact with sutures,dry;pleurevac level 550ml at present;drained 125ml since 1430 yesterday [] Assessment:R pleural effusion [] Plan:after informed consent signed and timeout performed,pleurodesis done per protocol today with Altaplase and Dornase as recommended by ;pt was premedicated with IV Morphine;timeoutpt tolerated well;pleurodesis will be repeated Thursday and Thursday by []
[2019-02-11] MEDS: Cholecalciferol TAB* 1000 UNITS PO SCH (09:26)
[2019-02-11] MEDS: Polyethylene Glycol 3350* 17 GM PACKET PO SCH (09:26)
[2019-02-11] MEDS: Senna TAB 8.6 mg* TAB PO SCH (09:27)
[2019-02-11] MEDS: Lactobacillus Acidophilus* 1 TAB PO SCH ×2 (09:27→20:34)
[2019-02-11] MEDS: Gabapentin CAP(*) 300 MG PO SCH ×3 (09:27→20:34)
[2019-02-11 09:34] LABS: Hematocrit 25 % (35-47); Hemoglobin 8.1 g/dL (12.0-16.0); Mean Corpuscular HGB Conc 33 g/dL (31-36); Mean Corpuscular Hemoglobin 28 pg (27-31); Mean Corpuscular Volume 85 fL (80-97); Mean Platelet Volume 7.4 fL (7.4-10.4); Platelet Count 365 10^3/uL (150-450); Red Blood Count 2.89 10^6 /uL (3.70-4.87); Red Cell Distribution Width 15 % (10-15); White Blood Count 9.4 10^3/uL (3.5-10.8)
[2019-02-11] MEDS: Alteplase (CATHFLO)* 10 MG in NS 0.9% 50 ML* 40 ML INTRAPLEUR SCH (11:09)
[2019-02-11] MEDS: DORNASE ALFA 1 mg/ml(NF) 5 MG in NS 0.9% 50 ML INTRAPLEUR SCH (11:09)
--- NOTE | 2019-02-11 11:36 | PN ---
Progress Note - Progress Note Date of Service: 02/11/19 SOAP: Subjective: [Pt seen at bedside. She feels fatigued today, findings of pleural effusion requiring chest tube. L shoulder is not painful. No reported joint pain. Denies fever or chills. Objective: []Gen: Appears well, NAD LUE: Shoulder dressing is c/d/i . No swelling or warmth of the left shoulder. Able to passively flex shoulder to 90 degrees forward flexion and abduction without pain. Vital Signs Temp 99.9 F 02/11/19 08:26 Pulse 99 02/11/19 08:26 Resp 18 02/11/19 09:27 BP 164/69 02/11/19 08:26 Pulse Ox 95 02/11/19 08:26 Intake & Output 02/10/19 02/11/19 02/11/19 18:59 06:59 18:59 Intake Total 2380 985 Output Total 525 Balance 2380 460 Weight 168 lb 9.6 oz Intake: IV Fluids 100 60 ABX - CEFEPIME 100 NS 60 IVPB 285 ABX - VANCOMYCIN 285 Oral 2280 640 Output: Chest Tube #1 525 Other: Estimated Void Medium Large # Bowel Movements 1 0 Estimated Stool Amount Medium # Voids 3 2 Assessment: []1. MSSA bacteremia. Staphylococcal bacteruria usually due to bacteremia and not a primary infection. NIRU with no vegetation. 2. Septic arthritis left shoulder 3. Post herpetic neuralgia 4. Pleural effusion Plan: [] WBAT and ROM as tolerated L shoulder \ Continue with chest tube management per consulting team
--- NOTE | 2019-02-11 11:53 | PN ---
Progress Note - Progress Note Date of Service: 02/11/19 SOAP: Subjective: CC: Left shoulder septic arthritis and pleural effusion HPI: Ms. Ambrosio is a 78 year old woman with PMH significant for GERD, osteoarthritis, and osteoporosis; who presented to the the hospital with left shoulder pain. She was found to have staph aureus bacteremia and left shoulder septic arthritis. She developed fevers over the weekend, since resolved, now with a large loculated pleural effusion. Denies fever, chills, nausea, vomiting , diarrhea, or urinary symptoms. Reports discomfort to the right flank/upper back, she feels like this continues to improve. Objective: Vital Signs - 8 hr 02/11/19 02/11/19 02/11/19 07:02 08:00 08:26 Temperature 99.9 F Pulse Rate 99 Respiratory 20 18 22 Rate Blood Pressure 164/69 (mmHg) O2 Sat by Pulse 95 95 Oximetry Physical Exam: General: NAD, sitting up in a chair Neurological: Alert and Oriented x4 HEENT: Moist MM, no thrush Cardiovascular: Heart rate regular Respiratory: Lung sounds clear, diminished Abdominal: Bowel sounds present; ABD soft, non tender and non distended MSK: No tenderness with palpation of the left shoulder, no edema or erythema Skin: No rash Laboratory Results - last 24 hr 02/09/19 02/09/19 02/09/19 13:00 13:00 13:00 Fluid Source Pleural Pleural Pleural Fluid Glucose 44 Fluid Total Protein 4.1 Fluid LDH 772 02/10/19 02/10/19 02/10/19 16:15 16:15 16:15 WBC 13.4 H RBC 3.51 L Hgb 9.9 L Hct 30 L MCV 85 MCH 28 MCHC 33 RDW 15 Plt Count 576 H MPV 6.7 L Neut % (Auto) 83.1 Lymph % (Auto) 8.8 [place] % (Auto) 6.8 Eos % (Auto) 0.6 Baso % (Auto) 0.7 Absolute Neuts (auto) 11.1 H Absolute Lymphs (auto) 1.2 Absolute Monos (auto) 0.9 H Absolute Eos (auto) 0.1 Absolute Basos (auto) 0.1 Absolute Nucleated RBC 0.0 Nucleated RBC % 0.0 Sodium 136 Potassium 3.8 Chloride 101 Carbon Dioxide 29 Anion Gap 6 BUN 16 Creatinine 0.77 Est GFR ( Amer) 88.0 Est GFR (Non-Af Amer) 72.7 BUN/Creatinine Ratio 20.8 H Glucose 112 H Calcium 8.1 L Total Bilirubin 0.80 AST 40 H ALT 15 Alkaline Phosphatase 458 H C-Reactive Protein 199.39 H Total Protein 6.5 Albumin 2.3 L Globulin 4.2 H Albumin/Globulin Ratio 0.5 L Vancomycin Trough 19.0 02/10/19 02/11/19 02/11/19 16:15 06:00 06:00 WBC 9.4 RBC 2.89 L Hgb 8.1 L Hct 25 L MCV 85 MCH 28 MCHC 33 RDW 15 Plt Count 365 MPV 7.4 INR (Anticoag Therapy) 1.21 H Sodium 139 Potassium 3.5 Chloride 103 Carbon Dioxide 32 Anion Gap 4 BUN 16 Creatinine 0.80 Est GFR ( Amer) 84.2 Est GFR (Non-Af Amer) 69.6 BUN/Creatinine Ratio 20.0 Glucose 98 Calcium 7.7 L Phosphorus 3.6 Magnesium 1.9 C-Reactive Protein 131.47 H Microbiology 02/09/19 13:00 Gram Stain - Final Pleural Fluid Body Fluid Culture - Preliminary No Growth Day 2 02/04/19 17:18 Aerobic Blood Culture - Final Blood Venous No Growth Day 5 Anaerobic Blood Culture - Final No Growth Day 5 02/04/19 13:16 Aerobic Blood Culture - Final Blood Venous No Growth Day 5 Anaerobic Blood Culture - Final No Growth Day 5 01/30/19 13:30 Fungal Culture - Preliminary Misc Source (See Comment) 02/05/19 03:00 Urine Culture - Final Urine Pseudomonas Aeruginosa 02/01/19 10:11 Aerobic Blood Culture - Final Blood Venous No Growth Day 5 Anaerobic Blood Culture - Final No Growth Day 5 02/01/19 10:11 Aerobic Blood Culture - Final Blood Venous No Growth Day 5 Anaerobic Blood Culture - Final No Growth Day 5 02/02/19 12:59 Anaerobic Culture - Final Wound No Growth Day 4 Skin and Soft Tissue MRSA/MSSA (PCR - Final Mrsa Negative S.aureus Positive Gram Stain - Final Wound Culture - Final Staphylococcus Aureus 01/30/19 17:12 Anaerobic Culture - Final Wound - Shoulder Left Skin and Soft Tissue MRSA/MSSA (PCR - Final Mrsa Negative S.aureus Positive Gram Stain - Final Wound Culture - Final Staphylococcus Aureus 01/30/19 13:30 Gram Stain - Final Body Fluid Body Fluid Culture - Final Staphylococcus Aureus Anaerobic Culture - Final Skin and Soft Tissue MRSA/MSSA (PCR - Final Mrsa Negative S.aureus Positive Acid Fast Bacilli Smear - Final 01/30/19 09:32 Aerobic Blood Culture - Final Blood Venous Staphylococcus Aureus Anaerobic Blood Culture - Final Staphylococcus Aureus Blood MRSA/MSSA (PCR) - Final Mrsa Negative S.aureus Positive 01/30/19 09:32 Aerobic Blood Culture - Final Blood Venous Staphylococcus Aureus Anaerobic Blood Culture - Final Staphylococcus Aureus Blood MRSA/MSSA (PCR) - Final Mrsa Negative S.aureus Positive 01/28/19 15:51 Urine Culture - Final Urine Staphylococcus Aureus Enterococcus Faecalis 01/29/19 04:50 Aerobic Blood Culture - Final Blood Venous Staphylococcus Aureus Anaerobic Blood Culture - Final Staphylococcus Aureus Blood MRSA/MSSA (PCR) - Final Mrsa Negative S.aureus Positive 01/28/19 17:25 Aerobic Blood Culture - Final Blood Venous Staphylococcus Aureus Anaerobic Blood Culture - Final Staphylococcus Aureus Blood MRSA/MSSA (PCR) - Final Mrsa Negative S.aureus Positive 01/28/19 22:49 Nasal Screen MRSA (PCR) - Final Nasal Mrsa Not Detected Assessment: 1. Parapneumonic effusion and empyema. S/P thoracentesis and chest tube placement. Afebrile for > 48 hours, leukocytosis resolved. Continues to require supplemental oxygen, and reports mild shortness of breath. Pleural fluid with no growth. 2. MSSA bacteremia. NIRU with no vegetation. Repeat blood cultures with no growth on day 5. 3. Septic arthritis, left shoulder. Cultures with staph aureus. S/P washout x2. Leukocytosis, and fevers resolved. She was changed from ancef to vancomycin last week in preparation for discharge to SNF as they will not do TID dosing of IV ABX. ? if component of fevers was secondary to a drug reaction to the Ancef. 4. Pseudomonas bacteruria. Suspect this represents asymtomatic bacteruria. [place] count is <10K. Denies urinary symptoms or flank pain. Plan: Discontinue cefepime. Continue Vancomycin, trough goal 15-20, Day . Weekly labs while on IV ABX: CBC, CMP, and CRP.
[2019-02-11 14:13] LABS: ABS Basophils 0.1 10^3/ul (0-0.2); ABS Eosinophils 0.1 10^3/ul (0-0.6); ABS Lymphocytes 0.9 10^3/ul (1.0-4.8); ABS Monocytes 0.9 10^3/ul (0-0.8); ABS Neutrophils 7.4 10^3/ul (1.5-7.7); Eosinophil % 1.3 %; Lymphocyte % 9.2 %
--- NOTE | 2019-02-11 15:30 | PN ---
Progress Note - Progress Note Date of Service: 02/11/19 - Pulm f/u note Note: Pt seen and examined at bedside. Pt reports feeling better, has mild discomfort at chest tube insertion site Active Medications Generic Name Dose Route Start Last Admin Trade Name Freq PRN Reason Stop Dose Admin Acetaminophen 975 mg 01/29/19 09:52 02/09/19 18:09 Tylenol Tab* PO 975 mg Q8H PRN Administration MILD PAIN or TEMP > 100.4 Cholecalciferol 2,000 units 01/31/19 09:00 02/11/19 09:26 Vitamin D Tab* PO 2,000 units DAILY ESCOBAR Administration Docusate Sodium 100 mg 02/07/19 13:27 02/07/19 19:56 Colace Cap* PO 100 mg DAILY PRN Administration CONSTIPATION Famotidine 20 mg 01/29/19 15:26 Pepcid Tab* PO DAILY PRN HEARTBURN Gabapentin 600 mg 02/06/19 21:00 02/11/19 14:42 Neurontin Cap(*) PO 600 mg TID ESCOBAR Administration Heparin Sodium (Porcine) 1 - 3 ml 02/08/19 18:00 02/11/19 05:47 Heparin Flush Picc/Ml/Cvc(*) FLUSH 1 ml 0600,1800 ESCOBAR Administration Protocol Cefepime HCl 2 gm in 50 mls @ 100 mls/hr 02/08/19 01:00 02/11/19 12:32 Maxipime 2 Gm In Dextrose Duplex (*) IV 100 mls/hr Q12H ESCOBAR Administration Alteplase, Recombinant 10 mg/ 50 mls @ 0 mls/hr 02/11/19 08:00 02/11/19 11:09 Sodium Chloride INTRAPLEUR 02/13/19 08:01 Not Given DAILY@0800 ESCOBAR As Directed Dornase Levi 5 mg/ Sodium 50 mls @ 0 mls/hr 02/11/19 08:00 02/11/19 11:09 Chloride INTRAPLEUR 02/13/19 08:01 Not Given DAILY@0800 ESCOBAR As Directed Vancomycin HCl 500 mg/ Sodium 250 mls @ 166.667 mls/hr 02/10/19 18:00 05:47 Chloride IVPB 166.667 mls/hr Q12H ESCOBAR Administration Lactobacillus Rhamnosus 1 tab 01/29/19 21:00 02/11/19 09:27 Lactobacillus Acidophilus* PO 1 tab BID ESCOBAR Administration Lidocaine 1 patch 02/02/19 18:00 02/10/19 18:32 Lidoderm 5% Patch* TRANSDERM 1 patch Q24H ESCOBAR Administration Magnesium Hydroxide 30 ml 01/29/19 10:17 02/01/19 11:29 Milk Of Magncullen Liq* PO 30 ml Q6H PRN Administration CONSTIPATION Miscellaneous 1 ea 01/30/19 10:57 Ativan Pyxis Ureña N/A .ATIVAN IV UREÑA PRN PYXIS UREÑA Morphine Sulfate 2 mg 02/06/19 14:26 02/11/19 12:07 Morphine Inj (Syringe))* IV 2 mg Q2H PRN Administration PAIN - SEVERE Oxycodone HCl 5 mg 02/09/19 17:05 02/11/19 07:02 Roxycodone Tab* PO 5 mg Q6H PRN Administration PAIN - MODERATE Pharmacy Consult 1 note 02/04/19 11:00 Vancomycin Per Pharmacy* FOLLOW UP .VANC PER PHARMACY ESCOBAR Protocol Pharmacy Profile Note 1 note 02/03/19 06:00 02/11/19 06:00 Lidocaine Patch Remove* PATCH OFF 1 note 0600 ESCOBAR Administration Pharmacy Profile Note 1 note 02/12/19 05:30 Vancomycin Trough Check FOLLOW UP 02/12/19 05:31 0530 ONE Polyethylene Glycol/Electrolytes 17 gm 02/07/19 14:00 02/11/19 09:26 Miralax* PO 17 gm DAILY ESCOBAR Administration Senna 1 tab 02/07/19 14:00 02/11/19 09:27 Senokot 8.6 Mg Tab* PO 1 tab DAILY ESCOBAR Administration Vital Signs Temp Pulse Resp BP Pulse Ox 98.8 F 105 18 141/72 91 02/11/19 14:32 02/11/19 14:32 02/11/19 14:42 02/11/19 14:32 02/11/19 14:32 O/E: Pt in NAD HEENT: PERRLA Lungs: Diminished at bases b/l,R>L, chest tube in place CVS: S1, S2+ Abd: Soft, BS+ Ext: Normal ROM Skin: No rash Neuro: NO focal deficits Laboratory Results - last 24 hr 02/09/19 02/10/19 02/10/19 13:00 16:15 16:15 WBC RBC Hgb Hct MCV MCH MCHC RDW Plt Count MPV Neut % (Auto) Lymph % (Auto) Orange % (Auto) Eos % (Auto) Baso % (Auto) Absolute Neuts (auto) Absolute Lymphs (auto) Absolute Monos (auto) Absolute Eos (auto) Absolute Basos (auto) Absolute Nucleated RBC Neutrophils % Lymphocytes % Monocytes % Eosinophils % Basophils % Nucleated RBC % Normal RBC Morphology INR (Anticoag Therapy) Sodium 136 Potassium 3.8 Chloride 101 Carbon Dioxide 29 Anion Gap 6 BUN 16 Creatinine 0.77 Est GFR ( Amer) 88.0 Est GFR (Non-Af Amer) 72.7 BUN/Creatinine Ratio 20.8 H Glucose 112 H Calcium 8.1 L Phosphorus Magnesium Total Bilirubin 0.80 AST 40 H ALT 15 Alkaline Phosphatase 458 H C-Reactive Protein 199.39 H Total Protein 6.5 Albumin 2.3 L Globulin 4.2 H Albumin/Globulin Ratio 0.5 L Fluid Source Pleural Fluid Glucose 44 Vancomycin Trough 19.0 02/10/19 02/10/19 02/11/19 16:15 16:15 06:00 WBC 13.4 H RBC 3.51 L Hgb 9.9 L Hct 30 L MCV 85 MCH 28 MCHC 33 RDW 15 Plt Count 576 H MPV 6.7 L Neut % (Auto) 83.1 Lymph % (Auto) 8.8 Orange % (Auto) 6.8 Eos % (Auto) 0.6 Baso % (Auto) 0.7 Absolute Neuts (auto) 11.1 H Absolute Lymphs (auto) 1.2 Absolute Monos (auto) 0.9 H Absolute Eos (auto) 0.1 Absolute Basos (auto) 0.1 Absolute Nucleated RBC 0.0 Neutrophils % Lymphocytes % Monocytes % Eosinophils % Basophils % Nucleated RBC % 0.0 Normal RBC Morphology INR (Anticoag Therapy) 1.21 H Sodium 139 Potassium 3.5 Chloride 103 Carbon Dioxide 32 Anion Gap 4 BUN 16 Creatinine 0.80 Est GFR ( Amer) 84.2 Est GFR (Non-Af Amer) 69.6 BUN/Creatinine Ratio 20.0 Glucose 98 Calcium 7.7 L Phosphorus 3.6 Magnesium 1.9 Total Bilirubin AST ALT Alkaline Phosphatase C-Reactive Protein 131.47 H Total Protein Albumin Globulin Albumin/Globulin Ratio Fluid Source Fluid Glucose Vancomycin Trough 02/11/19 06:00 WBC 9.4 RBC 2.89 L Hgb 8.1 L Hct 25 L MCV 85 MCH 28 MCHC 33 RDW 15 Plt Count 365 MPV 7.4 Neut % (Auto) 79.4 Lymph % (Auto) 9.2 Orange % (Auto) 9.1 Eos % (Auto) 1.3 Baso % (Auto) 1.0 Absolute Neuts (auto) 7.4 Absolute Lymphs (auto) 0.9 L Absolute Monos (auto) 0.9 H Absolute Eos (auto) 0.1 Absolute Basos (auto) 0.1 Absolute Nucleated RBC 0.0 Neutrophils % 80.0 Lymphocytes % 9.0 Monocytes % 9.0 Eosinophils % 1.0 Basophils % 1.0 Nucleated RBC % 0.0 Normal RBC Morphology Normal INR (Anticoag Therapy) Sodium Potassium Chloride Carbon Dioxide Anion Gap BUN Creatinine Est GFR ( Amer) Est GFR (Non-Af Amer) BUN/Creatinine Ratio Glucose Calcium Phosphorus Magnesium Total Bilirubin AST ALT Alkaline Phosphatase C-Reactive Protein Total Protein Albumin Globulin Albumin/Globulin Ratio Fluid Source Fluid Glucose Vancomycin Trough I/R: 78 female PMH GERD, OA, osteoporosis, recent L hip intertrochanteric fracture s/p IMN (10/2018), and recent shingles s/p acyclovir and recently started opioids and muscle relaxer, presents after being found down. Found to have bactremia and sepsis with L shoulder joint growing MSSA. Course c/b persistent sepsis, hypoxic respiratory failure, large loculated appearing right pleural effusion. Pt s/p thora 02/09 with U/S evidence of loculations, only 35cc removed Fluid was dark yellow, turbid with elevated LDH, protein and very low glucose Fluid characteristics suggestive of complicated para pneumonic effusion Pt had chest tube placed 02/10 by surgery Pt is high risk for VATS guided decortication Pt started on thrombolytics and DNAse through chest tube, able to drain more fluid Will continue for 3 days and reassess with rpt CT c/w abx. Abx choice as per ID. D/w surgery D/w Dr Little
--- NOTE | 2019-02-11 16:46 | PN ---
Subjective Date of Service: 02/11/19 Interval History: patient seen today, feels and appears more comfortable than yesterday. no fever. s/p Tpa via chest tube. Remains on vanco and cefepime. Appreciate greatly Pulm/Surgery/ID and ortho input. We had family meeting today and were update regarding patient condition and possible course Past Medical History: Unchanged from Admission Objective Active Medications: Acetaminophen (Tylenol Tab*) 975 mg PO Q8H PRN PRN Reason: MILD PAIN or TEMP > 100.4 Last Admin: 02/09/19 18:09 Dose: 975 mg Cholecalciferol (Vitamin D Tab*) 2,000 units PO DAILY ESCOBAR Last Admin: 02/11/19 09:26 Dose: 2,000 units Docusate Sodium (Colace Cap*) 100 mg PO DAILY PRN PRN Reason: CONSTIPATION Last Admin: 02/07/19 19:56 Dose: 100 mg Famotidine (Pepcid Tab*) 20 mg PO DAILY PRN PRN Reason: HEARTBURN Gabapentin (Neurontin Cap(*)) 600 mg PO TID [facility] Last Admin: 02/11/19 14:42 Dose: 600 mg Heparin Sodium (Porcine) (Heparin Flush Picc/Ml/Cvc(*)) 1 - 3 ml FLUSH 0600, 1800 [facility]; Protocol Last Admin: 02/11/19 05:47 Dose: 1 ml Alteplase, Recombinant 10 mg/ (Sodium Chloride) 50 mls @ 0 mls/hr INTRAPLEUR DAILY@0800 [facility] Stop: 02/13/19 08:01 Last Admin: 02/11/19 11:09 Dose: Not Given Dornase Levi 5 mg/ Sodium (Chloride) 50 mls @ 0 mls/hr INTRAPLEUR DAILY@0800 [facility] Stop: 02/13/19 08:01 Last Admin: 02/11/19 11:09 Dose: Not Given Vancomycin HCl 500 mg/ Sodium (Chloride) 250 mls @ 166.667 mls/hr IVPB Q12H [facility] Last Admin: 02/11/19 05:47 Dose: 166.667 mls/hr Lactobacillus Rhamnosus (Lactobacillus Acidophilus*) 1 tab PO BID [facility] Last Admin: 02/11/19 09:27 Dose: 1 tab Lidocaine (Lidoderm 5% Patch*) 1 patch TRANSDERM Q24H [facility] Last Admin: 02/10/19 18:32 Dose: 1 patch Magnesium Hydroxide (Milk Of Magnesia Liq*) 30 ml PO Q6H PRN PRN Reason: CONSTIPATION Last Admin: 02/01/19 11:29 Dose: 30 ml Miscellaneous (Ativan Pyxis Ureña) 1 ea N/A .ATIVAN IV UREÑA PRN PRN Reason: PYXIS UREÑA Morphine Sulfate (Morphine Inj (Syringe))*) 2 mg IV Q2H PRN PRN Reason: PAIN - SEVERE Last Admin: 02/11/19 12:07 Dose: 2 mg Oxycodone HCl (Roxycodone Tab*) 5 mg PO Q6H PRN PRN Reason: PAIN - MODERATE Last Admin: 02/11/19 07:02 Dose: 5 mg Pharmacy Consult (Vancomycin Per Pharmacy*) 1 note FOLLOW UP .VANC PER PHARMACY [facility]; Protocol Pharmacy Profile Note (Lidocaine Patch Remove*) 1 note PATCH OFF 0600 [facility] Last Admin: 02/11/19 06:00 Dose: 1 note Pharmacy Profile Note (Vancomycin Trough Check) 1 note FOLLOW UP 0530 ONE Stop: 02/12/19 05:31 Polyethylene Glycol/Electrolytes (Miralax*) 17 gm PO DAILY [facility] Last Admin: 02/11/19 09:26 Dose: 17 gm Senna (Senokot 8.6 Mg Tab*) 1 tab PO DAILY [facility] Last Admin: 02/11/19 09:27 Dose: 1 tab Vital Signs - 8 hr 02/11/19 02/11/19 02/11/19 09:27 12:07 14:32 Temperature 98.8 F Pulse Rate 105 Respiratory 18 20 20 Rate Blood Pressure 141/72 (mmHg) O2 Sat by Pulse 91 Oximetry 02/11/19 02/11/19 02/11/19 14:42 15:15 16:00 Temperature Pulse Rate 70 Respiratory 18 23 Rate Blood Pressure 146/71 (mmHg) O2 Sat by Pulse 95 95 Oximetry Oxygen Devices in Use Now: Nasal Cannula Appearance: awake, alert. no distress. Eyes: No Scleral Icterus Ears/Nose/Mouth/Throat: NL Teeth, Lips, Gums, Mucous Membranes Moist Neck: NL Appearance and Movements; NL JVP, Trachea Midline Respiratory: - - no wheezing. no distress. Chest tube in place Cardiovascular: NL Sounds; No Murmurs; No JVD, RRR, No Edema Abdominal: NL Sounds; No Tenderness; No Distention Extremities: No Edema Skin: - - old healing cutaneous scar Neurological: Alert and Oriented x 3 Result Diagrams: 02/11/19 06:00 02/11/19 06:00 Additional Lab and Data: Laboratory Results - last 24 hr 02/09/19 02/09/19 02/09/19 06:12 06:12 13:00 WBC 15.2 H RBC 3.21 L Hgb 9.1 L Hct 28 L MCV 86 MCH 28 MCHC 33 RDW 16 H Plt Count 575 H MPV 7.2 L Neut % (Auto) 85.9 Lymph % (Auto) 5.2 [place] % (Auto) 7.6 Eos % (Auto) 0.5 Baso % (Auto) 0.8 Absolute Neuts (auto) 13.1 H Absolute Lymphs (auto) 0.8 L Absolute Monos (auto) 1.2 H Absolute Eos (auto) 0.1 Absolute Basos (auto) 0.1 Absolute Nucleated RBC 0.0 Nucleated RBC % 0.0 Sodium 137 Potassium 3.5 Chloride 103 Carbon Dioxide 29 Anion Gap 5 BUN 15 Creatinine 0.74 Est GFR ( Amer) 92.1 Est GFR (Non-Af Amer) 76.1 BUN/Creatinine Ratio 20.3 H Glucose 105 H Calcium 7.8 L Lactate Dehydrogenase 180 C-Reactive Protein 244.09 H Total Protein 5.6 L Fluid Source Pleural fluid Fluid Volume 30 Fluid Color Yellow Fluid Appearance Clear Fluid WBC 189 Fluid RBC 1181 Fluid Tot Cell Count 100 Fluid Neutrophils 99 Fluid Monocytes 1 Fluid Cell Count Rvw By Fluid Comment Microbiology and Other Data: Microbiology 02/04/19 17:18 Blood Venous Aerobic Blood Culture - Final No Growth Day 5 02/04/19 17:18 Blood Venous Anaerobic Blood Culture - Final No Growth Day 5 02/09/19 13:00 Pleural Fluid Gram Stain - Final 02/04/19 13:16 Blood Venous Aerobic Blood Culture - Final No Growth Day 5 02/04/19 13:16 Blood Venous Anaerobic Blood Culture - Final No Growth Day 5 01/30/19 13:30 Misc Source (See Comment) Fungal Culture - Preliminary 02/05/19 03:00 Urine Urine Culture - Final Pseudomonas Aeruginosa 02/01/19 10:11 Blood Venous Aerobic Blood Culture - Final No Growth Day 5 02/01/19 10:11 Blood Venous Anaerobic Blood Culture - Final No Growth Day 5 02/01/19 10:11 Blood Venous Aerobic Blood Culture - Final No Growth Day 5 02/01/19 10:11 Blood Venous Anaerobic Blood Culture - Final No Growth Day 5 02/02/19 12:59 Wound Anaerobic Culture - Final No Growth Day 4 02/02/19 12:59 Wound Skin and Soft Tissue MRSA/MSSA (PCR - Final Mrsa Negative S.aureus Positive 02/02/19 12:59 Wound Gram Stain - Final 02/02/19 12:59 Wound Wound Culture - Final Staphylococcus Aureus 01/30/19 17:12 Wound - Shoulder Left Anaerobic Culture - Final 01/30/19 17:12 Wound - Shoulder Left Skin and Soft Tissue MRSA/MSSA (PCR - Final Mrsa Negative S.aureus Positive 01/30/19 17:12 Wound - Shoulder Left Gram Stain - Final 01/30/19 17:12 Wound - Shoulder Left Wound Culture - Final Staphylococcus Aureus 01/30/19 13:30 Body Fluid Gram Stain - Final 01/30/19 13:30 Body Fluid Body Fluid Culture - Final Staphylococcus Aureus 01/30/19 13:30 Body Fluid Anaerobic Culture - Final 01/30/19 13:30 Body Fluid Skin and Soft Tissue MRSA/MSSA (PCR - Final Mrsa Negative S.aureus Positive 01/30/19 13:30 Body Fluid Acid Fast Bacilli Smear - Final 01/30/19 09:32 Blood Venous Aerobic Blood Culture - Final Staphylococcus Aureus 01/30/19 09:32 Blood Venous Anaerobic Blood Culture - Final Staphylococcus Aureus 01/30/19 09:32 Blood Venous Blood MRSA/MSSA (PCR) - Final Mrsa Negative S.aureus Positive 01/30/19 09:32 Blood Venous Aerobic Blood Culture - Final Staphylococcus Aureus 01/30/19 09:32 Blood Venous Anaerobic Blood Culture - Final Staphylococcus Aureus 01/30/19 09:32 Blood Venous Blood MRSA/MSSA (PCR) - Final Mrsa Negative S.aureus Positive 01/28/19 15:51 Urine Urine Culture - Final Staphylococcus Aureus Enterococcus Faecalis 01/29/19 04:50 Blood Venous Aerobic Blood Culture - Final Staphylococcus Aureus 01/29/19 04:50 Blood Venous Anaerobic Blood Culture - Final Staphylococcus Aureus 01/29/19 04:50 Blood Venous Blood MRSA/MSSA (PCR) - Final Mrsa Negative S.aureus Positive 01/28/19 17:25 Blood Venous Aerobic Blood Culture - Final Staphylococcus Aureus 01/28/19 17:25 Blood Venous Anaerobic Blood Culture - Final Staphylococcus Aureus 01/28/19 17:25 Blood Venous Blood MRSA/MSSA (PCR) - Final Mrsa Negative S.aureus Positive 01/28/19 22:49 Nasal Nasal Screen MRSA (PCR) - Final Mrsa Not Detected Assess/Plan/Problems-Billing 78 female H GERD, OA, osteoporosis, recent L hip intertrochanteric fracture s /p IMN (10/2018), and recent shingles s/p acyclovir and recently started opioids and muscle relaxer, presents after being found down. Found with high fever, and blood, urine, and L shoulder joint growing MSSA. Course c/b persistent sepsis, hypoxic respiratory failure, large loculated appearing right pleural effusion, constipation, pain in right flank and intermittently in abdomen. s/p thora w/ planned chest tube 02/10. - Patient Problems (1) Acute respiratory failure with hypoxia Current Visit: Yes Status: Acute Code(s): J96.01 - ACUTE RESPIRATORY FAILURE WITH HYPOXIA SNOMED Code(s): 33014691 Comment: - secondary to large loculated pleural effusion. s/p chest tube today 02/10/[address] Szymanski - Required one dose lasix 20 mg IV 02/10/19. monitor daily - Follow up closely with surgery and pulmonary (2) Loculated pleural effusion Current Visit: Yes Status: Acute Code(s): J90 - PLEURAL EFFUSION, NOT ELSEWHERE CLASSIFIED SNOMED Code(s): 771418401 Comment: - s/p Thoracentesis. S/p Chest tube today by Dr. Szymanski. - currently on TPA administration to further facilitate lysis and drainage. - Antibiotics cefepime and vanco and will require at least 2 weeks of ongoing abx even after the chest tube removed. - Discussed with ID will guide therapy further regarding treatment. (3) MSSA bacteremia Current Visit: Yes Status: Acute Code(s): R78.81 - BACTEREMIA SNOMED Code( s): 551612479 Comment: - Pt with multiple blood cultures positive for MSSA. - Most recent cultures obtained on 02/01 and 02/04 have NGTD. - TTE and NIRU both negative for signs of endocarditis. - Will need at least 2 weeks IV Abx even after the chest tube is removed. - montior CRP and WBC - Continue vancomycin Added cefepime 02/08 early AM. ID to guide therapy (4) Post herpetic neuralgia Current Visit: Yes Status: Acute Code(s): B02.29 - OTHER POSTHERPETIC NERVOUS SYSTEM INVOLVEMENT SNOMED Code(s): 4677753 Comment: - Pain in the R flank wrapping around to front - Continue gabapentin 600mg in the AM, 900mg in the PM, and 600mg at noon. Lidocaine patch helped her pain. (5) GERD (gastroesophageal reflux disease) Current Visit: Yes Status: Acute Code(s): K21.9 - GASTRO-ESOPHAGEAL REFLUX DISEASE WITHOUT ESOPHAGITIS SNOMED Code(s): 624755917 Comment: Continue famotidine. Status and Disposition: medicine inpatient.
[2019-02-11] MEDS: Lidocaine PATCH 5%* 1 PATCH TRANSDERM SCH (17:07)
--- NOTE | 2019-02-11 18:19 | PN ---
Progress Note - Progress Note Date of Service: 02/11/19 SOAP: Subjective: Patient thinks that her flank pain is now improved, but she is not sure. No left shoulder pain unless it is moved. Objective: L shoulder - Dressing c/d/i - No pain until PROM to 70 forward flexion, abduction Chest - Chest tube in place Selected Entries 02/11/19 02/11/19 02/11/19 14:32 15:15 16:00 Temperature 98.8 F Pulse Rate 105 Respiratory 20 Rate Blood Pressure 141/72 (mmHg) O2 Sat by Pulse 91 95 95 Oximetry Patient on Room No: 3L No: 3L No: 3L Air Laboratory Tests 02/09/19 02/10/19 02/11/19 06:12 16:15 06:00 WBC Neut % (Auto) C-Reactive Protein 244.09 H 199.39 H 131.47 H 02/11/19 06:00 WBC 9.4 Neut % (Auto) 79.4 C-Reactive Protein Assessment: POD 9, 12 I&D L shoulder Bacteremia, UTI Pleural effsuions, empyema Plan: - Source of continued fevers, elevated inflammatory labs, and flank pain now successfully identified and treated by Hospitalist. I have followed Ortho PA notes this week, discussed with ID service by phone. Grateful for chest tube. - Continue abx per Hospitalist for empyema and chest tube management per Stephon - L shoulder use as tolerated, dressing changed daily until 02/16/19 - Follow up with me in the office 1-2 weeks after discharge from hospital
[2019-02-12] MEDS ORDERED: Vancomycin Trough Check NOTE FOLLOW UP ONE (05:30)
[2019-02-12] MEDS: Lidocaine Patch REMOVE* 1 NOTE MISC PATCH OFF SCH (06:25)
[2019-02-12 06:35] LABS: Hematocrit 25 % (35-47); Hemoglobin 8.3 g/dL (12.0-16.0); Mean Corpuscular HGB Conc 34 g/dL (31-36); Mean Corpuscular Hemoglobin 28 pg (27-31); Mean Corpuscular Volume 84 fL (80-97); Mean Platelet Volume 6.9 fL (7.4-10.4); Platelet Count 307 10^3/uL (150-450); Red Blood Count 2.94 10^6 /uL (3.70-4.87); Red Cell Distribution Width 16 % (10-15); White Blood Count 11.2 10^3/uL (3.5-10.8)
[2019-02-12 06:48] LABS: Calcium 7.7 mg/dL (8.6-10.3); Magnesium 1.9 mg/dL (1.9-2.7); Potassium 3.7 mmol/L (3.5-5.0)
[2019-02-12 06:53] LABS: BUN/Creatinine Ratio 19.8 (8-20); EGFR African American 77.4 (>60); Phosphorus 3.8 mg/dL (2.5-5.0)
[2019-02-12] MEDS: Vancomycin(*) 500 MG in NS 0.9% 250 ML* 250 ML IVPB SCH ×2 (07:18→19:07)
[2019-02-12 07:25] LABS: ABS Basophils 0.1 10^3/ul (0-0.2); ABS Eosinophils 0.1 10^3/ul (0-0.6); ABS Lymphocytes 1.4 10^3/ul (1.0-4.8); ABS Monocytes 1.2 10^3/ul (0-0.8); ABS Neutrophils 8.4 10^3/ul (1.5-7.7); Eosinophil % 0.9 %; Lymphocyte % 12.9 %
[2019-02-12] MEDS: Polyethylene Glycol 3350* 17 GM PACKET PO SCH (09:31)
[2019-02-12] MEDS: Lactobacillus Acidophilus* 1 TAB PO SCH ×2 (09:31→20:06)
[2019-02-12] MEDS: Gabapentin CAP(*) 300 MG PO SCH ×3 (09:31→20:06)
[2019-02-12] MEDS: Cholecalciferol TAB* 1000 UNITS PO SCH (09:32)
[2019-02-12] MEDS: Senna TAB 8.6 mg* TAB PO SCH (09:32)
--- NOTE | 2019-02-12 10:53 | PN ---
Progress Note - Progress Note Date of Service: 02/12/19 Note: Patient is feeling well overall. Denies shortness of breath. Has been tolerating a regular diet. She is anxious about instilling the lytic medications. She did have pain in the upper lateral chest yesterday when TPA and dornase instilled. Appears to have roughly 800 ml drained from chest tube yesterday. Temp Pulse Resp BP Pulse Ox 97.9 F 86 18 144/71 96 02/12/19 07:21 02/12/19 07:21 02/12/19 09:31 02/12/19 07:21 02/12/19 07:21 Intake & Output 02/11/19 02/12/19 02/12/19 22:59 06:59 14:59 Intake Total 480 200 Output Total 740 Balance -260 200 Weight 173 lb 3.2 oz General: No acute distress, sitting in bed Chest: Clear to auscultation on left, decreased breath sounds in right base but otherwise clear. Chest tube dressing in place. Drainage from chest tube is serosanguinous. Laboratory Results - last 24 hr 02/11/19 02/12/19 02/12/19 06:00 05:56 05:56 WBC 9.4 11.2 H RBC 2.89 L 2.94 L Hgb 8.1 L 8.3 L Hct 25 L 25 L MCV 85 84 MCH 28 28 MCHC 33 34 RDW 15 16 H Plt Count 365 307 MPV 7.4 6.9 L Neut % (Auto) 79.4 74.7 Lymph % (Auto) 9.2 12.9 [place] % (Auto) 9.1 10.5 Eos % (Auto) 1.3 0.9 Baso % (Auto) 1.0 1.0 Absolute Neuts (auto) 7.4 8.4 H Absolute Lymphs (auto) 0.9 L 1.4 Absolute Monos (auto) 0.9 H 1.2 H Absolute Eos (auto) 0.1 0.1 Absolute Basos (auto) 0.1 0.1 Absolute Nucleated RBC 0.0 0.0 Neutrophils % 80.0 Lymphocytes % 9.0 Monocytes % 9.0 Eosinophils % 1.0 Basophils % 1.0 Nucleated RBC % 0.0 0.0 Normal RBC Morphology Normal Hem Pathologist Commnt Sodium 137 Potassium 3.7 Chloride 103 Carbon Dioxide 31 Anion Gap 3 BUN 17 Creatinine 0.86 Est GFR ( Amer) 77.4 Est GFR (Non-Af Amer) 64.0 BUN/Creatinine Ratio 19.8 Glucose 97 Calcium 7.7 L Phosphorus 3.8 Magnesium 1.9 Vancomycin Trough A&P 78F with R loculated pleural effusion s/p chest tube and TPA/dornase instillation x1. Lytic therapy appears to be working to improve drainage of effusion. -2nd dose of TPA and dornase instilled this morning. Will unclamp chest tube after 2 hours and return chest tube to suction -Plan for 3rd dose of TPA and dornase tomorrow.
[2019-02-12] MEDS: Alteplase (CATHFLO)* 10 MG in NS 0.9% 50 ML* 40 ML INTRAPLEUR SCH (11:51)
[2019-02-12] MEDS: DORNASE ALFA 1 mg/ml(NF) 5 MG in NS 0.9% 50 ML INTRAPLEUR SCH (11:52)
--- NOTE | 2019-02-12 14:41 | PN ---
Progress Note - Progress Note Date of Service: 02/12/19 SOAP: Subjective: Pt is doing well. Pain from chest tube but denies shoulder pain. Denies F/C. Objective: PE- 78 y/o WDWN F NAD LUE- dressing changed, sutures intact with no signs of infection, able to F/E elbow, + 2 radial pulse, SILT distally Vital Signs Temp Pulse Resp BP Pulse Ox 97.9 F 86 18 144/71 96 02/12/19 07:21 02/12/19 07:21 02/12/19 14:39 02/12/19 07:21 02/12/19 07:21 Laboratory Results - last 24 hr 02/11/19 02/12/19 02/12/19 06:00 05:56 05:56 WBC 11.2 H RBC 2.94 L Hgb 8.3 L Hct 25 L MCV 84 MCH 28 MCHC 34 RDW 16 H Plt Count 307 MPV 6.9 L Neut % (Auto) 74.7 Lymph % (Auto) 12.9 [place] % (Auto) 10.5 Eos % (Auto) 0.9 Baso % (Auto) 1.0 Absolute Neuts (auto) 8.4 H Absolute Lymphs (auto) 1.4 Absolute Monos (auto) 1.2 H Absolute Eos (auto) 0.1 Absolute Basos (auto) 0.1 Absolute Nucleated RBC 0.0 Nucleated RBC % 0.0 Hem Pathologist Commnt Sodium 137 Potassium 3.7 Chloride 103 Carbon Dioxide 31 Anion Gap 3 BUN 17 Creatinine 0.86 Est GFR ( Amer) 77.4 Est GFR (Non-Af Amer) 64.0 BUN/Creatinine Ratio 19.8 Glucose 97 Calcium 7.7 L Phosphorus 3.8 Magnesium 1.9 Vancomycin Trough 02/12/19 05:56 WBC RBC Hgb Hct MCV MCH MCHC RDW Plt Count MPV Neut % (Auto) Lymph % (Auto) [place] % (Auto) Eos % (Auto) Baso % (Auto) Absolute Neuts (auto) Absolute Lymphs (auto) Absolute Monos (auto) Absolute Eos (auto) Absolute Basos (auto) Absolute Nucleated RBC Nucleated RBC % Hem Pathologist Commnt Sodium Potassium Chloride Carbon Dioxide Anion Gap BUN Creatinine Est GFR ( Amer) Est GFR (Non-Af Amer) BUN/Creatinine Ratio Glucose Calcium Phosphorus Magnesium Vancomycin Trough 17.2 Assessment: POD 10, 13 I&D L shoulder Bacteremia, UTI Pleural effsuions, empyema Plan: - Source of continued fevers, elevated inflammatory labs, and flank pain now successfully identified and treated by Hospitalist. - Continue abx per Hospitalist for empyema and chest tube management per [facility] - L shoulder use as tolerated, dressing changed daily until 02/16/19 - Follow up with Dr. Mayo in the office 1-2 weeks after discharge from hospital
[2019-02-12] MEDS: Morphine INJ* 2 MG/ML 1 ML SYRINGE (TWO MG - NEW SYRINGE VERSION) IV PRN ×2 (14:51→20:08)
[2019-02-12] MEDS: Lidocaine PATCH 5%* 1 PATCH TRANSDERM SCH (19:07)
[2019-02-13] MEDS: Vancomycin(*) 500 MG in NS 0.9% 250 ML* 250 ML IVPB SCH ×2 (05:24→17:49)
[2019-02-13] MEDS: Lidocaine Patch REMOVE* 1 NOTE MISC PATCH OFF SCH (05:25)
[2019-02-13] MEDS: oxyCODONE TAB* 5 MG TAB PO PRN ×3 (06:02→23:34)
[2019-02-13 07:08] LABS: Hematocrit 27 % (35-47); Hemoglobin 9.1 g/dL (12.0-16.0); Mean Corpuscular HGB Conc 34 g/dL (31-36); Mean Corpuscular Hemoglobin 29 pg (27-31); Mean Corpuscular Volume 84 fL (80-97); Platelet Count 311 10^3/uL (150-450); Red Blood Count 3.18 10^6 /uL (3.70-4.87); Red Cell Distribution Width 15 % (10-15); White Blood Count 10.8 10^3/uL (3.5-10.8)
[2019-02-13 07:26] LABS: Calcium 7.9 mg/dL (8.6-10.3); Potassium 3.7 mmol/L (3.5-5.0)
[2019-02-13 07:32] LABS: BUN/Creatinine Ratio 23.4 (8-20); EGFR Non-African American 72.7 (>60)
[2019-02-13 08:23] LABS: ABS Basophils 0.1 10^3/ul (0-0.2); ABS Eosinophils 0.2 10^3/ul (0-0.6); ABS Lymphocytes 1.4 10^3/ul (1.0-4.8); ABS Neutrophils 8.1 10^3/ul (1.5-7.7); Lymphocyte % 12.7 %; Nucleated Red Blood Cells % 0.1
--- NOTE | 2019-02-13 10:05 | PN ---
Progress Note - Progress Note Date of Service: 02/13/19 SOAP: Subjective: Pt is doing well. Pain from chest tube but denies shoulder pain. Denies F/C. Objective: PE- 78 y/o WDWN F NAD LUE- dressing changed, sutures intact with no signs of infection, able to F/E elbow, + 2 radial pulse, SILT distally Vital Signs Temp Pulse Resp BP Pulse Ox 98.0 F 87 18 115/56 98 02/13/19 03:15 02/13/19 03:15 02/13/19 06:02 02/13/19 03:15 02/13/19 03:15 Laboratory Results - last 24 hr 02/13/19 02/13/19 06:36 06:36 WBC 10.8 RBC 3.18 L Hgb 9.1 L Hct 27 L MCV 84 MCH 29 MCHC 34 RDW 15 Plt Count 311 MPV 7.0 L Neut % (Auto) 74.9 Lymph % (Auto) 12.7 [place] % (Auto) 9.5 Eos % (Auto) 2.0 Baso % (Auto) 0.9 Absolute Neuts (auto) 8.1 H Absolute Lymphs (auto) 1.4 Absolute Monos (auto) 1.0 H Absolute Eos (auto) 0.2 Absolute Basos (auto) 0.1 Absolute Nucleated RBC 0.0 Nucleated RBC % 0.1 Sodium 137 Potassium 3.7 Chloride 104 Carbon Dioxide 31 Anion Gap 2 BUN 18 Creatinine 0.77 Est GFR ( Amer) 88.0 Est GFR (Non-Af Amer) 72.7 BUN/Creatinine Ratio 23.4 H Glucose 91 Calcium 7.9 L Assessment: POD 11, 14 I&D L shoulder Bacteremia, UTI Pleural effusions, empyema Plan: - Source of continued fevers, elevated inflammatory labs, and flank pain now successfully identified and treated by Hospitalist. - Continue abx per Hospitalist for empyema and chest tube management per [facility] team - L shoulder use as tolerated, dressing changed daily until 02/16/19 - Follow up with Dr. Mayo in the office 1-2 weeks after discharge from hospital
[2019-02-13] MEDS: Gabapentin CAP(*) 300 MG PO SCH ×3 (11:03→21:06)
[2019-02-13] MEDS: Cholecalciferol TAB* 1000 UNITS PO SCH (11:03)
[2019-02-13] MEDS: Lactobacillus Acidophilus* 1 TAB PO SCH ×2 (11:03→21:08)
[2019-02-13] MEDS: Senna TAB 8.6 mg* TAB PO SCH (11:03)
[2019-02-13] MEDS: Polyethylene Glycol 3350* 17 GM PACKET PO SCH (11:03)
--- NOTE | 2019-02-13 11:47 | PN ---
Progress Note - Progress Note Date of Service: 02/13/19 Note: Feeling well today. She feels breathing is better. Has been tolerating regular diet. Denies chest pain or abdominal pain. Denies nausea. About 450 ml drained since lytic medications instilled yesterday (100 ml from medications). Drainage after tpa and dornase yesterday appeared bloody. Temp Pulse Resp BP Pulse Ox 98.5 F 94 18 153/72 97 02/13/19 07:48 02/13/19 07:48 02/13/19 11:10 02/13/19 07:48 02/13/19 07:48 General: No acute distress. Chest: Diminished breath sounds at R base, clear in upper [place]. L side clear. Abdomen: soft, nontender, nondistended. Extremities: minimal pedal edema Neuro: alert, oriented x3 Laboratory Results - last 24 hr 02/13/19 02/13/19 06:36 06:36 WBC 10.8 RBC 3.18 L Hgb 9.1 L Hct 27 L MCV 84 MCH 29 MCHC 34 RDW 15 Plt Count 311 MPV 7.0 L Neut % (Auto) 74.9 Lymph % (Auto) 12.7 [place] % (Auto) 9.5 Eos % (Auto) 2.0 Baso % (Auto) 0.9 Absolute Neuts (auto) 8.1 H Absolute Lymphs (auto) 1.4 Absolute Monos (auto) 1.0 H Absolute Eos (auto) 0.2 Absolute Basos (auto) 0.1 Absolute Nucleated RBC 0.0 Nucleated RBC % 0.1 Sodium 137 Potassium 3.7 Chloride 104 Carbon Dioxide 31 Anion Gap 2 BUN 18 Creatinine 0.77 Est GFR ( Amer) 88.0 Est GFR (Non-Af Amer) 72.7 BUN/Creatinine Ratio 23.4 H Glucose 91 Calcium 7.9 L CXR this morning looks like some improvement in upper field on right. A&P 78F with loculated right pleural effusion s/p chest tube and tpa/dornase x2. Drainage appears more sanguinous after 2nd dose of tpa/dornase so will hold off on medications today. Hgb is stable. Continue to monitor output.
[2019-02-13] MEDS: DORNASE ALFA 1 mg/ml(NF) 5 MG in NS 0.9% 50 ML INTRAPLEUR SCH (12:25)
[2019-02-13] MEDS: Alteplase (CATHFLO)* 10 MG in NS 0.9% 50 ML* 40 ML INTRAPLEUR SCH (12:25)
--- NOTE | 2019-02-13 12:36 | PN ---
Subjective Date of Service: 02/13/19 Interval History: patient doing well. some pain in her right side chest pain at the site of her old healed shingles scar also near site of the chest tube. Appreciate ortho and surgery input. S/p tpa and dornase yesterday (second time) and about 450 cc output past 24hrs. tpa and dornase held today due to minimal serous sangeous fluid colorations. CXR ordered today, and reveals minimal improvement of aeration but she still have large effusion. Cefepime has been discontinued on 02/12/19 as per ID recommendations. Close monitoring for fever and leukocytosis next 24-48 hrs Past Medical History: Unchanged from Admission Objective Active Medications: Acetaminophen (Tylenol Tab*) 975 mg PO Q8H PRN PRN Reason: MILD PAIN or TEMP > 100.4 Last Admin: 02/09/19 18:09 Dose: 975 mg Cholecalciferol (Vitamin D Tab*) 2,000 units PO DAILY [facility] Last Admin: 02/13/19 11:03 Dose: 2,000 units Docusate Sodium (Colace Cap*) 100 mg PO DAILY PRN PRN Reason: CONSTIPATION Last Admin: 02/07/19 19:56 Dose: 100 mg Famotidine (Pepcid Tab*) 20 mg PO DAILY PRN PRN Reason: HEARTBURN Gabapentin (Neurontin Cap(*)) 600 mg PO TID [facility] Last Admin: 02/13/19 11:03 Dose: 600 mg Heparin Sodium (Porcine) (Heparin Flush Picc/Ml/Cvc(*)) 1 - 3 ml FLUSH 0600, 1800 [facility]; Protocol Last Admin: 02/13/19 11:15 Dose: 1 ml Vancomycin HCl 500 mg/ Sodium (Chloride) 250 mls @ 166.667 mls/hr IVPB Q12H [facility] Last Admin: 02/13/19 05:24 Dose: 166.667 mls/hr Lactobacillus Rhamnosus (Lactobacillus Acidophilus*) 1 tab PO BID [facility] Last Admin: 02/13/19 11:03 Dose: 1 tab Lidocaine (Lidoderm 5% Patch*) 1 patch TRANSDERM Q24H [facility] Last Admin: 02/12/19 19:07 Dose: 1 patch Magnesium Hydroxide (Milk Of Magnesia Liq*) 30 ml PO Q6H PRN PRN Reason: CONSTIPATION Last Admin: 02/01/19 11:29 Dose: 30 ml Morphine Sulfate (Morphine Inj (Syringe))*) 2 mg IV Q2H PRN PRN Reason: PAIN - SEVERE Last Admin: 02/12/19 20:08 Dose: 2 mg Oxycodone HCl (Roxycodone Tab*) 5 mg PO Q6H PRN PRN Reason: PAIN - MODERATE Last Admin: 02/13/19 11:10 Dose: 5 mg Pharmacy Consult (Vancomycin Per Pharmacy*) 1 note FOLLOW UP .VANC PER PHARMACY [facility]; Protocol Pharmacy Profile Note (Lidocaine Patch Remove*) 1 note PATCH OFF 0600 [facility] Last Admin: 02/13/19 05:25 Dose: 1 note Pharmacy Profile Note (Vancomycin Trough Check) 1 note FOLLOW UP ONCE ONE Stop: 02/14/19 05:31 Polyethylene Glycol/Electrolytes (Miralax*) 17 gm PO DAILY [facility] Last Admin: 02/13/19 11:03 Dose: 17 gm Senna (Senokot 8.6 Mg Tab*) 1 tab PO DAILY [facility] Last Admin: 02/13/19 11:03 Dose: 1 tab Vital Signs - 8 hr 02/13/19 02/13/19 02/13/19 06:02 07:48 11:03 Temperature 98.5 F Pulse Rate 94 Respiratory 18 18 18 Rate Blood Pressure 153/72 (mmHg) O2 Sat by Pulse 97 Oximetry 02/13/19 11:10 Temperature Pulse Rate Respiratory 18 Rate Blood Pressure (mmHg) O2 Sat by Pulse Oximetry Oxygen Devices in Use Now: Nasal Cannula Appearance: Awake, alert no distress. minimal pain but otherwise no acute distress Eyes: No Scleral Icterus, - - EOMI Ears/Nose/Mouth/Throat: NL Teeth, Lips, Gums, Clear Oropharnyx Neck: NL Appearance and Movements; NL JVP, Trachea Midline Respiratory: Symmetrical Chest Expansion and Respiratory Effort, - - diminished at bases right worse than left. no rash noted Cardiovascular: NL Sounds; No Murmurs; No JVD, No Edema Abdominal: NL Sounds; No Tenderness; No Distention Extremities: - - +1 edema Neurological: Alert and Oriented x 3 Result Diagrams: 02/13/19 06:36 02/13/19 06:36 Additional Lab and Data: Laboratory Results - last 24 hr 02/09/19 02/09/19 02/09/19 06:12 06:12 13:00 WBC 15.2 H RBC 3.21 L Hgb 9.1 L Hct 28 L MCV 86 MCH 28 MCHC 33 RDW 16 H Plt Count 575 H MPV 7.2 L Neut % (Auto) 85.9 Lymph % (Auto) 5.2 [place] % (Auto) 7.6 Eos % (Auto) 0.5 Baso % (Auto) 0.8 Absolute Neuts (auto) 13.1 H Absolute Lymphs (auto) 0.8 L Absolute Monos (auto) 1.2 H Absolute Eos (auto) 0.1 Absolute Basos (auto) 0.1 Absolute Nucleated RBC 0.0 Nucleated RBC % 0.0 Sodium 137 Potassium 3.5 Chloride 103 Carbon Dioxide 29 Anion Gap 5 BUN 15 Creatinine 0.74 Est GFR ( Amer) 92.1 Est GFR (Non-Af Amer) 76.1 BUN/Creatinine Ratio 20.3 H Glucose 105 H Calcium 7.8 L Lactate Dehydrogenase 180 C-Reactive Protein 244.09 H Total Protein 5.6 L Fluid Source Pleural fluid Fluid Volume 30 Fluid Color Yellow Fluid Appearance Clear Fluid WBC 189 Fluid RBC 1181 Fluid Tot Cell Count 100 Fluid Neutrophils 99 Fluid Monocytes 1 Fluid Cell Count Rvw By Fluid Comment Microbiology and Other Data: Microbiology 02/04/19 17:18 Blood Venous Aerobic Blood Culture - Final No Growth Day 5 02/04/19 17:18 Blood Venous Anaerobic Blood Culture - Final No Growth Day 5 02/09/19 13:00 Pleural Fluid Gram Stain - Final 02/04/19 13:16 Blood Venous Aerobic Blood Culture - Final No Growth Day 5 02/04/19 13:16 Blood Venous Anaerobic Blood Culture - Final No Growth Day 5 01/30/19 13:30 Misc Source (See Comment) Fungal Culture - Preliminary 02/05/19 03:00 Urine Urine Culture - Final Pseudomonas Aeruginosa 02/01/19 10:11 Blood Venous Aerobic Blood Culture - Final No Growth Day 5 02/01/19 10:11 Blood Venous Anaerobic Blood Culture - Final No Growth Day 5 02/01/19 10:11 Blood Venous Aerobic Blood Culture - Final No Growth Day 5 02/01/19 10:11 Blood Venous Anaerobic Blood Culture - Final No Growth Day 5 02/02/19 12:59 Wound Anaerobic Culture - Final No Growth Day 4 02/02/19 12:59 Wound Skin and Soft Tissue MRSA/MSSA (PCR - Final Mrsa Negative S.aureus Positive 02/02/19 12:59 Wound Gram Stain - Final 02/02/19 12:59 Wound Wound Culture - Final Staphylococcus Aureus 01/30/19 17:12 Wound - Shoulder Left Anaerobic Culture - Final 01/30/19 17:12 Wound - Shoulder Left Skin and Soft Tissue MRSA/MSSA (PCR - Final Mrsa Negative S.aureus Positive 01/30/19 17:12 Wound - Shoulder Left Gram Stain - Final 01/30/19 17:12 Wound - Shoulder Left Wound Culture - Final Staphylococcus Aureus 01/30/19 13:30 Body Fluid Gram Stain - Final 01/30/19 13:30 Body Fluid Body Fluid Culture - Final Staphylococcus Aureus 01/30/19 13:30 Body Fluid Anaerobic Culture - Final 01/30/19 13:30 Body Fluid Skin and Soft Tissue MRSA/MSSA (PCR - Final Mrsa Negative S.aureus Positive 01/30/19 13:30 Body Fluid Acid Fast Bacilli Smear - Final 01/30/19 09:32 Blood Venous Aerobic Blood Culture - Final Staphylococcus Aureus 01/30/19 09:32 Blood Venous Anaerobic Blood Culture - Final Staphylococcus Aureus 01/30/19 09:32 Blood Venous Blood MRSA/MSSA (PCR) - Final Mrsa Negative S.aureus Positive 01/30/19 09:32 Blood Venous Aerobic Blood Culture - Final Staphylococcus Aureus 01/30/19 09:32 Blood Venous Anaerobic Blood Culture - Final Staphylococcus Aureus 01/30/19 09:32 Blood Venous Blood MRSA/MSSA (PCR) - Final Mrsa Negative S.aureus Positive 01/28/19 15:51 Urine Urine Culture - Final Staphylococcus Aureus Enterococcus Faecalis 01/29/19 04:50 Blood Venous Aerobic Blood Culture - Final Staphylococcus Aureus 01/29/19 04:50 Blood Venous Anaerobic Blood Culture - Final Staphylococcus Aureus 01/29/19 04:50 Blood Venous Blood MRSA/MSSA (PCR) - Final Mrsa Negative S.aureus Positive 01/28/19 17:25 Blood Venous Aerobic Blood Culture - Final Staphylococcus Aureus 01/28/19 17:25 Blood Venous Anaerobic Blood Culture - Final Staphylococcus Aureus 01/28/19 17:25 Blood Venous Blood MRSA/MSSA (PCR) - Final Mrsa Negative S.aureus Positive 01/28/19 22:49 Nasal Nasal Screen MRSA (PCR) - Final Mrsa Not Detected Assess/Plan/Problems-Billing 78 female PMH GERD, OA, osteoporosis, recent L hip intertrochanteric fracture s /p IMN (10/2018), and recent shingles s/p acyclovir and recently started opioids and muscle relaxer, presents after being found down. Found with high fever, and blood, urine, and L shoulder joint growing MSSA (s/p Washout). Course c/b persistent sepsis, hypoxic respiratory failure, large loculated appearing right pleural effusion, constipation, pain in right flank and intermittently in abdomen. s/p thora, s/p chest tube 02/10. Now on tpa and dornase treatment ( post 2 Tx 02/11;02/12) held on 02/13/19 due serosangious fluid. Surgery managing chest tube treatment, Dr. Guy on board as well - Patient Problems (1) Acute respiratory failure with hypoxia Current Visit: Yes Status: Acute Code(s): J96.01 - ACUTE RESPIRATORY FAILURE WITH HYPOXIA SNOMED Code(s): 30004851 Comment: - secondary to large loculated pleural effusion. s/p chest tube by Dr. Szymanski - Required one dose lasix 20 mg IV 02/10/19. monitor daily if she need lasix prn - Follow up closely with surgery and pulmonary (2) Loculated pleural effusion Current Visit: Yes Status: Acute Code(s): J90 - PLEURAL EFFUSION, NOT ELSEWHERE CLASSIFIED SNOMED Code(s): 619299339 Comment: - s/p Thoracentesis. S/p Chest tube 02/10/[address] Szymanski. - currently on tpa and dornase administration to further facilitate lysis and drainage. - Antibiotics cefepime (stopped 02/12/19 s/p 3 days treatment for Pseudomona UTI - see ID recommendations) and vanco still on board. I agree with Dr. Guy to maintain at least 2 weeks of ongoing abx even after the chest tube removed. (3) MSSA bacteremia Current Visit: Yes Status: Acute Code(s): R78.81 - BACTEREMIA SNOMED Code( s): 069717545 Comment: - Pt with multiple blood cultures positive for MSSA. - Most recent cultures obtained on 02/01 and 02/04 have NGTD. - TTE and NIRU both negative for signs of endocarditis. - Will need at least 2 weeks IV Abx even after the chest tube is removed. - montior CRP and WBC - Continue vancomycin (4) Post herpetic neuralgia Current Visit: Yes Status: Acute Code(s): B02.29 - OTHER POSTHERPETIC NERVOUS SYSTEM INVOLVEMENT SNOMED Code(s): 7242763 Comment: - Pain in the R flank wrapping around to front - Continue gabapentin 600mg in the AM, 900mg in the PM, and 600mg at noon. Lidocaine patch helped her pain. (5) GERD (gastroesophageal reflux disease) Current Visit: Yes Status: Acute Code(s): K21.9 - GASTRO-ESOPHAGEAL REFLUX DISEASE WITHOUT ESOPHAGITIS SNOMED Code(s): 743893928 Comment: Continue famotidine. Status and Disposition: medicine inpatient.
[2019-02-13] MEDS: Lidocaine PATCH 5%* 1 PATCH TRANSDERM SCH (17:50)
[2019-02-14] MEDS: Morphine INJ* 2 MG/ML 1 ML SYRINGE (TWO MG - NEW SYRINGE VERSION) IV PRN (03:47)
[2019-02-14] MEDS ORDERED: Vancomycin Trough Check NOTE FOLLOW UP ONE (05:30)
[2019-02-14 06:06] LABS: Hematocrit 25 % (35-47); Hemoglobin 8.3 g/dL (12.0-16.0); Mean Corpuscular HGB Conc 33 g/dL (31-36); Mean Corpuscular Hemoglobin 28 pg (27-31); Mean Corpuscular Volume 84 fL (80-97); Mean Platelet Volume 7.2 fL (7.4-10.4); Platelet Count 310 10^3/uL (150-450); Red Blood Count 2.98 10^6 /uL (3.70-4.87); Red Cell Distribution Width 15 % (10-15); White Blood Count 11.5 10^3/uL (3.5-10.8)
[2019-02-14 06:39] LABS: Vancomycin Trough 16.8 mcg/mL
[2019-02-14 06:48] LABS: Calcium 7.8 mg/dL (8.6-10.3); Magnesium 1.9 mg/dL (1.9-2.7); Potassium 3.9 mmol/L (3.5-5.0)
[2019-02-14 06:54] LABS: BUN/Creatinine Ratio 22.4 (8-20); EGFR African American 89.3 (>60); EGFR Non-African American 73.8 (>60); Phosphorus 3.6 mg/dL (2.5-5.0)
[2019-02-14] MEDS: Vancomycin(*) 500 MG in NS 0.9% 250 ML* 250 ML IVPB SCH ×2 (07:17→18:21)
[2019-02-14] MEDS: Lidocaine Patch REMOVE* 1 NOTE MISC PATCH OFF SCH (07:18)
[2019-02-14 07:41] LABS: ABS Basophils 0.1 10^3/ul (0-0.2); ABS Eosinophils 0.3 10^3/ul (0-0.6); ABS Lymphocytes 1.3 10^3/ul (1.0-4.8); ABS Monocytes 1.1 10^3/ul (0-0.8); ABS Neutrophils 8.7 10^3/ul (1.5-7.7); Eosinophil % 2.6 %
[2019-02-14] MEDS: Lactobacillus Acidophilus* 1 TAB PO SCH ×2 (09:54→23:10)
[2019-02-14] MEDS: Gabapentin CAP(*) 300 MG PO SCH ×3 (09:54→23:10)
[2019-02-14] MEDS: Cholecalciferol TAB* 1000 UNITS PO SCH (09:54)
[2019-02-14] MEDS: Polyethylene Glycol 3350* 17 GM PACKET PO SCH (09:54)
[2019-02-14] MEDS: Senna TAB 8.6 mg* TAB PO SCH (09:54)
--- NOTE | 2019-02-14 12:03 | PN ---
Progress Note - Progress Note Date of Service: 02/14/19 SOAP: Subjective: CC: Left shoulder septic arthritis and pleural effusion HPI: Ms. Ambrosio is a 78 year old woman with PMH significant for GERD, osteoarthritis, and osteoporosis; who presented to the the hospital with left shoulder pain. She was found to have staph aureus bacteremia and left shoulder septic arthritis. She developed fevers and was found to have a large loculated pleural effusion. Denies fever, chills, nausea, vomiting, diarrhea, or urinary symptoms. Reports discomfort to the right flank/upper back, she feels like this continues to improve. Reports improving shortness of breath. Objective: Vital Signs - 8 hr 02/14/19 02/14/19 02/14/19 06:11 07:58 09:54 Temperature 99.8 F Pulse Rate 92 Respiratory 16 18 18 Rate Blood Pressure 139/71 (mmHg) O2 Sat by Pulse 98 Oximetry Physical Exam: General: NAD, sitting up in a chair Neurological: Alert and Oriented x4 HEENT: Moist MM, no thrush Cardiovascular: Heart rate regular Respiratory: Lung sounds clear, diminished Abdominal: Bowel sounds present; ABD soft, non tender and non distended MSK: No tenderness with palpation of the left shoulder, no edema or erythema Skin: No rash Laboratory Results - last 24 hr 02/14/19 02/14/19 05:23 05:23 WBC 11.5 H RBC 2.98 L Hgb 8.3 L Hct 25 L MCV 84 MCH 28 MCHC 33 RDW 15 Plt Count 310 MPV 7.2 L Neut % (Auto) 75.7 Lymph % (Auto) 11.0 [place] % (Auto) 9.8 Eos % (Auto) 2.6 Baso % (Auto) 0.9 Absolute Neuts (auto) 8.7 H Absolute Lymphs (auto) 1.3 Absolute Monos (auto) 1.1 H Absolute Eos (auto) 0.3 Absolute Basos (auto) 0.1 Absolute Nucleated RBC 0.0 Nucleated RBC % 0.0 Sodium 137 Potassium 3.9 Chloride 105 Carbon Dioxide 31 Anion Gap 1 L BUN 17 Creatinine 0.76 Est GFR ( Amer) 89.3 Est GFR (Non-Af Amer) 73.8 BUN/Creatinine Ratio 22.4 H Glucose 93 Calcium 7.8 L Phosphorus 3.6 Magnesium 1.9 Vancomycin Trough 16.8 Microbiology 02/12/19 18:25 Gram Stain - Final Pleural Fluid Body Fluid Culture - Preliminary No Growth Day 1 02/09/19 13:00 Gram Stain - Final Pleural Fluid Body Fluid Culture - Final No Growth Day 4 02/04/19 17:18 Aerobic Blood Culture - Final Blood Venous No Growth Day 5 Anaerobic Blood Culture - Final No Growth Day 5 02/04/19 13:16 Aerobic Blood Culture - Final Blood Venous No Growth Day 5 Anaerobic Blood Culture - Final No Growth Day 5 01/30/19 13:30 Fungal Culture - Preliminary Misc Source (See Comment) 02/05/19 03:00 Urine Culture - Final Urine Pseudomonas Aeruginosa 02/01/19 10:11 Aerobic Blood Culture - Final Blood Venous No Growth Day 5 Anaerobic Blood Culture - Final No Growth Day 5 02/01/19 10:11 Aerobic Blood Culture - Final Blood Venous No Growth Day 5 Anaerobic Blood Culture - Final No Growth Day 5 02/02/19 12:59 Anaerobic Culture - Final Wound No Growth Day 4 Skin and Soft Tissue MRSA/MSSA (PCR - Final Mrsa Negative S.aureus Positive Gram Stain - Final Wound Culture - Final Staphylococcus Aureus 01/30/19 17:12 Anaerobic Culture - Final Wound - Shoulder Left Skin and Soft Tissue MRSA/MSSA (PCR - Final Mrsa Negative S.aureus Positive Gram Stain - Final Wound Culture - Final Staphylococcus Aureus 01/30/19 13:30 Gram Stain - Final Body Fluid Body Fluid Culture - Final Staphylococcus Aureus Anaerobic Culture - Final Skin and Soft Tissue MRSA/MSSA (PCR - Final Mrsa Negative S.aureus Positive Acid Fast Bacilli Smear - Final 01/30/19 09:32 Aerobic Blood Culture - Final Blood Venous Staphylococcus Aureus Anaerobic Blood Culture - Final Staphylococcus Aureus Blood MRSA/MSSA (PCR) - Final Mrsa Negative S.aureus Positive 01/30/19 09:32 Aerobic Blood Culture - Final Blood Venous Staphylococcus Aureus Anaerobic Blood Culture - Final Staphylococcus Aureus Blood MRSA/MSSA (PCR) - Final Mrsa Negative S.aureus Positive 01/28/19 15:51 Urine Culture - Final Urine Staphylococcus Aureus Enterococcus Faecalis 01/29/19 04:50 Aerobic Blood Culture - Final Blood Venous Staphylococcus Aureus Anaerobic Blood Culture - Final Staphylococcus Aureus Blood MRSA/MSSA (PCR) - Final Mrsa Negative S.aureus Positive 01/28/19 17:25 Aerobic Blood Culture - Final Blood Venous Staphylococcus Aureus Anaerobic Blood Culture - Final Staphylococcus Aureus Blood MRSA/MSSA (PCR) - Final Mrsa Negative S.aureus Positive 01/28/19 22:49 Nasal Screen MRSA (PCR) - Final Nasal Mrsa Not Detected Assessment: 1. Parapneumonic effusion and empyema. S/P thoracentesis and chest tube placement. Afebrile, last fevers 02/08. Continues to have leukocytosis intermittently. Continues to require supplemental oxygen, and reports mild shortness of breath. Pleural fluid with no growth on day 4 and day 1. 2. MSSA bacteremia. TTE and NIRU with no vegetation. Repeat blood cultures with no growth on day 5. 3. Septic arthritis, left shoulder. Cultures with staph aureus. S/P washout x2. Fevers resolved, continues to have intermittent mild leukocytosis. She was changed from ancef to vancomycin over 1 week in preparation for discharge to SNF as they will not do TID dosing of IV ABX. ? if component of fevers was secondary to a drug reaction to the Ancef. 4. Pseudomonas bacteruria. Suspect this represents asymtomatic bacteruria. [place] count is <10K. Denies urinary symptoms or flank pain. Plan: Continue Vancomycin, trough goal 15-20, Day 16. Weekly labs while on IV ABX: Vanco trough, CBC, CMP, and CRP.
--- NOTE | 2019-02-14 12:45 | PN ---
Progress Note - Progress Note Date of Service: 02/14/19 Note: Surgery Progress S: Feels "ok" but anxious about chest tube. Denies SOB. O: Vital Signs - 8 hr 02/14/19 02/14/19 02/14/19 06:11 07:58 08:15 Temperature 99.8 F Pulse Rate 92 Respiratory 16 18 18 Rate Blood Pressure 139/71 (mmHg) O2 Sat by Pulse 98 97 Oximetry 02/14/19 02/14/19 02/14/19 09:54 11:20 12:34 Temperature 98.9 F Pulse Rate 103 Respiratory 18 18 18 Rate Blood Pressure 185/99 (mmHg) O2 Sat by Pulse 97 Oximetry Intake and Output Last 24 Hours 02/12/19 02/13/19 02/14/19 02/15/19 06:59 06:59 06:59 06:59 Intake Total 2085 1480 1390 Output Total 990 425 Balance 1095 1480 965 Weight 173 lb 3.2 oz 153 lb 6.4 oz 151 lb Intake: IV Fluids 65 200 0 ABX - CEFAZOLIN 0 0 ABX - CEFEPIME 65 0 0 ABX - VANCOMYCIN 100 0 LR 0 0 NS 100 IVPB 0 260 ABX - CEFEPIME 0 ABX - VANCOMYCIN 260 Oral 2020 1280 1130 Output: Chest Tube #1 740 Urine 250 425 Other: Estimated Void Medium Large Small # Bowel Movements 0 1 Estimated Stool Amount Small Small # Voids 1 1 1 Gen: sitting up in chair; NAD Heart: reg Lungs: clear ant and upper cartagena; decreased BS both bases; small amt of clear, light serosang fluid in tubing; no appreciable drainage in Pleurevac since 1930 last pm. cxray: viewed (but not read); still sig RLL infiltrate C&S: no growth day 4. A: s/p right chest tube placement for prob parapneumonic effusion w/ improvement ; s/p 2/3 doses of dornase/alteplase P: will d/w Dr. Szymanski re: repeat dornase/alteplase vs repeat imaging vs d/c CT.
--- NOTE | 2019-02-14 13:16 | PN ---
Progress Note - Progress Note Date of Service: 02/14/19 Note: Addendum to earlier note: Per Dr. Szymanski, he would hold on the 3rd dose of dornase/alteplase and defer to Pulmonology re: repeat imaging vs removal of chest tube.
[2019-02-14] MEDS: oxyCODONE TAB* 5 MG TAB PO PRN (13:52)
--- NOTE | 2019-02-14 15:45 | PN ---
Progress Note - Progress Note Date of Service: 02/14/19 - Pulm f/u note Note: Pt seen and examined at bedside. Pt reports feeling better other than pain at chest tube site. No significant output noted from chest tube Active Medications Generic Name Dose Route Start Last Admin Trade Name Freq PRN Reason Stop Dose Admin Acetaminophen 975 mg 01/29/19 09:52 02/09/19 18:09 Tylenol Tab* PO 975 mg Q8H PRN Administration MILD PAIN or TEMP > 100.4 Cholecalciferol 2,000 units 01/31/19 09:00 02/14/19 09:54 Vitamin D Tab* PO 2,000 units DAILY ESCOBAR Administration Docusate Sodium 100 mg 02/07/19 13:27 02/07/19 19:56 Colace Cap* PO 100 mg DAILY PRN Administration CONSTIPATION Famotidine 20 mg 01/29/19 15:26 Pepcid Tab* PO DAILY PRN HEARTBURN Gabapentin 600 mg 02/06/19 21:00 02/14/19 13:52 Neurontin Cap(*) PO 600 mg TID ESCOBAR Administration Heparin Sodium (Porcine) 1 - 3 ml 02/08/19 18:00 02/14/19 05:27 Heparin Flush Picc/Ml/Cvc(*) FLUSH 2 ml 0600,1800 ESCOBAR Administration Protocol Vancomycin HCl 500 mg/ Sodium 250 mls @ 166.667 mls/hr 02/10/19 18:00 07:17 Chloride IVPB 166.667 mls/hr Q12H ESCOBAR Administration Lactobacillus Rhamnosus 1 tab 01/29/19 21:00 02/14/19 09:54 Lactobacillus Acidophilus* PO 1 tab BID ESCOBAR Administration Lidocaine 1 patch 02/02/19 18:00 02/13/19 17:50 Lidoderm 5% Patch* TRANSDERM 1 patch Q24H ESCOBAR Administration Magnesium Hydroxide 30 ml 01/29/19 10:17 02/01/19 11:29 Milk Of Magnesia Liq* PO 30 ml Q6H PRN Administration CONSTIPATION Morphine Sulfate 2 mg 02/13/19 14:51 02/14/19 03:47 Morphine Inj (Syringe))* IV 2 mg Q2H PRN Administration PAIN - SEVERE Oxycodone HCl 5 mg 02/09/19 17:05 02/14/19 13:52 Roxycodone Tab* PO 5 mg Q6H PRN Administration PAIN - MODERATE Pharmacy Consult 1 note 02/04/19 11:00 Vancomycin Per Pharmacy* FOLLOW UP .VANC PER PHARMACY ESCOBAR Protocol Pharmacy Profile Note 1 note 02/03/19 06:00 02/14/19 07:18 Lidocaine Patch Remove* PATCH OFF 1 note 0600 ESCOBAR Administration Polyethylene Glycol/Electrolytes 17 gm 02/07/19 14:00 02/14/19 09:54 Miralax* PO 17 gm DAILY ESCOBAR Administration Senna 1 tab 02/07/19 14:00 02/14/19 09:54 Senokot 8.6 Mg Tab* PO 1 tab DAILY ESCOBAR Administration Vital Signs Temp Pulse Resp BP Pulse Ox 98.9 F 103 18 185/99 97 02/14/19 11:20 02/14/19 11:20 02/14/19 13:52 02/14/19 11:20 02/14/19 11:20 O/E: Pt in NAD HEENT: PERRLA Lungs: Dimnished air entry at bases CVS: S1, S2 Abd: Soft, BS+ Ext: normal ROM Skin: No rash Laboratory Results - last 24 hr 02/14/19 02/14/19 05:23 05:23 WBC 11.5 H RBC 2.98 L Hgb 8.3 L Hct 25 L MCV 84 MCH 28 MCHC 33 RDW 15 Plt Count 310 MPV 7.2 L Neut % (Auto) 75.7 Lymph % (Auto) 11.0 Cloud % (Auto) 9.8 Eos % (Auto) 2.6 Baso % (Auto) 0.9 Absolute Neuts (auto) 8.7 H Absolute Lymphs (auto) 1.3 Absolute Monos (auto) 1.1 H Absolute Eos (auto) 0.3 Absolute Basos (auto) 0.1 Absolute Nucleated RBC 0.0 Nucleated RBC % 0.0 Sodium 137 Potassium 3.9 Chloride 105 Carbon Dioxide 31 Anion Gap 1 L BUN 17 Creatinine 0.76 Est GFR ( Amer) 89.3 Est GFR (Non-Af Amer) 73.8 BUN/Creatinine Ratio 22.4 H Glucose 93 Calcium 7.8 L Phosphorus 3.6 Magnesium 1.9 Vancomycin Trough 16.8 I/R: 78 female PMH GERD, OA, osteoporosis, recent L hip intertrochanteric fracture s/p IMN (10/2018), and recent shingles s/p acyclovir and recently started opioids and muscle relaxer, presents after being found down. Found to have bactremia and sepsis with L shoulder joint growing MSSA. Course c/b persistent sepsis, hypoxic respiratory failure, large loculated appearing right pleural effusion. Pt s/p thora 02/09 with U/S evidence of loculations, only 35cc removed Fluid was dark yellow, turbid with elevated LDH, protein and very low glucose Fluid characteristics suggestive of complicated para pneumonic effusion Pt had chest tube placed 02/10 by surgery Pt had tpa and dornase through chest tube as she is high risk for VATS guided decortication Pt started on thrombolytics and DNAse through chest tube, received 2 doses Pt noted to have more sanguinous discharge after 2nd dose even though after 1st dose she put out more fluid Pt also had pain with instillation Further doses held Pt with no drainage today Will obtain Ct chest and remove chest tube c/w abx. Abx choice as per ID. D/w surgery D/w Dr Padmini Walton [employer] HE[employer]
--- NOTE | 2019-02-14 15:45 | PN ---
Subjective Date of Service: 02/14/19 Interval History: Patient seen and examined. She states she is tired and very anxious about the chest tube coming out. She is worried about getting "back home" because her has PSP and she's worried about him. We discussed her likely need for STR, which she understands. She denies fever or chills, no SOB, no cough, no chest pain. Pain is positional with chest tube at insertion site, and she feels better leaning forward. Past Medical History: Unchanged from Admission Objective Active Medications: Acetaminophen (Tylenol Tab*) 975 mg PO Q8H PRN PRN Reason: MILD PAIN or TEMP > 100.4 Last Admin: 02/09/19 18:09 Dose: 975 mg Cholecalciferol (Vitamin D Tab*) 2,000 units PO DAILY ESCOBAR Last Admin: 02/14/19 09:54 Dose: 2,000 units Docusate Sodium (Colace Cap*) 100 mg PO DAILY PRN PRN Reason: CONSTIPATION Last Admin: 02/07/19 19:56 Dose: 100 mg Famotidine (Pepcid Tab*) 20 mg PO DAILY PRN PRN Reason: HEARTBURN Gabapentin (Neurontin Cap(*)) 600 mg PO TID [facility] Last Admin: 02/14/19 13:52 Dose: 600 mg Heparin Sodium (Porcine) (Heparin Flush Picc/Ml/Cvc(*)) 1 - 3 ml FLUSH 0600, 1800 ESCOBAR; Protocol Last Admin: 02/14/19 05:27 Dose: 2 ml Vancomycin HCl 500 mg/ Sodium (Chloride) 250 mls @ 166.667 mls/hr IVPB Q12H ESCOBAR Last Admin: 02/14/19 07:17 Dose: 166.667 mls/hr Lactobacillus Rhamnosus (Lactobacillus Acidophilus*) 1 tab PO BID [facility] Last Admin: 02/14/19 09:54 Dose: 1 tab Lidocaine (Lidoderm 5% Patch*) 1 patch TRANSDERM Q24H ESCOBAR Last Admin: 02/13/19 17:50 Dose: 1 patch Magnesium Hydroxide (Milk Of Magnesia Liq*) 30 ml PO Q6H PRN PRN Reason: CONSTIPATION Last Admin: 02/01/19 11:29 Dose: 30 ml Morphine Sulfate (Morphine Inj (Syringe))*) 2 mg IV Q2H PRN PRN Reason: PAIN - SEVERE Last Admin: 02/14/19 03:47 Dose: 2 mg Oxycodone HCl (Roxycodone Tab*) 5 mg PO Q6H PRN PRN Reason: PAIN - MODERATE Last Admin: 02/14/19 13:52 Dose: 5 mg Pharmacy Consult (Vancomycin Per Pharmacy*) 1 note FOLLOW UP .VANC PER PHARMACY ESCOBAR; Protocol Pharmacy Profile Note (Lidocaine Patch Remove*) 1 note PATCH OFF 0600 [facility] Last Admin: 02/14/19 07:18 Dose: 1 note Polyethylene Glycol/Electrolytes (Miralax*) 17 gm PO DAILY [facility] Last Admin: 02/14/19 09:54 Dose: 17 gm Senna (Senokot 8.6 Mg Tab*) 1 tab PO DAILY [facility] Last Admin: 02/14/19 09:54 Dose: 1 tab Vital Signs - 8 hr 02/14/19 02/14/19 02/14/19 07:58 08:15 09:54 Temperature 99.8 F Pulse Rate 92 Respiratory 18 18 18 Rate Blood Pressure 139/71 (mmHg) O2 Sat by Pulse 98 97 Oximetry 02/14/19 02/14/19 02/14/19 11:20 12:34 13:52 Temperature 98.9 F Pulse Rate 103 Respiratory 18 18 18 Rate Blood Pressure 185/99 (mmHg) O2 Sat by Pulse 97 Oximetry Oxygen Devices in Use Now: Nasal Cannula Appearance: alert, mildly anxious Eyes: PERRLA Ears/Nose/Mouth/Throat: Mucous Membranes Moist Neck: NL Appearance and Movements; NL JVP Respiratory: Symmetrical Chest Expansion and Respiratory Effort, - - diminished bases, chest tube insertion site benign Cardiovascular: NL Sounds; No Murmurs; No JVD, RRR, No Edema Extremities: No Edema Skin: No Rash or Ulcers Neurological: Alert and Oriented x 3 Nutrition: Taking PO's Result Diagrams: 02/14/19 05:23 02/14/19 05:23 Additional Lab and Data: Laboratory Results - last 24 hr 02/09/19 02/09/19 02/09/19 06:12 06:12 13:00 WBC 15.2 H RBC 3.21 L Hgb 9.1 L Hct 28 L MCV 86 MCH 28 MCHC 33 RDW 16 H Plt Count 575 H MPV 7.2 L Neut % (Auto) 85.9 Lymph % (Auto) 5.2 [place] % (Auto) 7.6 Eos % (Auto) 0.5 Baso % (Auto) 0.8 Absolute Neuts (auto) 13.1 H Absolute Lymphs (auto) 0.8 L Absolute Monos (auto) 1.2 H Absolute Eos (auto) 0.1 Absolute Basos (auto) 0.1 Absolute Nucleated RBC 0.0 Nucleated RBC % 0.0 Sodium 137 Potassium 3.5 Chloride 103 Carbon Dioxide 29 Anion Gap 5 BUN 15 Creatinine 0.74 Est GFR ( Amer) 92.1 Est GFR (Non-Af Amer) 76.1 BUN/Creatinine Ratio 20.3 H Glucose 105 H Calcium 7.8 L Lactate Dehydrogenase 180 C-Reactive Protein 244.09 H Total Protein 5.6 L Fluid Source Pleural fluid Fluid Volume 30 Fluid Color Yellow Fluid Appearance Clear Fluid WBC 189 Fluid RBC 1181 Fluid Tot Cell Count 100 Fluid Neutrophils 99 Fluid Monocytes 1 Fluid Cell Count Rvw By Fluid Comment Microbiology and Other Data: Microbiology 02/04/19 17:18 Blood Venous Aerobic Blood Culture - Final No Growth Day 5 02/04/19 17:18 Blood Venous Anaerobic Blood Culture - Final No Growth Day 5 02/09/19 13:00 Pleural Fluid Gram Stain - Final 02/04/19 13:16 Blood Venous Aerobic Blood Culture - Final No Growth Day 5 02/04/19 13:16 Blood Venous Anaerobic Blood Culture - Final No Growth Day 5 01/30/19 13:30 Misc Source (See Comment) Fungal Culture - Preliminary 02/05/19 03:00 Urine Urine Culture - Final Pseudomonas Aeruginosa 02/01/19 10:11 Blood Venous Aerobic Blood Culture - Final No Growth Day 5 02/01/19 10:11 Blood Venous Anaerobic Blood Culture - Final No Growth Day 5 02/01/19 10:11 Blood Venous Aerobic Blood Culture - Final No Growth Day 5 02/01/19 10:11 Blood Venous Anaerobic Blood Culture - Final No Growth Day 5 02/02/19 12:59 Wound Anaerobic Culture - Final No Growth Day 4 02/02/19 12:59 Wound Skin and Soft Tissue MRSA/MSSA (PCR - Final Mrsa Negative S.aureus Positive 02/02/19 12:59 Wound Gram Stain - Final 02/02/19 12:59 Wound Wound Culture - Final Staphylococcus Aureus 01/30/19 17:12 Wound - Shoulder Left Anaerobic Culture - Final 01/30/19 17:12 Wound - Shoulder Left Skin and Soft Tissue MRSA/MSSA (PCR - Final Mrsa Negative S.aureus Positive 01/30/19 17:12 Wound - Shoulder Left Gram Stain - Final 01/30/19 17:12 Wound - Shoulder Left Wound Culture - Final Staphylococcus Aureus 01/30/19 13:30 Body Fluid Gram Stain - Final 01/30/19 13:30 Body Fluid Body Fluid Culture - Final Staphylococcus Aureus 01/30/19 13:30 Body Fluid Anaerobic Culture - Final 01/30/19 13:30 Body Fluid Skin and Soft Tissue MRSA/MSSA (PCR - Final Mrsa Negative S.aureus Positive 01/30/19 13:30 Body Fluid Acid Fast Bacilli Smear - Final 01/30/19 09:32 Blood Venous Aerobic Blood Culture - Final Staphylococcus Aureus 01/30/19 09:32 Blood Venous Anaerobic Blood Culture - Final Staphylococcus Aureus 01/30/19 09:32 Blood Venous Blood MRSA/MSSA (PCR) - Final Mrsa Negative S.aureus Positive 01/30/19 09:32 Blood Venous Aerobic Blood Culture - Final Staphylococcus Aureus 01/30/19 09:32 Blood Venous Anaerobic Blood Culture - Final Staphylococcus Aureus 01/30/19 09:32 Blood Venous Blood MRSA/MSSA (PCR) - Final Mrsa Negative S.aureus Positive 01/28/19 15:51 Urine Urine Culture - Final Staphylococcus Aureus Enterococcus Faecalis 01/29/19 04:50 Blood Venous Aerobic Blood Culture - Final Staphylococcus Aureus 01/29/19 04:50 Blood Venous Anaerobic Blood Culture - Final Staphylococcus Aureus 01/29/19 04:50 Blood Venous Blood MRSA/MSSA (PCR) - Final Mrsa Negative S.aureus Positive 01/28/19 17:25 Blood Venous Aerobic Blood Culture - Final Staphylococcus Aureus 01/28/19 17:25 Blood Venous Anaerobic Blood Culture - Final Staphylococcus Aureus 01/28/19 17:25 Blood Venous Blood MRSA/MSSA (PCR) - Final Mrsa Negative S.aureus Positive 01/28/19 22:49 Nasal Nasal Screen MRSA (PCR) - Final Mrsa Not Detected Diagnostic Imaging: Patient Name: JESUS CHOUDHURY Medical Record#: [id number] Ordering Physician: Oliver Betancourt MD Acct.#: [id number] : 1940 Age: 78 Sex: F Location: [address] [place] [address] - MEDICAL Exam Date: 02/09/191926 ADM Status: ADM IN Order Information: CT CHEST W/O Accession Number: [id number] CPT: 47527 ADDENDUM Addendum created by Courtney Lancaster MD on 02/09/2019 9:51:45 PM EST THIS REPORT CONTAINS FINDINGS THAT MAY BE CRITICAL TO PATIENT CARE. The findings regarding the right PICC were verbally communicated via telephone conference with Dr. Moore at 9:51 PM EST on 02/09/2019. The findings were acknowledged and understood. Initial report created on 02/09/2019 9:43:45 PM EST PROCEDURE INFORMATION: Exam: CT Chest Without Contrast Exam date and time: 02/09/2019 8:34 PM Age: 78 years old Clinical history: Shortness of breath; Additional info: Dr. Stephon krishna prior to chest tube; Pleural effusion TECHNIQUE: Imaging protocol: Computed tomography of the chest without contrast. Radiation optimization: All CT scans at this facility use at least one of these dose optimization techniques: automated exposure control; mA and/or kV adjustment per patient size (includes targeted exams where dose is matched to clinical indication); or iterative reconstruction. COMPARISON: C/A/P W CT CHEST/ABD/PEL W 02/05/2019 8:17 PM FINDINGS: Limitations: Assessment is limited by lack of IV contrast. Tubes, catheters and devices: A right PICC is now present, extending into the right atrium. Lungs: The right lower lobe is now completely collapsed/consolidated with tethering to the posterior parietal pleura.. There is increasing right middle lobe and dependent right upper lobe opacification. Continued partial consolidation of the left lower lobe. Developing biapical septal lines and left upper lobe ground glass densities, possibly secondary to pulmonary edema. Bandlike atelectasis or scarring again noted in the lingula. Pleural space: There are has been slight increase in the right layering pleural effusion which extends most of the length of the right hemithorax. Little change in small left pleural effusion. No pneumothorax. Heart: Normal in size. No pericardial effusion. Mediastinum: Small hiatal hernia. Aorta: Normal. No aortic aneurysm. Lymph nodes: No enlarged lymph nodes. Bones/joints: Healing fractures of left eighth and ninth ribs. Degenerative change at left shoulder. Compression fractures again noted at T4, L1 and, and, most pronounced, at T11. Soft tissues: Subcutaneous stranding is present in the postero-lateral right lower chest and upper abdomen region with foci of soft tissue air adjacent to [facility] Patient Name:JESUS CHOUDHURY MR: [id number] : 1940 right ribs 8 and 9 postero-laterally. IMPRESSION: 1. Continued right greater than left pleural effusion. The right effusion is slightly larger compared to prior study. 2. Worsening right lower lobe atelectasis/consolidation with little change in other involved lobes, detailed above. 3. Upper lobe septal thickening suggesting developing interstitial edema. 4. Right PICC now present, extending into the right atrium. Recommend 3 cm of retraction followed by chest radiograph to reassess location of tip. 5. Subcutaneous air and stranding now present in the right posterior lateral chest wall. Correlate with recent instrumentation/thoracentesis. 6. Other non-emergent findings as above. To contact [facility] with a general question: [facility] - [phone] For direct physician to physician contact: Physician Hotline - [phone] [facility] (ad Facility ID #[id number]) <Electronically signed by Courtney Lancaster MD in OV>02/09/192150 Dictated by: Courtney Lancaster MD Dictated Date/Time:02/09/192033 Transcribed Date/Time: 02/09/192033 Copy to: Frank Colorado MD; Britney Reilly MD; Wayne Meredith MD; Oliver Betancourt MD ; Moriah Guy MD; Jessica Mayen MD PROCEDURE INFORMATION: Exam: CT Chest Without Contrast Exam date and time: 02/09/2019 8:34 PM Age: 78 years old Clinical history: Shortness of breath; Additional info: Dr. Stephon krishna prior to chest tube; Pleural effusion TECHNIQUE: Imaging protocol: Computed tomography of the chest without contrast. Radiation optimization: All CT scans at this facility use at least one of these dose optimization techniques: automated exposure control; mA and/or kV adjustment per patient size (includes targeted exams where dose is matched to clinical indication); or iterative reconstruction. COMPARISON: C/A/P W CT CHEST/ABD/PEL W 02/05/2019 8:17 PM FINDINGS: Limitations: Assessment is limited by lack of IV contrast. Tubes, catheters and devices: A right PICC is now present, extending into the right atrium. Lungs: The right lower lobe is now completely collapsed/consolidated with tethering to the posterior parietal pleura.. There is increasing right middle lobe and dependent right upper lobe opacification. Continued partial consolidation of the left lower lobe. Developing biapical septal lines and left upper lobe ground glass densities, possibly secondary to pulmonary edema. Bandlike atelectasis or scarring again noted in the lingula. Pleural space: There are has been slight increase in the right layering pleural effusion which extends most of the length of the right hemithorax. Little change in small left pleural effusion. No pneumothorax. Heart: Normal in size. No pericardial effusion. Mediastinum: Small hiatal hernia. Aorta: Normal. No aortic aneurysm. Lymph nodes: No enlarged lymph nodes. Bones/joints: Healing fractures of left eighth and ninth ribs. Degenerative change at left shoulder. Compression fractures again noted at T4, L1 and, and, Assess/Plan/Problems-Billing 78 female PMH GERD, OA, osteoporosis, recent L hip intertrochanteric fracture s /p IMN (10/2018), and recent shingles s/p acyclovir and recently started opioids and muscle relaxer, presents after being found down with high fever, and blood, urine, and L shoulder joint growing MSSA (s/p Washout). Course c/b persistent sepsis, hypoxic respiratory failure 2/2 parapneumonic effusion. - Patient Problems (1) Septic arthritis of shoulder Code(s): M00.9 - PYOGENIC ARTHRITIS, UNSPECIFIED SNOMED Code(s): 08006522 Comment: - OR 02/02 for second wash out/I&D - MSSA in culture - Continue day 16/28 days of vanco (2) Parapneumonic effusion Code(s): J18.9 - PNEUMONIA, UNSPECIFIED ORGANISM; J91.8 - PLEURAL EFFUSION IN OTHER CONDITIONS CLASSIFIED ELSEWHERE SNOMED Code(s): 15124249 Comment: - s/p thoracentesis for loculated pleural effusion initially then required chest tube - s/p chest tube 02/10/[address] Szymanski with tPA and Dornase to promote lysis and drainage of effusion - 3rd dose tPA and Dornase held today as per surgery, pending CT chest today - Pulmonology and surgery following, will decide when chest tube should be removed - Continue IV atbx for 14 days post-removal (3) MSSA bacteremia Current Visit: Yes Status: Acute Code(s): R78.81 - BACTEREMIA SNOMED Code( s): 455727324 Comment: - Pt with multiple blood cultures positive for MSSA. - Most recent cultures obtained on 02/01 and 02/04 have NGTD. - TTE and NIRU both negative for signs of endocarditis. - Will need at least 2 weeks IV Abx even after the chest tube is removed. - montior CRP and WBC - Continue vancomycin (4) Acute respiratory failure with hypoxia Code(s): J96.01 - ACUTE RESPIRATORY FAILURE WITH HYPOXIA SNOMED Code(s): 32163423 Comment: - 2/2 large loculated effusion - Required one dose lasix 20 mg IV 02/10/19, no indication for further diuretics today - Continue O2 and wean as tolerated (5) Sepsis Comment: - 2/2 MSSA bacteremia and left shoulder septic arthritis, also with UTI and now parapneumonic effusion - Sepsis resolved, but will continue PICC and 28 days of IV atbx - ID following (6) Post herpetic neuralgia Code(s): B02.29 - OTHER POSTHERPETIC NERVOUS SYSTEM INVOLVEMENT SNOMED Code(s) : 7182278 Comment: - Right flank, recent shingles - Continue gabapentin 600mg in the AM, 900mg in the PM, and 600mg at noon with lidoderm PRN (7) GERD (gastroesophageal reflux disease) Code(s): K21.9 - GASTRO-ESOPHAGEAL REFLUX DISEASE WITHOUT ESOPHAGITIS SNOMED Code(s): 505144422 Comment: - On pepcid (8) DVT prophylaxis Code(s): Z29.9 - ENCOUNTER FOR PROPHYLACTIC MEASURES, UNSPECIFIED SNOMED Code( s): 360698221 Comment: - lovenox SQ (9) DNR (do not resuscitate) Status and Disposition: Inpatient, fair/progressing. Will need JAVON.
--- NOTE | 2019-02-14 16:16 | PN ---
Progress Note - Progress Note Date of Service: 02/14/19 SOAP: Subjective: []Pt seen at bedside. She feels fatigued. Left shoulder is not painful. Breathing a bit easier today. Denies feeling of fever, chills, CP. Objective: []Gen: NAD, nontoxic appearing LUE: Dressings changed, incisions CDI. No erythema or edema of the shoulder. Passive ROM to 90 degrees ff, abd Assessment: []sp I&D L shoulder Bacteremia Pleural effusions, empyema Plan: []- L shoulder use as tolerated, dressing to be changed daily until 02/16/19, plan for suture removal 02/16 (POD 14) - Continue abx per Hospitalist for empyema and chest tube management per Dr. Stone team - Cont vanco and weekly labs per ID - Follow up with Dr. Mayo in the office 1-2 weeks after discharge from hospital Vital Signs Temp 98.9 F 02/14/19 11:20 Pulse 103 02/14/19 11:20 Resp 18 02/14/19 15:25 BP 185/99 02/14/19 11:20 Pulse Ox 97 02/14/19 11:20 Intake & Output 02/13/19 02/14/19 02/14/19 18:59 06:59 18:59 Intake Total 1030 360 Output Total 425 Balance 1030 -65 Weight 151 lb Intake: IV Fluids 0 ABX - CEFAZOLIN 0 ABX - CEFEPIME 0 ABX - VANCOMYCIN 0 LR 0 IVPB 260 ABX - VANCOMYCIN 260 Oral 1030 100 Output: Urine 425 Other: Estimated Void Medium Small # Voids 1 Laboratory Last Values WBC 11.5 10^3/uL (3.5-10.8) H 02/14/19 05:23 RBC 2.98 10^6 /uL (3.70-4.87) L 02/14/19 05:23 Hgb 8.3 g/dL (12.0-16.0) L 02/14/19 05:23 Hct 25 % (35-47) L 02/14/19 05:23 MCV 84 fL (80-97) 02/14/19 05:23 MCH 28 pg (27-31) 02/14/19 05:23 MCHC 33 g/dL (31-36) 02/14/19 05:23 RDW 15 % (10-15) 02/14/19 05:23 Plt Count 310 10^3/uL (150-450) 02/14/19 05:23 MPV 7.2 fL (7.4-10.4) L 02/14/19 05:23 Neut % (Auto) 75.7 % 02/14/19 05:23 Lymph % (Auto) 11.0 % 02/14/19 05:23 [place] % (Auto) 9.8 % 02/14/19 05:23 Eos % (Auto) 2.6 % 02/14/19 05:23 Baso % (Auto) 0.9 % 02/14/19 05:23 Absolute Neuts (auto) 8.7 10^3/ul (1.5-7.7) H 02/14/19 05:23 Absolute Lymphs (auto) 1.3 10^3/ul (1.0-4.8) 02/14/19 05:23 Absolute Monos (auto) 1.1 10^3/ul (0-0.8) H 02/14/19 05:23 Absolute Eos (auto) 0.3 10^3/ul (0-0.6) 02/14/19 05:23 Absolute Basos (auto) 0.1 10^3/ul (0-0.2) 02/14/19 05:23 Absolute Nucleated RBC 0.0 10^3/ul 02/14/19 05:23 Immature Gran % 2.0 % (0-9) 02/04/19 12:11 Neutrophils % 80.0 % 02/11/19 06:00 Band Neutrophils % 2.0 % (0-8) 02/04/19 12:11 Lymphocytes % 9.0 % 02/11/19 06:00 Monocytes % 9.0 % 02/11/19 06:00 Eosinophils % 1.0 % 02/11/19 06:00 Basophils % 1.0 % 02/11/19 06:00 Metamyelocytes % 1.0 % (0-2) 02/03/19 05:36 Nucleated RBC % 0.0 02/14/19 05:23 Abs Neuts (Manual) 16.1 10^3/ul (1.5-7.7) H 02/04/19 12:11 Abs Lymphs (Manual) 0.3 10^3/ul (1.0-4.8) L 02/04/19 12:11 Abs Monocytes (Manual) 0.2 10^3/ul (0-0.8) 02/04/19 12:11 Toxic Granulation 1+ 02/03/19 05:36 Normal RBC Morphology Normal (Normal) 02/11/19 06:00 Hem Pathologist Commnt 02/11/19 06:00 INR (Anticoag Therapy) 1.21 (0.82-1.09) H 02/10/19 16:15 Sodium 137 mmol/L (135-145) 02/14/19 05:23 Potassium 3.9 mmol/L (3.5-5.0) 02/14/19 05:23 Chloride 105 mmol/L (101-111) 02/14/19 05:23 Carbon Dioxide 31 mmol/L (22-32) 02/14/19 05:23 Anion Gap 1 mmol/L (2-11) L 02/14/19 05:23 BUN 17 mg/dL (6-24) 02/14/19 05:23 Creatinine 0.76 mg/dL (0.51-0.95) 02/14/19 05:23 Est GFR ( Amer) 89.3 (>60) 02/14/19 05:23 Est GFR (Non-Af Amer) 73.8 (>60) 02/14/19 05:23 BUN/Creatinine Ratio 22.4 (8-20) H 02/14/19 05:23 Glucose 93 mg/dL (70-100) 02/14/19 05:23 POC Glucose (mg/dL) 147 mg/dL (70-100) H 02/07/19 23:06 Lactic Acid 0.8 mmol/L (0.5-2.0) 01/28/19 23:58 Calcium 7.8 mg/dL (8.6-10.3) L 02/14/19 05:23 Phosphorus 3.6 mg/dL (2.5-5.0) 02/14/19 05:23 Magnesium 1.9 mg/dL (1.9-2.7) 02/14/19 05:23 Total Bilirubin 0.80 mg/dL (0.2-1.0) 02/10/19 16:15 AST 40 U/L (13-39) H 02/10/19 16:15 ALT 15 U/L (7-52) 02/10/19 16:15 Alkaline Phosphatase 458 U/L (34-104) H 02/10/19 16:15 Lactate Dehydrogenase 180 U/L (140-271) 02/09/19 06:12 Total Creatine Kinase 99 U/L (10-223) 01/28/19 12:58 Troponin I 0.01 ng/mL (<0.04) 01/28/19 12:58 C-Reactive Protein 131.47 mg/L (<8.01) H 02/11/19 06:00 B-Natriuretic Peptide 58 pg/mL (<=100) 02/08/19 05:50 Total Protein 6.5 g/dL (6.4-8.9) 02/10/19 16:15 Albumin 2.3 g/dL (3.2-5.2) L 02/10/19 16:15 Globulin 4.2 g/dL (2-4) H 02/10/19 16:15 Albumin/Globulin Ratio 0.5 (1-3) L 02/10/19 16:15 TSH 0.83 mcIU/mL (0.34-5.60) 01/28/19 12:58 Urine Color Yellow 02/08/19 02:40 Urine Appearance Cloudy 02/08/19 02:40 Urine pH 6.0 (5-9) 02/08/19 02:40 Ur Specific [place] 1.006 (1.010-1.030) L 02/08/19 02:40 Urine Protein Negative (Negative) 02/08/19 02:40 Urine Ketones Negative (Negative) 02/08/19 02:40 Urine Blood Negative (Negative) 02/08/19 02:40 Urine Nitrate Negative (Negative) 02/08/19 02:40 Urine Bilirubin Negative (Negative) 02/08/19 02:40 Urine Urobilinogen Negative (Negative) 02/08/19 02:40 Ur Leukocyte Esterase Negative (Negative) 02/08/19 02:40 Urine WBC (Auto) 3+(>20/hpf) (Absent) A 01/28/19 15:51 Urine RBC (Auto) 1+(3-5/hpf) (Absent) A 01/28/19 15:51 Ur Squamous Epith Cells Present (Absent) A 01/28/19 15:51 Urine Bacteria Absent (Absent) 01/28/19 15:51 Urine Glucose Negative (Negative) 02/08/19 02:40 Fluid Source Pleural 02/09/19 13:00 Fluid Volume 30 mL 02/09/19 13:00 Fluid Color Yellow 02/09/19 13:00 Fluid Appearance Clear 02/09/19 13:00 Fluid WBC 189 /mcL (0-403626) 02/09/19 13:00 Fluid RBC 1181 /mcL 02/09/19 13:00 Fluid Tot Cell Count 100 02/09/19 13:00 Fluid Neutrophils 99 % 02/09/19 13:00 Fluid Band Neutrophils Cancelled 01/30/19 13:30 Fluid Lymphocytes Cancelled 01/30/19 13:30 Fluid Reactive Lymphs Cancelled 01/30/19 13:30 Fluid Monocytes 1 % 02/09/19 13:00 Fluid Eosinophils Cancelled 01/30/19 13:30 Fluid Basophils Cancelled 01/30/19 13:30 Fluid Promyelocytes Cancelled 01/30/19 13:30 Fluid Myelocytes Cancelled 01/30/19 13:30 Fluid Metamyelocytes Cancelled 01/30/19 13:30 Fluid Blast Cells Cancelled 01/30/19 13:30 Fluid Nucleated RBCs Cancelled 01/30/19 13:30 Fluid Other Cells Cancelled 01/30/19 13:30 Fluid Cell Count Rvw By 02/09/19 13:00 Fluid Glucose 44 mg/dL 02/09/19 13:00 Fluid Total Protein 4.1 g/dL 02/09/19 13:00 Fluid LDH 772 U/L 02/09/19 13:00 Fluid Comment 02/09/19 13:00 Vancomycin Trough 16.8 mcg/mL 02/14/19 05:23
--- NOTE | 2019-02-14 16:49 | BRIEFOPN ---
Brief Operative/Procedure Note - Operation Details Pre-Op Diagnosis: Loculated rt effusion Post-Op Diagnosis: Rt effusion, serosanguinous fluid Procedures: Thoracentesis on rt side Surgeon(s)/Proceduralists: Brooks Anesthesia: Local with 1% lidocaine 5 cc Estimated Blood Loss: None Findings: Loculated pocket of fluid posteriorly, slighlty turbid and sero sanguinous fluid at end- 470cc Specimen(s)/Culture(s) Description: Cell count, biochem, cx Complications: None
[2019-02-14] MEDS ORDERED: Lorazepam PYXIS KEY PRN (16:50)
[2019-02-14] MEDS ORDERED: LORazepam INJ* 2 MG/ML 1 ML VIAL IV PUSH ONE (16:50)
[2019-02-14 17:07] LABS: Body Fluid Source Pleural Fluid
[2019-02-14 18:12] LABS: Body Fluid Mono 4 %; Body Fluid Other Cells 4
[2019-02-14] MEDS: Lidocaine PATCH 5%* 1 PATCH TRANSDERM SCH (18:21)
--- NOTE | 2019-02-14 18:57 | PN ---
Progress Note - Progress Note Date of Service: 02/14/19 Note: Surgery Update: Spoke earlier w/ Dr. Guy. A CT was obtained which showed a moderate fluid collection posterior to the chest tube. She tapped this for ~ 460 ml per the hospitalist and stated that the chest tube could be removed. After explaining the procedure to the patient, and after premedication with lorazepam, the chest tube was removed w/o incident and an occlusive dressing was secured. She tolerated the procedure well.
--- NOTE | 2019-02-14 21:57 | PRO ---
THORACENTESIS REPORT: DATE OF PROCEDURE: 01/25/19 - ROOM #408 PROCEDURE PERFORMED: Ultrasound-guided thoracentesis on the right side. PREPROCEDURAL DIAGNOSIS: The patient with multiloculated pleural effusion recently, required chest tube placement, tPA. CT scan showed large pocket of fluid posteriorly below the chest tube insertion site. ANESTHESIA: Local anesthesia with 1% lidocaine, 5 cc. DESCRIPTION OF PROCEDURE: Informed consent was obtained from the patient prior to the procedure after all the risks and benefits were thoroughly explained. The patient was sitting up and leaning forward during the procedure. Strict aseptic precautions and barrier techniques were utilized. Appropriate time-out was performed and agreed on by attending staff prior to the procedure. Ultrasound was utilized at bedside to localize large pocket of right pleural effusion. Area was marked after ultrasound localization. Area was disinfected with chlorhexidine. Local anesthesia was instilled subdermally down into the pleural space taking precautions. A #11 scalpel blade was utilized to make stab incision. CareFusion 8-M[place]ese thoracentesis catheter was subsequently inserted under manual suction. Catheter was left in place and needle was removed. 470 mL of turbid fluid, which became serosanguineous towards the end of the procedure, was drained under manual suction. Catheter was then removed and sterile Band-Aid was applied. The patient tolerated the procedure well. The patient had chest tube which will be removed by surgery. Fluid was sent into the lab for testing. [id number]/CPS #: [id number] [facility]
[2019-02-15] MEDS: Vancomycin(*) 500 MG in NS 0.9% 250 ML* 250 ML IVPB SCH ×2 (05:18→17:32)
[2019-02-15] MEDS: Lidocaine Patch REMOVE* 1 NOTE MISC PATCH OFF SCH (05:28)
[2019-02-15 05:35] LABS: Hematocrit 23 % (35-47); Hemoglobin 7.7 g/dL (12.0-16.0); Mean Corpuscular HGB Conc 33 g/dL (31-36); Mean Corpuscular Hemoglobin 28 pg (27-31); Mean Corpuscular Volume 84 fL (80-97); Mean Platelet Volume 6.7 fL (7.4-10.4); Platelet Count 295 10^3/uL (150-450); Red Blood Count 2.78 10^6 /uL (3.70-4.87); Red Cell Distribution Width 15 % (10-15); White Blood Count 11.2 10^3/uL (3.5-10.8)
[2019-02-15 05:54] LABS: BUN/Creatinine Ratio 22.1 (8-20); Calcium 7.9 mg/dL (8.6-10.3); EGFR African American 101.5 (>60); EGFR Non-African American 83.9 (>60); Potassium 3.9 mmol/L (3.5-5.0)
[2019-02-15] MEDS: Gabapentin CAP(*) 300 MG PO SCH ×3 (10:30→19:48)
[2019-02-15] MEDS: Lactobacillus Acidophilus* 1 TAB PO SCH ×2 (10:30→19:48)
[2019-02-15] MEDS: Senna TAB 8.6 mg* TAB PO SCH (10:31)
[2019-02-15] MEDS: Cholecalciferol TAB* 1000 UNITS PO SCH (10:31)
[2019-02-15] MEDS: Polyethylene Glycol 3350* 17 GM PACKET PO SCH (10:31)
[2019-02-15] MEDS: Acetaminophen TAB* 325 MG PO PRN (10:34)
--- NOTE | 2019-02-15 13:36 | PN ---
Progress Note - Progress Note Date of Service: 02/15/19 SOAP: Subjective: []Pt seen and examined at bedside. Denies L shoulder pain. Continues to feel fatigued, no new complaints. Objective: []Gen: NAD, nontoxic appearing LUE: Dressings changed, incisions CDI. No erythema or edema of the shoulder. Passive ROM to 90 degrees ff, abd endpoint limited by pain. Still very little active ROM at the shoulder Assessment: []sp I&D L shoulder Bacteremia Pleural effusions, empyema Plan: []- L shoulder use as tolerated, dressing to be changed daily until 02/16/19, plan for suture removal 02/16 (POD 14) - Continue abx per Hospitalist for empyema and chest tube management per Dr. Stoen team - Cont vanco and weekly labs per ID - Follow up with Dr. Mayo in the office 1-2 weeks after discharge from hospital Vital Signs Temp 99.6 F 02/15/19 11:15 Pulse 109 02/15/19 11:15 Resp 18 02/15/19 13:16 BP 123/73 02/15/19 11:15 Pulse Ox 96 02/15/19 11:15 Intake & Output 02/14/19 02/15/19 02/15/19 18:59 06:59 18:59 Intake Total 1350 250 240 Balance 1350 250 240 Weight 147 lb 11.2 oz Intake: IV Fluids 600 ABX - VANCOMYCIN 500 NS 100 IVPB 250 ABX - VANCOMYCIN 250 Oral 750 0 240 Other: Estimated Void Medium Large Date of Last Bowel 02/14/19 Movement # Bowel Movements 1 0 Estimated Stool Amount Large # Voids 2 1 Laboratory Last Values WBC 11.2 10^3/uL (3.5-10.8) H 02/15/19 05:20 RBC 2.78 10^6 /uL (3.70-4.87) L 02/15/19 05:20 Hgb 7.7 g/dL (12.0-16.0) L 02/15/19 05:20 Hct 23 % (35-47) L 02/15/19 05:20 MCV 84 fL (80-97) 02/15/19 05:20 MCH 28 pg (27-31) 02/15/19 05:20 MCHC 33 g/dL (31-36) 02/15/19 05:20 RDW 15 % (10-15) 02/15/19 05:20 Plt Count 295 10^3/uL (150-450) 02/15/19 05:20 MPV 6.7 fL (7.4-10.4) L 02/15/19 05:20 Neut % (Auto) 75.7 % 02/14/19 05:23 Lymph % (Auto) 11.0 % 02/14/19 05:23 [place] % (Auto) 9.8 % 02/14/19 05:23 Eos % (Auto) 2.6 % 02/14/19 05:23 Baso % (Auto) 0.9 % 02/14/19 05:23 Absolute Neuts (auto) 8.7 10^3/ul (1.5-7.7) H 02/14/19 05:23 Absolute Lymphs (auto) 1.3 10^3/ul (1.0-4.8) 02/14/19 05:23 Absolute Monos (auto) 1.1 10^3/ul (0-0.8) H 02/14/19 05:23 Absolute Eos (auto) 0.3 10^3/ul (0-0.6) 02/14/19 05:23 Absolute Basos (auto) 0.1 10^3/ul (0-0.2) 02/14/19 05:23 Absolute Nucleated RBC 0.0 10^3/ul 02/14/19 05:23 Immature Gran % 2.0 % (0-9) 02/04/19 12:11 Neutrophils % 80.0 % 02/11/19 06:00 Band Neutrophils % 2.0 % (0-8) 02/04/19 12:11 Lymphocytes % 9.0 % 02/11/19 06:00 Monocytes % 9.0 % 02/11/19 06:00 Eosinophils % 1.0 % 02/11/19 06:00 Basophils % 1.0 % 02/11/19 06:00 Metamyelocytes % 1.0 % (0-2) 02/03/19 05:36 Nucleated RBC % 0.0 02/14/19 05:23 Abs Neuts (Manual) 16.1 10^3/ul (1.5-7.7) H 02/04/19 12:11 Abs Lymphs (Manual) 0.3 10^3/ul (1.0-4.8) L 02/04/19 12:11 Abs Monocytes (Manual) 0.2 10^3/ul (0-0.8) 02/04/19 12:11 Toxic Granulation 1+ 02/03/19 05:36 Normal RBC Morphology Normal (Normal) 02/11/19 06:00 Hem Pathologist Commnt 02/11/19 06:00 INR (Anticoag Therapy) 1.21 (0.82-1.09) H 02/10/19 16:15 Sodium 137 mmol/L (135-145) 02/15/19 05:20 Potassium 3.9 mmol/L (3.5-5.0) 02/15/19 05:20 Chloride 105 mmol/L (101-111) 02/15/19 05:20 Carbon Dioxide 30 mmol/L (22-32) 02/15/19 05:20 Anion Gap 2 mmol/L (2-11) 02/15/19 05:20 BUN 15 mg/dL (6-24) 02/15/19 05:20 Creatinine 0.68 mg/dL (0.51-0.95) 02/15/19 05:20 Est GFR ( Amer) 101.5 (>60) 02/15/19 05:20 Est GFR (Non-Af Amer) 83.9 (>60) 02/15/19 05:20 BUN/Creatinine Ratio 22.1 (8-20) H 02/15/19 05:20 Glucose 100 mg/dL (70-100) 02/15/19 05:20 POC Glucose (mg/dL) 147 mg/dL (70-100) H 02/07/19 23:06 Lactic Acid 0.8 mmol/L (0.5-2.0) 01/28/19 23:58 Calcium 7.9 mg/dL (8.6-10.3) L 02/15/19 05:20 Phosphorus 3.6 mg/dL (2.5-5.0) 02/14/19 05:23 Magnesium 1.9 mg/dL (1.9-2.7) 02/14/19 05:23 Total Bilirubin 0.80 mg/dL (0.2-1.0) 02/10/19 16:15 AST 40 U/L (13-39) H 02/10/19 16:15 ALT 15 U/L (7-52) 02/10/19 16:15 Alkaline Phosphatase 458 U/L (34-104) H 02/10/19 16:15 Lactate Dehydrogenase 180 U/L (140-271) 02/09/19 06:12 Total Creatine Kinase 99 U/L (10-223) 01/28/19 12:58 Troponin I 0.01 ng/mL (<0.04) 01/28/19 12:58 C-Reactive Protein 131.47 mg/L (<8.01) H 02/11/19 06:00 B-Natriuretic Peptide 58 pg/mL (<=100) 02/08/19 05:50 Total Protein 6.5 g/dL (6.4-8.9) 02/10/19 16:15 Albumin 2.3 g/dL (3.2-5.2) L 02/10/19 16:15 Globulin 4.2 g/dL (2-4) H 02/10/19 16:15 Albumin/Globulin Ratio 0.5 (1-3) L 02/10/19 16:15 TSH 0.83 mcIU/mL (0.34-5.60) 01/28/19 12:58 Urine Color Yellow 02/08/19 02:40 Urine Appearance Cloudy 02/08/19 02:40 Urine pH 6.0 (5-9) 02/08/19 02:40 Ur Specific [place] 1.006 (1.010-1.030) L 02/08/19 02:40 Urine Protein Negative (Negative) 02/08/19 02:40 Urine Ketones Negative (Negative) 02/08/19 02:40 Urine Blood Negative (Negative) 02/08/19 02:40 Urine Nitrate Negative (Negative) 02/08/19 02:40 Urine Bilirubin Negative (Negative) 02/08/19 02:40 Urine Urobilinogen Negative (Negative) 02/08/19 02:40 Ur Leukocyte Esterase Negative (Negative) 02/08/19 02:40 Urine WBC (Auto) 3+(>20/hpf) (Absent) A 01/28/19 15:51 Urine RBC (Auto) 1+(3-5/hpf) (Absent) A 01/28/19 15:51 Ur Squamous Epith Cells Present (Absent) A 01/28/19 15:51 Urine Bacteria Absent (Absent) 01/28/19 15:51 Urine Glucose Negative (Negative) 02/08/19 02:40 Fluid Source Pleural fluid 02/14/19 16:40 Fluid Volume 24 mL 02/14/19 16:40 Fluid Color Yellow 02/14/19 16:40 Fluid Appearance Cloudy 02/14/19 16:40 Fluid WBC 198 /mcL (0-660882) 02/14/19 16:40 Fluid RBC 4554 /mcL 02/14/19 16:40 Fluid Tot Cell Count 100 02/14/19 16:40 Fluid Neutrophils 81 % 02/14/19 16:40 Fluid Band Neutrophils Cancelled 01/30/19 13:30 Fluid Lymphocytes 15 % 02/14/19 16:40 Fluid Reactive Lymphs Cancelled 01/30/19 13:30 Fluid Monocytes 4 % 02/14/19 16:40 Fluid Eosinophils Cancelled 01/30/19 13:30 Fluid Basophils Cancelled 01/30/19 13:30 Fluid Promyelocytes Cancelled 01/30/19 13:30 Fluid Myelocytes Cancelled 01/30/19 13:30 Fluid Metamyelocytes Cancelled 01/30/19 13:30 Fluid Blast Cells Cancelled 01/30/19 13:30 Fluid Nucleated RBCs Cancelled 01/30/19 13:30 Fluid Other Cells 4 02/14/19 16:40 Fluid Cell Count Rvw By 02/09/19 13:00 Fluid Glucose 44 mg/dL 02/09/19 13:00 Fluid Total Protein 4.1 g/dL 02/09/19 13:00 Fluid LDH 772 U/L 02/09/19 13:00 Fluid Comment 02/09/19 13:00 Vancomycin Trough 16.8 mcg/mL 02/14/19 05:23
--- NOTE | 2019-02-15 14:56 | PN ---
Progress Note - Progress Note Date of Service: 02/15/19 SOAP: Subjective: CC: septic arthritis HPI: 78 year old woman with left shoulder pain, Staph bacteremia and septic arthritis left shoulder. She has since been found to have a right pleural effusion treated with chest tube and a thoracentesis today which she toleratedf well. No fever, rash, or diarrhea. Objective: Vital Signs Temp 37.6 C 02/15/19 11:15 Pulse 109 02/15/19 11:15 Resp 20 02/15/19 13:56 BP 123/73 02/15/19 11:15 Pulse Ox 96 02/15/19 11:15 Intake & Output 02/14/19 02/15/19 02/15/19 18:59 06:59 18:59 Intake Total 1350 250 240 Balance 1350 250 240 Weight 147 lb 11.2 oz Intake: IV Fluids 600 ABX - VANCOMYCIN 500 NS 100 IVPB 250 ABX - VANCOMYCIN 250 Oral 750 0 240 Other: Estimated Void Medium Large Date of Last Bowel 02/14/19 Movement # Bowel Movements 1 0 Estimated Stool Amount Large # Voids 2 1 Gen:awake, no distress HEENT: no thrush, no conj hemorrhage Heart:RRR no murmur Abd:+BS NTND soft Skin: no rash MSK: no spine tenderness, no chest wall tenderness to palpation Neuro: moves all extremities Laboratory Results - last 24 hr 02/09/19 02/14/19 02/15/19 13:00 16:40 05:20 WBC RBC Hgb Hct MCV MCH MCHC RDW Plt Count MPV Sodium 137 Potassium 3.9 Chloride 105 Carbon Dioxide 30 Anion Gap 2 BUN 15 Creatinine 0.68 Est GFR ( Amer) 101.5 Est GFR (Non-Af Amer) 83.9 BUN/Creatinine Ratio 22.1 H Glucose 100 Calcium 7.9 L Fluid Source Pleural fluid Fluid Volume 24 Fluid Color Yellow Fluid Appearance Cloudy Fluid WBC 198 Fluid RBC 4554 Fluid Tot Cell Count 100 Fluid Neutrophils 81 Fluid Lymphocytes 15 Fluid Monocytes 4 Fluid Other Cells 4 Miscellaneous Test 8.0 02/15/19 05:20 WBC 11.2 H RBC 2.78 L Hgb 7.7 L Hct 23 L MCV 84 MCH 28 MCHC 33 RDW 15 Plt Count 295 MPV 6.7 L Sodium Potassium Chloride Carbon Dioxide Anion Gap BUN Creatinine Est GFR ( Amer) Est GFR (Non-Af Amer) BUN/Creatinine Ratio Glucose Calcium Fluid Source Fluid Volume Fluid Color Fluid Appearance Fluid WBC Fluid RBC Fluid Tot Cell Count Fluid Neutrophils Fluid Lymphocytes Fluid Monocytes Fluid Other Cells Miscellaneous Test Assessment: 1. MSSA septic arthritis left shoulder s/p I&D 2. Right complex pleural effusion, likely staphylococcal , chest tube out Plan: 1. continue vancomycin goal tr 15-20, day 18/42 , weekly cbc, cmp, crp, vancomycin trough, fu with ID 1-2 weeks.
--- NOTE | 2019-02-15 15:18 | PN ---
Subjective Date of Service: 02/15/19 Interval History: Patient seen and examined. No acute overnight events. Breathing improved today. Still feels fatigued, but working with PT during our assessment today. Denies fever or chills, no acute SOB, no chest pain, should pain well controlled. Remains worried about her shingles pain after discharge. Past Medical History: Unchanged from Admission Objective Active Medications: Acetaminophen (Tylenol Tab*) 975 mg PO Q8H PRN PRN Reason: MILD PAIN or TEMP > 100.4 Last Admin: 02/15/19 10:34 Dose: 975 mg Cholecalciferol (Vitamin D Tab*) 2,000 units PO DAILY ESCOBAR Last Admin: 02/15/19 10:31 Dose: 2,000 units Docusate Sodium (Colace Cap*) 100 mg PO DAILY PRN PRN Reason: CONSTIPATION Last Admin: 02/07/19 19:56 Dose: 100 mg Famotidine (Pepcid Tab*) 20 mg PO DAILY PRN PRN Reason: HEARTBURN Gabapentin (Neurontin Cap(*)) 600 mg PO TID ESCOBAR Last Admin: 02/15/19 13:56 Dose: 600 mg Heparin Sodium (Porcine) (Heparin Flush Picc/Ml/Cvc(*)) 1 - 3 ml FLUSH 0600, 1800 ESCOBAR; Protocol Last Admin: 02/15/19 05:18 Dose: 2 ml Vancomycin HCl 500 mg/ Sodium (Chloride) 250 mls @ 166.667 mls/hr IVPB Q12H ESCOBAR Last Admin: 02/15/19 05:18 Dose: 166.667 mls/hr Lactobacillus Rhamnosus (Lactobacillus Acidophilus*) 1 tab PO BID ESCOBAR Last Admin: 02/15/19 10:30 Dose: 1 tab Lidocaine (Lidoderm 5% Patch*) 1 patch TRANSDERM Q24H ESCOBAR Last Admin: 02/14/19 18:21 Dose: 1 patch Magnesium Hydroxide (Milk Of Magnesia Liq*) 30 ml PO Q6H PRN PRN Reason: CONSTIPATION Last Admin: 02/01/19 11:29 Dose: 30 ml Morphine Sulfate (Morphine Inj (Syringe))*) 2 mg IV Q2H PRN PRN Reason: PAIN - SEVERE Last Admin: 02/14/19 03:47 Dose: 2 mg Oxycodone HCl (Roxycodone Tab*) 5 mg PO Q6H PRN PRN Reason: PAIN - MODERATE Last Admin: 02/14/19 13:52 Dose: 5 mg Pharmacy Consult (Vancomycin Per Pharmacy*) 1 note FOLLOW UP .VANC PER PHARMACY [facility]; Protocol Pharmacy Profile Note (Lidocaine Patch Remove*) 1 note PATCH OFF 0600 [facility] Last Admin: 02/15/19 05:28 Dose: 1 note Polyethylene Glycol/Electrolytes (Miralax*) 17 gm PO DAILY [facility] Last Admin: 02/15/19 10:31 Dose: Not Given Senna (Senokot 8.6 Mg Tab*) 1 tab PO DAILY [facility] Last Admin: 02/15/19 10:31 Dose: Not Given Vital Signs - 8 hr 02/15/19 02/15/19 02/15/19 07:15 08:00 10:30 Temperature 98.2 F Pulse Rate 97 Respiratory 19 18 18 Rate Blood Pressure 130/62 (mmHg) O2 Sat by Pulse 98 Oximetry 02/15/19 02/15/19 02/15/19 11:15 13:16 13:56 Temperature 99.6 F Pulse Rate 109 Respiratory 20 18 20 Rate Blood Pressure 123/73 (mmHg) O2 Sat by Pulse 96 Oximetry Oxygen Devices in Use Now: Nasal Cannula Appearance: alert, NAD Eyes: PERRLA Ears/Nose/Mouth/Throat: Mucous Membranes Moist Neck: NL Appearance and Movements; NL JVP Respiratory: Symmetrical Chest Expansion and Respiratory Effort, Clear to Auscultation, - - good air entry, diminished bases, no wheezing or rhonchi Cardiovascular: NL Sounds; No Murmurs; No JVD, RRR, - - trace ankle edema Extremities: No Clubbing, Cyanosis, - - left shoulder dressing CDI Skin: No Nodules or Sclerosis Neurological: Alert and Oriented x 3, - - general weakness Nutrition: Taking PO's Result Diagrams: 02/15/19 05:20 02/15/19 05:20 Additional Lab and Data: Laboratory Results - last 24 hr 02/09/19 02/09/19 02/09/19 06:12 06:12 13:00 WBC 15.2 H RBC 3.21 L Hgb 9.1 L Hct 28 L MCV 86 MCH 28 MCHC 33 RDW 16 H Plt Count 575 H MPV 7.2 L Neut % (Auto) 85.9 Lymph % (Auto) 5.2 [place] % (Auto) 7.6 Eos % (Auto) 0.5 Baso % (Auto) 0.8 Absolute Neuts (auto) 13.1 H Absolute Lymphs (auto) 0.8 L Absolute Monos (auto) 1.2 H Absolute Eos (auto) 0.1 Absolute Basos (auto) 0.1 Absolute Nucleated RBC 0.0 Nucleated RBC % 0.0 Sodium 137 Potassium 3.5 Chloride 103 Carbon Dioxide 29 Anion Gap 5 BUN 15 Creatinine 0.74 Est GFR ( Amer) 92.1 Est GFR (Non-Af Amer) 76.1 BUN/Creatinine Ratio 20.3 H Glucose 105 H Calcium 7.8 L Lactate Dehydrogenase 180 C-Reactive Protein 244.09 H Total Protein 5.6 L Fluid Source Pleural fluid Fluid Volume 30 Fluid Color Yellow Fluid Appearance Clear Fluid WBC 189 Fluid RBC 1181 Fluid Tot Cell Count 100 Fluid Neutrophils 99 Fluid Monocytes 1 Fluid Cell Count Rvw By Fluid Comment Microbiology and Other Data: Microbiology 02/04/19 17:18 Blood Venous Aerobic Blood Culture - Final No Growth Day 5 02/04/19 17:18 Blood Venous Anaerobic Blood Culture - Final No Growth Day 5 02/09/19 13:00 Pleural Fluid Gram Stain - Final 02/04/19 13:16 Blood Venous Aerobic Blood Culture - Final No Growth Day 5 02/04/19 13:16 Blood Venous Anaerobic Blood Culture - Final No Growth Day 5 01/30/19 13:30 Misc Source (See Comment) Fungal Culture - Preliminary 02/05/19 03:00 Urine Urine Culture - Final Pseudomonas Aeruginosa 02/01/19 10:11 Blood Venous Aerobic Blood Culture - Final No Growth Day 5 02/01/19 10:11 Blood Venous Anaerobic Blood Culture - Final No Growth Day 5 02/01/19 10:11 Blood Venous Aerobic Blood Culture - Final No Growth Day 5 02/01/19 10:11 Blood Venous Anaerobic Blood Culture - Final No Growth Day 5 02/02/19 12:59 Wound Anaerobic Culture - Final No Growth Day 4 02/02/19 12:59 Wound Skin and Soft Tissue MRSA/MSSA (PCR - Final Mrsa Negative S.aureus Positive 02/02/19 12:59 Wound Gram Stain - Final 02/02/19 12:59 Wound Wound Culture - Final Staphylococcus Aureus 01/30/19 17:12 Wound - Shoulder Left Anaerobic Culture - Final 01/30/19 17:12 Wound - Shoulder Left Skin and Soft Tissue MRSA/MSSA (PCR - Final Mrsa Negative S.aureus Positive 01/30/19 17:12 Wound - Shoulder Left Gram Stain - Final 01/30/19 17:12 Wound - Shoulder Left Wound Culture - Final Staphylococcus Aureus 01/30/19 13:30 Body Fluid Gram Stain - Final 01/30/19 13:30 Body Fluid Body Fluid Culture - Final Staphylococcus Aureus 01/30/19 13:30 Body Fluid Anaerobic Culture - Final 01/30/19 13:30 Body Fluid Skin and Soft Tissue MRSA/MSSA (PCR - Final Mrsa Negative S.aureus Positive 01/30/19 13:30 Body Fluid Acid Fast Bacilli Smear - Final 01/30/19 09:32 Blood Venous Aerobic Blood Culture - Final Staphylococcus Aureus 01/30/19 09:32 Blood Venous Anaerobic Blood Culture - Final Staphylococcus Aureus 01/30/19 09:32 Blood Venous Blood MRSA/MSSA (PCR) - Final Mrsa Negative S.aureus Positive 01/30/19 09:32 Blood Venous Aerobic Blood Culture - Final Staphylococcus Aureus 01/30/19 09:32 Blood Venous Anaerobic Blood Culture - Final Staphylococcus Aureus 01/30/19 09:32 Blood Venous Blood MRSA/MSSA (PCR) - Final Mrsa Negative S.aureus Positive 01/28/19 15:51 Urine Urine Culture - Final Staphylococcus Aureus Enterococcus Faecalis 01/29/19 04:50 Blood Venous Aerobic Blood Culture - Final Staphylococcus Aureus 01/29/19 04:50 Blood Venous Anaerobic Blood Culture - Final Staphylococcus Aureus 01/29/19 04:50 Blood Venous Blood MRSA/MSSA (PCR) - Final Mrsa Negative S.aureus Positive 01/28/19 17:25 Blood Venous Aerobic Blood Culture - Final Staphylococcus Aureus 01/28/19 17:25 Blood Venous Anaerobic Blood Culture - Final Staphylococcus Aureus 01/28/19 17:25 Blood Venous Blood MRSA/MSSA (PCR) - Final Mrsa Negative S.aureus Positive 01/28/19 22:49 Nasal Nasal Screen MRSA (PCR) - Final Mrsa Not Detected Diagnostic Imaging: Patient Name: JESSU CHOUDHURY Medical Record#: [id number] Ordering Physician: Oliver Betancourt MD Acct.#: [id number] : 1940 Age: 78 Sex: F Location: [address] [place] [address] - MEDICAL Exam Date: 02/09/191926 ADM Status: ADM IN Order Information: CT CHEST W/O Accession Number: [id number] CPT: 76805 ADDENDUM Addendum created by Courtney Lancaster MD on 02/09/2019 9:51:45 PM EST THIS REPORT CONTAINS FINDINGS THAT MAY BE CRITICAL TO PATIENT CARE. The findings regarding the right PICC were verbally communicated via telephone conference with Dr. Moore at 9:51 PM EST on 02/09/2019. The findings were acknowledged and understood. Initial report created on 02/09/2019 9:43:45 PM EST PROCEDURE INFORMATION: Exam: CT Chest Without Contrast Exam date and time: 02/09/2019 8:34 PM Age: 78 years old Clinical history: Shortness of breath; Additional info: Dr. Stephon krishna prior to chest tube; Pleural effusion TECHNIQUE: Imaging protocol: Computed tomography of the chest without contrast. Radiation optimization: All CT scans at this facility use at least one of these dose optimization techniques: automated exposure control; mA and/or kV adjustment per patient size (includes targeted exams where dose is matched to clinical indication); or iterative reconstruction. COMPARISON: C/A/P W CT CHEST/ABD/PEL W 02/05/2019 8:17 PM FINDINGS: Limitations: Assessment is limited by lack of IV contrast. Tubes, catheters and devices: A right PICC is now present, extending into the right atrium. Lungs: The right lower lobe is now completely collapsed/consolidated with tethering to the posterior parietal pleura.. There is increasing right middle lobe and dependent right upper lobe opacification. Continued partial consolidation of the left lower lobe. Developing biapical septal lines and left upper lobe ground glass densities, possibly secondary to pulmonary edema. Bandlike atelectasis or scarring again noted in the lingula. Pleural space: There are has been slight increase in the right layering pleural effusion which extends most of the length of the right hemithorax. Little change in small left pleural effusion. No pneumothorax. Heart: Normal in size. No pericardial effusion. Mediastinum: Small hiatal hernia. Aorta: Normal. No aortic aneurysm. Lymph nodes: No enlarged lymph nodes. Bones/joints: Healing fractures of left eighth and ninth ribs. Degenerative change at left shoulder. Compression fractures again noted at T4, L1 and, and, most pronounced, at T11. Soft tissues: Subcutaneous stranding is present in the postero-lateral right lower chest and upper abdomen region with foci of soft tissue air adjacent to [facility] Patient Name:JESUS CHOUDHURY MR: [id number] : 1940 right ribs 8 and 9 postero-laterally. IMPRESSION: 1. Continued right greater than left pleural effusion. The right effusion is slightly larger compared to prior study. 2. Worsening right lower lobe atelectasis/consolidation with little change in other involved lobes, detailed above. 3. Upper lobe septal thickening suggesting developing interstitial edema. 4. Right PICC now present, extending into the right atrium. Recommend 3 cm of retraction followed by chest radiograph to reassess location of tip. 5. Subcutaneous air and stranding now present in the right posterior lateral chest wall. Correlate with recent instrumentation/thoracentesis. 6. Other non-emergent findings as above. To contact [facility] with a general question: [facility] - [phone] For direct physician to physician contact: Physician Hotline - [phone] [facility] ([facility] Facility ID #[id number]) <Electronically signed by Courtney Lancaster MD in OV>02/09/192150 Dictated by: Courtney Lancaster MD Dictated Date/Time:02/09/192033 Transcribed Date/Time: 02/09/192033 Copy to: Frank Colorado MD; Britney Reilly MD; Wayne Meredith MD; Oliver Betancourt MD ; Moriah Guy MD; Jessica Mayen MD PROCEDURE INFORMATION: Exam: CT Chest Without Contrast Exam date and time: 02/09/2019 8:34 PM Age: 78 years old Clinical history: Shortness of breath; Additional info: Dr. Stephon krishna prior to chest tube; Pleural effusion TECHNIQUE: Imaging protocol: Computed tomography of the chest without contrast. Radiation optimization: All CT scans at this facility use at least one of these dose optimization techniques: automated exposure control; mA and/or kV adjustment per patient size (includes targeted exams where dose is matched to clinical indication); or iterative reconstruction. COMPARISON: C/A/P W CT CHEST/ABD/PEL W 02/05/2019 8:17 PM FINDINGS: Limitations: Assessment is limited by lack of IV contrast. Tubes, catheters and devices: A right PICC is now present, extending into the right atrium. Lungs: The right lower lobe is now completely collapsed/consolidated with tethering to the posterior parietal pleura.. There is increasing right middle lobe and dependent right upper lobe opacification. Continued partial consolidation of the left lower lobe. Developing biapical septal lines and left upper lobe ground glass densities, possibly secondary to pulmonary edema. Bandlike atelectasis or scarring again noted in the lingula. Pleural space: There are has been slight increase in the right layering pleural effusion which extends most of the length of the right hemithorax. Little change in small left pleural effusion. No pneumothorax. Heart: Normal in size. No pericardial effusion. Mediastinum: Small hiatal hernia. Aorta: Normal. No aortic aneurysm. Lymph nodes: No enlarged lymph nodes. Bones/joints: Healing fractures of left eighth and ninth ribs. Degenerative change at left shoulder. Compression fractures again noted at T4, L1 and, and, Assess/Plan/Problems-Billing 78 female PMH GERD, OA, osteoporosis, recent L hip intertrochanteric fracture s /p IMN (10/2018), and recent shingles s/p acyclovir and recently started opioids and muscle relaxer, presents after being found down with high fever, and blood, urine, and L shoulder joint growing MSSA (s/p Washout). Course c/b persistent sepsis, hypoxic respiratory failure 2/2 parapneumonic effusion. - Patient Problems (1) Septic arthritis of shoulder Code(s): M00.9 - PYOGENIC ARTHRITIS, UNSPECIFIED SNOMED Code(s): 95558334 Comment: - OR 02/02 for second wash out/I&D - MSSA in culture - Continue day 17/28 days of vanco - Plan for suture removal tomorrow 02/16/19 as per ortho (2) Parapneumonic effusion Code(s): J18.9 - PNEUMONIA, UNSPECIFIED ORGANISM; J91.8 - PLEURAL EFFUSION IN OTHER CONDITIONS CLASSIFIED ELSEWHERE SNOMED Code(s): 52730199 Comment: - s/p thoracentesis for loculated pleural effusion initially then required chest tube - s/p chest tube 02/10/[address] Szymanski with tPA and Dornase to promote lysis and drainage of effusion - 3rd dose tPA and Dornase held 02/14/19 as per surgery - 02/14/19 chest tube removed, US and CT revealed large effusion inferior to chest tube that was successfully drained via thoracentesis by Dr. Guy (~ 460ml fluid) - Pulmonology following, surgery signed off - Continue IV atbx for 14 days post-removal of chest tube - suspect lower H&H 2/2 tPA and dornase (which is now discontinued) and some bloody drainage from chest tube, patient asymptomatic (3) MSSA bacteremia Current Visit: Yes Status: Acute Code(s): R78.81 - BACTEREMIA SNOMED Code( s): 042211393 Comment: - Pt with multiple blood cultures positive for MSSA. - Most recent cultures obtained on 02/01 and 02/04 have NGTD. - TTE and NIRU both negative for signs of endocarditis. - Continue IV vancomycin as per ID day 17 (and for 2 weeks post chest tube removal, which ever is longer duration) (4) Acute respiratory failure with hypoxia Code(s): J96.01 - ACUTE RESPIRATORY FAILURE WITH HYPOXIA SNOMED Code(s): 93600401 Comment: - 2/2 large loculated effusion - Required one dose lasix 20 mg IV 02/10/19, no indication for further diuretics today - Continue O2 and wean as tolerated (5) Sepsis Comment: - 2/2 MSSA bacteremia and left shoulder septic arthritis, also with UTI and now parapneumonic effusion - Sepsis resolved, but will continue PICC and 28 days of IV atbx - ID following (6) Post herpetic neuralgia Code(s): B02.29 - OTHER POSTHERPETIC NERVOUS SYSTEM INVOLVEMENT SNOMED Code(s) : 2644256 Comment: - Right flank, recent shingles - Continue gabapentin 600mg in the AM, 900mg in the PM, and 600mg at noon with lidoderm PRN (7) GERD (gastroesophageal reflux disease) Code(s): K21.9 - GASTRO-ESOPHAGEAL REFLUX DISEASE WITHOUT ESOPHAGITIS SNOMED Code(s): 620719976 Comment: - On pepcid (8) DVT prophylaxis Code(s): Z29.9 - ENCOUNTER FOR PROPHYLACTIC MEASURES, UNSPECIFIED SNOMED Code( s): 755421919 Comment: - lovenox SQ (9) DNR (do not resuscitate) Status and Disposition: Inpatient, fair/progressing. Plan for discharge to [facility] tomorrow.
[2019-02-15] MEDS: Lidocaine PATCH 5%* 1 PATCH TRANSDERM SCH (16:10)
[2019-02-15] MEDS: Morphine INJ* 2 MG/ML 1 ML SYRINGE (TWO MG - NEW SYRINGE VERSION) IV PRN ×3 (16:10→22:14)
--- NOTE | 2019-02-15 16:14 | PN ---
Progress Note - Progress Note Date of Service: 02/15/19 SOAP: Subjective: NAD comfortable in chair [] Objective: Vital Signs Temp 99.6 F 02/15/19 11:15 Pulse 109 02/15/19 11:15 Resp 20 02/15/19 15:40 BP 123/73 02/15/19 11:15 Pulse Ox 96 02/15/19 11:15 Intake & Output 02/14/19 02/15/19 02/15/19 18:59 06:59 18:59 Intake Total 1350 250 840 Balance 1350 250 840 Weight 147 lb 11.2 oz Intake: IV Fluids 600 ABX - VANCOMYCIN 500 NS 100 IVPB 250 ABX - VANCOMYCIN 250 Oral 750 0 840 Other: Estimated Void Medium Large Date of Last Bowel 02/14/19 Movement # Bowel Movements 1 0 Estimated Stool Amount Large # Voids 2 1 PEX: Gen: NAD Chest: CTA deminished at base R side Cvs: RRR Abd:Soft, R flank CT site dressing C/D/I Ext:+ edema, calces sofr non tender [] Assessment: S/P R CT placement with 2 doses of dornase/alteplase for para pneumonic effussion with subsequent CT removal yesterday 02/14 [] Plan: No surgical issues now. will change dressing tomorrow prior to tx to SNF , 4x4 with medium tegaderm []
--- NOTE | 2019-02-15 18:45 | PN ---
Progress Note - Progress Note Date of Service: 02/15/19 - Pulm f/u note Note: Pt seen and examined at bedside. Pt reports feleing better, c/o fatigue Active Medications Generic Name Dose Route Start Last Admin Trade Name Freq PRN Reason Stop Dose Admin Acetaminophen 975 mg 01/29/19 09:52 02/15/19 10:34 Tylenol Tab* PO 975 mg Q8H PRN Administration MILD PAIN or TEMP > 100.4 Cholecalciferol 2,000 units 01/31/19 09:00 02/15/19 10:31 Vitamin D Tab* PO 2,000 units DAILY ESCOBAR Administration Docusate Sodium 100 mg 02/07/19 13:27 02/07/19 19:56 Colace Cap* PO 100 mg DAILY PRN Administration CONSTIPATION Famotidine 20 mg 01/29/19 15:26 Pepcid Tab* PO DAILY PRN HEARTBURN Gabapentin 600 mg 02/06/19 21:00 02/15/19 13:56 Neurontin Cap(*) PO 600 mg TID ESCOBAR Administration Heparin Sodium (Porcine) 1 - 3 ml 02/08/19 18:00 02/15/19 17:32 Heparin Flush Picc/Ml/Cvc(*) FLUSH 1 ml 0600,1800 ESCOBAR Administration Protocol Vancomycin HCl 500 mg/ Sodium 250 mls @ 166.667 mls/hr 02/10/19 18:00 17:32 Chloride IVPB 166.667 mls/hr Q12H ESCOBAR Administration Lactobacillus Rhamnosus 1 tab 01/29/19 21:00 02/15/19 10:30 Lactobacillus Acidophilus* PO 1 tab BID ESCOBAR Administration Lidocaine 1 patch 02/02/19 18:00 02/15/19 16:10 Lidoderm 5% Patch* TRANSDERM 1 patch Q24H ESCOBAR Administration Magnesium Hydroxide 30 ml 01/29/19 10:17 02/01/19 11:29 Milk Of Magnesia Liq* PO 30 ml Q6H PRN Administration CONSTIPATION Morphine Sulfate 2 mg 02/13/19 14:51 02/15/19 16:10 Morphine Inj (Syringe))* IV 2 mg Q2H PRN Administration PAIN - SEVERE Oxycodone HCl 5 mg 02/09/19 17:05 02/14/19 13:52 Roxycodone Tab* PO 5 mg Q6H PRN Administration PAIN - MODERATE Pharmacy Consult 1 note 02/04/19 11:00 Vancomycin Per Pharmacy* FOLLOW UP .VANC PER PHARMACY [facility] Protocol Pharmacy Profile Note 1 note 02/03/19 06:00 02/15/19 05:28 Lidocaine Patch Remove* PATCH OFF 1 note 0600 [facility] Administration Polyethylene Glycol/Electrolytes 17 gm 02/07/19 14:00 02/15/19 10:31 Miralax* PO Not Given DAILY [facility] Senna 1 tab 02/07/19 14:00 02/15/19 10:31 Senokot 8.6 Mg Tab* PO Not Given DAILY [facility] Vital Signs Temp Pulse Resp BP Pulse Ox 99.6 F 109 18 123/73 96 02/15/19 11:15 02/15/19 11:15 02/15/19 17:37 02/15/19 11:15 02/15/19 11:15 O/E: Pt in NAD HEENT: PERRLA Lungs: Diminished air entry at bases CVS: S1, S2 Abd: Soft, BS+ Ext: normal ROM Skin: No rash Laboratory Results - last 24 hr 02/09/19 02/15/19 02/15/19 13:00 05:20 05:20 WBC 11.2 H RBC 2.78 L Hgb 7.7 L Hct 23 L MCV 84 MCH 28 MCHC 33 RDW 15 Plt Count 295 MPV 6.7 L Sodium 137 Potassium 3.9 Chloride 105 Carbon Dioxide 30 Anion Gap 2 BUN 15 Creatinine 0.68 Est GFR ( Amer) 101.5 Est GFR (Non-Af Amer) 83.9 BUN/Creatinine Ratio 22.1 H Glucose 100 Calcium 7.9 L Miscellaneous Test 8.0 I/R: 78 female PMH GERD, OA, osteoporosis, recent L hip intertrochanteric fracture s/p IMN (10/2018), and recent shingles s/p acyclovir and recently started opioids and muscle relaxer, presents after being found down. Found to have bactremia and sepsis with L shoulder joint growing MSSA. Course c/b persistent sepsis, hypoxic respiratory failure, large loculated appearing right pleural effusion. Pt s/p thora 02/09 with U/S evidence of loculations, only 35cc removed Fluid was dark yellow, turbid with elevated LDH, protein and very low glucose Fluid characteristics suggestive of complicated para pneumonic effusion Pt had chest tube placed 02/10 by surgery Pt had tpa and dornase through chest tube as she is high risk for VATS guided decortication Pt started on thrombolytics and DNAse through chest tube, received 2 doses Pt noted to have more sanguinous discharge after 2nd dose even though after 1st dose she put out more fluid Pt also had pain with instillation Further doses held Rpt Ct chest showed isolated pocket of fluid from chest tube site. Pt underwent thoracentesis with removal of 470cc of pleural fluid 02/14. Chest tube was removed after procedure c/w abx. Abx choice as per ID. D/w Dr Padmini Walton [employer]
[2019-02-16] MEDS: Vancomycin(*) 500 MG in NS 0.9% 250 ML* 250 ML IVPB SCH (05:32)
[2019-02-16] MEDS: oxyCODONE TAB* 5 MG TAB PO PRN ×2 (08:45→14:40)
[2019-02-16] MEDS: Gabapentin CAP(*) 300 MG PO SCH ×2 (08:45→13:59)
[2019-02-16] MEDS: Cholecalciferol TAB* 1000 UNITS PO SCH (08:45)
[2019-02-16] MEDS: Acetaminophen TAB* 325 MG PO PRN (08:46)
[2019-02-16] MEDS: Lactobacillus Acidophilus* 1 TAB PO SCH (08:46)
[2019-02-16] MEDS: Lidocaine Patch REMOVE* 1 NOTE MISC PATCH OFF SCH (08:47)
[2019-02-16] MEDS: Senna TAB 8.6 mg* TAB PO SCH (08:50)
[2019-02-16] MEDS: Polyethylene Glycol 3350* 17 GM PACKET PO SCH (08:50)
[2019-02-16] MEDS: Docusate CAP* 100 MG PO PRN (08:50)
[2019-02-16 09:59] VITALS: BP 157/58
--- NOTE | 2019-02-16 11:06 | PN ---
Progress Note - Progress Note Date of Service: 02/16/19 SOAP: Subjective:NAD Comfortable in chair reports breathing better than yesterday [] Objective: Vital Signs Temp 98.5 F 02/16/19 07:15 Pulse 93 02/16/19 07:15 Resp 20 02/16/19 08:45 BP 157/58 02/16/19 07:15 Pulse Ox 97 02/16/19 08:00 Intake & Output 02/15/19 02/16/19 02/16/19 18:59 06:59 18:59 Intake Total 960 490 30 Balance 960 490 30 Intake: IV Fluids 0 ABX - VANCOMYCIN 0 IVPB 250 ABX - VANCOMYCIN 250 Oral 960 240 30 Other: Estimated Void Medium # Bowel Movements 1 1 Estimated Stool Amount Medium Medium Small # Voids 1 PEX: Gen: NAD Chest: CTA deminished at base R side Cvs: RRR Abd:Soft, R flank CT site no errythema or eccymoosis C/D/I Ext:+ edema, calves soft non tender [] Assessment: S/P R Chest Tube placement with 2 doses of dornase/alteplase for para pneumonic effusion with subsequent CT removal 02/14 [] Pt reports improved breathing Plan: dressing was changed to xeroform 4x4 and tegaderm, pt to SNF today. No Surgical Issues []
--- NOTE | 2019-02-16 12:40 | PN ---
Progress Note - Progress Note Date of Service: 02/16/19 SOAP: Subjective: []Pt seen at bedside. She has no complaints today, she has been working with PT to increase shoulder ROM. Denies any feeling of fever or chills. Objective: []Gen: NAD, nontoxic appearing LUE: sutures removed and steri strips placed. No erythema or edema of the shoulder. Passive ROM to 90 degrees ff, abd endpoint limited by pain. Still very little active ROM at the shoulder Assessment: []sp I&D L shoulder Bacteremia Pleural effusions, empyema Plan: []- L shoulder use as tolerated. Keep steri strips intact until they fall off on their own - Continue abx per Hospitalist for empyema and chest tube management per Dr. Stone team - Cont vanc and weekly labs per ID - Follow up with Dr. Mayo in the office 1-2 weeks after discharge from hospital Vital Signs Temp 98.5 F 02/16/19 07:15 Pulse 93 02/16/19 07:15 Resp 20 02/16/19 08:45 BP 157/58 02/16/19 07:15 Pulse Ox 97 02/16/19 08:00 Intake & Output 02/15/19 02/16/19 02/16/19 18:59 06:59 18:59 Intake Total 960 490 30 Balance 960 490 30 Intake: IV Fluids 0 ABX - VANCOMYCIN 0 IVPB 250 ABX - VANCOMYCIN 250 Oral 960 240 30 Other: Estimated Void Medium # Bowel Movements 1 1 Estimated Stool Amount Medium Medium Small # Voids 1 Laboratory Last Values WBC 11.2 10^3/uL (3.5-10.8) H 02/15/19 05:20 RBC 2.78 10^6 /uL (3.70-4.87) L 02/15/19 05:20 Hgb 7.7 g/dL (12.0-16.0) L 02/15/19 05:20 Hct 23 % (35-47) L 02/15/19 05:20 MCV 84 fL (80-97) 02/15/19 05:20 MCH 28 pg (27-31) 02/15/19 05:20 MCHC 33 g/dL (31-36) 02/15/19 05:20 RDW 15 % (10-15) 02/15/19 05:20 Plt Count 295 10^3/uL (150-450) 02/15/19 05:20 MPV 6.7 fL (7.4-10.4) L 02/15/19 05:20 Neut % (Auto) 75.7 % 02/14/19 05:23 Lymph % (Auto) 11.0 % 02/14/19 05:23 [place] % (Auto) 9.8 % 02/14/19 05:23 Eos % (Auto) 2.6 % 02/14/19 05:23 Baso % (Auto) 0.9 % 02/14/19 05:23 Absolute Neuts (auto) 8.7 10^3/ul (1.5-7.7) H 02/14/19 05:23 Absolute Lymphs (auto) 1.3 10^3/ul (1.0-4.8) 02/14/19 05:23 Absolute Monos (auto) 1.1 10^3/ul (0-0.8) H 02/14/19 05:23 Absolute Eos (auto) 0.3 10^3/ul (0-0.6) 02/14/19 05:23 Absolute Basos (auto) 0.1 10^3/ul (0-0.2) 02/14/19 05:23 Absolute Nucleated RBC 0.0 10^3/ul 02/14/19 05:23 Immature Gran % 2.0 % (0-9) 02/04/19 12:11 Neutrophils % 80.0 % 02/11/19 06:00 Band Neutrophils % 2.0 % (0-8) 02/04/19 12:11 Lymphocytes % 9.0 % 02/11/19 06:00 Monocytes % 9.0 % 02/11/19 06:00 Eosinophils % 1.0 % 02/11/19 06:00 Basophils % 1.0 % 02/11/19 06:00 Metamyelocytes % 1.0 % (0-2) 02/03/19 05:36 Nucleated RBC % 0.0 02/14/19 05:23 Abs Neuts (Manual) 16.1 10^3/ul (1.5-7.7) H 02/04/19 12:11 Abs Lymphs (Manual) 0.3 10^3/ul (1.0-4.8) L 02/04/19 12:11 Abs Monocytes (Manual) 0.2 10^3/ul (0-0.8) 02/04/19 12:11 Toxic Granulation 1+ 02/03/19 05:36 Normal RBC Morphology Normal (Normal) 02/11/19 06:00 Hem Pathologist Commnt 02/11/19 06:00 INR (Anticoag Therapy) 1.21 (0.82-1.09) H 02/10/19 16:15 Sodium 137 mmol/L (135-145) 02/15/19 05:20 Potassium 3.9 mmol/L (3.5-5.0) 02/15/19 05:20 Chloride 105 mmol/L (101-111) 02/15/19 05:20 Carbon Dioxide 30 mmol/L (22-32) 02/15/19 05:20 Anion Gap 2 mmol/L (2-11) 02/15/19 05:20 BUN 15 mg/dL (6-24) 02/15/19 05:20 Creatinine 0.68 mg/dL (0.51-0.95) 02/15/19 05:20 Est GFR ( Amer) 101.5 (>60) 02/15/19 05:20 Est GFR (Non-Af Amer) 83.9 (>60) 02/15/19 05:20 BUN/Creatinine Ratio 22.1 (8-20) H 02/15/19 05:20 Glucose 100 mg/dL (70-100) 02/15/19 05:20 POC Glucose (mg/dL) 147 mg/dL (70-100) H 02/07/19 23:06 Lactic Acid 0.8 mmol/L (0.5-2.0) 01/28/19 23:58 Calcium 7.9 mg/dL (8.6-10.3) L 02/15/19 05:20 Phosphorus 3.6 mg/dL (2.5-5.0) 02/14/19 05:23 Magnesium 1.9 mg/dL (1.9-2.7) 02/14/19 05:23 Total Bilirubin 0.80 mg/dL (0.2-1.0) 02/10/19 16:15 AST 40 U/L (13-39) H 02/10/19 16:15 ALT 15 U/L (7-52) 02/10/19 16:15 Alkaline Phosphatase 458 U/L (34-104) H 02/10/19 16:15 Lactate Dehydrogenase 180 U/L (140-271) 02/09/19 06:12 Total Creatine Kinase 99 U/L (10-223) 01/28/19 12:58 Troponin I 0.01 ng/mL (<0.04) 01/28/19 12:58 C-Reactive Protein 116.09 mg/L (<8.01) H 02/16/19 05:40 B-Natriuretic Peptide 58 pg/mL (<=100) 02/08/19 05:50 Total Protein 6.5 g/dL (6.4-8.9) 02/10/19 16:15 Albumin 2.3 g/dL (3.2-5.2) L 02/10/19 16:15 Globulin 4.2 g/dL (2-4) H 02/10/19 16:15 Albumin/Globulin Ratio 0.5 (1-3) L 02/10/19 16:15 TSH 0.83 mcIU/mL (0.34-5.60) 01/28/19 12:58 Urine Color Yellow 02/08/19 02:40 Urine Appearance Cloudy 02/08/19 02:40 Urine pH 6.0 (5-9) 02/08/19 02:40 Ur Specific [place] 1.006 (1.010-1.030) L 02/08/19 02:40 Urine Protein Negative (Negative) 02/08/19 02:40 Urine Ketones Negative (Negative) 02/08/19 02:40 Urine Blood Negative (Negative) 02/08/19 02:40 Urine Nitrate Negative (Negative) 02/08/19 02:40 Urine Bilirubin Negative (Negative) 02/08/19 02:40 Urine Urobilinogen Negative (Negative) 02/08/19 02:40 Ur Leukocyte Esterase Negative (Negative) 02/08/19 02:40 Urine WBC (Auto) 3+(>20/hpf) (Absent) A 01/28/19 15:51 Urine RBC (Auto) 1+(3-5/hpf) (Absent) A 01/28/19 15:51 Ur Squamous Epith Cells Present (Absent) A 01/28/19 15:51 Urine Bacteria Absent (Absent) 01/28/19 15:51 Urine Glucose Negative (Negative) 02/08/19 02:40 Fluid Source Pleural fluid 02/14/19 16:40 Fluid Volume 24 mL 02/14/19 16:40 Fluid Color Yellow 02/14/19 16:40 Fluid Appearance Cloudy 02/14/19 16:40 Fluid WBC 198 /mcL (0-111335) 02/14/19 16:40 Fluid RBC 4554 /mcL 02/14/19 16:40 Fluid Tot Cell Count 100 02/14/19 16:40 Fluid Neutrophils 81 % 02/14/19 16:40 Fluid Band Neutrophils Cancelled 01/30/19 13:30 Fluid Lymphocytes 15 % 02/14/19 16:40 Fluid Reactive Lymphs Cancelled 01/30/19 13:30 Fluid Monocytes 4 % 02/14/19 16:40 Fluid Eosinophils Cancelled 01/30/19 13:30 Fluid Basophils Cancelled 01/30/19 13:30 Fluid Promyelocytes Cancelled 01/30/19 13:30 Fluid Myelocytes Cancelled 01/30/19 13:30 Fluid Metamyelocytes Cancelled 01/30/19 13:30 Fluid Blast Cells Cancelled 01/30/19 13:30 Fluid Nucleated RBCs Cancelled 01/30/19 13:30 Fluid Other Cells 4 02/14/19 16:40 Fluid Cell Count Rvw By 02/09/19 13:00 Fluid Glucose 44 mg/dL 02/09/19 13:00 Fluid Total Protein 4.1 g/dL 02/09/19 13:00 Fluid LDH 772 U/L 02/09/19 13:00 Fluid Comment 02/09/19 13:00 Vancomycin Trough 16.8 mcg/mL 02/14/19 05:23 Miscellaneous Test 8.0 02/09/19 13:00
--- NOTE | 2019-02-16 14:48 | DS ---
CC: Dr. Jessica Mayen; Dr. Moriah Guy; Dr. Wayne Meredith; Dr. Miguelangel Mayo; Dr. Ramirez Szymanski * DISCHARGE SUMMARY: DATE OF ADMISSION: 01/28/19 DATE OF DISCHARGE: 02/16/19 PRIMARY CARE PROVIDER: Dr. Jessica Mayen. MY ATTENDING FOR TODAY: Dr. Rashmi Deshpande.* (DICTATED BY ANH LUCERO NP) SPECIALISTS INVOLVED IN THIS PATIENT'S CASE: Dr. Moriah Guy of Pulmonology , Dr. Wayne Meredith of Infectious Disease, Dr. Miguelangel Mayo of Orthopedics, and also Dr. Ramirez Szymanski of General Surgery. HOSPITAL COURSE: Please refer to admitting H and P on 01/28/19, but in short, this is a 78-year-old female patient with a past medical history of GERD, osteoarthritis, osteoporosis, a recent fracture of the left hip with IM nail, shingles with postherpetic neuralgia, who presented to the emergency department after being found unresponsive with a high fever, hematuria, who was brought to the emergency department for evaluation. In the ED, she was noted again to have a fever and to be moderately unresponsive. At that time, she was found to be septic and bacteremic. Blood cultures were showing MSSA bacteremia. Imaging was showing the source as a left septic shoulder. It should be noted that the patient did have recent left intertrochanteric hip fracture and status post IM nail in October of this year. In any case, the hip area and surgical site were benign and the only area that did appear to be infected was the left shoulder. The patient was being appropriately treated with antibiotics as directed by Dr. Wayne Meredith for her staph bacteremia and her shoulder by Orthopedics; however, her course became complicated by acute hypoxic respiratory failure. In terms of managing the septic arthritis and bacteremia, she was sent to the OR initially for her first washout on 01/30/19 and then for a second washout on 02/02/19. She was growing MSSA in the cultures both times. She was empirically started on vancomycin at the recommendation of Infectious Disease. The surgical site has been managed very closely by the orthopedic team with plan for suture removal today, 02/16/19. It should be noted that the surgical site has been healing appropriately and has had no further issues since her second washout. In terms of her pulmonary status, it has been very complicated secondary to her hypoxic respiratory failure. CAT scan imaging showed some large loculated right-sided pleural effusion that had coalesced into several pockets. She had had a thoracentesis on 02/09/19 with initial loculations. Originally, only 35 cc was removed. The fluid was turbid and dark yellow. LDH was elevated. The fluid characteristics at that time were suggestive of a complicated parapneumonic effusion. Shortly thereafter, on , a chest tube was placed by General Surgery. Recommendation at that time was to instill tPA and dornase through the chest tube because she was high risk for VATS. Thrombolytics were instilled to encourage lysis and evacuation of these loculated effusions. She did receive 2 doses of the tPA and dornase; however, she did have some bloody return. The sanguineous drainage after the second dose did encourage more drainage of fluid; however, after dose #2, the drainage did seem to drop off and she was not having much return. Followup CAT scan thereafter on 02/14/19 revealed a larger effusion that coalesced inferior to the chest tube insertion site. There was approximately 500 mL of fluid noted at that time. Dr. Guy of Pulmonology advised thoracentesis to drain that area and obtained approximately 460 mL of fluid from that site. At the recommendation of Dr. Guy, the chest tube was removed later that day. The chest tube removal was uneventful. The patient did not have any post removal complications. Throughout this time, her pulmonary status remained stable. Her O2 saturation was adequate. She does remain on supplemental O2; however, from a respiratory status, she is moving air adequately and not having any episodes of acute shortness of breath. Recommendations at this time are to continue antibiotics for an additional 14 days given the removal of the chest tube. She remained afebrile for the last 48 hours. It should be noted that blood cultures obtained on 02/01/19 and 02/04/19 have remained negative to date. She also had transthoracic echocardiogram and transesophageal echocardiogram both which were negative for endocarditis. Again, Infectious Disease is recommending continuing vancomycin for complete course of 28 days or for 2 weeks post chest tube removal, whichever is longer in duration. In terms of her respiratory failure with hypoxia, she did require 1 dose of Lasix, which she received on 02/10/19; however, she has not had any need for Lasix after that. She was maintained on pain control for her postherpetic neuralgia. As stated earlier, the patient did have a recent case of shingles with resulting postherpetic neuralgia. Her gabapentin had been increased to 600 mg in the morning, 900 in the evening and 600 in the afternoon, alternating with Lidoderm patches as needed. She can also have oxycodone as needed; however, the patient does seem to be feeling with this regimen. The patient was evaluated by Physical Therapy. Although she does have general weakness, she has been able to get out of bed and ambulate. Her endurance is poor; however, she has overall improved and is hemodynamically stable. Although the patient has had a very complex medical course since the beginning of her hospitalization, she is medically stable for discharge and has made a great amount of progress especially in the last 72 hours and she is medically stable for discharge to [facility], which will happen today. DISCHARGE DIAGNOSES: 1. Sepsis secondary to methicillin-susceptible Staphylococcus aureus bacteremia and septic arthritis of the left shoulder. 2. Methicillin-susceptible Staphylococcus aureus bacteremia. 3. Parapneumonic effusion of the right side. 4. Acute respiratory failure and hypoxia secondary to #1 and 2. 5. Recent shingles infection with postherpetic neuralgia. 6. History of gastroesophageal reflux disease. 7. Anemia. MEDICATIONS FOR DISCHARGE: Include: 1. Vancomycin 500 mg IV piggyback q.12 hours for 13 more days. 2. Tylenol 975 mg p.o. q.8 hours as needed for pain or fever. 3. Vitamin D 2000 units p.o. daily. 4. Colace 100 mg p.o. daily as needed for constipation. 5. Pepcid 20 mg p.o. daily as needed. 6. Gabapentin 600 mg p.o. 2 times a day and 900 mg in the afternoon scheduled. 7. Heparin flush for PICC line 1 to 3 mL at 0600 and 1800 scheduled. 8. Probiotic 1 tab p.o. 2 times a day. 9. Lidoderm 5% patch q.24 hours. 10. Milk of magnesia 30 mL p.o. q.6 hours as needed. 11. Oxycodone 5 mg p.o. q.6 hours as needed for severe breakthrough pain. 12. MiraLAX 17 g p.o. daily as needed for constipation. 13. Omeprazole 20 mg p.o. daily in the morning. 14. Calcium with vitamin D supplement 1 tab p.o. daily. 15. Triamcinolone topical 2 times a day. REVIEW OF SYSTEMS: On the day of discharge, the patient denies any fever, fatigue, or chills. No chest pain, no shortness of breath. No nausea, no vomiting, no abdominal pains. Denies any urinary complaints. No bowel complaints. Her herpetic neuralgia pain is rated at 2/10, shoulder pain is rated at 0/10, and no further constitutional complaints. PHYSICAL EXAMINATION: The patient is awake, alert, in no acute distress. Vital signs are blood pressure 157/58, heart rate 93, respiratory rate 20, O2 saturation 97% on room air with a temperature of 98.5. HEENT: The patient is atraumatic, normocephalic. PERRLA. Nonicteric sclerae. Oral mucosa is moist. Tongue is midline. Neck is supple, nontender. No JVD noted. No carotid bruits auscultated. Cardiovascular: S1, S2 present. No murmurs, gallops, or rubs noted. Rate and rhythm are regular. Abdomen is soft, nontender, and nondistended. Positive bowel sounds in all 4 quadrants. Lungs are clear bilaterally to auscultation with no wheezing, rhonchi, or rales. is deferred. Musculoskeletal: There is no clubbing, no cyanosis. She had trace bipedal edema. Dressing on the left shoulder is clean, dry, and intact. Dressing over her chest tube insertion site is also clean, dry, and intact. She has no rashes or lesions. Skin is otherwise warm, dry, and intact. Neurologic: Grossly intact with no focal deficits. Psychiatric: Alert and oriented x3. Cooperative and appropriate. DIAGNOSTIC STUDIES/LAB DATA: WBCs 11.2, RBCs 2.78, hemoglobin 8.3, hematocrit 25, platelets 295. Sodium 137, potassium of 3.9, chloride 105, CO2 of 30, BUN 15, creatinine 0.68, glucose 100. CRP 116.09. Imaging: CT of the brain on 01/28/19 shows no evidence for acute intracranial abnormality. Some findings suggestive of mild chronic small vessel ischemic changes. Chest x-ray on 01/28/19 shows some linear atelectasis versus pleural parenchymal scarring of the left lung base. Shoulder x-ray dated 01/28/19 shows osteoarthritic changes of the left shoulder with no evidence of fracture or dislocation. CT of the abdomen and pelvis shows diffuse fatty infiltration of the liver. Moderate-sized hiatal hernia. Some compression fractures at T11 and L1 which are chronic. Old fracture of the left hip with dynamic colin and an IM colin device , no acute fracture of the hip noted. Cervical spine CT also dated 01/28/19 shows no acute fracture of the cervical vertebra. There is a slight anterolisthesis of C4-C5, multilevel degenerative cervical disk disease and facet disease. There is an indentation of the inferior endplate of C4 secondary to an intervertebral disk herniation. Focal sclerosis involving the medial aspect of the left clavicle, could represent a bone island, cannot exclude sclerotic metastasis, recommend further correlation with the patient's clinical history. MRI of the shoulder: Initial MRI of the shoulder on 01/30/19 shows constellation of findings given clinical context consistent with septic arthritis and deep tissue infection. MRI of the shoulder on 02/05/19 shows persistent edema of the rotator cuff muscles with fluid collections and degenerative changes of the glenohumeral joint, unchanged from previous exam. CT of the chest, abdomen and pelvis dated 02/05/19 shows right moderate pleural effusion and mild left pleural effusion with moderate bilateral lower lobe atelectasis and possible consolidation, mild right upper lobe atelectasis and a minimal right middle lobe lingular fibroatelectatic change, fatty infiltration of the liver, minimal hiatal hernia, and no gross central pulmonary embolism identified. Followup chest x-rays dated 02/08/19 and 02/09/19, repeat chest CT also on 02/09, repeat chest x-rays on 02/10/19, 02/13/19 and 02/14/19 were interval chest x-rays before and after thoracenteses. Ultimately, final chest CT and chest ultrasound on 02/14/19, which was prior to the final thoracentesis showed a right chest tube in place with a right lower lobe parapneumonic effusion that was persistent, left pleural effusion and left lower lobe consolidation persistent, right pleural fluid is slightly decreasing with compared to previous exam of 02/09/19. Again, it should be noted this was prior to her final thoracentesis, which was immediately after. DISPOSITION: The patient is being discharged to [facility] for subacute rehab. DIET: Heart-healthy as tolerated. ACTIVITY: Progress activity as tolerated. FOLLOWUPS: The patient is instructed to follow up with Dr. Jessica Mayen, her primary care provider, within 1 week of discharge from rehab; with Dr. Miguelangel Mayo for her left shoulder within 1 to 2 weeks after discharge from the hospital; and also with Dr. Wayne Meredith within 1 to 2 weeks. It should be noted that Dr. Meredith will be following her antibiotics while she is in rehab. The patient will need while at rehab weekly CBC, CMP, CRP, and vancomycin trough on a weekly basis while she is on vancomycin therapy at rehab. CONDITION: The patient was discharged in stable condition via ambulance transport to [facility]. All questions were answered. The patient stated her understanding of her discharge instructions, medications, and followups. TIME SPENT: Sixty minutes on discharge planning. ANH LUCERO NP [id number]/[facility] #: [id number] JUAN
[2019-02-16 17:50] LABS: Lactate Dehydrogenase, BF 446 U/L
[2019-02-16 20:05] LABS: Fluid Type, Glucose PLEURAL; Fluid Type, Protein, Total PLEURAL
[2019-02-17] MEDS ORDERED: Vancomycin Trough Check NOTE FOLLOW UP ONE (05:30)
== END 2019-02-16 12:45 | DRG 853 ==
LOC: ED 12:41 → ICU 19:13 → MED 01-29 16:29
PROVIDERS: ADMIT Internal Medicine; ATTEND Internal Medicine
PROC: B24BZZ4 Ultrasonography of Heart with Aorta, Transesophageal (ICD-10-PCS; 2019-01-28)
PROC: 0RBK4ZZ Excision of Left Shoulder Joint, Percutaneous Endoscopic Approach (ICD-10-PCS; principal; 2019-01-30 16:30)
PROC: 0RBK4ZZ Excision of Left Shoulder Joint, Percutaneous Endoscopic Approach (ICD-10-PCS; 2019-02-02)
PROC: 0W9900Z Drainage of Right Pleural Cavity with Drainage Device, Open Approach (ICD-10-PCS; 2019-02-10)
DX: A41.01 Sepsis due to Methicillin susceptible Staphylococcus aureus (principal); J96.01 Acute respiratory failure with hypoxia; N17.9 Acute kidney failure, unspecified; B02.29 Other postherpetic nervous system involvement; M00.012 Staphylococcal arthritis, left shoulder; N39.0 Urinary tract infection, site not specified; M48.55XA Collapsed vertebra, not elsewhere classified, thoracolumbar region, initial encounter for fracture; J90 Pleural effusion, not elsewhere classified; K21.9 Gastro-esophageal reflux disease without esophagitis; R65.20 Severe sepsis without septic shock; M81.0 Age-related osteoporosis without current pathological fracture; E86.0 Dehydration; Z66 Do not resuscitate; D64.9 Anemia, unspecified; B96.5 Pseudomonas (aeruginosa) (mallei) (pseudomallei) as the cause of diseases classified elsewhere; Z79.01 Long term (current) use of anticoagulants; Z87.442 Personal history of urinary calculi; Z79.899 Other long term (current) drug therapy
CPT/HCPCS: 36415; 70450; 71045; 71046; 71250; 71260; 72125; 74176; 74177; 76604; 80048; 80053; 80202; 81003; 81015; 82040; 82550; 82945; 83605; 83615; 83735; 83880; 83986; 84100; 84155; 84157; 84443; 84484; 85025; 85027; 85060; 85610; 86140; 87040; 87070; 87073; 87077; 87086; 87102; 87116; 87150; 87186; 87205; 87206; 87640; 87641; 88112; 89051; 93005; 93306; 93312; 93325; 96361; 96365; 97530; 99156; 99285; A9270-GY; A9579; C1751; G8978-GP-CJ; G8978-GP-CK; G8978-GP-CL; G8979-GP-CI; G8979-GP-CJ; J0330; J0690; J0692; J0696; J1170; J1240; J1650; J1940; J2060; J2250; J2270; J2310; J2405; J2704; J2710; J2997; J3010; J3370; J3475; J7639; Q9967

== ENCOUNTER 2019-03-16 17:26 | Emergency (ER) | payer MEDICARE ==
--- NOTE | 2019-03-16 18:00 | ED ---
Complex/Multi-Sys Presentation - HPI Summary HPI Summary: This patient is a 79 year old F presenting to [facility] with a chief complaint of back pain since couple days ago. The patient resides at [facility] for rehab/ physical therapy. Per triage the patient rates the pain 6/10 in severity. Pt has PMHx of shingles on her back. Patient denies chest pain. Pt reports the rehab has not been effective so they have been trying to control pain in upper back and lower back. Last couple of day has been difficult with trying to manage pain. Pt was able to ambulate before coming in. Pt is able to converse softly. - History Of Current Complaint Chief Complaint: EDChestPainROMI Time Seen by Provider: 03/16/19 17:43 Hx Obtained From: Patient Onset/Duration: Gradual Onset Timing: Constant Severity Currently: Moderate Severity Initially: Moderate Location: Pain At: - Back Aggravating Factor(s): Nothing Alleviating Factor(s): Nothing Associated Signs And Symptoms: Positive: Back Pain. Negative: Chest Pain - Allergies/Home Medications Allergies/Adverse Reactions: Allergies Allergy/AdvReac Type Severity Reaction Status Date / Time No Known Allergies Allergy Verified 08/18/17 09:28 Home Medications: Home Medications Baclofen TAB* [Lioresal TAB*] 03/16/19 [History] Furosemide TAB* [Lasix TAB*] 20 mg PO DAILY 03/16/19 [History Confirmed 03/16/19 ] PMH/Surg Hx/FS Hx/Imm Hx Endocrine/Hematology History: Reports: Hx Anemia - only during Denies: Hx Anticoagulant Therapy, Hx Diabetes Cardiovascular History: Reports: Hx Rheumatic Fever - as a child Denies: Hx Hypertension, Hx Pacemaker/ICD GI History: Reports: Hx Gastroesophageal Reflux Disease History: Reports: Hx Kidney Stones - 6 yrs ago - passed on own Denies: Hx Renal Disease Musculoskeletal History: Reports: Hx Arthritis, Hx Back Problems, Hx Bursitis, Hx Osteoporosis, Other Musculoskeletal History - Lyme disease Sensory History: Reports: Hx Cataracts, Hx Contacts or Glasses Denies: Hx Hearing Aid Opthamlomology History: Reports: Hx Cataracts, Hx Contacts or Glasses Psychiatric History: Denies: Hx Panic Disorder - Cancer History Hx Chemotherapy: No Hx Radiation Therapy: No - Surgical History Surgery Procedure, Year, and Place: APPENDECTOMY; B/L CATARACTS; LEFT HIP ORIF; TUBAL LIGATION Hx Anesthesia Reactions: No Infectious Disease History: No Infectious Disease History: Denies: Traveled Outside the [place] in Last 30 Days - Family History Known Family History: Negative: Cardiac Disease - Social History Alcohol Use: None Substance Use Type: Reports: None Hx Tobacco Use: Yes Smoking Status (MU): Former Smoker Have You Smoked in the Last Year: No Review of Systems Negative: Chest Pain Positive: Other - Back pain All Other Systems Reviewed And Are Negative: Yes Physical Exam - Summary Physical Exam Summary: Appearance: The patient is well-nourished in no acute distress and in no acute pain. Skin: The skin is warm and dry, and skin color reflects adequate perfusion. HEENT: The head is normocephalic and atraumatic. The pupils are equal and reactive. The conjunctivae are clear and without drainage. Nares are patent and without drainage. Mouth reveals moist mucous membranes, and the throat is without erythema and exudate. The external ears are intact. The ear canals are patent and without drainage. The tympanic membranes are intact. Neck: The neck is supple with full range of motion and non-tender. There are no carotid bruits. There is no neck vein distension. Respiratory: Chest is non-tender. Lungs are clear to auscultation and breath sounds are symmetrical and equal. Cardiovascular: Heart is regular rate and rhythm. There is no murmur or rub auscultated. There is no peripheral edema and pulses are symmetrical and equal. Abdomen: The abdomen is soft and non-tender. There are normal bowel sounds heard in all four quadrants and there is no organomegaly palpated. Musculoskeletal: There is no back tenderness noted. Extremities are non-tender with full range of motion. There is good capillary refill. There is no peripheral edema or calf tenderness elicited. Neurological: Patient is alert and oriented to person, place and time. The patient has symmetrical motor strength in all four extremities. Cranial nerves are grossly intact. Deep tendon reflexes are symmetrical and equal in all four extremities. Psychiatric: The patient has an appropriate affect and does not exhibit any anxiety or depression. Triage Information Reviewed: Yes Vital Signs On Initial Exam: Initial Vitals Temp Pulse Resp BP Pulse Ox 98 F 103 18 121/86 94 03/16/19 17:28 03/16/19 17:28 03/16/19 17:28 03/16/19 17:28 03/16/19 17:28 Vital Signs Reviewed: Yes - [place] Coma Scale Best Eye Response: 4 - Spontaneous Best Motor Response: 6 - Obeys Commands Best Verbal Response: 5 - Oriented Coma Scale Total: 15 Procedures - Sedation Patient Received Moderate/Deep Sedation with Procedure: No Diagnostics - Vital Signs Vital Signs Temp Pulse Resp BP Pulse Ox 03/16/19 17:28 98 F 103 18 121/86 94 - Laboratory Result Diagrams: 03/16/19 18:07 03/16/19 18:07 Lab Statement: Any lab studies that have been ordered have been reviewed, and results considered in the medical decision making process. - EKG 17:40 Cardiac Rate: NL EKG Rhythm: Sinus Rhythm Summary of EKG Findings: EKG at 1740 reveals Normal sinus rhythm 97 bpm, normal ST, no ectopy, no STEMI. This EKG was reviewed and interpreted by ED physician Re-Evaluation - Re-Evaluation First Eval Re-Evaluation Time: 18:06 Comment: Checked patients stats Complex Multi-Symp Course/Dx Course Of Treatment: Ms. Ambrosio is quite a poor historian. Her chief complaint seems to be weakness at this point. Her urinalysis looks positive for urinary tract infection and I am treating her with some fluids and antibiotics mild rest of her workup is underway. I suspect she'll go back home. - Diagnoses Provider Diagnoses: UTI (urinary tract infection) Discharge ED - Sign-Out/Discharge Documenting (check all that apply): Sign-Out Patient Signing out patient TO: Nubia Lee - at shift change pending CT results, CXR - Discharge Plan Condition: Stable Disposition: HOME Prescriptions: Sulfamethox/Trimethoprim DS* [Bactrim DS 800/160 TAB*] 1 tab PO BID #14 tab Referrals: Jessica Ponce MD [Primary Care Provider] - Additional Instructions: Follow up with your Primary Care Provider in 2-3 days. Return to ED with new or worsening symptoms. - Billing Disposition and Condition Condition: STABLE Disposition: Home - Attestation Statements Document Initiated by Scribe: Yes Documenting Scribe: Augustina Harp Provider For Whom Scribe is Documenting (Include Credential): Chadwick Cantu MD Scribe Attestation: Augustina Palomo, scribed for Chadwick Cantu MD on 03/17/19 at 1029. Scribe Documentation Reviewed: Yes Provider Attestation: The documentation as recorded by the scribe, Augustina Harp accurately reflects the service I personally performed and the decisions made by me, Chadwick Cantu MD Status of Scribe Document: Viewed
[2019-03-16 18:16] LABS: ABS Basophils 0.1 10^3/ul (0-0.2); ABS Eosinophils 0.1 10^3/ul (0-0.6); ABS Lymphocytes 1.6 10^3/ul (1.0-4.8); ABS Monocytes 0.6 10^3/ul (0-0.8); Eosinophil % 1.8 %; Hematocrit 34 % (35-47); Hemoglobin 11.3 g/dL (12.0-16.0); Lymphocyte % 21.3 %; Mean Corpuscular HGB Conc 33 g/dL (31-36); Mean Corpuscular Hemoglobin 28 pg (27-31); Mean Corpuscular Volume 84 fL (80-97); Mean Platelet Volume 6.8 fL (7.4-10.4); Platelet Count 288 10^3/uL (150-450); Red Cell Distribution Width 17 % (10-15); White Blood Count 7.3 10^3/uL (3.5-10.8)
[2019-03-16 18:21] LABS: INR 1.05 (0.82-1.09)
[2019-03-16 18:31] LABS: Urine Appearance Turbid; Urine Bilirubin Negative (Negative); Urine Blood 3+ (Negative); Urine Color Amber; Urine Glucose Negative (Negative); Urine Ketones Negative (Negative); Urine Nitrite Negative (Negative); Urine Protein 2+(100 mg/dL) (Negative); Urine Specific Gravity 1.011 (1.010-1.030); Urine Urobilinogen Negative (Negative)
[2019-03-16 18:33] LABS: Albumin 3.8 g/dL (3.2-5.2); BUN/Creatinine Ratio 22.3 (8-20); C Reactive Protein 76.57 mg/L (<8.01); Calcium 9.6 mg/dL (8.6-10.3); EGFR African American 69.7 (>60); EGFR Non-African American 57.6 (>60); Globulin 3.8 g/dL (2-4); Potassium 3.5 mmol/L (3.5-5.0); Total Bilirubin 0.8 mg/dL (0.2-1.0); Total Protein 7.6 g/dL (6.4-8.9)
[2019-03-16 18:34] LABS: Troponin I 0.01 ng/mL (<0.03)
[2019-03-16 18:37] LABS: Urine Bacteria 3+ (Absent); Urine Red Blood Cell 3+(>10/hpf) (Absent); Urine Squamous Epithelial Cell Present (Absent); Urine White Blood Cell 3+(>20/hpf) (Absent)
[2019-03-16] MEDS ORDERED: NS 0.9% 1000 ML** 1,000 ML IV ONE (18:46)
[2019-03-16 18:48] LABS: TSH (Thyroid Stimulating Horm) 2.31 mcIU/mL (0.34-5.60)
[2019-03-16] MEDS ORDERED: Nitrofurantoin Macrocrystals* 100 MG CAP PO ONE (18:48)
--- OUTSIDE RECORDS SUMMARY | 2019-03-16 19:15 | XMS REPORT | Continuity of Care Document ---
:1940 External Reference #:[id number] Author Name Miguelangel Mayo MD (transmitted by agent of provider Aftab Romero) Address [address] [place] [address] Care Team Providers Name Role Phone Jessica Mayen MD - Family Care Team Information Edge Banding Off Bearer [phone] Medicine Problems Active Problems Provider Date Displaced intertrochanteric fracture of left Melissa Puentes MD Onset: 2018 femur, subsequent encounter for closed fracture with routine healing Cellulitis of left lower limb Melissa Puentes MD Onset: 12/10/2018 Social History Type Date Description Comments Sex Unknown ETOH Use Denies alcohol use Tobacco Use Start: Unknown Patient has never smoked Smoking Status Reviewed: 03/01/19 Patient has never smoked Exercise Type/Frequency Exercises regularly Allergies, Adverse Reactions, Alerts Description No Known Drug Allergies Medications Active Medications SIG Qnty Indications Ordering Date Provider Acidophilus 1 by mouth every Unknown Capsules day Senna take 2 tablets by Unknown 8.6mg Tablets mouth every day as needed Prednisone 1 by mouth every Unknown 50mg Tablets day Cyclobenzaprine HCL 1 by mouth at Unknown 5mg bedtime as needed Tablets for back pain Vancomycin HCL Unknown 500mg Solution Rec Furosemide 1 by mouth every Unknown 20mg Tablets day Furosemide 1 by mouth every Unknown 40mg Tablets day Oxycodone HCL 1 tabs by mouth Unknown 5mg Tablets every 4-6 hours as needed Triamcinolone Acetonide apply twice a day Unknown 0.1% Cream Calcium + D3 1 by mouth a day Unknown 600-200 Tablets Miralax 17 gram po daily Unknown [id number] Powder prn constipation Oxycodone HCL 1 tab by mouth Unknown 5mg Tablets every 6 hours as needed for severe breakthrough pain Milk Of Magnesia 30 milliliters by Unknown mouth every 6 hrs 2400mg/30ML Suspension as needed Lidoderm 1 apply to affected Unknown 5% Patches area 12 hours on, 12 hours off Probiotic 1 by mouth twice Unknown Capsules daily Gabapentin take one tablet by Unknown 600mg Tablets mouth two times a day Pepcid take one Unknown 20mg Tablets capsule/tablet daily by mouth as needed Colace 1 tab every day as Unknown 100mg Capsules needed for constipation Vitamin D 1 by mouth every Unknown 2000Unit Tablets day Tylenol 3 by mouth every 8 Unknown 325mg Tablets hours as needed for pain or fever Omeprazole Take 1 Capsule By Unknown 20mg Capsules DR Mouth Every Morning History Medications Vancomycin HCL 500 mg iv every 12 Unknown 02/16/2019 - 1gm hrs x 13 more days 03/01/2019 Solution Rec at [facility] Keflex take 1 tab by mouth 15caps Melissa Puentes MD 12/08/2018 - 500mg Capsules 3 times a day x 5 12/15/2018 days until finished. Immunizations Description No Information Available Vital Signs Date Vital Result Comment 03/01/2019 11:01am Height 62 inches 5'2" Weight 140.00 lb Heart Rate 92 /min BP Systolic 120 mmHg BP Diastolic 68 mmHg Respiratory Rate 16 /min Pain Level 0 BMI (Body Mass Index) 25.6 kg/m2 01/27/2019 9:10am Height 62 inches 5'2" Weight 138.00 lb Heart Rate 62 /min BP Systolic 132 mmHg BP Diastolic 72 mmHg Body Temperature 96.6 F Pain Level 0 BMI (Body Mass Index) 25.2 kg/m2 Results Test Acquired Date Facility Test Result H/L Range Note Laboratory test 02/28/2019 [facility] Vancomycin 14.0 1, [address] Random g/[place] [address] [phone] Comp Metabolic 02/25/2019 [facility] Sodium 139 mmol/L Normal 135-145 [address] [place] [address] [phone] Potassium 3.5 mmol/L Normal 3.5-5.0 Chloride 101 mmol/L Normal 101-111 Co2 Carbon Dioxide 32 mmol/L Normal 22-32 Anion Gap 6 mmol/L Normal 2-11 Glucose 80 mg/dL Normal 70-100 Blood Urea Nitrogen 18 mg/dL Normal 6-24 Creatinine 0.91 mg/dL Normal 0.51-0.95 BUN/Creatinine Ratio 19.8 Normal 8-20 Calcium 7.9 mg/dL Low 8.6-10.3 Total Protein 5.6 g/dL Low 6.4-8.9 Albumin 2.5 g/dL Low 3.2-5.2 Globulin 3.1 g/dL Normal 2-4 Albumin/Globulin Ratio 0.8 Low 1-3 Total Bilirubin 0.40 mg/dL Normal 0.2-1.0 Alkaline Phosphatase 166 U/L High 34-104 Alt 11 U/L Normal 7-52 Ast 23 U/L Normal 13-39 Egfr Non- 59.8 >60 Egfr 72.3 >60 4 Laboratory test 02/25/2019 [facility] Vancomycin Trough 16.6 g /mL [address] [place] [address] [phone] C Reactive Protein 37.96 mg/L High <8.01 6 CBC Auto 02/25/2019 [facility] White Blood 9.1 10^3/uL Normal 3.5-10.[address] [place] [address] [phone] Red Blood Count 2.85 10^6/uL Low 3.70-4.87 Hemoglobin 7.9 g/dL Low 12.0-16.0 Hematocrit 24 % Low 35-47 Mean Corpuscular Volume 84 fL Normal 80-97 Mean Corpuscular Hemoglobin 28 pg Normal 27-31 Mean Corpuscular HGB Conc 33 g/dL Normal 31-36 Red Cell Distribution Width 16 % High 10-15 Platelet Count 273 10^3/uL Normal 150-450 Mean Platelet Volume 8.3 fL Normal 7.4-10.4 Abs Neutrophils 6.4 10^3/uL Normal 1.5-7.7 Abs Lymphocytes 1.9 10^3/uL Normal 1.0-4.8 Abs Monocytes 0.7 10^3/uL Normal 0-0.8 Abs Eosinophils 0.1 10^3/uL Normal 0-0.6 Abs Basophils 0.0 10^3/uL Normal 0-0.2 Abs Nucleated RBC 0.0 10^3/uL Granulocyte % 70.3 % Lymphocyte % 20.8 % Monocyte % 7.4 % Eosinophil % 1.1 % Basophil % 0.4 % Nucleated Red Blood Cells % 0.0 Laboratory test 02/21/2019 [facility] Vancomycin 16.3 7, [address] Random g/[place] [address] [phone] CBC Auto Diff 02/18/2019 [facility] White Blood 10.3 Normal 3.5- [address] Count 10^3/uL 10.8 [place] [address] [phone] Red Blood Count 2.92 10^6/uL Low 3.70-4.87 Hemoglobin 8.1 g/dL Low 12.0-16.0 Hematocrit 25 % Low 35-47 Mean Corpuscular Volume 85 fL Normal 80-97 Mean Corpuscular Hemoglobin 28 pg Normal 27-31 Mean Corpuscular HGB Conc 33 g/dL Normal 31-36 Red Cell Distribution Width 15 % Normal 10-15 Platelet Count 400 10^3/uL Normal 150-450 Mean Platelet Volume 8.2 fL Normal 7.4-10.4 Abs Neutrophils 8.1 10^3/uL High 1.5-7.7 Abs Lymphocytes 1.3 10^3/uL Normal 1.0-4.8 Abs Monocytes 0.8 10^3/uL Normal 0-0.8 Abs Eosinophils 0.0 10^3/uL Normal 0-0.6 Abs Basophils 0.0 10^3/uL Normal 0-0.2 Abs Nucleated RBC 0.0 10^3/uL Granulocyte % 78.8 % Lymphocyte % 12.4 % Monocyte % 7.9 % Eosinophil % 0.4 % Basophil % 0.5 % Nucleated Red Blood Cells % 0.0 Manual 02/18/2019 [facility] Immature 12.0 % High 0-[address] [address] [phone] Neutrophil % 66.0 % Band % 9.0 % High 0-8 Lymphocytes % 14.0 % Monocytes % 8.0 % Metamyelocytes % 2.0 % Normal 0-2 Myelocytes % 1.0 % Normal 0-1 RBC Morphology Normal Normal Comp Metabolic 02/18/2019 [facility] Sodium 139 mmol/L Normal 135-145 Panel [address] [place] [address] [phone] Potassium 3.9 mmol/L Normal 3.5-5.0 Chloride 103 mmol/L Normal 101-111 Co2 Carbon Dioxide 30 mmol/L Normal 22-32 Anion Gap 6 mmol/L Normal 2-11 Glucose 107 mg/dL High 70-100 Blood Urea Nitrogen 16 mg/dL Normal 6-24 Creatinine 0.71 mg/dL Normal 0.51-0.95 BUN/Creatinine Ratio 22.5 High 8-20 Calcium 8.1 mg/dL Low 8.6-10.3 Total Protein 5.7 g/dL Low 6.4-8.9 Albumin 2.3 g/dL Low 3.2-5.2 Globulin 3.4 g/dL Normal 2-4 Albumin/Globulin Ratio 0.7 Low 1-3 Total Bilirubin 0.40 mg/dL Normal 0.2-1.0 Alkaline Phosphatase 283 U/L High 34-104 Alt 12 U/L Normal 7-52 Ast 29 U/L Normal 13-39 Egfr Non- 79.8 >60 Egfr 96.6 >60 10 Laboratory test 02/18/2019 [facility] Vancomycin Random 12.9 g /mL 11 finding [address] [place] [address] [phone] C Reactive Protein 78.27 mg/L High <8.01 12 1 [facility] - Floor: 1, Rm #: [id number] 15-20 for HCAP, VAP, Osteomyelitis, Endocarditis, Meningitis 10-15 for All Other Infections 3 [facility] - Floor: 1, Rm #: [id number] 4 Because ethnic data is not always readily available, this report includes an eGFR for both -Americans and non- Americans. The National Kidney Disease Education Program (NKDEP) does not endorse the use of the MDRD equation for patients that are not between the ages of 18 and 70, are , have extremes of body size, muscle mass, or nutritional status, or are non- or non-. According to the National Kidney Foundation, irrespective of diagnosis, the stage of the disease is based on the level of kidney function: Stage Description GFR(mL/min/1.73 m(2)) 1 Kidney damage with normal or decreased GFR 90 2 Kidney damage with mild decrease in GFR 60-89 3 Moderate decrease in GFR 30-59 4 Severe decrease in GFR 15-29 5 Kidney failure <15 (or dialysis) 5 15-20 for HCAP, VAP, Osteomyelitis, Endocarditis, Meningitis 10-15 for All Other Infections 6 [facility] - Floor: 1, Rm #: [id number] 7 [facility] - Floor: 1, Rm #: [id number] 8 15-20 for HCAP, VAP, Osteomyelitis, Endocarditis, Meningitis 10-15 for All Other Infections 9 [id number] [facility] - Floor: 1, Rm #: [id number] 10 Because ethnic data is not always readily available, this report includes an eGFR for both -Americans and non- Americans. The National Kidney Disease Education Program (NKDEP) does not endorse the use of the MDRD equation for patients that are not between the ages of 18 and 70, are , have extremes of body size, muscle mass, or nutritional status, or are non- or non-. According to the National Kidney Foundation, irrespective of diagnosis, the stage of the disease is based on the level of kidney function: Stage Description GFR(mL/min/1.73 m(2)) 1 Kidney damage with normal or decreased GFR 90 2 Kidney damage with mild decrease in GFR 60-89 3 Moderate decrease in GFR 30-59 4 Severe decrease in GFR 15-29 5 Kidney failure <15 (or dialysis) 11 15-20 for HCAP, VAP, Osteomyelitis, Endocarditis, Meningitis 10-15 for All Other Infections 12 [id number] [facility] - Floor: 1, Rm #: [id number] Procedures Date Code Description Status 02/14/2019 77202 Thoracentesis W/ Img Guidance Completed 02/11/2019 65269 Treat Lung Lining Chemically Completed 02/09/2019 39985 Thoracentesis W/ Img Guidance Completed 02/04/2019 23043 Moderate Sedation Services; Same Phys Intl 15 Mins; PT Completed >= 5 Years 02/04/2019 47535 Color Flow Doppler/Interp & Reprt Completed 02/04/2019 04706 Pulse Wave/Continuous-Interp.RPT Completed 02/04/2019 83871 Echocardiography, Transesophageal, Real Time W/Image Completed 2D W/W/O M-M 02/02/2019 11840 Arthroscopy Shoulder Debridement Limited Completed 01/31/2019 67509 ECHO Transthorasic Realtime 2D W Doppler & Color Flow Completed Hosp 01/30/2019 14007 Arthroscopy Shoulder Debridement Extensive Completed 01/30/2019 01402 Arthroscopy Shoulder Debridement Extensive Completed 11/06/2018 00860 FX TX Inter/Eri Or Sub Chanteric Femoral FX Completed W/Implant 11/06/2018 58846 FX TX Inter/Eri Or Sub Chanteric Femoral FX Completed W/Implant 08/20/2007 [id number] Bone Mineral Density Test Completed 08/17/2007 [id number] Bone Mineral Density Test Completed 08/24/2002 [id number] Bone Mineral Density Test Completed Medical Devices Description No Information Available Encounters Type Date Location Provider Dx Diagnosis Office Visit 02/[facility] Pleural effusion , 7:00a Of Willam Kuhn PA-C not elsewhere classified Office Visit 02/16/2019 [facility] A41.01 Sepsis due to 9:22a Assoc,letty Walton, Methicillin Hospitalists IT SUPPORT CONSULTANT susceptible Staphylococcus aureus J96.01 Acute respiratory failure with hypoxia 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, left shoulder J18.9 Pneumonia, unspecified organism J90 Pleural effusion, not elsewhere classified 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 Office Visit 02/15/2019 11:48a [facility] And Moriah J96.91 Respiratory [facility] Of MD benjamín Guy Board Attendant unspecified with hypoxia J90 Pleural effusion, not elsewhere classified Office Visit 02/15/2019 [facility] J96.01 Acute respiratory 9:21a Assocletty, failure with Hospitalists IT SUPPORT CONSULTANT hypoxia J18.9 Pneumonia, unspecified organism K21.9 Gastro-esophageal reflux disease without esophagitis Office Visit 02/15/2019 [facility] Medley90 Pleural 7:00a [facility] Willam Kuhn PA-C effusion, not elsewhere classified Office Visit 02/14/2019 [facility] Byron Marr Pleural 7:00a Associates Of Board Attendant Castro, PA effusion, not elsewhere classified Office Visit 02/14/2019 [facility] Yumiko Bolden J18.9 Pneumonia, 9:21a Assoc,pc Anton, IT SUPPORT CONSULTANT unspecified Hospitalists organism J90 Pleural effusion, not elsewhere classified J96.01 Acute respiratory failure with hypoxia K21.9 Gastro-esophageal reflux disease without esophagitis Office Visit 02/14/2019 2:53p [facility] J90 Pleural effusion, [facility] Brooks not elsewhere Board Attendant classified Office Visit 02/13/2019 9:20a [facility] J96.01 Acute respiratory Assoc,pc Jonussallem, failure with Hospitalists M.D. hypoxia J90 Pleural effusion, not elsewhere classified K21.9 Gastro-esophageal reflux disease without esophagitis Office Visit 02/13/2019 7:00a Surgical Roro Bennett J91.8 Pleural effusion Associates Of Willam MD in other conditions classified elsewhere Office Visit 02/12/2019 7:00a Surgical Roro Bennett J91.8 Pleural effusion [facility] Willam GARCIA in other conditions classified elsewhere Office Visit 02/11/2019 9:20a [facility] J96.01 Acute respiratory Assoc,pc Mary, failure with Hospitalists M.D. hypoxia J90 Pleural effusion, not elsewhere classified K21.9 Gastro-esophageal reflux disease without esophagitis Office Visit 02/11/2019 2:52p [facility] J90 Pleural effusion, [facility] not elsewhere Board Attendant classified J96.91 Respiratory failure, unspecified with hypoxia Office Visit 02/10/2019 [facility] J96.01 Acute 9:19a Assoc,letty Hernandez M.D. 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 Office Visit 02/10/2019 11:34a [facility] J90 Pleural effusion, [facility] not elsewhere Board Attendant classified J96.91 Respiratory failure, unspecified with hypoxia Office Visit 02/09/2019 9:19a [facility] Oliver Betancourt J96.01 Acute respiratory Assoc,letty GARCIA failure with Hospitalists hypoxia J90 Pleural effusion, not elsewhere classified M25.512 Pain in left shoulder Office Visit 02/09/2019 7:00a [facility] Ramirez Hankins J91.8 Pleural effusion Of Willam Szymanski MD, in other FACS conditions classified elsewhere Office Visit 02/08/2019 9:19a [facility] Oliver Betancourt, J96.01 Acute respiratory Assoc,pc MD failure with Hospitalists hypoxia M25.512 Pain in left shoulder K21.9 Gastro-esophageal reflux disease without esophagitis Office Visit 02/07/2019 9:17a [facility] Oliver Betancourt M25.512 Pain in left Assoc,pc MD shoulder Hospitalists 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 A[facility]epsis, Assocletty MD unspecified Hospitalists organism M25.512 Pain in left shoulder B02.9 Zoster without complications K21.9 Gastro-esophageal reflux disease without esophagitis [facility] M00.012 Staphylococcal 11:16a For Infectious Domenica Arguello. arthritis, left Diseases shoulder R78.81 Bacteremia B95.61 Methicillin suscep staph infct causing dis classd elswhr K21.9 Gastro-esophageal reflux disease without esophagitis Office Visit 01/31/2019 [facility] Aruna A41.01 Sepsis due to 9:14a Assletty carlos MD Methicillin Hospitalists susceptible Staphylococcus aureus B02.9 Zoster without complications K21.9 Gastro-esophageal reflux disease without esophagitis Office Visit 01/30/2019 9:14a [facility] Aruna A41.9 Sepsis, letty Ruvalcaba MD unspecified Hospitalists organism B02.9 Zoster without complications K21.9 Gastro-esophageal reflux disease without esophagitis Office Visit 01/29/2019 [place] Britney 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, 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 intertrochanteric Hospitalists fracture of left femur, init D62 Acute posthemorrhagic anemia Office Visit 11/10/2018 10:22a [facility] S72.002A Fracture of Assoc,pc Kimi Doto, unsp part of Hospitalists IT SUPPORT CONSULTANT neck of left femur, init I95.9 Hypotension, unspecified D62 Acute posthemorrhagic anemia Office Visit 11/09/2018 10:22a [facility] S72.002A Fracture of Assoc,pc Kimi Doto, unsp part of Hospitalists IT SUPPORT CONSULTANT neck of left femur, init I95.9 Hypotension, unspecified D62 Acute posthemorrhagic anemia Office Visit 11/08/2018 10:21a [facility] S72.002A Fracture of Assoc,pc Kimi Doto, unsp part of Hospitalists IT SUPPORT CONSULTANT neck of left femur, init I95.9 Hypotension, unspecified D62 Acute posthemorrhagic anemia Office Visit 11/07/2018 10:20a [facility] S72.002A Fracture of Assoc,pc Kimi Doto, unsp part of Hospitalists IT SUPPORT CONSULTANT neck of left femur, init D62 Acute posthemorrhagic anemia Office 11/06/2018 [facility] S72.002A Fracture of unsp part Visit 10:20a Assoc,pc Kimi of neck of left Hospitalists Doto, IT SUPPORT CONSULTANT femur, init Office 11/06/2018 [place] Melissa S72.142A Displaced Visit 7:28a [facility] at [facility] intertrochanteric Gonzales fracture of left femur, init S72.22xA Displaced subtrochanteric fracture of left femur, init W01.0xxA Fall same lev from slip/trip w/o strike against object, init Office Visit 11/05/2018 [facility] Orlando Myers S72.002A Fracture of 10:20a Assoc,letty Arevalo M.D.,FACP unsp part of Hospitalists neck of left femur, init Assessments Date Code Description Provider 03/01/2019 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, left Miguelangel Mayo MD shoulder 02/16/2019 J90 Pleural effusion, not elsewhere Bartolo Kuhn PA-C classified 02/16/2019 A41.01 Sepsis due to Methicillin Yumiko Walton NP susceptible Staphylococcus aureus 02/16/2019 J96.01 Acute respiratory failure with Yumiko Walton NP hypoxia 02/16/2019 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, left Yumiko Walton NP shoulder 02/16/2019 J18.9 Pneumonia, unspecified organism Yumiko Walton, IT SUPPORT CONSULTANT 02/16/2019 J90 Pleural effusion, not elsewhere Yumiko Walton, AYDEN classified 02/16/2019 B02.29 Other postherpetic nervous system Yumiko Walton NP involvement 02/15/2019 J90 Pleural effusion, not elsewhere Bartolo Kuhn PA-C classified 02/15/2019 J96.01 Acute respiratory failure with Yumiko Walton NP hypoxia 02/15/2019 J96.91 Respiratory failure, unspecified Moriah Guy MD with hypoxia 02/15/2019 J18.9 Pneumonia, unspecified organism Yumiko Walton, IT SUPPORT CONSULTANT 02/15/2019 J90 Pleural effusion, not elsewhere Moriah Guy MD classified 02/15/2019 K21.9 Gastro-esophageal reflux disease Yumiko Walton NP without esophagitis 02/14/2019 J90 Pleural effusion, not elsewhere CIELO Thompson classified 02/14/2019 J18.9 Pneumonia, unspecified organism Yumiko Walton, IT SUPPORT CONSULTANT 02/14/2019 J90 Pleural effusion, not elsewhere Moriah Guy MD classified 02/14/2019 J90 Pleural effusion, not elsewhere Yumiko Walton NP classified 02/14/2019 J90 Pleural effusion, not elsewhere Moriah Guy MD classified 02/14/2019 J96.01 Acute respiratory failure with Yumiko Kimi Walton NP hypoxia 02/14/2019 K21.9 Gastro-esophageal reflux disease Yumiko Kimi Walton NP without esophagitis 02/13/2019 J96.01 Acute respiratory failure with Hector Hernandez M.D. hypoxia 02/13/2019 J91.8 Pleural effusion in other conditions Roro Bennett MD classified elsewhere 02/13/2019 J90 Pleural effusion, not elsewhere Hector Hernandez M.D. classified 02/13/2019 K21.9 Gastro-esophageal reflux disease Hector Hernandez M.D. without esophagitis 02/12/2019 J91.8 Pleural effusion in other conditions Roro Bennett MD classified elsewhere 02/11/2019 J90 Pleural effusion, not elsewhere Juliette Obregon NP classified 02/11/2019 J96.01 Acute respiratory failure with Hector Hernandez M.D. hypoxia 02/11/2019 J90 Pleural effusion, not elsewhere Hector Hernandez M.D. classified 02/11/2019 J90 Pleural effusion, not elsewhere Moriah Guy MD classified 02/11/2019 K21.9 Gastro-esophageal reflux disease Hector Hernandez M.D. without esophagitis 02/11/2019 J96.91 Respiratory failure, unspecified Moriah Guy MD with hypoxia 02/10/2019 J96.01 Acute respiratory failure with Hector Hernandez M.D. hypoxia 02/10/2019 J90 Pleural effusion, not elsewhere Moriah Guy MD classified 02/10/2019 J90 Pleural effusion, not elsewhere Hector Hernandez M.D. classified 02/10/2019 J91.8 Pleural effusion in other conditions RAGHU Lockett classified elsewhere 02/10/2019 K21.9 Gastro-esophageal reflux disease Hector Hernandez M.D. without esophagitis 02/10/2019 J96.91 Respiratory failure, unspecified Moriah Guy MD with hypoxia 02/10/2019 B02.29 Other postherpetic nervous system Hector Hernandez M.D. involvement 02/09/2019 J91.8 Pleural effusion in other conditions Ramirez Szymanski MD, FACS classified elsewhere 02/09/2019 J96.01 Acute respiratory failure with Oliver Betancourt MD hypoxia 02/09/2019 J90 Pleural effusion, not elsewhere Moriah Guy MD classified 02/09/2019 J90 Pleural effusion, not elsewhere Oliver Betancourt MD classified 02/09/2019 J91.8 Pleural effusion in other conditions Moriah Guy MD classified elsewhere 02/09/2019 M25.512 Pain in left shoulder Oliver Betancourt MD 02/09/2019 J98.11 Atelectasis Moriah Guy MD 02/08/2019 J96.01 Acute respiratory failure with Oliver Betancourt MD hypoxia 02/08/2019 M25.512 Pain in left shoulder Oliver Betancourt MD 02/08/2019 K21.9 Gastro-esophageal reflux disease Oliver Betancourt MD without esophagitis 02/07/2019 M25.512 Pain in left shoulder Oliver Betancourt MD 02/07/2019 B02.29 Other postherpetic nervous system Oliver Betancourt MD involvement 02/06/2019 M00.9 Pyogenic arthritis, unspecified Marshal Beasley M.D. 02/06/2019 B02.29 Other postherpetic nervous system Marshal Beasley M.D. involvement 02/06/2019 K21.9 Gastro-esophageal reflux disease Marshal Beasley M.D. without esophagitis 02/05/2019 R78.81 Bacteremia Marshal Beasley M.D. 02/05/2019 B02.29 Other postherpetic nervous system Marshal Beasley M.D. involvement 02/05/2019 K21.9 Gastro-esophageal reflux disease Marshal Beasley M.D. without esophagitis 02/04/2019 R78.81 Bacteremia Hossein Arcos M.D. 02/04/2019 R78.81 Bacteremia Marshal Beasley M.D. 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 involvement 02/04/2019 K21.9 Gastro-esophageal reflux disease Marshal Beasley M.D. without esophagitis 02/03/2019 K21.9 Gastro-esophageal reflux disease Lars Zafar.O. 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 involvement 02/03/2019 R78.81 Bacteremia Wayne Arguello M.D. 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 involvement 02/02/2019 M00.9 Pyogenic arthritis, unspecified Lars Zafar.O. 02/02/2019 K21.9 Gastro-esophageal reflux disease Lars Zafar.Soha. 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 shoulder 02/02/2019 M19.012 Primary osteoarthritis, left Miguelangel Mayo MD shoulder 02/02/2019 R78.81 Bacteremia Wayne Arguello M.D. 02/02/2019 B95.61 Methicillin susceptible Wayne Arguello M.D. Staphylococcus aureus infection as the cause of diseases classified elsewhere 02/02/2019 B02.29 Other postherpetic nervous system aWyne Arguello M.D. 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 shoulder 02/01/2019 M25.512 Pain in left shoulder Aruna Mcbride MD 02/01/2019 R78.81 Bacteremia Wayne Arguello M.D. 02/01/2019 B02.9 Zoster without complications Aruna Mcbride MD 02/01/2019 B95.61 Methicillin susceptible Wayne Arguello M.D. 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 shoulder 01/31/2019 K21.9 Gastro-esophageal reflux disease Aruna Mcbride MD without esophagitis 01/31/2019 R78.81 Bacteremia Wayne Arguello M.D. 01/31/2019 B95.61 Methicillin susceptible Wayne Arguello M.D. Staphylococcus aureus infection as the cause of diseases classified elsewhere 01/31/2019 K21.9 Gastro-esophageal reflux disease Wayne Arguello M.D. 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 shoulder 01/30/2019 M19.012 Primary osteoarthritis, left Miguelangel Mayo MD shoulder 01/30/2019 M19.012 Primary osteoarthritis, left Britney Reilly M.D. shoulder 01/29/2019 A41.9 Sepsis, unspecified organism Aruna Mcbride MD 01/29/2019 R65.20 Severe sepsis without septic shock Aruna Mcbride MD 01/29/2019 B02.9 Zoster without complications Aruna Mcbride MD 01/29/2019 M19.012 Primary osteoarthritis, left Britney Reilly M.D. shoulder 01/29/2019 K21.9 Gastro-esophageal reflux disease Aruna Mcbride MD without esophagitis 01/29/2019 N17.9 Acute kidney failure, unspecified Aruna Mcbride MD 01/29/2019 M25.712 Osteophyte, left shoulder Britney Reilly M.D. 01/29/2019 M25.512 Pain in left shoulder Britney Reilly M.D. 01/28/2019 A41.9 Sepsis, unspecified organism Lala Furman, IT SUPPORT CONSULTANT 01/28/2019 R65.20 Severe sepsis without septic shock Lala Misty, IT SUPPORT CONSULTANT 01/28/2019 R65.20 Severe sepsis without septic shock Lala Misty, IT SUPPORT CONSULTANT 01/28/2019 N17.9 Acute kidney failure, unspecified Lala Misty, IT SUPPORT CONSULTANT 01/28/2019 R55 Syncope and collapse Lala Furman, IT SUPPORT CONSULTANT 01/28/2019 M25.512 Pain in left shoulder Lala Furman, IT SUPPORT CONSULTANT 01/27/2019 S72.142D Displaced intertrochanteric fracture Melissa Puentes [...] unspecified part of neck Yumiko Kimi Doto, IT SUPPORT CONSULTANT of left femur, initial encounter for closed fracture 11/10/2018 I95.9 Hypotension, unspecified Yumiko Kimi Doto, IT SUPPORT CONSULTANT 11/10/2018 D62 Acute posthemorrhagic anemia Yumiko Kimi Doto, IT SUPPORT CONSULTANT 11/09/2018 S72.002A Fracture of unspecified part of neck Yumiko Kimi Doto, IT SUPPORT CONSULTANT of left femur, initial encounter for closed fracture 11/09/2018 I95.9 Hypotension, unspecified Yumiko Kimi Doto, IT SUPPORT CONSULTANT 11/09/2018 D62 Acute posthemorrhagic anemia Yumiko Kimi Doto, IT SUPPORT CONSULTANT 11/08/2018 S72.142D Displaced intertrochanteric fracture CIELO Chinchilla of left femur, subsequent encounter for closed fracture with routine healing 11/08/2018 S72.002A Fracture of unspecified part of neck Yumiko Kimi Doto, IT SUPPORT CONSULTANT of left femur, initial encounter for closed fracture 11/08/2018 I95.9 Hypotension, unspecified Yumiko Kimi Doto, IT SUPPORT CONSULTANT 11/08/2018 D62 Acute posthemorrhagic anemia Yumiko Kimi Doto, IT SUPPORT CONSULTANT 11/07/2018 S72.002A Fracture of unspecified part of neck Yumiko Kimi Doto, IT SUPPORT CONSULTANT of left femur, initial encounter for closed fracture 11/07/2018 S72.142A Displaced intertrochanteric fracture Melissa Puentes MD of left femur, initial encounter for closed fracture 11/07/2018 D62 Acute posthemorrhagic anemia Yumiko Kimi Doto, IT SUPPORT CONSULTANT 11/07/2018 S72.22xA Displaced subtrochanteric fracture Melissa Puentes MD of left femur, [...] closed fracture 11/06/2018 S72.22xA Displaced subtrochanteric fracture CIELO Hernandez of left femur, initial encounter for closed fracture 11/06/2018 S72.142A Displaced intertrochanteric fracture Melissa Puentes MD of left femur, initial encounter for closed fracture 11/06/2018 W01.0xxA Fall on same level from slipping, CIELO Hernandez tripping and stumbling without subsequent striking against object, initial encounter 11/06/2018 S72.22xA Displaced subtrochanteric fracture Melissa Puentes MD of left femur, initial encounter for closed fracture 11/06/2018 S72.22xA Displaced subtrochanteric fracture Melissa Puentes MD of left femur, [...] for closed fracture Plan of Treatment Future Appointment(s):05/03/2019 10:15 am - Miguelangel Mayo MD at [id number]/17/2019 2:20 pm - Wayne Arguello M.D. at [facility]/10/2019 - ROYAL Bhandari00.012 Staphylococcal arthritis, left shoulderFollow up:Follow up: 2 months Functional Status Description No Information Available Mental Status Description No Information Available Referrals Description No Information Available
--- NOTE | 2019-03-16 19:21 | ED ---
Progress - Progress Note Progress Note: Receiving sign-out from Dr. Cantu pending Brain CT and CXR. Patients urinalysis had already come back positive for UTI prior to sign-out. Brain CT impression: 1. No acute intracranial abnormality. 2. Mild chronic small vessel ischemic disease. ED Provider has reviewed this report. CXR Impression: Mild atelectasis on the right. No infiltrate. No pleural effusion. Pending official radiologist report. Patient will be prescribed Bactrim for the UTI. Plan for discharge was discussed with the patient and she was agreeable with this plan. Re-Evaluation - Re-Evaluation First Eval Re-Evaluation Time: 18:06 Comment: Checked patients stats Course/Dx - Diagnoses Provider Diagnoses: UTI (urinary tract infection) Discharge ED - Sign-Out/Discharge Documenting (check all that apply): Patient Departure - Discharge - Discharge Plan Condition: Stable Disposition: HOME Prescriptions: Sulfamethox/Trimethoprim DS* [Bactrim DS 800/160 TAB*] 1 tab PO BID #14 tab Referrals: Jessica Ponce MD [Primary Care Provider] - Additional Instructions: Follow up with your Primary Care Provider in 2-3 days. Return to ED with new or worsening symptoms. - Billing Disposition and Condition Condition: STABLE Disposition: Home - Attestation Statements Document Initiated by Max: Yes Documenting Scribe: Bartolo Ayon Provider For Whom Max is Documenting (Include Credential): Nubia Lee MD Scribe Attestation: Bartolo Palomo, scribed for Nubia Lee MD on 03/17/19 at 0035. Scribe Documentation Reviewed: Yes Provider Attestation: The documentation as recorded by the Bartolo solis accurately reflects the service I personally performed and the decisions made by me, Nubia Lee MD Status of Scribe Document: Viewed
[2019-03-16 21:32] VITALS: BP 110/78
--- NOTE | 2019-03-20 05:53 | ED ---
Imaging and Labs Follow Up Follow Up Type: Labs/Cultures Labs/Culture Result: Urine sensitivity reports returned showing greater than 100,000 Escherichia coli and 25-50,000 Klebsiella pneumonia. There is noted resistance to ampicillin, gentamicin, tetracycline, Bactrim Patient Communication/Plan: Patient admitted to [facility]. Nothing further at this time. Provider Diagnoses: UTI (urinary tract infection)
== END 2019-03-16 21:30 | disposition home or self-care (01) ==
LOC: ED 17:26
DX: N39.0 Urinary tract infection, site not specified (principal); K21.9 Gastro-esophageal reflux disease without esophagitis; Z87.891 Personal history of nicotine dependence; Z90.89 Acquired absence of other organs; Z98.51 Tubal ligation status; Z79.899 Other long term (current) drug therapy
CPT/HCPCS: 36415; 70450; 71046; 80053; 81003; 81015; 83605; 83735; 83880; 84443; 84484; 85025; 85610; 86140; 87077; 87086; 87186; 93005; 96360; 96361; 99283; A9270-GY

== ENCOUNTER 2019-03-17 11:50 | Inpatient (IN) | payer MEDICARE ==
--- NOTE | 2019-03-17 12:00 | ED ---
Altered Mental Status - HPI Summary HPI Summary: This pt is a 79 y/o female [facility] EMS reports pt was in the ED yesterday and diagnosed with a UTI. Pt was placed on Bactrim and received her first dose this morning. Per EMS, staff reported prior to 0830 today pt was alert and oriented at baseline and talkative during breakfast. Since 0830 today pt has had decreased mental status with no verbal response but has her eyes open. Blood sugar is 157 , per EMS. Daughter reports at baseline pt is alert and oriented, follows commands and is talkative. Dr. Cantu saw patient yesterday and states he received report yesterday pt had not spoken in [address] Cantu saw the patient she began to speak. Daughter states prior to patient going to rehab she was in the ED for a blood infection and infection in her left shoulder. Pt had 2 shoulder surgeries in 2018 and also had a chest tube. PMHx: shingles. HPI IS LIMITED DUE TO LEVEL 5 CAVEAT - pt with AMS and is nonverbal. - History Of Current Complaint Stated Complaint: AMS PER EMS Hx Obtained From: Family/Financial Market Dealer - Daughter, EMS Hx From Patient Unobtainable Due To: Altered Mental Status Onset/Duration: Still Present Timing: Lasting Hours Character: Responsiveness Aggravating Factor(s): Unknown Alleviating Factor(s): Unknown Associated Signs And Symptoms: Negative: Fever - Allergies/Home Medications Allergies/Adverse Reactions: Allergies Allergy/AdvReac Type Severity Reaction Status Date / Time No Known Allergies Allergy Verified 03/17/19 12:01 Home Medications: Home Medications Calcitonin NASAL(NF) [Fortical(NR)] 1 spray LEFT NARE EVERY OTHER DAY 03/17/19 [ History Confirmed 03/17/19] Calcitonin NASAL(NF) [Fortical(NR)] 1 spray RIGHT NARE EVERY OTHER DAY 03/17/19 [History Confirmed 03/17/19] Diclofenac 1% GEL (NF) [Voltaren 1% GEL (NF)] 2 gm TOPICAL QID 03/17/19 [ History Confirmed 03/17/19] Gabapentin CAP(*) [Neurontin 300 CAP(*)] 300 mg PO BID 03/17/19 [History Confirmed 03/17/19] Gabapentin CAP(*) [Neurontin 300 CAP(*)] 600 mg PO DAILY 03/17/19 [History Confirmed 03/17/19] Lactobacillus Acidophilus [Acidophilus] 1 tab PO BID 03/17/19 [History Confirmed 03/17/19] Magnesium Hydroxide LIQ* [Milk of Magnesia LIQ*] 30 ml PO Q6H PRN 03/17/19 [ History Confirmed 03/17/19] Sulfamethox/Trimethoprim DS* [Bactrim DS 800/160 TAB*] 1 tab PO Q12H 03/17/19 [ History Confirmed 03/17/19] PMH/Surg Hx/FS Hx/Imm Hx Endocrine/Hematology History: Reports: Hx Anemia - only during Denies: Hx Anticoagulant Therapy, Hx Diabetes Cardiovascular History: Reports: Hx Rheumatic Fever - as a child Denies: Hx Hypertension, Hx Pacemaker/ICD GI History: Reports: Hx Gastroesophageal Reflux Disease History: Reports: Hx Kidney Stones - 6 yrs ago - passed on own Denies: Hx Renal Disease Musculoskeletal History: Reports: Hx Arthritis, Hx Back Problems, Hx Bursitis, Hx Osteoporosis, Other Musculoskeletal History - Lyme disease Sensory History: Reports: Hx Cataracts, Hx Contacts or Glasses Denies: Hx Hearing Aid Opthamlomology History: Reports: Hx Cataracts, Hx Contacts or Glasses Psychiatric History: Denies: Hx Panic Disorder - Cancer History Hx Chemotherapy: No Hx Radiation Therapy: No - Surgical History Surgical History: Yes Surgery Procedure, Year, and Place: APPENDECTOMY; B/L CATARACTS; LEFT HIP ORIF; TUBAL LIGATION Hx Anesthesia Reactions: No - Family History Known Family History: Negative: Cardiac Disease - Social History Alcohol Use: None Substance Use Type: Reports: None Hx Tobacco Use: Yes Smoking Status (MU): Former Smoker Have You Smoked in the Last Year: No Review of Systems - ROS Summary Review of Systems Summary: ROS IS LIMITED DUE TO LEVEL 5 CAVEAT - pt is nonverbal and with AMS Negative: Fever Neurological: Other - POSITIVE: AMS All Other Systems Reviewed And Are Negative: No Physical Exam - Summary Physical Exam Summary: Constitutional: Alert, Somnolent and elderly (-) Distressed Skin: Warm, Dry HENT: Normocephalic; Atraumatic Eyes: Conjunctiva normal Neck: Musculoskeletal ROM normal neck. (-) JVD, (-) Stridor Cardio: Rhythm regular, rate normal, Heart sounds normal; Intact distal pulses; Radial pulses are 2+ and symmetric. (-) Murmur Pulmonary/Chest wall: Effort normal. (-) Respiratory distress, (-) Wheezes, (-) Rales Abd: Soft, (-) tenderness, (-) Distension, (-) Guarding, (-) Rebound Musculoskeletal: (-) Edema Lymph: (-) Cervical adenopathy Neuro: Alert, making good eye contact, no focal deficits but with difficult exam due to patient compliance. Psych: deferred Triage Information Reviewed: Yes Vital Signs On Initial Exam: Initial Vitals Temp Pulse Resp BP Pulse Ox 98 F 103 14 98/71 95 03/17/19 11:56 03/17/19 11:56 03/17/19 11:56 03/17/19 11:56 03/17/19 11:56 Vital Signs Reviewed: Yes Completion Of Physical Exam Limited Due To: Altered Mental Status Procedures - Sedation Patient Received Moderate/Deep Sedation with Procedure: No Diagnostics - Laboratory Result Diagrams: 03/17/19 12:26 03/17/19 12:26 Lab Statement: Any lab studies that have been ordered have been reviewed, and results considered in the medical decision making process. - Radiology chest XR Radiology Interpretation Completed By: Radiologist Summary of Radiographic Findings: IMPRESSION: Right basilar atelectasis. No definite pneumonia is identified. Dr. Vargas has reviewed this report. - EKG 12:43 Cardiac Rate: NL - at 95 bpm EKG Rhythm: Sinus Rhythm Summary of EKG Findings: EKG at 1243 shows normal sinus rhythm at a rate of 95 bpm. T wave inversions in leads I and aVL. Re-Evaluation - Re-Evaluation First Eval Re-Evaluation Time: 12:13 Comment: Pt is more responsive now. Second Eval Re-Evaluation Time: 13:16 Comment: Patient is talking and states she has pain on her right side where her shingles were. Altered Mental Statu Course/Dx - Course Course Of Treatment: 79 y/o F w hx bacteremia, left septic shoulder in January , recent UTI who presents with altered mental status and decreased responsiveness. - On arrival to ED, patient is intimately responsive, making good eye contact but nonverbal. Per review of records had similar episode yesterday with a normal workup aside from urine infection. No focal abnormalities to suggest stroke, patient improved after observation. Suspect this could be secondary to metabolic or infectious process. Labs notable for urinalysis with 3+ leuesterase, elevated lactic acid- got 1 L of fluids and a gram of ceftriaxone. Admit to hospitalist for intermittent altered mental status as well as UTI for further workup. - Diagnoses Provider Diagnoses: Sepsis secondary to UTI, AMS (altered mental status) - Provider Notifications Discussed Care Of Patient With: Bartolo Fry - hospitalist Time Discussed With Above Provider: 13:38 Instructed by Provider To: Admit As Inpatient Discharge ED - Sign-Out/Discharge Documenting (check all that apply): Patient Departure - Admit to [facility] - Discharge Plan Condition: Stable Disposition: ADMITTED TO [facility] Referrals: Jessica Ponce MD [Primary Care Provider] - - Billing Disposition and Condition Condition: STABLE Disposition: Admitted to [facility] - Attestation Statements Document Initiated by Max: Yes Documenting Scribe: Aruna White Provider For Whom Scribe is Documenting (Include Credential): Aminata Vargas MD Scribe Attestation: I, Aruna White, scribed for Aminata Vargas MD on 03/17/19 at 1349. Scribe Documentation Reviewed: Yes Provider Attestation: The documentation as recorded by the Aruna solis accurately reflects the service I personally performed and the decisions made by me, Aminata Vargas MD Status of Scribe Document: Viewed
[2019-03-17 12:36] LABS: ABS Eosinophils 0.1 10^3/ul (0-0.6); ABS Lymphocytes 1.2 10^3/ul (1.0-4.8); ABS Monocytes 0.5 10^3/ul (0-0.8); Eosinophil % 1.8 %; Hematocrit 34 % (35-47); Hemoglobin 11.4 g/dL (12.0-16.0); Mean Corpuscular HGB Conc 34 g/dL (31-36); Mean Corpuscular Hemoglobin 28 pg (27-31); Mean Corpuscular Volume 84 fL (80-97); Mean Platelet Volume 7.2 fL (7.4-10.4); Platelet Count 288 10^3/uL (150-450); Red Blood Count 4.06 10^6 /uL (3.70-4.87); Red Cell Distribution Width 17 % (10-15); White Blood Count 6.9 10^3/uL (3.5-10.8)
[2019-03-17] MEDS ORDERED: NS 0.9% 1000 ML** 1,000 ML IV ONE (12:45)
[2019-03-17 12:59] LABS: Albumin 3.6 g/dL (3.2-5.2); Albumin/Globulin Ratio 0.9 (1-3); BUN/Creatinine Ratio 20.6 (8-20); Calcium 9.5 mg/dL (8.6-10.3); EGFR African American 63.4 (>60); EGFR Non-African American 52.4 (>60); Globulin 3.8 g/dL (2-4); Potassium 3.5 mmol/L (3.5-5.0); Total Bilirubin 0.6 mg/dL (0.2-1.0); Total Protein 7.4 g/dL (6.4-8.9)
[2019-03-17] MEDS ORDERED: cefTRIAXone(*) 1 GM in NS 0.9% 50 ML* 50 ML IVPB ONE (13:16)
[2019-03-17 13:29] LABS: Urine Appearance Cloudy; Urine Bilirubin Negative (Negative); Urine Blood 3+ (Negative); Urine Color Amber; Urine Glucose Negative (Negative); Urine Ketones Negative (Negative); Urine Nitrite Negative (Negative); Urine Protein 1+(30 mg/dL) (Negative); Urine Specific Gravity 1.014 (1.010-1.030); Urine Urobilinogen Negative (Negative)
[2019-03-17 13:38] LABS: Urine Bacteria 2+ (Absent); Urine Red Blood Cell 3+(>10/hpf) (Absent); Urine White Blood Cell 3+(>20/hpf) (Absent)
[2019-03-17] MEDS ORDERED: Acetaminophen TAB* 325 MG PO PRN (14:37)
[2019-03-17] MEDS ORDERED: Ondansetron INJ* 2 MG/ML VIAL IV PRN (14:37)
[2019-03-17] MEDS ORDERED: Magnesium Hydroxide LIQ* 30 ML UDC PO PRN (15:28)
[2019-03-17] MEDS: Acetaminophen TAB* 325 MG PO PRN (16:51)
[2019-03-17] MEDS: Enoxaparin(*) 30 MG/0.3 ML SYR SUBCUT SCH (16:52)
[2019-03-17] MEDS: NS 0.9% 1000 ML** 1,000 ML IV SCH (16:52)
[2019-03-17] MEDS ORDERED: CMCS:Diclofenac 1% GEL (NF) 100 GM TUBE TOPICAL PRN (17:00)
[2019-03-17] MEDS ORDERED: CMCS:Diclofenac 1% GEL (NF) 100 GM TUBE TOPICAL SCH (17:00)
--- NOTE | 2019-03-17 17:04 | HP ---
CC: Dr. Jessica Mayen; Dr. Bartolo Fry* ADMISSION HISTORY AND PHYSICAL: DATE OF ADMISSION: 03/17/19 PRIMARY CARE PROVIDER: Dr. Jessica Mayen. MY ATTENDING WHILE IN THE HOSPITAL: Dr. Bartolo Fry* (dictated by CIELO Lucio). CHIEF COMPLAINT: Altered mental status x2 days. HISTORY OF PRESENT ILLNESS: Ms. Ambrosio is a 79-year-old female with past medical history significant for recent hospitalization that lasted over 3 weeks for bacteremia related to MSSA from an infected shoulder as well as parapneumonic effusion from which MSSA also grew. The patient has recently been having also issues with postherpetic neuralgia for which she is on significant pain medications and has been residing at [facility] after her hospital stay. The patient was reported to be in her normal state of health except for complaining of pain in her right flank which was getting worse on the morning of 03/16/19. The patient later on 03/16/19 was found to be markedly lethargic. She had received several doses of her p.r.n. oxycodone this morning per note, though the exact number of doses is not able to be quantified, in addition to her baclofen and gabapentin. The patient had complained of no urinary symptoms that were reported and at this time is unable to communicate whether or not she had urinary symptoms yesterday. However, in the emergency department, she was found to have an urinalysis with 3+ leukocyte esterase and 3+ bacteria and was started on Bactrim. The urine culture from that visit is currently pending. The patient was able to take 1 dose for Bactrim and in the morning of 03/17/19 was more oriented. Per [facility] nursing staff communicating this to her daughter; however, at approximately 8: 30 on the morning of 03/17/19, the patient became suddenly unresponsive to verbal or painful stimuli and ALS was activated to bring the patient to the hospital. In the emergency department, the patient is extremely lethargic, but improved with fluids. The patient had elevated lactic acid, creatinine elevated significantly above her baseline, though it had been trending up for several weeks before her admission. The patient still had 2+ bacteria in her urine. The patient still complained of pain in her flank, but she complained no fevers or chills, had no nuchal rigidity, no neck pain, was able to perform full active range of motion of her neck without photosensitivity. The patient had no other focal neurologic deficits. The patient had no abnormal movements to correspond with her unresponsiveness. The patient has no history of seizures. The patient reportedly received none of her medications this morning. The patient denied abdominal pain or diarrhea. The patient does have issues intermittently with constipation, particularly when she was previously in the hospital. The patient is very thirsty and per her daughter has not been eating well over the past day and has been losing weight generally. The patient denies nausea or vomiting, has not been noted to have vomited. In the emergency department, the patient had slow improvement in her mental status with fluids. The patient was also tachycardic and borderline hypotensive upon admission, both of which resolved with fluids. Due to concern for altered mental status, we were asked evaluate the patient for admission to the hospital. It is not clear from [facility] records and the patient and her family are unclear on when her PICC was removed and when her vancomycin was stopped. PAST MEDICAL HISTORY: Recent septic arthritis due to MSSA, status post washout ; recent pleural effusion, possibly parapneumonic, growing MSSA; history of Lyme disease; GERD; osteoarthritis; osteoporosis. PAST SURGICAL HISTORY: Intramedullary nail of the right hip in October 2018, appendectomy, cataract surgery. MEDICATIONS: Per [facility] Facility notes: 1. Omeprazole 20 mg p.o. daily. 2. Calcium carbonate and vitamin D 1 tab p.o. daily. 3. Tylenol 650 mg p.o. q.8 hours as needed. 4. Vitamin D 2000 units p.o. daily. 5. Colace 100 mg p.o. daily as needed. 6. Lidoderm 5% patch 1 patch transdermal 24 hours. 7. Oxycodone 5 mg p.o. q.6 hours as needed. 8. MiraLAX 17 g p.o. daily. 9. Senna 1 tablet p.o. daily. 10. Doxepin 10 mg p.o. t.i.d. 11. Furosemide 20 mg p.o. daily. 12. Magnesium hydroxide 30 mL p.o. q.6 hours as needed. 13. Lactobacillus acidophilus 1 tab p.o. b.i.d. 14. Calcitonin 1 spray left naris every other day. 15. Calcitonin 200 units 1 spray right naris every other day. 16. Voltaren 2 g topical 4 times a day. 17. Gabapentin 300 mg p.o. b.i.d. 18. Bactrim double strength 1 tab p.o. q.12 hours. 19. Gabapentin 600 mg p.o. nightly. ALLERGIES: None. FAMILY HISTORY: The patient's father, daughter, and son have diabetes. The patient's family history is otherwise unknown. SOCIAL HISTORY: The patient denies ever abusing tobacco, alcohol, or illicit drugs. The patient used to work at [email or web address] and [employer]. 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 The patient's surrogate decision maker will be her [id number], Katelyn Ambrosio. The patient is and has 3 children. The patient would like to be a DNR/DNI. REVIEW OF SYSTEMS: A 10-point review of systems was reviewed and is negative except as above in the HPI. PHYSICAL EXAMINATION GENERAL: The patient is a 79-year-old female who appears stated age, sitting in the bed, lethargic, but not in acute distress. VITAL SIGNS: Temperature 98.0, pulse rate 90, respiratory rate 20, oxygen saturation 93% on room air, blood pressure 135/71. HEENT: Head: Normocephalic, atraumatic. Sclerae anicteric. No conjunctival injection. Nasal mucosa dry. Oral mucosa dry. No pharyngeal erythema, discharge, or exudate. NECK: Supple, nontender. No lymphadenopathy. No carotid bruits auscultated. No JVD. RESPIRATORY: Clear to auscultation bilaterally. No wheezes, rales, or rhonchi. Good air exchange bilaterally. CARDIAC: Regular rate and rhythm. No clicks, murmurs, gallops, or rubs. Pulses 2+ in the dorsalis pedis, posterior tibialis, and radial areas. ABDOMEN: Soft, nontender, nondistended. Bowel sounds present and normoactive in all 4 quadrants. No hepatosplenomegaly. No abdominal bruits auscultated. No hepatojugular reflux. GENITOURINARY: No suprapubic or CVA tenderness. NEUROLOGIC: Cranial nerves II through XII grossly intact on the limited exam. Diffusely weak. No focal deficits. Lethargic, oriented only to person. SKIN: Clean, dry, and intact. No rashes. DIAGNOSTIC STUDIES/LAB DATA: Laboratory data: White blood cell count 6.9, hemoglobin 11.4, platelet count 288. Sodium 138, potassium 3.5, chloride 98, carbon dioxide 31, anion gap 9, BUN 21, creatinine 1.02, glucose 166, lactic acid 2.1, calcium 9.5. Bilirubin 0.6, AST 37, ALT 36, alkaline phosphatase 343. Protein 7.4, albumin 2.6, globulin 3.8. Urine; lesvia, cloudy, 1+ protein, 3+ blood, 2+ leukocyte esterase, 3+ white blood cells, 3+ red blood cells, 2+ bacteria, positive hyaline casts, negative glucose. Studies: Chest x-ray read as right basilar atelectasis, no other obvious pneumonia. Electrocardiogram shows normal sinus rhythm, no ST segment elevation or depression, no hypertrophy or enlargement, rate of 95, QTc of 458. ASSESSMENT AND PLAN: Impression: Mrs. Ambrosio is a 79-year-old female with past medical history significant for recent history of septic arthritis, pneumonia and prolonged hospitalization, and postherpetic neuralgia who presents to the hospital with altered mental status of unclear etiology, will be admitted to the hospital for further evaluation and supportive care. 1. Altered mental status, possible toxic metabolic encephalopathy. The patient has been lethargic for the past 2 days with episodes of unresponsiveness. This is unclear cause, though did correspond with an increase in the pain in her right flank and increase in the dosing of her opiate pain medications and decrease in her renal function bringing up the possibility of this being related to medication accumulation. The patient will be continued on her gabapentin at a decreased dose. Her oxycodone will be held. Her baclofen will be held at this time. These may be reintroduced in the future as the patient becomes more alert. The patient will be started on fluids and her kidney function will be checked in the morning. The patient does not have signs of meningitis and lumbar puncture is not indicated. This could be related to the patient's urinary tract infection, she will be treated with ceftriaxone. The patient's culture from yesterday's ED visit is pending and will likely be the best guide for treatment as she did receive 1 dose of Bactrim since then. The patient had no recent changes to medications, no other sick contacts. There is a possibility that this could represent a seizure, though the patient has no history of seizure. An EEG will be obtained, and if indicated, a neurology consult could be considered. The patient will be continued again on her gabapentin at a decreased dose. Blood cultures are pending as the patient was previously bacteremic and recently stopped on her vancomycin. If there is an ongoing nidus of infection that has not been fully treated by the vancomycin, this may be the cause of her encephalopathy. Venous blood gas will be obtained for the possibility of hypercarbia as her CO2 and BNP has been trending up the past month possibly related to increased dosing of her sedating medications. 2. History of septic shoulder. The patient complains of no pain in her shoulder at this time. The patient has no signs of active infection except for her urinary tract infection. The patient will be continued on ceftriaxone. Pending culture results. blood cultures are pending. 3. History of pleural effusion growing methicillin-sensitive Staphylococcus aureus. This does not appear to be present on the patient's current chest x- ray. She has no respiratory symptoms. This would be reassessed as indicated. 4. Osteoporosis. Hold the patient's calcitonin at this time. Resume when indicated. Hold the patient's calcium with vitamin D. 5. Gastroesophageal reflux disease. Continue the patient's omeprazole. 6. Arthritis. Continue the patient's Tylenol as needed. 7. Lactic acidosis, likely related to dehydration not sepsis. The patient received 1 L of normal saline and this will be continued at 100 mL an hour with frequent reassessment of the patient's fluid status. 8. DVT prophylaxis: Lovenox subcu. 9. FEN: The patient will have an unrestricted diet, fluids as above. TIME SPENT: Approximately 60 minutes was spent on the admission of this patient , 30 of which was spent [id number] with the patient obtaining history and physical and discussing treatment plan. This plan has been discussed with my attending, Dr. Bartolo Fry, and he is in agreement. CIELO LUCIO [id number]/CPS #: [id number] MTDD
[2019-03-17] MEDS: Gabapentin CAP(*) 300 MG PO SCH (21:10)
[2019-03-17] MEDS: Lactobacillus Acidophilus* 1 TAB PO SCH (21:11)
[2019-03-17] MEDS: Gabapentin CAP(*) 100 MG PO SCH (21:11)
[2019-03-17] MEDS: Lidocaine Patch REMOVE* 1 NOTE MISC PATCH OFF SCH (21:15)
[2019-03-18] MEDS: Acetaminophen TAB* 325 MG PO PRN (02:13)
[2019-03-18 05:10] LABS: ABS Eosinophils 0.2 10^3/ul (0-0.6); ABS Monocytes 0.4 10^3/ul (0-0.8); ABS Neutrophils 3.9 10^3/ul (1.5-7.7); Eosinophil % 2.8 %; Hematocrit 27 % (35-47); Hemoglobin 8.9 g/dL (12.0-16.0); Lymphocyte % 17.6 %; Mean Corpuscular HGB Conc 34 g/dL (31-36); Mean Corpuscular Hemoglobin 28 pg (27-31); Mean Corpuscular Volume 84 fL (80-97); Mean Platelet Volume 6.6 fL (7.4-10.4); Platelet Count 223 10^3/uL (150-450); Red Blood Count 3.16 10^6 /uL (3.70-4.87); Red Cell Distribution Width 16 % (10-15); White Blood Count 5.5 10^3/uL (3.5-10.8)
[2019-03-18 05:25] LABS: BUN/Creatinine Ratio 21.6 (8-20); Calcium 8.2 mg/dL (8.6-10.3); EGFR African American 75.2 (>60); EGFR Non-African American 62.1 (>60); Magnesium 1.8 mg/dL (1.9-2.7); Potassium 3.3 mmol/L (3.5-5.0)
[2019-03-18] MEDS: NS 0.9% 1000 ML** 1,000 ML IV SCH (05:53)
[2019-03-18] MEDS ORDERED: Magnesium Sulfate 1 GM IV* 1 GM/100 ML BAG IV ONE (08:04)
[2019-03-18] MEDS ORDERED: Potassium Chlor TAB* 20 MEQ TAB.ER PO ONE (08:04)
[2019-03-18] MEDS: Pantoprazole TAB * 40 MG TAB PO SCH (08:26)
[2019-03-18] MEDS: Lactobacillus Acidophilus* 1 TAB PO SCH ×2 (08:26→21:26)
[2019-03-18] MEDS: Cholecalciferol TAB* 1000 UNITS PO SCH (08:26)
[2019-03-18] MEDS: Gabapentin CAP(*) 100 MG PO SCH ×2 (08:26→21:26)
[2019-03-18] MEDS: Lidocaine PATCH 5%* 1 PATCH TRANSDERM SCH (08:30)
[2019-03-18] MEDS: Senna TAB 8.6 mg* TAB PO SCH (08:43)
[2019-03-18] MEDS: Polyethylene Glycol 3350* 17 GM PACKET PO SCH (08:43)
[2019-03-18] MEDS: cefTRIAXone(*) 1 GM in NS 0.9% 50 ML* 50 ML IVPB SCH (08:43)
[2019-03-18] MEDS ORDERED: Acetaminophen TAB* 325 MG ONE (10:00)
[2019-03-18] MEDS: Acetaminophen TAB* 325 MG PO SCH ×3 (10:02→21:26)
[2019-03-18] MEDS: Enoxaparin(*) 30 MG/0.3 ML SYR SUBCUT SCH (13:53)
--- NOTE | 2019-03-18 15:05 | CONS ---
CONSULTATION REPORT: DATE OF CONSULT: 03/18/19 REQUESTING PROVIDER: Carrie Blakely NP. CONSULTING SERVICE: Infectious Disease. REASON FOR CONSULT: Encephalopathy, left flank pain. IMPRESSION: 1. Encephalopathy, present on admission with what appears to be a urinary tract infection, possibly dehydration, question of opioid and gabapentin, increased dosing in the mix, improving. 2. Left flank pain, which has been present a couple of weeks, worse with movement, now with palpation, question intercostal muscle tear or bone bruise of the rib versus less likely a pyelonephritis or pulmonary or abdominal pathology. 3. Recent septic left shoulder due to Staphylococcus aureus as well as a loculated right pleural effusion, which shows resolved by chest x-ray. 4. No urinary symptoms. Urinalysis though shows blood and leukocyte esterase. Urine culture from 03/16/19 is growing Escherichia coli and klebsiella. Sensitivity data is pending. She does have a cystitis minimum. RECOMMENDATIONS: Continue ceftriaxone. CT of the abdomen to evaluate left flank for inflammatory or other process of the lower lung or left upper quadrant. HISTORY OF PRESENT ILLNESS: This is a 79-year-old woman recently hospitalized with Staph aureus bacteremia, septic arthritis of the left shoulder which was drained, and a loculated pleural effusion on the right that was drained and then a long course of antibiotics, initially Ancef here and then vancomycin for twice daily dosing at the detention. She had apparently over the last 2 or 3 days become less lucid and her family brought her to the ER. Urinalysis was abnormal. She was discharged on Bactrim and was home for a little bit and then came right back with worsening mental status according to her family. She was not making sense and was unable to carry on her daily activities. She has noted this left flank pain for a couple of weeks, worse with standing, it is okay with rest. Icing helps a little bit. She has been having increasing doses of oxycodone and gabapentin at [facility] she thinks. Here, she has had no fever. She has been hemodynamically stable. Blood cultures are negative 24 hours. She has ongoing left-sided pain. Her left shoulder has been fine and range of motion is back to normal she thinks. She has no pain with deep breath and no cough. PAST MEDICAL HISTORY: 1. Septic arthritis left shoulder, status post incision and drainage. 2. Loculated pleural effusion on the right, status post chest tube. 3. Gastroesophageal reflux disease. 4. Osteoarthritis. 5. Osteoporosis. 6. Status post open reduction internal fixation, right hip October 2018. 7. Status post appendectomy. 8. Status post cataract surgery. MEDICATIONS: 1. Tylenol. 2. Cholecalciferol. 3. Enoxaparin. 4. Gabapentin. 5. Lactobacillus. 6. Lidocaine patch. 7. Magnesium hydroxide. 8. Zofran. 9. Pantoprazole. 10. Ceftriaxone 1 g a day. 11. Senna. ALLERGIES: No known drug allergies. FAMILY HISTORY: Her father had diabetes, otherwise unknown. SOCIAL HISTORY: She has been living at [facility], otherwise had lived with her . She is a nonsmoker. REVIEW OF SYSTEMS: All negative except as noted above for 12-point review of systems. PHYSICAL EXAM: Vital Signs: Temperature is 36.7, heart rate 80, respiratory rate 18, blood pressure 105/76, oxygen saturation 99% on room air. General: She is awake, not in distress. Neurologic: She is oriented x3. Follows all commands. HEENT: There is no conjunctival hemorrhage. Oropharynx without lesions. Neck is supple without mass. Heart is regular rate and rhythm without murmurs, rubs, or gallops. Lungs are clear to auscultation bilaterally. Abdomen: Soft, nontender, nondistended. There are bowel sounds present. Skin: There is no rash or splinter hemorrhage. Musculoskeletal: Left shoulder range of motion is full without tenderness. There is left flank tenderness to palpation, which is intercostal. There is no tenderness to palpation of the right flank. DIAGNOSTIC STUDIES/LAB DATA: White blood cell count 5, hemoglobin 8.9, platelets 223. Creatinine is 0.8. Urinalysis shows blood, leukocyte esterase. Please see impressions and recommendations outlined above that I discussed with Carrie Blakely NP. Thanks for asking me to see Ms. Ambrosio in consultation. [id number]/[facility] #: [id number] JUAN
[2019-03-18] MEDS ORDERED: Iohexol 300* (CONTRAST) 10 ML SDV IV ONE (15:42)
[2019-03-18 18:06] LABS: Hematocrit 29 % (35-47); Hemoglobin 9.4 g/dL (12.0-16.0); Mean Corpuscular HGB Conc 33 g/dL (31-36); Mean Corpuscular Hemoglobin 28 pg (27-31); Mean Corpuscular Volume 84 fL (80-97); Mean Platelet Volume 7.6 fL (7.4-10.4); Platelet Count 259 10^3/uL (150-450); Red Blood Count 3.41 10^6 /uL (3.70-4.87); Red Cell Distribution Width 17 % (10-15); White Blood Count 6.9 10^3/uL (3.5-10.8)
--- NOTE | 2019-03-18 18:37 | PN ---
Subjective Date of Service: 03/18/19 Interval History: Patient seen resting in bed. Report sharp intermittent left lateral flank pain. Nothing makes it worse, nothing makes it better. Denies urinary burning, frequency, nausea, vomiting. Is alert and orientedx4 today, states she feels like she is thinking clearly. Family History: Unchanged from Admission Social History: Unchanged from Admission Past Medical History: Unchanged from Admission Objective Active Medications: Acetaminophen (Tylenol Tab*) 975 mg PO TID [facility] Last Admin: 03/18/19 13:14 Dose: 975 mg Cholecalciferol (Vitamin D Tab*) 2,000 units PO DAILY [facility] Last Admin: 03/18/19 08:26 Dose: 2,000 units Diclofenac Sodium (Voltaren 1% Gel (Nf)) 1 applic TOPICAL QID PRN; Protocol PRN Reason: LOWER BACK PAIN Enoxaparin Sodium (Lovenox(*)) 30 mg SUBCUT Q24H [facility] Last Admin: 03/18/19 13:53 Dose: 30 mg Gabapentin (Neurontin Cap(*)) 100 mg PO BID [facility] Last Admin: 03/18/19 08:26 Dose: 100 mg Gabapentin (Neurontin Cap(*)) 300 mg PO BEDTIME [facility] Last Admin: 03/17/19 21:10 Dose: 300 mg Ceftriaxone Sodium 1 gm/ (Sodium Chloride) 50 mls @ 100 mls/hr IVPB Q24H [facility] Last Admin: 03/18/19 08:43 Dose: 100 mls/hr Sodium Chloride (Ns 0.9% 1000 Ml) 1,000 mls @ 100 mls/hr IV PER RATE [facility] Last Admin: 03/18/19 05:53 Dose: 100 mls/hr Lactobacillus Rhamnosus (Lactobacillus Acidophilus*) 1 tab PO BID [facility] Last Admin: 03/18/19 08:26 Dose: 1 tab Lidocaine (Lidoderm 5% Patch*) 1 patch TRANSDERM Q24H [facility] Last Admin: 03/18/19 08:30 Dose: 1 patch Magnesium Hydroxide (Milk Of Magnesia Liq*) 30 ml PO Q6H PRN PRN Reason: CONSTIPATION Ondansetron HCl (Zofran Inj*) 4 mg IV Q6H PRN PRN Reason: NAUSEA Oxycodone HCl (Roxycodone Tab*) 5 mg PO Q6H PRN PRN Reason: PAIN - SEVERE Pantoprazole Sodium (Protonix Tab*) 40 mg PO DAILY [facility] Last Admin: 03/18/19 08:26 Dose: 40 mg Pharmacy Profile Note (Lidocaine Patch Remove*) 1 note PATCH OFF BEDTIME [facility] Last Admin: 03/17/19 21:15 Dose: 1 note Polyethylene Glycol/Electrolytes (Miralax*) 17 gm PO DAILY [facility] Last Admin: 03/18/19 08:43 Dose: Not Given Senna (Senokot 8.6 Mg Tab*) 1 tab PO DAILY [facility] Last Admin: 03/18/19 08:43 Dose: Not Given Vital Signs - 8 hr 03/18/19 03/18/19 12:32 15:01 Temperature 98.1 F 99.3 F Pulse Rate 85 90 Respiratory 18 18 Rate Blood Pressure 105/76 100/60 (mmHg) O2 Sat by Pulse 99 97 Oximetry Oxygen Devices in Use Now: None Appearance: Well developed older woman seen resting in bed. No acute distress. Eyes: No Scleral Icterus, PERRLA Ears/Nose/Mouth/Throat: NL Teeth, Lips, Gums, Clear Oropharnyx, Mucous Membranes Moist Neck: NL Appearance and Movements; NL JVP, Trachea Midline Respiratory: Symmetrical Chest Expansion and Respiratory Effort, Clear to Auscultation Cardiovascular: NL Sounds; No Murmurs; No JVD, RRR Abdominal: NL Sounds; No Tenderness; No Distention Lymphatic: No Cervical Adenopathy Extremities: No Edema, No Clubbing, Cyanosis Skin: No Rash or Ulcers, No Nodules or Sclerosis Neurological: Alert and Oriented x 3 - Nutrition: Malnutrition Diagnosis/Plan Malnutrition Assessment by Registered Dietitian: Malnutrition Assessment Clinical Characteristics Acute,Moderate Malnutrition Assessment: sig wt loss x 1 mo: 4.7-5.4% Criteria muscle wasting at clavicle on observation < 75% of EEE x > 7 days Malnutrition Assessment: regular diet Interventions cottage cheese w/fresh fruit @ 3 pm daily: 123 kcals, 9.5 g pro Malnutrition Assessment: Goals 1. Intake will remain >75% of meals and will support stable wt without further unintended wt loss 2. Intake will support wound healing/skin integrity Result Diagrams: 03/18/19 17:18 03/18/19 04:59 Microbiology and Other Data: Microbiology 03/17/19 13:00 Aerobic Blood Culture - Preliminary Blood Venous No Growth Day 1 Anaerobic Blood Culture - Preliminary No Growth Day 1 03/17/19 12:21 Aerobic Blood Culture - Preliminary Blood Venous No Growth Day 1 Anaerobic Blood Culture - Preliminary No Growth Day 1 Assess/Plan/Problems-Billing Assessment: This is a 79 year old female with a recent PMH of septic right shoulder and bacteremia who was admitted on 03/17/19 for altered mental status, likely secondary to urinary tract infection. - Patient Problems (1) UTI (urinary tract infection) Current Visit: Yes Status: Acute Comment: -Urine is positive for klebsiella and E.coli. Continue treatment with ceftriaxone. -Asymptomatic at this time. I feel this may have contributed to her altered mental status prior to arrival. (2) Electrolyte abnormality Current Visit: Yes Status: Acute Code(s): E87.8 - OTH DISORDERS OF ELECTROLYTE AND FLUID BALANCE, NEC SNOMED Code(s): 603493050 Comment: -Potassium and magnesium low, repleted. Will recheck BMP in AM. (3) MSSA bacteremia Current Visit: No Status: Acute Code(s): R78.81 - BACTEREMIA SNOMED Code(s ): 107795556 Comment: -Diagnosed upon previous admission which has since resolved. Patient was supposed to have had an appointment with Dr. Arguello yesterday and requested that I contact him, which I did. He consulted on patient, recommended we continue use of ceftriaxone for her current UTI. (4) Left flank pain Current Visit: Yes Status: Acute Code(s): R10.9 - UNSPECIFIED ABDOMINAL PAIN SNOMED Code(s): 183309386 Comment: -Started several weeks ago. Described as intermittent, sharp. Nothing makes it worse or better. Did not elicit increase in pain when percussing kidneys. CT of abdomen/pelvis ordered per recommendation of Dr. Arguello. -Scheduled tylenol TID, continue gabapentin, oxycodone. (5) GERD (gastroesophageal reflux disease) Current Visit: No Status: Acute Code(s): K21.9 - GASTRO-ESOPHAGEAL REFLUX DISEASE WITHOUT ESOPHAGITIS SNOMED Code(s): 606822805 Comment: -Asymptomatic. Continue protonix. (6) Post herpetic neuralgia Current Visit: No Status: Acute Code(s): B02.29 - OTHER POSTHERPETIC NERVOUS SYSTEM INVOLVEMENT SNOMED Code(s): 2183134 Comment: -S/P shingles, has improved. Continue gabapentin. (7) DVT prophylaxis Current Visit: No Status: Acute Code(s): Z29.9 - ENCOUNTER FOR PROPHYLACTIC MEASURES, UNSPECIFIED SNOMED Code(s): 106698180 Comment: - lovenox SQ (8) DNR (do not resuscitate) Current Visit: No Status: Acute Status and Disposition: Disposition: Admit in to 4S Condition: Fair Attending: Aruna Mcbride
[2019-03-18] MEDS: Gabapentin CAP(*) 300 MG PO SCH (21:25)
[2019-03-18] MEDS: Lidocaine Patch REMOVE* 1 NOTE MISC PATCH OFF SCH (21:31)
--- NOTE | 2019-03-19 00:33 | EEG ---
ELECTROENCEPHALOGRAPHY REPORT: DATE OF STUDY: 03/18/19 DATE READ: 03/18/19 ORDERED DATE: 03/17/19 ORDERED BY: Antoni Elizabeth CLINICAL PROBLEM: Mrs. Ambrosio is a 79-year-old female who was admitted for confusion and being non verbal. She was diagnosed with urinary tract infection. This EEG was obtained to evaluate for epilep tiform abnormalities or electrographic seizures. MEDICATIONS: 1. Ceftriaxone 2. Enoxaparin. 3. Zofran. DURATION: [id number] CLINICAL STATE: Awake. REPORT: The waking background showed appropriate organization with clearly defined anterior-posterio r voltage and frequency gradients. There was a well-defined posterior dominant rhythm of 8.5 Hz, whi ch was symmetrical and showed normal reactivity. Anteriorly, there was expected pattern of lower vol tage irregular mixed faster frequencies. Hyperventilation and photic stimulation were not performed. Single electrode EKG showed normal sinus rhythm with a rate of 80 beats per minute. Throughout the recording, there were no epileptiform discharges or electrographic seizures. CLINICAL IMPRESSION: This is a normal awake EEG. There were no focal or epileptiform abnormalities. [id number]/[facility] #: [id number]
[2019-03-19] MEDS: NS 0.9% 1000 ML** 1,000 ML IV SCH ×2 (05:12→18:15)
[2019-03-19] MEDS: Cholecalciferol TAB* 1000 UNITS PO SCH (08:18)
[2019-03-19] MEDS: Gabapentin CAP(*) 100 MG PO SCH ×2 (08:18→21:36)
[2019-03-19] MEDS: Pantoprazole TAB * 40 MG TAB PO SCH (08:19)
[2019-03-19] MEDS: Acetaminophen TAB* 325 MG PO SCH ×3 (08:19→21:34)
[2019-03-19] MEDS: Lactobacillus Acidophilus* 1 TAB PO SCH ×2 (08:20→21:35)
[2019-03-19] MEDS: cefTRIAXone(*) 1 GM in NS 0.9% 50 ML* 50 ML IVPB SCH (08:23)
[2019-03-19] MEDS: Lidocaine PATCH 5%* 1 PATCH TRANSDERM SCH (08:27)
[2019-03-19] MEDS: Polyethylene Glycol 3350* 17 GM PACKET PO SCH (08:27)
[2019-03-19] MEDS: Senna TAB 8.6 mg* TAB PO SCH (08:27)
--- NOTE | 2019-03-19 09:41 | PN ---
Subjective Date of Service: 03/19/19 Interval History: Patient somewhat tearful this morning, frustrated with how sick she has been in the past year. Did not sleep well last night due to pain, stated that she did not want to take the oxycodone and would prefer non-narcotic options. Using ice pack and tylenol to control her pain which she rates as a 9/10 to her left flank. Denies headaches, fever, chills, shortness of breath, abdominal pain, nausea or vomiting. Stated she had two bouts of liquid stool in the overnight. Family History: Unchanged from Admission Social History: Unchanged from Admission Past Medical History: Unchanged from Admission Objective Active Medications: Acetaminophen (Tylenol Tab*) 975 mg PO TID [facility] Last Admin: 03/19/19 08:19 Dose: 975 mg Cholecalciferol (Vitamin D Tab*) 2,000 units PO DAILY [facility] Last Admin: 03/19/19 08:18 Dose: 2,000 units Diclofenac Sodium (Voltaren 1% Gel (Nf)) 1 applic TOPICAL QID PRN; Protocol PRN Reason: LOWER BACK PAIN Last Admin: 03/19/19 01:19 Dose: 2 mg Enoxaparin Sodium (Lovenox(*)) 30 mg SUBCUT Q24H [facility] Last Admin: 03/18/19 13:53 Dose: 30 mg Gabapentin (Neurontin Cap(*)) 100 mg PO BID [facility] Last Admin: 03/19/19 08:18 Dose: 100 mg Gabapentin (Neurontin Cap(*)) 300 mg PO BEDTIME [facility] Last Admin: 03/18/19 21:25 Dose: 300 mg Ceftriaxone Sodium 1 gm/ (Sodium Chloride) 50 mls @ 100 mls/hr IVPB Q24H [facility] Last Admin: 03/19/19 08:23 Dose: 100 mls/hr Sodium Chloride (Ns 0.9% 1000 Ml) 1,000 mls @ 100 mls/hr IV PER RATE [facility] Last Admin: 03/19/19 05:12 Dose: 100 mls/hr Lactobacillus Rhamnosus (Lactobacillus Acidophilus*) 1 tab PO BID [facility] Last Admin: 03/19/19 08:20 Dose: 1 tab Lidocaine (Lidoderm 5% Patch*) 1 patch TRANSDERM Q24H [facility] Last Admin: 03/19/19 08:27 Dose: 1 patch Magnesium Hydroxide (Milk Of Magnesia Liq*) 30 ml PO Q6H PRN PRN Reason: CONSTIPATION Naproxen (Naprosyn Tab*) 250 mg PO Q12H PRN PRN Reason: PAIN - MILD Ondansetron HCl (Zofran Inj*) 4 mg IV Q6H PRN PRN Reason: NAUSEA Last Admin: 03/19/19 05:15 Dose: 4 mg Oxycodone HCl (Roxycodone Tab*) 5 mg PO Q6H PRN PRN Reason: PAIN - SEVERE Pantoprazole Sodium (Protonix Tab*) 40 mg PO DAILY [facility] Last Admin: 03/19/19 08:19 Dose: 40 mg Pharmacy Profile Note (Lidocaine Patch Remove*) 1 note PATCH OFF BEDTIME [facility] Last Admin: 03/18/19 21:31 Dose: 1 note Polyethylene Glycol/Electrolytes (Miralax*) 17 gm PO DAILY [facility] Last Admin: 03/19/19 08:27 Dose: Not Given Senna (Senokot 8.6 Mg Tab*) 1 tab PO DAILY [facility] Last Admin: 03/19/19 08:27 Dose: Not Given Tramadol HCl (Ultram*) 50 mg PO Q6H PRN PRN Reason: PAIN - MODERATE Vital Signs - 8 hr 03/19/19 03/19/19 03:15 08:18 Temperature 97.8 F Pulse Rate 74 Respiratory 20 18 Rate Blood Pressure 119/65 (mmHg) O2 Sat by Pulse 100 Oximetry Oxygen Devices in Use Now: None Appearance: Well developed older woman seen resting in bed. Mildly distressed. Eyes: No Scleral Icterus, PERRLA Ears/Nose/Mouth/Throat: NL Teeth, Lips, Gums, Clear Oropharnyx, Mucous Membranes Moist Neck: NL Appearance and Movements; NL JVP, Trachea Midline Respiratory: Symmetrical Chest Expansion and Respiratory Effort, Clear to Auscultation Cardiovascular: NL Sounds; No Murmurs; No JVD, RRR, No Edema Abdominal: NL Sounds; No Tenderness; No Distention Lymphatic: No Cervical Adenopathy Extremities: No Edema, No Clubbing, Cyanosis Skin: No Nodules or Sclerosis, - - Multiple discrete, round, scaly, pale pink areas to face. Neurological: Alert and Oriented x 3, NL Sensation Nutrition: Taking PO's - Nutrition: Malnutrition Diagnosis/Plan Malnutrition Assessment by Registered Dietitian: Malnutrition Assessment Clinical Characteristics Acute,Moderate Malnutrition Assessment: sig wt loss x 1 mo: 4.7-5.4% Criteria muscle wasting at clavicle on observation < 75% of EEE x > 7 days Malnutrition Assessment: regular diet Interventions cottage cheese w/fresh fruit @ 3 pm daily: 123 kcals, 9.5 g pro Malnutrition Assessment: Goals 1. Intake will remain >75% of meals and will support stable wt without further unintended wt loss 2. Intake will support wound healing/skin integrity Result Diagrams: 03/18/19 17:18 03/18/19 04:59 Microbiology and Other Data: Microbiology 03/17/19 13:00 Aerobic Blood Culture - Preliminary Blood Venous No Growth Day 1 Anaerobic Blood Culture - Preliminary No Growth Day 1 03/17/19 12:21 Aerobic Blood Culture - Preliminary Blood Venous No Growth Day 1 Anaerobic Blood Culture - Preliminary No Growth Day 1 Assess/Plan/Problems-Billing Assessment: This is a 79 year old female with a recent PMH of septic right shoulder and bacteremia who was admitted on 03/17/19 for altered mental status, likely secondary to urinary tract infection. - Patient Problems (1) UTI (urinary tract infection) Current Visit: Yes Status: Acute Comment: -Urine is positive for klebsiella and E.coli. Continue treatment with ceftriaxone. -Asymptomatic at this time. I feel this may have contributed to her altered mental status prior to arrival. (2) Electrolyte abnormality Current Visit: Yes Status: Acute Code(s): E87.8 - OTH DISORDERS OF ELECTROLYTE AND FLUID BALANCE, NEC SNOMED Code(s): 255118854 Comment: -Potassium and magnesium low, repleted. Will recheck BMP in AM. (3) MSSA bacteremia Current Visit: No Status: Acute Code(s): R78.81 - BACTEREMIA SNOMED Code(s ): 616610230 Comment: -Diagnosed upon previous admission which has since resolved. Dr. Arguello consulted on patient for follow up, recommended we continue use of ceftriaxone for her current UTI. (4) Left flank pain Current Visit: Yes Status: Acute Code(s): R10.9 - UNSPECIFIED ABDOMINAL PAIN SNOMED Code(s): 825017656 Comment: -Started several weeks ago. Described as intermittent, sharp. Nothing makes it worse or better. Did not elicit increase in pain when percussing kidneys. CT of abdomen/pelvis ordered per recommendation of Dr. Arguello. -Scheduled tylenol TID, continue gabapentin, naproxen and tramadol. Patient declined oxycodone. (5) GERD (gastroesophageal reflux disease) Current Visit: No Status: Acute Code(s): K21.9 - GASTRO-ESOPHAGEAL REFLUX DISEASE WITHOUT ESOPHAGITIS SNOMED Code(s): 455713744 Comment: -Asymptomatic. Continue protonix. (6) Post herpetic neuralgia Current Visit: No Status: Acute Code(s): B02.29 - OTHER POSTHERPETIC NERVOUS SYSTEM INVOLVEMENT SNOMED Code(s): 9542687 Comment: -S/P shingles, has improved. Continue gabapentin. (7) DVT prophylaxis Current Visit: No Status: Acute Code(s): Z29.9 - ENCOUNTER FOR PROPHYLACTIC MEASURES, UNSPECIFIED SNOMED Code(s): 836499484 Comment: - lovenox SQ (8) DNR (do not resuscitate) Current Visit: No Status: Acute Status and Disposition: Disposition: Admit in to Condition: Fair Attending: Rosanne [place]
[2019-03-19 10:29] LABS: CO2 Carbon Dioxide 22 mmol/L (22-32); Calcium 8.7 mg/dL (8.6-10.3); Chloride 108 mmol/L (101-111); Sodium 138 mmol/L (135-145)
[2019-03-19 10:35] LABS: BUN/Creatinine Ratio 16.7 (8-20); Blood Urea Nitrogen 13 mg/dL (6-24); EGFR African American 86.4 (>60); EGFR Non-African American 71.4 (>60); Glucose 83 mg/dL (70-100)
[2019-03-19 10:37] LABS: Anion Gap 8 mmol/L (2-11)
[2019-03-19] MEDS: traMADol TAB* 50 MG PO PRN (11:29)
[2019-03-19] MEDS: oxyCODONE TAB* 5 MG TAB PO PRN ×2 (13:30→19:25)
[2019-03-19 13:36] LABS: ABS Basophils 0.1 10^3/ul (0-0.2); ABS Eosinophils 0.1 10^3/ul (0-0.6); ABS Monocytes 0.3 10^3/ul (0-0.8); ABS Neutrophils 3.4 10^3/ul (1.5-7.7); Hematocrit 30 % (35-47); Lymphocyte % 20.2 %; Mean Corpuscular HGB Conc 33 g/dL (31-36); Mean Corpuscular Hemoglobin 28 pg (27-31); Mean Corpuscular Volume 84 fL (80-97); Mean Platelet Volume 6.9 fL (7.4-10.4); Platelet Count 239 10^3/uL (150-450); Red Blood Count 3.53 10^6 /uL (3.70-4.87); Red Cell Distribution Width 16 % (10-15); White Blood Count 4.8 10^3/uL (3.5-10.8)
[2019-03-19] MEDS: Enoxaparin(*) 30 MG/0.3 ML SYR SUBCUT SCH (14:27)
[2019-03-19] MEDS: Naproxen TAB* 250 MG PO PRN (18:26)
[2019-03-19] MEDS: Gabapentin CAP(*) 300 MG PO SCH (21:36)
[2019-03-19] MEDS: Lidocaine Patch REMOVE* 1 NOTE MISC PATCH OFF SCH (21:53)
[2019-03-20] MEDS: NS 0.9% 1000 ML** 1,000 ML IV SCH (05:49)
--- NOTE | 2019-03-20 09:03 | PN ---
Subjective Date of Service: 03/20/19 Interval History: Patient is much happier with her current pain regimen of oxycodone, tylenol, and naproxyn. Feels more comfortable than yesterday though reports pain to left flank as 7/10. Noother acute complaints. Denies chest pain, shortness of breath , abdominal pain, nausea, vomiting. Family History: Unchanged from Admission Social History: Unchanged from Admission Past Medical History: Unchanged from Admission Objective Active Medications: Acetaminophen (Tylenol Tab*) 975 mg PO TID [facility] Last Admin: 03/19/19 21:34 Dose: 975 mg Cholecalciferol (Vitamin D Tab*) 2,000 units PO DAILY [facility] Last Admin: 03/19/19 08:18 Dose: 2,000 units Diclofenac Sodium (Voltaren 1% Gel (Nf)) 1 applic TOPICAL QID PRN; Protocol PRN Reason: LOWER BACK PAIN Last Admin: 03/19/19 01:19 Dose: 2 mg Enoxaparin Sodium (Lovenox(*)) 30 mg SUBCUT Q24H [facility] Last Admin: 03/19/19 14:27 Dose: 30 mg Gabapentin (Neurontin Cap(*)) 100 mg PO BID [facility] Last Admin: 03/19/19 21:36 Dose: 100 mg Gabapentin (Neurontin Cap(*)) 300 mg PO BEDTIME [facility] Last Admin: 03/19/19 21:36 Dose: 300 mg Ceftriaxone Sodium 1 gm/ (Sodium Chloride) 50 mls @ 100 mls/hr IVPB Q24H [facility] Last Admin: 03/19/19 08:23 Dose: 100 mls/hr Lactobacillus Rhamnosus (Lactobacillus Acidophilus*) 1 tab PO BID [facility] Last Admin: 03/19/19 21:35 Dose: 1 tab Lidocaine (Lidoderm 5% Patch*) 1 patch TRANSDERM Q24H [facility] Last Admin: 03/19/19 08:27 Dose: 1 patch Magnesium Hydroxide (Milk Of Magnesia Liq*) 30 ml PO Q6H PRN PRN Reason: CONSTIPATION Naproxen (Naprosyn Tab*) 250 mg PO Q12H PRN PRN Reason: PAIN - MILD Last Admin: 03/19/19 18:26 Dose: 250 mg Ondansetron HCl (Zofran Inj*) 4 mg IV Q6H PRN PRN Reason: NAUSEA Last Admin: 03/19/19 05:15 Dose: 4 mg Oxycodone HCl (Roxycodone Tab*) 5 mg PO Q6H PRN PRN Reason: PAIN - SEVERE Last Admin: 03/19/19 19:25 Dose: 5 mg Pantoprazole Sodium (Protonix Tab*) 40 mg PO DAILY [facility] Last Admin: 03/19/19 08:19 Dose: 40 mg Pharmacy Profile Note (Lidocaine Patch Remove*) 1 note PATCH OFF BEDTIME [facility] Last Admin: 03/19/19 21:53 Dose: Not Given Polyethylene Glycol/Electrolytes (Miralax*) 17 gm PO DAILY [facility] Last Admin: 03/19/19 08:27 Dose: Not Given Senna (Senokot 8.6 Mg Tab*) 1 tab PO DAILY [facility] Last Admin: 03/19/19 08:27 Dose: Not Given Tramadol HCl (Ultram*) 50 mg PO Q6H PRN PRN Reason: PAIN - MODERATE Last Admin: 03/19/19 11:29 Dose: 50 mg Vital Signs - 8 hr 03/20/19 03:00 Temperature 97.6 F Pulse Rate 70 Respiratory 16 Rate Blood Pressure 99/59 (mmHg) O2 Sat by Pulse 97 Oximetry Oxygen Devices in Use Now: None Appearance: Well developed woman seen sitting p in bed, eating breakfast. No acute breakfast. Eyes: No Scleral Icterus, PERRLA Ears/Nose/Mouth/Throat: NL Teeth, Lips, Gums, Clear Oropharnyx, Mucous Membranes Moist Neck: NL Appearance and Movements; NL JVP, Trachea Midline Respiratory: Symmetrical Chest Expansion and Respiratory Effort, - - Crackles heard to left lower base. Cardiovascular: NL Sounds; No Murmurs; No JVD, RRR, No Edema Abdominal: NL Sounds; No Tenderness; No Distention Lymphatic: No Cervical Adenopathy Extremities: No Edema, No Clubbing, Cyanosis Skin: No Rash or Ulcers, No Nodules or Sclerosis Neurological: Alert and Oriented x 3 - Nutrition: Malnutrition Diagnosis/Plan Malnutrition Assessment by Registered Dietitian: Malnutrition Assessment Clinical Characteristics Acute,Moderate Malnutrition Assessment: sig wt loss x 1 mo: 4.7-5.4% Criteria muscle wasting at clavicle on observation < 75% of EEE x > 7 days Malnutrition Assessment: regular diet Interventions cottage cheese w/fresh fruit @ 3 pm daily: 123 kcals, 9.5 g pro Malnutrition Assessment: Goals 1. Intake will remain >75% of meals and will support stable wt without further unintended wt loss 2. Intake will support wound healing/skin integrity Result Diagrams: 03/19/19 13:29 03/20/19 08:57 Microbiology and Other Data: Microbiology 03/17/19 13:00 Aerobic Blood Culture - Preliminary Blood Venous No Growth Day 1 Anaerobic Blood Culture - Preliminary No Growth Day 1 03/17/19 12:21 Aerobic Blood Culture - Preliminary Blood Venous No Growth Day 1 Anaerobic Blood Culture - Preliminary No Growth Day 1 Assess/Plan/Problems-Billing Assessment: This is a 79 year old female with a recent PMH of septic right shoulder and bacteremia who was admitted on 03/17/19 for altered mental status, likely secondary to urinary tract infection. - Patient Problems (1) UTI (urinary tract infection) Current Visit: Yes Status: Acute Comment: -Urine is positive for klebsiella and E.coli. Continue treatment with ceftriaxone. -Asymptomatic at this time. I feel this may have contributed to her altered mental status prior to arrival. (2) Electrolyte abnormality Current Visit: Yes Status: Acute Code(s): E87.8 - OTH DISORDERS OF ELECTROLYTE AND FLUID BALANCE, NEC SNOMED Code(s): 529074847 Comment: -Potassium and magnesium low, repleted. -Resolved. (3) MSSA bacteremia Current Visit: No Status: Acute Code(s): R78.81 - BACTEREMIA SNOMED Code(s ): 239111242 Comment: -Diagnosed upon previous admission which has since resolved. Dr. Meredith consulted on patient for follow up, recommended we continue use of ceftriaxone for her current UTI. (4) Left flank pain Current Visit: Yes Status: Acute Code(s): R10.9 - UNSPECIFIED ABDOMINAL PAIN SNOMED Code(s): 689445302 Comment: -Started several weeks ago. Described as intermittent, sharp. CT scan showed worsening T11 compression fracture. Dr. Be queried, suggested TLSO brace and an MRI to rule out osteomyelitis considering her recent infection history. Once brace is in place, an xray should be taken with brace on to check alignment and for any posterior vertebral fracture. -Scheduled tylenol TID, continue gabapentin, naproxen and oxycodone, which she agreed to take again due to the better pain control over tramadol. (5) GERD (gastroesophageal reflux disease) Current Visit: No Status: Acute Code(s): K21.9 - GASTRO-ESOPHAGEAL REFLUX DISEASE WITHOUT ESOPHAGITIS SNOMED Code(s): 855138813 Comment: -Asymptomatic. Continue protonix. (6) Post herpetic neuralgia Current Visit: No Status: Acute Code(s): B02.29 - OTHER POSTHERPETIC NERVOUS SYSTEM INVOLVEMENT SNOMED Code(s): 0550532 Comment: -S/P shingles, has improved. Continue gabapentin. (7) DVT prophylaxis Current Visit: No Status: Acute Code(s): Z29.9 - ENCOUNTER FOR PROPHYLACTIC MEASURES, UNSPECIFIED SNOMED Code(s): 412599507 Comment: - lovenox SQ (8) DNR (do not resuscitate) Current Visit: No Status: Acute Status and Disposition: Disposition: Admit in to 4S Condition: Fair Attending: Rosanne [place]
[2019-03-20] MEDS: Cholecalciferol TAB* 1000 UNITS PO SCH (09:24)
[2019-03-20] MEDS: Naproxen TAB* 250 MG PO PRN (09:25)
[2019-03-20] MEDS: Acetaminophen TAB* 325 MG PO SCH ×3 (09:25→20:50)
[2019-03-20] MEDS: Lactobacillus Acidophilus* 1 TAB PO SCH ×2 (09:25→20:49)
[2019-03-20] MEDS: Pantoprazole TAB * 40 MG TAB PO SCH (09:25)
[2019-03-20] MEDS: Gabapentin CAP(*) 100 MG PO SCH ×2 (09:26→20:48)
[2019-03-20] MEDS: cefTRIAXone(*) 1 GM in NS 0.9% 50 ML* 50 ML IVPB SCH (09:27)
[2019-03-20 09:31] LABS: BUN/Creatinine Ratio 12.7 (8-20); Calcium 8.5 mg/dL (8.6-10.3); EGFR African American 96.3 (>60); EGFR Non-African American 79.6 (>60); Potassium 3.5 mmol/L (3.5-5.0)
[2019-03-20] MEDS: Polyethylene Glycol 3350* 17 GM PACKET PO SCH (10:24)
[2019-03-20] MEDS: Senna TAB 8.6 mg* TAB PO SCH (10:25)
[2019-03-20] MEDS: Lidocaine PATCH 5%* 1 PATCH TRANSDERM SCH (10:56)
[2019-03-20] MEDS: traMADol TAB* 50 MG PO PRN (13:48)
[2019-03-20] MEDS: Enoxaparin(*) 30 MG/0.3 ML SYR SUBCUT SCH (14:39)
[2019-03-20] MEDS: oxyCODONE TAB* 5 MG TAB PO PRN ×2 (16:22→22:00)
[2019-03-20] MEDS: Gabapentin CAP(*) 300 MG PO SCH (20:47)
[2019-03-20] MEDS: Lidocaine Patch REMOVE* 1 NOTE MISC PATCH OFF SCH (22:04)
[2019-03-21] MEDS: traMADol TAB* 50 MG PO PRN ×3 (02:41→19:09)
[2019-03-21] MEDS: Naproxen TAB* 250 MG PO PRN (06:36)
[2019-03-21] MEDS: oxyCODONE TAB* 5 MG TAB PO PRN ×3 (08:14→23:30)
[2019-03-21] MEDS: Cholecalciferol TAB* 1000 UNITS PO SCH (08:15)
[2019-03-21] MEDS: Lactobacillus Acidophilus* 1 TAB PO SCH ×2 (08:15→20:10)
[2019-03-21] MEDS: Gabapentin CAP(*) 100 MG PO SCH ×2 (08:15→20:09)
[2019-03-21] MEDS: Pantoprazole TAB * 40 MG TAB PO SCH (08:15)
[2019-03-21] MEDS: Acetaminophen TAB* 325 MG PO SCH ×3 (08:15→20:10)
[2019-03-21] MEDS: Polyethylene Glycol 3350* 17 GM PACKET PO SCH (08:19)
[2019-03-21] MEDS: Senna TAB 8.6 mg* TAB PO SCH (08:19)
[2019-03-21] MEDS ORDERED: Gadoteridol* (CONTRAST) 279.3 MG/ML 10 ML IV ONE (09:11)
[2019-03-21] MEDS: Lidocaine PATCH 5%* 1 PATCH TRANSDERM SCH (10:47)
[2019-03-21] MEDS: cefTRIAXone(*) 1 GM in NS 0.9% 50 ML* 50 ML IVPB SCH (10:47)
--- NOTE | 2019-03-21 11:40 | PN ---
Progress Note - Progress Note Date of Service: 03/21/19 SOAP: Subjective: CC: Left flank pain HPI: Ms. Ambrosio is a 79 yo female with PMH significant for GERD, osteoarthritis, osteoporosis, and recent septic left shoulder with loculated right pleural with staph aureus. She presented to the hospital with encephalopathy. Denies fever, chills, nausea, vomiting, or diarrhea. She continues to have left flank pain. Denies loss of bowel or bladder control, or weakness in the lower extremities. Objective: Vital Signs 03/21/19 03/21/19 10:46 11:04 Temperature 99.8 F Pulse Rate 81 Respiratory 16 18 Rate Blood Pressure 122/81 (mmHg) O2 Sat by Pulse 96 Oximetry Physical Exam: General: NAD, laying in bed Neurological: Alert and Oriented x4 HEENT: Moist MM, no thrush Cardiovascular: Heart rate regular Respiratory: Lung sounds clear bilateral Abdominal: Bowel sounds; ABD soft, non tender and non distended. No CVA tenderness bilateral MSK: No tenderness with palpation of the neck, back, spine, bilateral knees or hips. Full ROM of bilateral knees and hips, shoulders, and ankles. Negative log roll bilateral. No edema, erythema or warmth of knees, hips, or shoulders. Laboratory Last Values WBC 4.8 10^3/uL (3.5-10.8) 03/19/19 13:29 RBC 3.53 10^6 /uL (3.70-4.87) L 03/19/19 13:29 Hgb 10.0 g/dL (12.0-16.0) L 03/19/19 13:29 Hct 30 % (35-47) L 03/19/19 13:29 MCV 84 fL (80-97) 03/19/19 13:29 MCH 28 pg (27-31) 03/19/19 13:29 MCHC 33 g/dL (31-36) 03/19/19 13:29 RDW 16 % (10-15) H 03/19/19 13:29 Plt Count 239 10^3/uL (150-450) 03/19/19 13:29 MPV 6.9 fL (7.4-10.4) L 03/19/19 13:29 Neut % (Auto) 69.9 % 03/19/19 13:29 Lymph % (Auto) 20.2 % 03/19/19 13:29 [place] % (Auto) 6.9 % 03/19/19 13:29 Eos % (Auto) 2.0 % 03/19/19 13:29 Baso % (Auto) 1.0 % 03/19/19 13:29 Absolute Neuts (auto) 3.4 10^3/ul (1.5-7.7) 03/19/19 13:29 Absolute Lymphs (auto) 1.0 10^3/ul (1.0-4.8) 03/19/19 13:29 Absolute Monos (auto) 0.3 10^3/ul (0-0.8) 03/19/19 13:29 Absolute Eos (auto) 0.1 10^3/ul (0-0.6) 03/19/19 13:29 Absolute Basos (auto) 0.1 10^3/ul (0-0.2) 03/19/19 13:29 Absolute Nucleated RBC 0.0 10^3/ul 03/19/19 13: Nucleated RBC % 0.0 03/19/19 13:29 VBG pH 7.44 (7.32-7.43) H 03/17/19 16:01 VBG pCO2 43 mmHg (41-51) 03/17/19 16:01 VBG pO2 56.0 mmHg (35-45) H 03/17/19 16:01 VBG HCO3 28.1 mmol/L (24-28) H 03/17/19 16:01 VBG O2 Saturation 90.6 % (70-80) H 03/17/19 16:01 VBG Base Excess 4.4 mmol/L (0.0-4.0) H 03/17/19 16:01 Sodium 136 mmol/L (135-145) 03/20/19 08:57 Potassium 3.5 mmol/L (3.5-5.0) 03/20/19 08:57 Chloride 108 mmol/L (101-111) 03/20/19 08:57 Carbon Dioxide 22 mmol/L (22-32) 03/20/19 08:57 Anion Gap 6 mmol/L (2-11) 03/20/19 08:57 BUN 9 mg/dL (6-24) 03/20/19 08:57 Creatinine 0.71 mg/dL (0.51-0.95) 03/20/19 08:57 Est GFR ( Amer) 96.3 (>60) 03/20/19 08:57 Est GFR (Non-Af Amer) 79.6 (>60) 03/20/19 08:57 BUN/Creatinine Ratio 12.7 (8-20) 03/20/19 08:57 Glucose 83 mg/dL (70-100) 03/20/19 08:57 Lactic Acid 1.9 mmol/L (0.5-2.0) 03/17/19 15:57 Calcium 8.5 mg/dL (8.6-10.3) L 03/20/19 08:57 Magnesium 1.8 mg/dL (1.9-2.7) L 03/18/19 04:59 Total Bilirubin 0.60 mg/dL (0.2-1.0) 03/17/19 12:26 AST 37 U/L (13-39) 03/17/19 12:26 ALT 36 U/L (7-52) 03/17/19 12:26 Alkaline Phosphatase 243 U/L (34-104) H 03/17/19 12:26 Total Protein 7.4 g/dL (6.4-8.9) 03/17/19 12:26 Albumin 3.6 g/dL (3.2-5.2) 03/17/19 12:26 Globulin 3.8 g/dL (2-4) 03/17/19 12:26 Albumin/Globulin Ratio 0.9 (1-3) L 03/17/19 12:26 Urine Color Judith 03/17/19 12:10 Urine Appearance Cloudy 03/17/19 12:10 Urine pH 7.0 (5-9) 03/17/19 12:10 Ur Specific [place] 1.014 (1.010-1.030) 03/17/19 12:10 Urine Protein 1+(30 mg/dl) (Negative) A 03/17/19 12:10 Urine Ketones Negative (Negative) 03/17/19 12:10 Urine Blood 3+ (Negative) A 03/17/19 12:10 Urine Nitrate Negative (Negative) 03/17/19 12:10 Urine Bilirubin Negative (Negative) 03/17/19 12:10 Urine Urobilinogen Negative (Negative) 03/17/19 12:10 Ur Leukocyte Esterase 2+ (Negative) A 03/17/19 12:10 Urine WBC (Auto) 3+(>20/hpf) (Absent) A 03/17/19 12:10 Urine RBC (Auto) 3+(>10/hpf) (Absent) A 03/17/19 12:10 Urine Bacteria 2+ (Absent) A 03/17/19 12:10 Hyaline Casts Present (Absent) A 03/17/19 12:10 Urine Glucose Negative (Negative) 03/17/19 12:10 Microbiology 03/17/19 13:00 Aerobic Blood Culture - Preliminary Blood Venous No Growth Day 3 Anaerobic Blood Culture - Preliminary No Growth Day 3 03/17/19 12:21 Aerobic Blood Culture - Preliminary Blood Venous No Growth Day 3 Anaerobic Blood Culture - Preliminary No Growth Day 3 03/19/19 13:21 Stool Gross Appearance - Final Stool C. difficile DNA Amplification - Final 027 Presumptive NEGATIVE Toxigenic C.diff NEGATIVE Assessment: 1. Left flank pain. CT scan with "a small loculated right basee pleural effusion with thickened canseco and pleural calcification consistent with empyema and atelectasis, worsening severe compression fracture of the T11 vertebral body with new endplate erosive changes at the T12 and T10 endplate". MRI with "bone edema consistent with subacute compression fracture of T11. Severe narrowing of the central cancal at T11. Extensive edema and enhancement of T11. Bilateral severe neuroforaminal narrowing at T10-11 and T11-T12". Afebrile and no leukocytosis. Blood cultures with no growth. Unclear if the imaging findings of bone edema are secondary to a T11 fracture and/or osteodiskitis. She may have seeded her spine when she had MSSA bacteremia recently. Since this involves her spine, will plan to treat like osteodiskitis with an extended course of IV ABX. 2. Cystitis. Urine culture from 03/16 with Klebsiella 25-50 K and E coli 100 K. Afebrile and no leukocytosis. Blood cultures with no growth. Sensitive to ceftriaxone, has received 5 days of ABX. 3. Encephalopathy. Present on admission, resolved. 4. Recent septic left shoulder and loculated right pleural effusion. Completed an extended course of ABX. Plan: Discontinue ceftriaxone, day 5. Will add a CRP to the last labs drawn. Will start ancef 2 gm IV Q8H. If she is able to have ancef TID at [facility] will discharge her on Ancef IV. If she is unable to have Ancef at [facility], due to the required frequency of the ABX, recommend discharging on Vancomycin (daily or BID dosing), trough goal 15-20 for a total of 6 weeks. She will need to have a PICC line placed.
[2019-03-21 12:02] LABS: C Reactive Protein 17.57 mg/L (<8.01)
[2019-03-21] MEDS ORDERED: oxyCODONE TAB* 5 MG TAB PO ONE (12:09)
[2019-03-21] MEDS: Enoxaparin(*) 30 MG/0.3 ML SYR SUBCUT SCH (14:44)
--- NOTE | 2019-03-21 15:22 | PN ---
Subjective Date of Service: 03/21/19 Interval History: Patient is tearful today, stating that she cannot be here for more than another day because she wants to be with her . Continuing to have ongoing pain to left left flank, frequently uses ice packs, oxycodone works when she takes it. Denies any chest pain, shortness of breath, abdominal pain, nausea, vomiting , issues with moving her bowels or bladder. Family History: Unchanged from Admission Social History: Unchanged from Admission Past Medical History: Unchanged from Admission Objective Active Medications: Acetaminophen (Tylenol Tab*) 975 mg PO TID [facility] Last Admin: 03/21/19 13:45 Dose: 975 mg Cholecalciferol (Vitamin D Tab*) 2,000 units PO DAILY [facility] Last Admin: 03/21/19 08:15 Dose: 2,000 units Diclofenac Sodium (Voltaren 1% Gel (Nf)) 1 applic TOPICAL QID PRN; Protocol PRN Reason: LOWER BACK PAIN Last Admin: 03/19/19 01:19 Dose: 2 mg Enoxaparin Sodium (Lovenox(*)) 30 mg SUBCUT Q24H [facility] Last Admin: 03/21/19 14:44 Dose: 30 mg Gabapentin (Neurontin Cap(*)) 100 mg PO BID [facility] Last Admin: 03/21/19 08:15 Dose: 100 mg Gabapentin (Neurontin Cap(*)) 300 mg PO BEDTIME [facility] Last Admin: 03/20/19 20:47 Dose: 300 mg Ceftriaxone Sodium 1 gm/ (Sodium Chloride) 50 mls @ 100 mls/hr IVPB Q24H [facility] Last Admin: 03/21/19 10:47 Dose: 100 mls/hr Lactobacillus Rhamnosus (Lactobacillus Acidophilus*) 1 tab PO BID [facility] Last Admin: 03/21/19 08:15 Dose: 1 tab Lidocaine (Lidoderm 5% Patch*) 1 patch TRANSDERM Q24H [facility] Last Admin: 03/21/19 10:47 Dose: 1 patch Magnesium Hydroxide (Milk Of Magnesia Liq*) 30 ml PO Q6H PRN PRN Reason: CONSTIPATION Naproxen (Naprosyn Tab*) 250 mg PO Q12H PRN PRN Reason: PAIN - MILD Last Admin: 03/21/19 06:36 Dose: 250 mg Ondansetron HCl (Zofran Inj*) 4 mg IV Q6H PRN PRN Reason: NAUSEA Last Admin: 03/19/19 05:15 Dose: 4 mg Oxycodone HCl (Roxycodone Tab*) 5 mg PO Q6H PRN PRN Reason: PAIN - SEVERE Last Admin: 03/21/19 08:14 Dose: 5 mg Pantoprazole Sodium (Protonix Tab*) 40 mg PO DAILY [facility] Last Admin: 03/21/19 08:15 Dose: 40 mg Pharmacy Profile Note (Lidocaine Patch Remove*) 1 note PATCH OFF BEDTIME [facility] Last Admin: 03/20/19 22:04 Dose: 1 note Polyethylene Glycol/Electrolytes (Miralax*) 17 gm PO DAILY [facility] Last Admin: 03/21/19 08:19 Dose: Not Given Senna (Senokot 8.6 Mg Tab*) 1 tab PO DAILY [facility] Last Admin: 03/21/19 08:19 Dose: Not Given Tramadol HCl (Ultram*) 50 mg PO Q6H PRN PRN Reason: PAIN - MODERATE Last Admin: 03/21/19 10:45 Dose: 50 mg Vital Signs - 8 hr 03/21/19 03/21/19 03/21/19 07:33 08:00 08:14 Temperature 97.8 F Pulse Rate 77 Respiratory 16 16 18 Rate Blood Pressure 136/79 (mmHg) O2 Sat by Pulse 99 Oximetry 03/21/19 03/21/19 03/21/19 08:15 10:45 10:46 Temperature Pulse Rate Respiratory 18 18 16 Rate Blood Pressure (mmHg) O2 Sat by Pulse Oximetry 03/21/19 03/21/19 03/21/19 11:04 12:16 13:24 Temperature 99.8 F Pulse Rate 81 Respiratory 18 18 18 Rate Blood Pressure 122/81 (mmHg) O2 Sat by Pulse 96 Oximetry 03/21/19 14:46 Temperature Pulse Rate Respiratory 17 Rate Blood Pressure (mmHg) O2 Sat by Pulse Oximetry Oxygen Devices in Use Now: None Appearance: This is a well developed older adult seen resting in bed, mildly distressed. Eyes: No Scleral Icterus, PERRLA Ears/Nose/Mouth/Throat: NL Teeth, Lips, Gums, Clear Oropharnyx, Mucous Membranes Moist Neck: NL Appearance and Movements; NL JVP, Trachea Midline Respiratory: Symmetrical Chest Expansion and Respiratory Effort, Clear to Auscultation Cardiovascular: NL Sounds; No Murmurs; No JVD, RRR, No Edema Abdominal: NL Sounds; No Tenderness; No Distention Lymphatic: No Cervical Adenopathy Extremities: No Edema, No Clubbing, Cyanosis Skin: No Rash or Ulcers, No Nodules or Sclerosis Neurological: Alert and Oriented x 3 Lines/Tubes/Other Access: Clean, Dry and Intact Peripheral IV - Nutrition: Malnutrition Diagnosis/Plan Malnutrition Assessment by Registered Dietitian: Malnutrition Assessment Clinical Characteristics Acute,Moderate Malnutrition Assessment: sig wt loss x 1 mo: 4.7-5.4% Criteria muscle wasting at clavicle on observation < 75% of EEE x > 7 days Malnutrition Assessment: regular diet Interventions cottage cheese w/fresh fruit @ 3 pm daily: 123 kcals, 9.5 g pro Malnutrition Assessment: Goals 1. Intake will remain >75% of meals and will support stable wt without further unintended wt loss 2. Intake will support wound healing/skin integrity Result Diagrams: 03/19/19 13:29 03/20/19 08:57 Microbiology and Other Data: Microbiology 03/17/19 13:00 Aerobic Blood Culture - Preliminary Blood Venous No Growth Day 1 Anaerobic Blood Culture - Preliminary No Growth Day 1 03/17/19 12:21 Aerobic Blood Culture - Preliminary Blood Venous No Growth Day 1 Anaerobic Blood Culture - Preliminary No Growth Day 1 Assess/Plan/Problems-Billing Assessment: This is a 79 year old female with a recent PMH of septic right shoulder and bacteremia who was admitted on 03/17/19 for altered mental status, likely secondary to urinary tract infection. - Patient Problems (1) UTI (urinary tract infection) Current Visit: Yes Status: Acute Comment: -Urine is positive for klebsiella and E.coli. Continue treatment with ceftriaxone. -Asymptomatic at this time. I feel this may have contributed to her altered mental status prior to arrival. (2) Electrolyte abnormality Current Visit: Yes Status: Acute Code(s): E87.8 - OTH DISORDERS OF ELECTROLYTE AND FLUID BALANCE, NEC SNOMED Code(s): 472509456 Comment: -Potassium and magnesium low, repleted. -Resolved. (3) MSSA bacteremia Current Visit: No Status: Acute Code(s): R78.81 - BACTEREMIA SNOMED Code(s ): 599818783 Comment: -Diagnosed upon previous admission which has since resolved. Dr. Meredith consulted on patient for follow up, recommended we continue use of ceftriaxone for her current UTI. (4) Left flank pain Current Visit: Yes Status: Acute Code(s): R10.9 - UNSPECIFIED ABDOMINAL PAIN SNOMED Code(s): 489311754 Comment: -Started several weeks ago. Described as intermittent, sharp. CT scan showed worsening T11 compression fracture. -Fitted for TLSO brace from [employer]. -MRI showed likely osteomyelitis/discitis to T11 vertebrae. Katty Guevara NP, consulted for ABX guidance, will need a 6 week course. PICC ordered. Feel that this may be a seeded infection from her recent bacteremia. -Scheduled tylenol TID, continue gabapentin, naproxen and oxycodone. (5) GERD (gastroesophageal reflux disease) Current Visit: No Status: Acute Code(s): K21.9 - GASTRO-ESOPHAGEAL REFLUX DISEASE WITHOUT ESOPHAGITIS SNOMED Code(s): 851534387 Comment: -Asymptomatic. Continue protonix. (6) Post herpetic neuralgia Current Visit: No Status: Acute Code(s): B02.29 - OTHER POSTHERPETIC NERVOUS SYSTEM INVOLVEMENT SNOMED Code(s): 4412184 Comment: -S/P shingles, has improved. Continue gabapentin. (7) DVT prophylaxis Current Visit: No Status: Acute Code(s): Z29.9 - ENCOUNTER FOR PROPHYLACTIC MEASURES, UNSPECIFIED SNOMED Code(s): 576248076 Comment: - lovenox SQ (8) DNR (do not resuscitate) Current Visit: No Status: Acute Status and Disposition: Disposition: Admit in to Condition: Fair Attending: Rosanne [place]
[2019-03-21] MEDS: Lidocaine Patch REMOVE* 1 NOTE MISC PATCH OFF SCH (20:16)
[2019-03-21] MEDS ORDERED: Gabapentin CAP(*) 400 MG PO SCH (21:00)
[2019-03-21] MEDS: ceFAZolin 2 GM PREMIX in ORs 2 GM/50 ML BAG IVPB SCH (23:34)
[2019-03-22] MEDS: oxyCODONE TAB* 5 MG TAB PO PRN (06:30)
[2019-03-22] MEDS: Lidocaine PATCH 5%* 1 PATCH TRANSDERM SCH (08:04)
[2019-03-22] MEDS: Acetaminophen TAB* 325 MG PO SCH (08:05)
[2019-03-22] MEDS: Cholecalciferol TAB* 1000 UNITS PO SCH (08:05)
[2019-03-22] MEDS: Lactobacillus Acidophilus* 1 TAB PO SCH (08:06)
[2019-03-22] MEDS: Gabapentin CAP(*) 100 MG PO SCH (08:06)
[2019-03-22] MEDS: Pantoprazole TAB * 40 MG TAB PO SCH (08:06)
[2019-03-22] MEDS: Senna TAB 8.6 mg* TAB PO SCH (08:06)
[2019-03-22] MEDS: ceFAZolin 2 GM PREMIX in ORs 2 GM/50 ML BAG IVPB SCH (08:06)
[2019-03-22] MEDS: Polyethylene Glycol 3350* 17 GM PACKET PO SCH (08:07)
[2019-03-22 13:03] VITALS: BP 112/62
--- NOTE | 2019-03-22 14:32 | DS ---
CC: Dr. Jessica Mayen * DISCHARGE SUMMARY: DATE OF ADMISSION: 03/17/19 DATE OF DISCHARGE: 03/22/19. PROVIDER: Carrie Blakely NP ATTENDING PHYSICIAN: Dr. Huertas.* (DICTATED BY CARRIE BLAKELY NP) PRIMARY CARE PHYSICIAN: Dr. Jessica Mayen. CONSULTING PHYSICIANS: Dr. Light and Katty Quevedo NP. PRIMARY DIAGNOSES: 1. Urinary tract infection. 2. T11 compression fracture with osteomyelitis. SECONDARY DIAGNOSES: 1. Recent history of septic shoulder and pleural effusion growing methicillin- susceptible Staphylococcus aureus. 2. Osteoporosis. 3. Gastroesophageal reflux disease. 4. Arthritis. 5. Postherpetic neuralgia. DIAGNOSTIC STUDIES: MRI of the thoracic spine with and without contrast showed vertebra plana with bone edema consistent with subacute compression fracture of T11 with moderate osseous retropulsion resulting in severe narrowing of the central canal at T11. Additionally, there is extensive edema and enhancement of T11 and the adjacent vertebral bodies given the associated erosive change noted on CT. This is most consistent with osteomyelitis/diskitis. There is no appreciable epidural fluid collection. There are several bilateral neural foraminal narrowing at T10-T11 and T11-T12. There are chronic appearing compression fractures of T4 and L1. There is loculated right pleural effusion corresponding with the findings noted on previous CT. EKG showed sinus rhythm. CT of the abdomen and pelvis showed a new small loculated right base pleural effusion with thickened canseco and pleural calcification consistent with empyema with adjacent likely round atelectasis and/or parenchymal scarring, but cannot exclude a component of right lower lobe pneumonia. There is a stable small hiatal hernia and there is worsening severe compression fracture of the T11 vertebral body with new endplate erosive changes at the T12 superior endplate and the T10 inferior endplate, cannot exclude diskitis and osteomyelitis, may be more accurately assessed with MRI thoracic spine without and with IV gadolinium. Chest x-ray showed right basal atelectasis, no definite pneumonia identified. EEG was a normal awake. There were no focal or epileptiform abnormalities. PERTINENT LAB DATA: RBC 3.53, hemoglobin 10.0, hematocrit 30, RDW 16. Calcium 8.5. C-reactive protein 7.57. Urine had 1+ protein, 3+ blood, 2+ leukocyte esterase, 3+ wbc, 3+ rbc, 2+ bacteria, hyaline casts present. Urine was positive for Escherichia coli and Klebsiella pneumoniae. HISTORY OF PRESENT ILLNESS/HOSPITAL COURSE: This is a 79-year-old female with past medical history significant for recent hospitalization that lasted over 3 weeks for bacteremia related MSSA and an infected shoulder as well as parapneumonic effusion from which MSSA also grew, who presented to the emergency room on 03/17/19 for altered mental status lasting 2 days, and on , she was markedly lethargic. In the emergency room, she had labs drawn, urine was sent, EKG performed, and chest x-ray done. Venous blood gas was obtained due to the possibility for hypercarbia as her CO2 and BNP had been trending up in the past months. The urine showed positive for UTI, which could explain her altered mental status. There was also concern that her gabapentin and oxycodone use may have contributed to her altered mental status. Blood cultures were drawn. The patient was started on ceftriaxone and received a liter of IV fluid in the emergency room. The next day on 03/18/19, ceftriaxone was continued. EEG was performed, which showed no abnormalities. Dr. Meredith was consulted per the patient's request because she was due for a followup the other day previously. Both Dr. Meredith and myself had noted this sharp left radiating posterior flank pain, which made the patient restless, was unsure of its origin. An abdominal pelvic CT scan was performed, which showed a worsening T11 compression fracture with the possibility of osteomyelitis. This would explain why she was having ongoing persistent pain through the admission as well as while she was at [facility] recovering from her previous hospitalization. It is unclear as to when this began. The patient stated that before her previous admission in January she had fallen, though however, at that time was in significant pain and was unsure whether that was just due to her other previously treated conditions of a septic shoulder and empyema or if it was due to her compression fracture. The patient's pain was managed with Tylenol 975 three times a day and was also managed with gabapentin. Initially, she was hesitant to take her oxycodone because she had been told that this may have contributed to why she was here; however, she was consistently rating her pain at a 9/10 and the decision was made to restart it and she has responded well thus far without any neurological changes. Dr. Mac was spoken to for guidance for how to take care of this T11 fracture. He suggested a TLSO brace and an MRI of the spine. On 03/21/19, MRI was performed which confirmed the presence of osteomyelitis. Infectious Disease came to see her and suggested that she go on 6 weeks of IV cefazolin. A PICC line was placed. The patient was fitted with a TLSO brace from [facility] which seems to help with her pain control. Today, on 03/22/19. she feels tired, however, she feels that she is happy with having the brace and is just generally frustrated with the amount of pain that she has consistently been in even though the medication helps. REVIEW OF SYSTEMS: A 11-point system review was performed which was positive for radiating left back pain, occasional urinary incontinence, fatigue. Negative for any chest pain, shortness of breath, fever, chills, palpitations, abdominal pain, nausea, vomiting. She is moving her bowels. PHYSICAL EXAM: Vital Signs: 98.2 Fahrenheit, 85 pulse, 16 respiratory, 97% oxygen on room air, 135/94 blood pressure. General: This is a well-developed older woman, pale in appearance, seen standing up at the edge of bed with brace on, appeared steady. HEENT: Conjunctivae pink and moist. PERRLA. EOMs intact. Oropharynx clear. Mucous membranes moist. Neck is supple. Cardiac: S1 , S2 present. Occasional murmur heard, systolic murmur heard grade 1. No gallops or rubs appreciated. Respiratory: Lung sounds clear throughout bilaterally on room air. No accessory muscle use noted. Abdomen is soft, nontender, nondistended with positive bowel sounds x4. Musculoskeletal: Able to move all extremities. Able to dorsi/plantar flex. 5/5 strength to bilateral upper and lower extremities. Neurological: No focal deficits appreciated. Tongue midline. Smile is symmetrical. Skin: Intact. No rashes or lesions noted. Psych: She is alert and oriented x4 though anxious. DISCHARGE PLAN: Diet is to be as tolerated. Activity: She is to wear the brace when out of bed for comfort. She should avoid twisting and bending. Return precautions: She is to return to the hospital should her pain worsen or develop any further incontinence or weakness or numbness or tingling in one or both of her lower extremities or if she develops a fever of 101 degrees or higher. PLAN FOR EACH CONDITION: 1. Her UTI has resolved. She has received a total of 5 days of ceftriaxone and is no longer having any symptoms. 2. T11 compression fracture with osteomyelitis. She is to get 6 weeks of cefazolin 2 g IV every 8 hours and to follow up with Infectious Disease in 2 weeks. Should draw a CBC and a BMP to check electrolytes and her kidneys in 1 week. She has already expressed that she does not wish to have any surgery on her back, so there is no need for neurosurgery followup. The patient is to have PICC care as per protocol with dressing changes once a week and heparin flushes daily. 3. GERD. She is asymptomatic to continue her Protonix. 4. Postherpetic neuralgia status post shingles infection as of this year. She still has intermittent pain to the right flank. She is to continue her gabapentin. DISCHARGE MEDICATIONS: Medications to continue at [facility]: 1. Magnesium oxide 30 mL p.o. q.6 hours p.r.n. 2. Pantoprazole 40 mg p.o. daily. 3. Calcium carbonate/vitamin D3 one tab p.o. daily. 4. Senna 1 tab p.o. daily. 5. Polyethylene glycol 17 g p.o. daily. 6. Lidocaine patch 5% one patch transdermally to left lower back. 7. Lactobacillus acidophilus 1 tab p.o. b.i.d. 8. Docusate 100 mg p.o. daily p.r.n. 9. Cholecalciferol 2000 units p.o. daily. 10. Acetaminophen 975 mg p.o. t.i.d. 11. Calcitonin 1 spray in each nostril every other day. 12. Diclofenac 1% gel 2 g topically 4 times a day. 13. Gabapentin 300 mg p.o. b.i.d. 14. Oxycodone 5 to 10 mg p.o. q.6 hours p.r.n. 15. Gabapentin 600 mg p.o. daily in the morning. 16. Furosemide 20 mg p.o. daily. 17. Cefazolin 2 g IV q.8 hours for 6 weeks. 18. Naproxen 250 mg p.o. q.12 hours p.r.n. CONDITION UPON DISCHARGE: Stable. DISPOSITION: [place]. TIME SPENT: Time spent on patient is about 50 minutes with half of that spent face- to-face. CARRIE BLAKELY, AYDEN [id number]/[facility] #: [id number] JUAN
== END 2019-03-22 13:00 | DRG 689 ==
LOC: ED 11:50 → MED 14:37
PROVIDERS: ADMIT Internal Medicine; ATTEND Internal Medicine
PROC: 4A00X4Z Measurement of Central Nervous Electrical Activity, External Approach (ICD-10-PCS; 2019-03-18)
PROC: 02HV33Z Insertion of Infusion Device into Superior Vena Cava, Percutaneous Approach (ICD-10-PCS; principal; 2019-03-21)
DX: N39.0 Urinary tract infection, site not specified (principal); G92 Toxic encephalopathy; J86.9 Pyothorax without fistula; J18.9 Pneumonia, unspecified organism; E87.2 Acidosis; M48.54XA Collapsed vertebra, not elsewhere classified, thoracic region, initial encounter for fracture; B02.29 Other postherpetic nervous system involvement; M46.24 Osteomyelitis of vertebra, thoracic region; J98.11 Atelectasis; J90 Pleural effusion, not elsewhere classified; E44.0 Moderate protein-calorie malnutrition; M81.0 Age-related osteoporosis without current pathological fracture; Z66 Do not resuscitate; K21.9 Gastro-esophageal reflux disease without esophagitis; M19.90 Unspecified osteoarthritis, unspecified site; M48.56XD Collapsed vertebra, not elsewhere classified, lumbar region, subsequent encounter for fracture with routine healing; E83.42 Hypomagnesemia; E87.6 Hypokalemia; M48.54XD Collapsed vertebra, not elsewhere classified, thoracic region, subsequent encounter for fracture with routine healing; E86.0 Dehydration; I95.9 Hypotension, unspecified; B96.20 Unspecified Escherichia coli [E. coli] as the cause of diseases classified elsewhere; B96.1 Klebsiella pneumoniae [K. pneumoniae] as the cause of diseases classified elsewhere; Z79.1 Long term (current) use of non-steroidal anti-inflammatories (NSAID); Z79.891 Long term (current) use of opiate analgesic; Z79.899 Other long term (current) drug therapy; Z68.22 Body mass index [BMI] 22.0-22.9, adult
CPT/HCPCS: 36415; 71045; 72070; 72157; 74177; 80048; 80053; 81003; 82803; 83605; 83735; 85025; 85027; 86140; 87040; 87493; 93005; 95816; 99284; A9270-GY; A9579; C1751; J0690; J0696; J1650; J2405; J3475; Q9967

== ENCOUNTER 2019-10-04 21:43 | Inpatient (IN) ==
[2019-10-04] MEDS ORDERED: NS 0.9% 1000 ml BAG 1,000 ML IV ONE (21:48)
[2019-10-04] MEDS: Naloxone 0.4 mg VIAL 0.4 mg/ml 1 ml VIAL IV PUSH ONE (22:10)
[2019-10-04 22:36] LABS: ABS Lymphocytes 0.6 10^3/ul (1.0-4.8); ABS Monocytes 0.5 10^3/ul (0-0.8); Hematocrit 39 % (35-47); Lymphocyte % 4.8 %; Mean Corpuscular HGB Conc 33 g/dL (31-36); Mean Corpuscular Hemoglobin 28 pg (27-31); Mean Corpuscular Volume 86 fL (80-97); Mean Platelet Volume 7.6 fL (7.4-10.4); Platelet Count 344 10^3/uL (150-450); Red Blood Count 4.57 10^6 /uL (3.70-4.87); Red Cell Distribution Width 16 % (10-15); White Blood Count 12.7 10^3/uL (3.5-10.8)
[2019-10-04 22:42] LABS: Urine Appearance Cloudy; Urine Bilirubin Negative (Negative); Urine Blood 2+ (Negative); Urine Color Yellow; Urine Glucose Negative (Negative); Urine Ketones Negative (Negative); Urine Nitrite Negative (Negative); Urine Protein Negative (Negative); Urine Specific Gravity 1.014 (1.010-1.030); Urine Urobilinogen Negative (Negative)
[2019-10-04 22:49] LABS: Urine Bacteria 1+ (Absent); Urine Red Blood Cell 3+(>10/hpf) (Absent); Urine White Blood Cell 2+(11-20/hpf) (Absent)
[2019-10-04 22:55] LABS: ALT 27 U/L (7-52); AST 30 U/L (13-39); Albumin 4.2 g/dL (3.2-5.2); Albumin/Globulin Ratio 1.2 (1-3); Alkaline Phosphatase 226 U/L (34-104); Anion Gap 6 mmol/L (2-11); BUN/Creatinine Ratio 26.5 (8-20); Blood Urea Nitrogen 26 mg/dL (6-24); CO2 Carbon Dioxide 29 mmol/L (22-32); Calcium 9.2 mg/dL (8.6-10.3); Chloride 102 mmol/L (101-111); EGFR African American 66.4 (>60); EGFR Non-African American 54.9 (>60); Globulin 3.4 g/dL (2-4); Glucose 140 mg/dL (70-100); Potassium 4.8 mmol/L (3.5-5.0); Sodium 137 mmol/L (135-145); Total Protein 7.6 g/dL (6.4-8.9)
[2019-10-04 22:59] LABS: Troponin I 0.04 ng/mL (<0.03); Urine Benzodiazepine Screen None Detected (None Detect); Urine Opiates Screen Presumptive Positive (None Detect)
[2019-10-04 23:08] LABS: Acetaminophen < 15 mcg/mL; Alcohol, S < 10 mg/dL (<10); Salicylate < 2.50 mg/dL (<30)
[2019-10-05] MEDS ORDERED: Naloxone 0.4 mg VIAL 0.4 mg/ml 1 ml VIAL IV PUSH ONE ×2 (01:30→04:27)
[2019-10-05] MEDS ORDERED: Naloxone 0.4 mg VIAL 0.4 mg/ml 1 ml VIAL ONE (01:32)
[2019-10-05] MEDS: Naloxone 0.4 mg VIAL 0.4 mg/ml 1 ml VIAL IV PUSH ONE (02:47)
[2019-10-05 03:20] LABS: Troponin I 0.03 ng/mL (<0.03)
[2019-10-05] MEDS ORDERED: Enoxaparin 40 MG/0.4 ML SYR SUBCUT SCH (09:00)
[2019-10-05] MEDS ORDERED: Naloxone 0.4 mg VIAL 2 MG in NS 0.9% 250 ml 245 ML IV SCH (11:00)
[2019-10-05 15:49] LABS: Phosphorus 4.9 mg/dL (2.5-5.0)
[2019-10-05] MEDS: CMCS:Rosuvastatin 5 mg TAB (NF) PO SCH (18:15)
[2019-10-05] MEDS: SACUBITRIL PO SCH (21:52)
[2019-10-05] MEDS: VALSARTAN PO SCH (21:52)
[2019-10-06 08:07] LABS: ABS Basophils 0.1 10^3/ul (0-0.2); ABS Eosinophils 0.2 10^3/ul (0-0.6); ABS Lymphocytes 1.1 10^3/ul (1.0-4.8); ABS Monocytes 0.8 10^3/ul (0-0.8); Eosinophil % 1.8 %; Hematocrit 40 % (35-47); Hemoglobin 13.5 g/dL (12.0-16.0); Lymphocyte % 11.2 %; Mean Corpuscular HGB Conc 34 g/dL (31-36); Mean Corpuscular Hemoglobin 29 pg (27-31); Mean Corpuscular Volume 85 fL (80-97); Mean Platelet Volume 8.6 fL (7.4-10.4); Platelet Count 317 10^3/uL (150-450); Red Cell Distribution Width 16 % (10-15); White Blood Count 10.1 10^3/uL (3.5-10.8)
[2019-10-06 08:17] LABS: BUN/Creatinine Ratio 22.1 (8-20); Calcium 9.8 mg/dL (8.6-10.3); EGFR African American 87.7 (>60); EGFR Non-African American 72.5 (>60); HDL Cholesterol 49.5 mg/dL; Potassium 3.7 mmol/L (3.5-5.0)
[2019-10-06] MEDS: Calcium Carb 1250 mg TAB (500 mg elemental calcium) PO SCH (09:35)
[2019-10-06] MEDS: Polyethylene Glycol 3350 17 GM PACKET PO SCH (09:36)
[2019-10-06] MEDS: SACUBITRIL PO SCH (09:47)
[2019-10-06] MEDS: VALSARTAN PO SCH (09:47)
[2019-10-06 12:28] LABS: TSH (Thyroid Stimulating Horm) 1.92 mcIU/mL (0.34-5.60)
[2019-10-07 07:35] LABS: ABS Basophils 0.1 10^3/ul (0-0.2); ABS Eosinophils 0.2 10^3/ul (0-0.6); ABS Lymphocytes 1.6 10^3/ul (1.0-4.8); ABS Monocytes 0.9 10^3/ul (0-0.8); Eosinophil % 2.9 %; Hematocrit 33 % (35-47); Hemoglobin 11.3 g/dL (12.0-16.0); Lymphocyte % 22.8 %; Mean Corpuscular HGB Conc 34 g/dL (31-36); Mean Corpuscular Hemoglobin 29 pg (27-31); Mean Corpuscular Volume 84 fL (80-97); Mean Platelet Volume 7.9 fL (7.4-10.4); Nucleated Red Blood Cells % 0.1; Platelet Count 264 10^3/uL (150-450); Red Blood Count 3.91 10^6 /uL (3.70-4.87); Red Cell Distribution Width 16 % (10-15); White Blood Count 6.8 10^3/uL (3.5-10.8)
[2019-10-07 07:51] LABS: BUN/Creatinine Ratio 37.1 (8-20); Calcium 8.8 mg/dL (8.6-10.3); EGFR African American 74.2 (>60); EGFR Non-African American 61.3 (>60)
[2019-10-07] MEDS: CMCS:Calcitonin NASAL(NF) 200 UNITS/SPRAY NASAL.SPR INTRANASAL SCH (08:39)
[2019-10-07] MEDS: Calcium Carb 1250 mg TAB (500 mg elemental calcium) PO SCH (08:40)
[2019-10-07] MEDS ORDERED: Calcitonin NASAL(NF) 200 UNITS/SPRAY NASAL.SPR INTRANASAL SCH (09:00)
[2019-10-07] MEDS: Polyethylene Glycol 3350 17 GM PACKET PO SCH (10:02)
[2019-10-07] MEDS: CMCS:Rosuvastatin 5 mg TAB (NF) PO SCH (16:31)
[2019-10-08 07:27] LABS: ABS Basophils 0.1 10^3/ul (0-0.2); ABS Eosinophils 0.2 10^3/ul (0-0.6); ABS Lymphocytes 1.5 10^3/ul (1.0-4.8); ABS Monocytes 0.9 10^3/ul (0-0.8); Eosinophil % 1.8 %; Hematocrit 36 % (35-47); Lymphocyte % 13.2 %; Mean Corpuscular HGB Conc 34 g/dL (31-36); Mean Corpuscular Hemoglobin 28 pg (27-31); Mean Corpuscular Volume 85 fL (80-97); Nucleated Red Blood Cells % 0.1; Platelet Count 295 10^3/uL (150-450); Red Blood Count 4.24 10^6 /uL (3.70-4.87); Red Cell Distribution Width 16 % (10-15); White Blood Count 11.5 10^3/uL (3.5-10.8)
[2019-10-08 07:37] LABS: BUN/Creatinine Ratio 35.3 (8-20); Calcium 9.2 mg/dL (8.6-10.3); EGFR African American 78.3 (>60); EGFR Non-African American 64.7 (>60); Magnesium 2.1 mg/dL (1.9-2.7); Potassium 4.1 mmol/L (3.5-5.0)
[2019-10-08] MEDS: Calcium Carb 1250 mg TAB (500 mg elemental calcium) PO SCH (08:02)
[2019-10-08] MEDS: Polyethylene Glycol 3350 17 GM PACKET PO SCH (08:03)
[2019-10-09] MEDS: CMCS:Calcitonin NASAL(NF) 200 UNITS/SPRAY NASAL.SPR INTRANASAL SCH (10:11)
[2019-10-09] MEDS: Calcium Carb 1250 mg TAB (500 mg elemental calcium) PO SCH (10:12)
[2019-10-09] MEDS: Polyethylene Glycol 3350 17 GM PACKET PO SCH (10:18)
[2019-10-10 06:25] LABS: ABS Eosinophils 0.1 10^3/ul (0-0.6); ABS Lymphocytes 1.1 10^3/ul (1.0-4.8); ABS Monocytes 0.4 10^3/ul (0-0.8); Eosinophil % 1.4 %; Hematocrit 37 % (35-47); Hemoglobin 12.4 g/dL (12.0-16.0); Lymphocyte % 17.4 %; Mean Corpuscular HGB Conc 34 g/dL (31-36); Mean Corpuscular Hemoglobin 28 pg (27-31); Mean Corpuscular Volume 84 fL (80-97); Platelet Count 312 10^3/uL (150-450); Red Blood Count 4.38 10^6 /uL (3.70-4.87); Red Cell Distribution Width 16 % (10-15); White Blood Count 6.4 10^3/uL (3.5-10.8)
[2019-10-10 06:44] LABS: BUN/Creatinine Ratio 23.2 (8-20); Calcium 9.1 mg/dL (8.6-10.3); EGFR African American 99.6 (>60); EGFR Non-African American 82.3 (>60); Potassium 3.7 mmol/L (3.5-5.0)
[2019-10-10] MEDS: Calcium Carb 1250 mg TAB (500 mg elemental calcium) PO SCH (09:01)
[2019-10-10] MEDS: CMCS:Rosuvastatin 5 mg TAB (NF) PO SCH (17:50)
[2019-10-11] MEDS: CMCS:Calcitonin NASAL(NF) 200 UNITS/SPRAY NASAL.SPR INTRANASAL SCH (08:51)
[2019-10-11] MEDS: Calcium Carb 1250 mg TAB (500 mg elemental calcium) PO SCH (08:51)
[2019-10-12] MEDS: Calcium Carb 1250 mg TAB (500 mg elemental calcium) PO SCH (08:56)
[2019-10-12] MEDS: CMCS:Rosuvastatin 5 mg TAB (NF) PO SCH (18:03)
[2019-10-13] MEDS: Calcium Carb 1250 mg TAB (500 mg elemental calcium) PO SCH (08:43)
[2019-10-13] MEDS: CMCS:Calcitonin NASAL(NF) 200 UNITS/SPRAY NASAL.SPR INTRANASAL SCH (08:44)
[2019-10-13 14:20] LABS: Urine Appearance Clear; Urine Bilirubin Negative (Negative); Urine Blood 1+ (Negative); Urine Color Yellow; Urine Glucose Negative (Negative); Urine Ketones Negative (Negative); Urine Nitrite Negative (Negative); Urine Protein Negative (Negative); Urine Specific Gravity 1.017 (1.010-1.030); Urine Urobilinogen Negative (Negative)
[2019-10-13 14:24] LABS: Urine Bacteria Absent (Absent); Urine Red Blood Cell Trace(0-2/hpf) (Absent); Urine Squamous Epithelial Cell Present (Absent); Urine White Blood Cell Trace(0-5/hpf) (Absent)
[2019-10-14] MEDS: Calcium Carb 1250 mg TAB (500 mg elemental calcium) PO SCH (08:10)
[2019-10-14 10:24] VITALS: BP 131/64
== END 2019-10-14 15:55 | disposition home or self-care (01) | DRG 885 ==
LOC: ED 21:43 → ICU 10-05 08:55 → BSU 10-05 16:51
PROVIDERS: ADMIT Internal Medicine; ATTEND Internal Medicine